=== PATIENT | male | born 1955 | race American Indian/Alaskan Native ===

== ENCOUNTER 2016-11-01 15:30 | Inpatient (IN) | payer MEDICARE ==
[2016-11-01] MEDS ORDERED: DULCOLAX PR PRN (16:41)
[2016-11-01] MEDS ORDERED: SENOKOT PO PRN (16:41)
--- NOTE | 2016-11-01 17:01 | History and Physical Report ---
History of Present Illness Date: 11/01/16 Referring Facility: [facility] Date of admission: 11/01/16 15:30 Chief Complaint: acute/subacute left ANGELA CVA History of present illness: POST ADMISSION PHYSICIAN EVALUATION ONSET DATE: 10/29/2016 IMPAIRMENT GROUP CODE: 01.2 ETIOLOGIC DIAGNOSIS: acute/subacute left ANGELA CVA STATUS CHANGES SINCE PREADMISSION SCREENING: PAS has been reviewed. In comparison, pt with increased drainage at right ear with associated complaints of dizziness. Also with increased weakness at right extremities representing evolution of CVA vs decreased effort. Pt continues with ongoing functional deficits secondary to acute CVA. Pt remains an appropriate candidate for IRU admission. PREVIOUS FUNCTIONAL STATUS: Independent with ADLs, gait, transfers CURRENT FUNCTIONAL STATUS: S/U to modA for ADLs; Lance/CGA for gait HPI 61 y.o. right handed male who reports acute onset of right LE weakness and subsequent fall at home; BP 191/88 on admission. Pt found to have an acute/ subacute left ANGELA CVA. Acute care course notable for intermittent headache and dizziness; right ear drainage; acute renal failure; SBP ranging from 162-200/80- 106. Pt continued with right sided weakness with functional deficits and is now admitted to IRU for aggressive therapies and ongoing medical management. Past History Past Medical History: arthritis, COPD, GERD, hypertension, other (chronic back pain) Past Surgical History: Other (shoulder surgery; neck surgery) Social history: single, lives with family (brother), smoking. denies: alcohol abuse Family history: diabetes, hypertension, stroke Medications and Allergies Allergies Allergy/AdvReac Type Severity Reaction Status Date / Time No Known Allergies Allergy Verified 03/25/15 12:10 Home Medications Medication Instructions Recorded Confirmed Last Taken Type Pantoprazole [Protonix TAB] 40 mg PO QDAY #60 tablet 09/29/14 11/01/16 Unknown Rx Aspirin EC [Aspirin Enteric Coated 81 mg PO QDAY #30 tablet. 11/01/16 Unknown Rx TAB] Hydrochlorothiazide [HCTZ] 25 mg PO QDAY #30 tablet 11/01/16 11/01/16 Unknown Rx Lisinopril [Zestril TAB] 40 mg PO QDAY #30 tablet 11/01/16 11/01/16 Unknown Rx NIFEdipine XL [Procardia Xl] 60 mg PO QDAY tablet 11/01/16 11/01/16 Unknown Rx Nicotine [Habitrol] 14 mg TD QDAY patch 11/01/16 11/01/16 Unknown Rx Simvastatin [Zocor TAB] 10 mg PO QHS tablet 11/01/16 11/01/16 Unknown Rx Active Meds: Active Medications Acetaminophen (Tylenol) 650 mg PO Q4H PRN PRN Reason: Pain MILD(1-3)/Fever >100.5/CLEARY Aspirin (Aspirin) 325 mg PO QDAY MAIK Bisacodyl (Dulcolax) 10 mg AK QDAY PRN PRN Reason: Constipation unrelieved by MOM Heparin Sodium (Porcine) (Heparin) 5,000 unit SUB-Q Q12HR MAIK Hydrochlorothiazide (Hctz) 25 mg PO QDAY MAIK Lisinopril (Zestril) 40 mg PO QDAY MAIK Nicotine (Habitrol) 14 mg TD QDAY MAIK Nifedipine (Procardia Xl) 60 mg PO QDAY MAIK Pantoprazole Sodium (Protonix) 40 mg PO QDAY MAIK Senna (Senokot) 8.6 mg PO Q12H PRN PRN Reason: Laxative Effect Simvastatin (Zocor) 10 mg PO QHS MAIK Review of Systems All systems: negative Ears, nose, mouth and throat: ear pain, ear discharge, decreased hearing, headache Cardiovascular: lightheadedness Gastrointestinal: constipation, no nausea, no vomiting Neurological: weakness (right extremities) Exam - Constitutional General appearance: no acute distress - EENT Eyes: EOM intact ENT: hearing decreased (+discharge from right ear) - Neck Neck: supple - Respiratory Respiratory effort: normal Respiratory: bilateral: CTA - Cardiovascular Rhythm: regular Heart Sounds: Present: S1 & S2 - Extremities Extremities: No edema - Gastrointestinal General gastrointestinal: Present: soft, non-tender, non-distended, normal bowel sounds - Integumentary Integumentary: Present: clear - Musculoskeletal Musculoskeletal: right sided weakness (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 right handed male with acute/subacute left ANGELA CVA, right hemiparesis, gait dysfunction; acute renal failure; right otitis media. The patient is medically stable, however, requires ongoing medical management. Pt is appropriate for inpatient rehabilitation admission and is thought to be able to tolerate at least 3 hours of therapy a day, 5 days a week including 1 hour of physical therapy, 1 hour of occupational therapy, and 1 hour of speech therapy. Patient is able to understand and follow basic directions and has attainable rehab goals. Potential barriers/complications include extension/recurrent CVA, falls, syncope, depression, DVT, PE, parasthesias, spasticity, worsening renal failure, sepsis, hypotension. Plan 1. Rehabilitation- Pt will undergo multidisciplinary/integrative rehab PT/OT/ TRIMMING CUTTER, Nursing. Areas to be addressed include, but are not limited to PT for mobility, strengthening, transfer training, ROM, endurance, stairs, balance; OT for ADLs, household tasks, adaptive equipment; TRIMMING CUTTER for cognitive evaluation; Nursing for carryover of therapies, pain control, education, skin integrity, medication management, bowel/bladder management; Nutrition as needed; ambulatory services representative for discharge planning and equipment needs. Potential interventions include appropriate assistive device or adaptive equipment; may require right AFO for foot drop. Expected overall level of functional improvement by discharge is Marc to supervision for ADLs, supervision for transfers and gait. Pt will tentatively be discharged home with outpatient PT/OT. Estimated length of stay is 1-2 weeks. 2. s/p CVA- ASA, statin 3. HTN- continue current regimen; follow to avoid hypotension 4. right otitis media- start augmentin x 7days 5. GERD- continue protonix 6. tobacco abuse- nicotine patch 7. Chronic pain syndrome- history of chronic back pain, prn percocet 8. DVT px- heparin - Patient Problems (1) Acute left ANGELA ischemic stroke Current Visit: Yes Status: Acute (2) Abnormality of gait following cerebrovascular accident (CVA) Current Visit: No Status: Acute (3) Hemiparesis affecting right side as late effect of cerebrovascular accident Current Visit: No Status: Acute (4) Acute renal failure Current Visit: Yes Status: Acute Qualifiers: Acute renal failure type: with acute tubular necrosis Qualified Code(s): N17.0 - Acute kidney failure with tubular necrosis (5) HTN (hypertension) Current Visit: Yes Status: Chronic Qualifiers: Hypertension type: essential hypertension Qualified Code(s): I10 - Essential (primary) hypertension (6) GERD (gastroesophageal reflux disease) Current Visit: Yes Status: Chronic Qualifiers: Esophagitis presence: without esophagitis Qualified Code(s): K21.9 - Gastro -esophageal reflux disease without esophagitis (7) Tobacco abuse Current Visit: Yes Status: Chronic (8) Chronic pain syndrome Current Visit: Yes Status: Chronic
[2016-11-01] MEDS: PERCOCET 5/325 PO PRN (19:57)
[2016-11-01] MEDS: ZOCOR PO SCH (21:00)
[2016-11-01] MEDS: AUGMENTIN 875 MG PO SCH (22:38)
[2016-11-01] MEDS: HEPARIN SUB-Q SCH (22:39)
[2016-11-02 05:23] LABS: Basophils % (Auto) 0.6 % (0.0-1.8); Eosinophils % (Auto) 0.2 % (0.0-4.3); Hematocrit 29.9 % (35.5-45.6); Hemoglobin 9.7 gm/dl (11.8-15.2); Mean Corpuscular HGB Conc 33 % (32-34); Mean Corpuscular Hemoglobin 30 pg (28-32); Mean Corpuscular Volume 94 fl (84-94); Platelet Count 285 K/mm3 (140-440); Red Cell Distribution Width 13.1 % (13.2-15.2); White Blood Count 12.5 K/mm3 (4.5-11.0)
[2016-11-02 05:47] LABS: Albumin/Globulin Ratio 0.8 %; BUN/Creatinine Ratio 11.36; Bilirubin,Total 0.4 mg/dL (0.1-1.2); Calcium 8.6 mg/dL (8.4-10.2); Chloride 101.6 mmol/L (98-107); Potassium 4.5 mmol/L (3.6-5.0); Total Protein 6.7 g/dL (6.3-8.2)
[2016-11-02] MEDS ORDERED: ZESTRIL PO SCH (08:00)
[2016-11-02] MEDS ORDERED: HCTZ PO SCH (08:00)
[2016-11-02] MEDS: PERCOCET 5/325 PO PRN ×3 (10:10→23:15)
[2016-11-02] MEDS: PROCARDIA XL PO SCH (10:11)
[2016-11-02] MEDS: AUGMENTIN 875 MG PO SCH (10:11)
[2016-11-02] MEDS: ASPIRIN PO SCH (10:11)
[2016-11-02] MEDS: HABITROL TD SCH (10:11)
[2016-11-02] MEDS: PROTONIX PO SCH (10:11)
[2016-11-02] MEDS: HEPARIN SUB-Q SCH ×2 (10:12→21:11)
--- NOTE | 2016-11-02 14:48 | Progress Note ---
Assessment and Plan 61 y.o. right handed male with acute/subacute left ANGELA CVA, right hemiparesis, gait dysfunction; acute renal failure; right otitis media - s/p CVA- ASA, statin - HTN- continue procardia - right otitis media- augmentin through 11/08; noted leukocytosis and fever overnight - acute renal failure- hold lisinopril and HCTZ; follow - anemia- follow - DVT px- heparin - recheck labs, 11/04 - Patient Problems (1) Acute left ANGELA ischemic stroke Current Visit: Yes Status: Acute (2) Abnormality of gait following cerebrovascular accident (CVA) Current Visit: No Status: Acute (3) Hemiparesis affecting right side as late effect of cerebrovascular accident Current Visit: No Status: Acute (4) Acute renal failure Current Visit: Yes Status: Acute Qualifiers: Acute renal failure type: with acute tubular necrosis Qualified Code(s): N17.0 - Acute kidney failure with tubular necrosis (5) HTN (hypertension) Current Visit: Yes Status: Chronic Qualifiers: Hypertension type: essential hypertension Qualified Code(s): I10 - Essential (primary) hypertension Subjective Date of service: 11/02/16 Principal diagnosis: acute/subacute left ANGELA CVA Interval history: Pt seen in room this AM, F/U IPR course, acute/subacute left ANGELA CVA. Pt continues with right ear pain; low grade temp overnight Objective - Constitutional Vitals: Vital Signs - 12hr 11/02/16 07:30 Temperature 97.8 F Pulse Rate [ 104 H Left Brachial] Respiratory 20 Rate Blood Pressure 139/73 [Left Arm] O2 Sat by Pulse 100 Oximetry General appearance: Present: mild distress (ear pain) - EENT Eyes: EOM intact ENT: hearing decreased, poor dentition - Neck Neck: supple, normal ROM - Respiratory Respiratory effort: normal Respiratory: bilateral: CTA - Cardiovascular Rhythm: regular Heart Sounds: Present: S1 & S2 Extremities: No edema - Gastrointestinal General gastrointestinal: Present: soft, non-tender, non-distended, normal bowel sounds - Integumentary Integumentary: dry - Musculoskeletal Musculoskeletal: right sided weakness (3/5 RUE; no active movement at RLE) - Neurologic Neurologic: CNII-XII intact - Psychiatric Psychiatric: cooperative (flat affect) - Allied health notes Allied health notes reviewed: PT (modA for bed mobility) - Labs CBC & Chem 7: 11/02/16 04:09 11/02/16 04:09 Labs: Abnormal lab results 11/02/16 11/02/16 Range/Units 04:09 04:09 WBC 12.5 H (4.5-11.0) K/mm3 RBC 3.20 L (3.65-5.03) M/mm3 Hgb 9.7 L (11.8-15.2) gm/dl Hct 29.9 L (35.5-45.6) % RDW 13.1 L (13.2-15.2) % Clinch # 0.9 H (0.0-0.8) K/mm3 Seg Neutrophils % 77.2 H (40.0-70.0) % Seg Neutrophils # 9.7 H (1.8-7.7) K/mm3 Sodium 136 L (137-145) mmol/L Carbon Dioxide 19 L (22-30) mmol/L BUN 25 H (9-20) mg/dL Creatinine 2.2 H (0.8-1.5) mg/dL Glucose 107 H (75-100) mg/dL Albumin 3.0 L (3.9-5) g/dL
[2016-11-02] MEDS: ZOCOR PO SCH (21:10)
[2016-11-02] MEDS: AUGMENTIN 500 MG PO SCH (21:11)
[2016-11-03] MEDS: ASPIRIN PO SCH (09:08)
[2016-11-03] MEDS: PROTONIX PO SCH (09:09)
[2016-11-03] MEDS: AUGMENTIN 500 MG PO SCH ×2 (09:09→21:24)
[2016-11-03] MEDS: HABITROL TD SCH (09:09)
[2016-11-03] MEDS: PROCARDIA XL PO SCH (09:10)
[2016-11-03] MEDS: HEPARIN SUB-Q SCH ×2 (09:11→21:25)
--- NOTE | 2016-11-03 16:24 | Progress Note ---
Assessment and Plan 61 y.o. right handed male with acute/subacute left ANGELA CVA, right hemiparesis, gait dysfunction; acute renal failure; right otitis media - s/p CVA- ASA, statin - HTN- stable on procardia - right otitis media- augmentin through 11/08; repeat labs in AM, no further fever - acute renal failure- recheck labs in AM - anemia- labs in AM - DVT px- heparin - team conference held this AM- pt is continent of B/B; last BM on Monday; improving ear pain, ongoing weakness and functional deficits; modA for bed mobility and transfers, maxA 50 feet for gait, maxA for stairs; max for memory and problem solving. - Patient Problems (1) Acute left ANGELA ischemic stroke Current Visit: Yes Status: Acute (2) Abnormality of gait following cerebrovascular accident (CVA) Current Visit: No Status: Acute (3) Hemiparesis affecting right side as late effect of cerebrovascular accident Current Visit: No Status: Acute (4) Acute renal failure Current Visit: Yes Status: Acute Qualifiers: Acute renal failure type: with acute tubular necrosis Qualified Code(s): N17.0 - Acute kidney failure with tubular necrosis (5) HTN (hypertension) Current Visit: Yes Status: Chronic Qualifiers: Hypertension type: essential hypertension Qualified Code(s): I10 - Essential (primary) hypertension (6) Right acute otitis media Current Visit: Yes Status: Acute Subjective Date of service: 11/03/16 Principal diagnosis: acute/subacute left ANGELA CVA Interval history: Pt seen in room this afternoon, F/U IPR course, acute/subacute left ANGELA CVA. Right ear pain reported to be improving, less drainage Objective - Constitutional Vitals: Vital Signs - 12hr 11/03/16 11/03/16 08:00 16:00 Temperature 97.7 F 97.7 F Pulse Rate [ 83 91 H Left Brachial] Respiratory 20 20 Rate Blood Pressure 137/77 124/69 [Left Arm] O2 Sat by Pulse 99 98 Oximetry General appearance: Present: no acute distress - EENT Eyes: EOM intact ENT: hearing intact, other (no drainage appreciated in right ear during exam) - Neck Neck: supple, normal ROM - Respiratory Respiratory effort: normal Extremities: No edema - Musculoskeletal Musculoskeletal: right sided weakness - Neurologic Neurologic: CNII-XII intact - Psychiatric Psychiatric: cooperative (flat affect) - Labs CBC & Chem 7: 11/02/16 04:09 11/02/16 04:09
[2016-11-03] MEDS: TYLENOL PO PRN (19:48)
[2016-11-03] MEDS: ZOCOR PO SCH (21:24)
[2016-11-04 05:19] LABS: Hematocrit 29.8 % (35.5-45.6); Hemoglobin 9.8 gm/dl (11.8-15.2); Mean Corpuscular HGB Conc 33 % (32-34); Mean Corpuscular Hemoglobin 30 pg (28-32); Mean Corpuscular Volume 93 fl (84-94); Platelet Count 354 K/mm3 (140-440); Red Blood Count 3.22 M/mm3 (3.65-5.03); Red Cell Distribution Width 13.1 % (13.2-15.2)
[2016-11-04 05:31] LABS: BUN/Creatinine Ratio 14.23; Calcium 8.6 mg/dL (8.4-10.2); Chloride 98.3 mmol/L (98-107); Potassium 4.3 mmol/L (3.6-5.0)
[2016-11-04] MEDS: AUGMENTIN 500 MG PO SCH ×2 (09:56→22:45)
[2016-11-04] MEDS: HABITROL TD SCH (09:57)
[2016-11-04] MEDS: ASPIRIN PO SCH (09:58)
[2016-11-04] MEDS: PROCARDIA XL PO SCH (09:58)
[2016-11-04] MEDS: PROTONIX PO SCH (09:58)
[2016-11-04] MEDS: HEPARIN SUB-Q SCH ×2 (09:59→22:45)
--- NOTE | 2016-11-04 12:12 | Progress Note ---
Assessment and Plan 61 y.o. right handed male with acute/subacute left ANGELA CVA, right hemiparesis, gait dysfunction; acute renal failure; right otitis media - s/p CVA- ASA, statin - HTN- stable on procardia - right otitis media- augmentin through 11/08; leukocytosis has resolved - acute renal failure- worsening; initiated on IVF; recheck in AM - anemia- stable - hyponatremia- follow - DVT px- heparin - Patient Problems (1) Acute left ANGELA ischemic stroke Current Visit: Yes Status: Acute (2) Abnormality of gait following cerebrovascular accident (CVA) Current Visit: No Status: Acute (3) Hemiparesis affecting right side as late effect of cerebrovascular accident Current Visit: No Status: Acute (4) Acute renal failure Current Visit: Yes Status: Acute Qualifiers: Acute renal failure type: with acute tubular necrosis Qualified Code(s): N17.0 - Acute kidney failure with tubular necrosis (5) HTN (hypertension) Current Visit: Yes Status: Chronic Qualifiers: Hypertension type: essential hypertension Qualified Code(s): I10 - Essential (primary) hypertension (6) Right acute otitis media Current Visit: Yes Status: Acute (7) Hyponatremia Current Visit: Yes Status: Acute Subjective Date of service: 11/04/16 Principal diagnosis: acute/subacute left ANGELA CVA Interval history: Pt seen in PT gym and in room on today, F/U IPR course, acute/subacute left ANGELA CVA. Right ear pain continues to improve; no drainage on today. Educated on need for IVF Objective - Constitutional Vitals: Vital Signs - 12hr 11/04/16 11/04/16 07:30 08:00 Temperature 98.7 F 97.6 F Pulse Rate [ 91 H 95 H Left Brachial] Respiratory 18 20 Rate Blood Pressure 147/75 151/80 [Left Arm] O2 Sat by Pulse 99 100 Oximetry General appearance: Present: no acute distress - EENT Eyes: EOM intact ENT: hearing intact - Neck Neck: supple, normal ROM - Respiratory Respiratory effort: normal Extremities: No edema - Musculoskeletal Musculoskeletal: right sided weakness - Neurologic Neurologic: CNII-XII intact - Psychiatric Psychiatric: cooperative (flat affect) - Allied health notes Allied health notes reviewed: PT (modA for transfers and gait; ambulated up to 60 feet with HW), OT (supervision to [place] for ADLs) - Labs CBC & Chem 7: 11/04/16 04:07 11/04/16 04:07 Labs: Abnormal lab results 11/04/16 11/04/16 Range/Units 04:07 04:07 RBC 3.22 L (3.65-5.03) M/mm3 Hgb 9.8 L (11.8-15.2) gm/dl Hct 29.8 L (35.5-45.6) % RDW 13.1 L (13.2-15.2) % Sodium 133 L (137-145) mmol/L Carbon Dioxide 21 L (22-30) mmol/L BUN 37 H (9-20) mg/dL Creatinine 2.6 H (0.8-1.5) mg/dL
--- NOTE | 2016-11-04 12:58 | IRU Plan of Care ---
Interdisciplinary Plan of Care - IP IRU INTERDISCIPLINARY PLAN: [facility] Inpatient Rehab Unit Plan of Care IRU Interdisciplinary Care Plan Start: 11/01/16 16: 30 Freq: Admission then PRN Status: Active Document 11/04/16 10:06 DB (Rec: 11/04/16 10:14 DB [id number]) Interdisciplinary Problem List Interdisciplinary Problem List Interdisciplinary Problem List Impaired Bathing/Grooming Query Text:Answers will Trigger Problems Impaired Dressing and Outcomes on Worklist. Impaired Mobility Impaired Transfers Impaired Toileting Impaired Comprehension Impaired Problem Solving Impaired Memory Pain Management Knowledge Deficits Impaired Safety Medications Education IRU Interdisciplinary Care Plan Therapy Services Therapy Services Will Include: Physical Therapy Query Text:Patient will be seen for a Occupational Therapy minimum of 3 hours of daily therapy 5 Speech Therapy out of 7 days a week. Therapy intensity may be adjusted within a 7 consecutive day period to effectively serve the individual needs of the patient. Treatment Frequency/Intensity/Duration Treatment Frequency 5 days per week Treatment Intensity 1 hour per discipline (PT/OT/ CORRECTIONAL THERAPY DIRECTOR) daily Treatment Duration 10-14 days Problem Area: Eating/Swallowing Eating/Swallowing Outcomes Eating/Swallowing Interventions Problem Area: Bathing/Grooming Bathing/Grooming Outcomes Improve Sikes w/ Grooming Improve Sikes w/ Bathing Bathing/Grooming Interventions ADL Training Therapeutic Exercise Therapeutic Activity Neuromuscular Re-Education Balance Work Activity Tolerance Work Patient/Caregiver Education Problem Area: Dressing Dressing Outcomes Improve Sikes w/ UB Dressing Improve Sikes w/ LB Dressing Dressing Interventions ADL Training Use of Assistive Devices Neuromuscular Re-Education Therapeutic Exercise Balance Work Patient/Caregiver Education Problem Area: Mobility Mobility Outcomes Improve Sikes w/ Bed Mobility Improve Sikes w/ Ambulation Improve Sikes w/ Stairs /Curb Improve Sikes w/ Wheelchair Mobility Interventions Therapeutic Exercise Neuromuscular Re-Ed. Modalities Use of Assistive Devices Patient/Caregiver Education Bed Mobility Work Gait Training W/C Mobility Work Problem Area: Transfers Transfers Outcomes Improve Sikes w/ Bed Transfers Improve Sikes w/ Toilet Transfers Improve Sikes w/ Tub/ Shower Transfers Improve Sikes w/ Car Transfers Transfers Interventions Transfer Training Therapeutic Exercise Neuromuscular Re-Education Visual/Perceptual Training Activity Tolerance Work Use of Assistive Devices Patient/Caregiver Education Problem Area: Bowel/Bladder Managment Bowel/Bladder Outcomes Remain free of UTI Bowel/Bladder Interventions Patient/Caregiver Education Problem Area: Toileting Toileting Outcomes Improve Sikes w/ Toileting Toileting Interventions ADL Training Balance Work Use of Assistive Devices Patient/Caregiver Education Problem Area: Nutrition Nutrition Outcomes Understand and Comply w/ Diet Improve/Maintain Oral Intake Nutrition Interventions Nutritional Counseling Monitor Nutrient Intake Patient/Caregiver Education Problem Area: Comprehension Comprehension Outcomes Improve Comprehension Follow Commands Improve Communication Comprehension Interventions Receptive Language Tasks Patient/Caregiver Education Problem Area: Expression Expression Outcomes Improve Verbalization Expression Interventions Expressive Language Writing Tasks Patient/Caregiver Education Problem Area: Problem Solving Problem Solving Outcomes Improve Problem Solving Problem Solving Interventions Cognitive Training Visual/Perceptual Training Safety Education Patient/Caregiver Education Problem Area: Memory Memory Outcomes Use Memory Aids Memory Interventions Cognitive Training Use of Assistive Devices ( Memory Book, etc,) Review of Precautions Patient/Caregiver Education Problem Area: Pain Management Pain Management Outcomes Demonstrate/Verbalize Pain Strategies Pain Management Interventions Medication Management Positioning/Turning Patient/Caregiver Education Problem Area: Knowledge Deficits Knowledge Deficits Outcomes Verbalize Precautions Verbalize Understanding of S/S of Stroke Knowledge Deficits Interventions Disease/Injury/Sx. Intervention Education Medication Use Education Disease Management Education Health Maintainence Education Safety Education Energy Conservation Education Problem Area: Skin/Tissue Integrity Skin/Tissue Integrity Outcomes Demonstrate Understanding of Pressure Relief Skin/Tissue Integrity Interventions Pressure Relief Instruction Positioning/Turning Problem Area: Social Interaction Social Interaction Outcomes Social Interaction Interventions Problem Area: Adjustment to Disability Adjustment to Disability Outcomes Adjustment to Disability Interventions Problem Area: Discharge Concerns Discharge Concerns Outcomes Discharge Home w/ Necessary Equipment Have Home Health/Outpatient Services Discharge Concerns Interventions Discharge Planning Family/Caregiver Conference Family/Caregiver Training Problem Area: Community Reintegration Community Reintegration Outcomes Demonstrate Understanding of Community Resources Community Reintegration Interventions Provide Community Resources Problem Area: Home Management Home Management Outcomes Improve Sikes w/ Home Management Home Management Interventions Money Management Tasks Meal Preparation Clothing Care Activity Tolerance Work Leisure Skills Development House Cleaning Shopping Telephone Use Patient/Caregiver Education Problem Area: Safety Safety Outcomes Provide Safe Environment Perform Selfcare Safely Safety Interventions Identify Fall Risk Gay Pt. to Environment Reduce Environmental Hazards Problem Area: Medication Education Medication Education Outcomes Patient/Caregiver will Verbalize Understanding of Medications Medication Education Interventions Explain Administration/Side Effects/Interactions Problem Area: Diabetes Education Diabetes Education Outcomes Diabetes Education Interventions Problem Area: Oxygenation Oxygenation Outcomes Oxygenation Interventions Problem Area: Cardiovascular Cardiovascular Outcomes Cardiovascular Interventions Physician Only Medical Prognosis and Rehabilitation Patient demonstrates good Potential (Completed by Physician) rehab potential. Medical Prognosis: Good This plan of care has been developed based on the findings from the pre- admission assessment, post admission physician evaluation, information gathered from the assessments from all therapy disciplines and other pertinent clinicians. The plan of care has been reviewed and discussed in collaboration with the interdisciplinary team. The plan of care will be reviewed and updated at least weekly. 61 y.o. right handed male with acute/subacute left ANGELA CVA, right hemiparesis, gait dysfunction; acute renal failure; right otitis media. The patient remains at risk for extension/recurrent CVA, falls, syncope, depression, DVT, PE, parasthesias, spasticity, worsening renal failure, sepsis, hypotension. Right ear drainage and pain have improved with antibiotics; renal function, however, has worsening, IVF ordered. BP is currently stable. Pt continues with right sided weakness and functional deficits. Pt remains an appropriate candidate for IRU admission.
[2016-11-04] MEDS: COLACE PO SCH ×2 (14:31→22:45)
[2016-11-04] MEDS: NACL 0.9% 1000 ML 1,000 ML IV SCH (16:50)
[2016-11-04] MEDS: TYLENOL PO PRN (20:00)
[2016-11-04] MEDS: ZOCOR PO SCH (22:25)
[2016-11-05 05:29] LABS: BUN/Creatinine Ratio 16.52; Calcium 8.8 mg/dL (8.4-10.2); Chloride 101.6 mmol/L (98-107); Potassium 4.3 mmol/L (3.6-5.0)
[2016-11-05] MEDS: NACL 0.9% 1000 ML 1,000 ML IV SCH ×2 (06:30→21:45)
[2016-11-05] MEDS ORDERED: PROCARDIA XL PO SCH (09:00)
[2016-11-05] MEDS: HABITROL TD SCH (09:43)
[2016-11-05] MEDS: COLACE PO SCH ×2 (09:44→21:10)
[2016-11-05] MEDS: AUGMENTIN 500 MG PO SCH ×2 (09:44→21:09)
[2016-11-05] MEDS: ASPIRIN PO SCH (09:44)
[2016-11-05] MEDS: PROTONIX PO SCH (09:45)
[2016-11-05] MEDS: HEPARIN SUB-Q SCH ×2 (09:45→22:00)
[2016-11-05] MEDS: PROCARDIA XL PO SCH ×2 (09:46→14:02)
--- NOTE | 2016-11-05 11:37 | Progress Note ---
Assessment and Plan 61 y.o. right handed male with acute/subacute left ANGELA CVA, right hemiparesis, gait dysfunction; acute renal failure; right otitis media - s/p CVA- ASA, statin - HTN- procardia increased on today; follow - right otitis media- augmentin through 11/08; drainage has resolved - acute renal failure- creatinine slightly improved; IVF - hyponatremia- resolved - DVT px- heparin - Patient Problems (1) Acute left ANGELA ischemic stroke Current Visit: Yes Status: Acute (2) Abnormality of gait following cerebrovascular accident (CVA) Current Visit: No Status: Acute (3) Hemiparesis affecting right side as late effect of cerebrovascular accident Current Visit: No Status: Acute (4) Acute renal failure Current Visit: Yes Status: Acute Qualifiers: Acute renal failure type: with acute tubular necrosis Qualified Code(s): N17.0 - Acute kidney failure with tubular necrosis (5) HTN (hypertension) Current Visit: Yes Status: Chronic Qualifiers: Hypertension type: essential hypertension Qualified Code(s): I10 - Essential (primary) hypertension (6) Right acute otitis media Current Visit: Yes Status: Acute Subjective Date of service: 11/05/16 Principal diagnosis: acute/subacute left ANGELA CVA Interval history: Pt seen in room on today, F/U IPR course, acute/subacute left ANGELA CVA. Pt denies any pain on today; educated regarding ongoing hydration Objective - Constitutional Vitals: Vital Signs - 12hr 11/05/16 08:31 Pulse Rate [ 95 H Left Brachial] Respiratory 18 Rate Blood Pressure 170/81 [Left Arm] General appearance: Present: no acute distress - EENT Eyes: EOM intact ENT: hearing intact, other (no drainage at right ear) - Neck Neck: supple, normal ROM - Respiratory Respiratory effort: normal Extremities: No edema - Integumentary Integumentary: clear - Neurologic Neurologic: CNII-XII intact - Psychiatric Psychiatric: appropriate mood/affect, cooperative - Allied health notes Allied health notes reviewed: PT (CGA transfers) - Labs CBC & Chem 7: 11/04/16 04:07 11/05/16 04:08 Labs: Abnormal lab results 11/05/16 Range/Units 04:08 Carbon Dioxide 20 L (22-30) mmol/L BUN 38 H (9-20) mg/dL Creatinine 2.3 H (0.8-1.5) mg/dL
[2016-11-05] MEDS: TYLENOL PO PRN (20:50)
[2016-11-05] MEDS: ZOCOR PO SCH (21:10)
[2016-11-06] MEDS: PERCOCET 5/325 PO PRN (01:20)
[2016-11-06 05:41] LABS: BUN/Creatinine Ratio 17.5; Calcium 8.6 mg/dL (8.4-10.2); Chloride 103.6 mmol/L (98-107); Potassium 4.4 mmol/L (3.6-5.0)
[2016-11-06] MEDS: TYLENOL PO PRN ×2 (06:54→18:27)
[2016-11-06 08:57] LABS: Basophils % (Auto) 0.9 % (0.0-1.8); Eosinophils % (Auto) 0.4 % (0.0-4.3); Hematocrit 27.2 % (35.5-45.6); Hemoglobin 8.9 gm/dl (11.8-15.2); Mean Corpuscular HGB Conc 33 % (32-34); Mean Corpuscular Hemoglobin 30 pg (28-32); Mean Corpuscular Volume 92 fl (84-94); Platelet Count 377 K/mm3 (140-440); Red Blood Count 2.96 M/mm3 (3.65-5.03); Red Cell Distribution Width 13.1 % (13.2-15.2); White Blood Count 15.5 K/mm3 (4.5-11.0)
--- NOTE | 2016-11-06 09:35 | Consultation ---
History of Present Illness - Reason for Consult Consult date: 11/06/16 AMS, aphasic Requesting physician: MEGHNA CEDEÑO - History of Present Illness 61 y.o. right handed male who experienced acute onset of right LE weakness and subsequent fall at home. Patient's BP 191/88 on admission. He was found to have an acute/subacute left ANGELA CVA. Acute care course notable for intermittent headache and dizziness; right ear drainage; acute renal failure; SBP ranging from 162-200/80-106. Pt continued with right sided weakness with functional deficits and was admitted to IRU for aggressive therapies and ongoing medical management. This morning, on 11/06/16, nursing reports patient with some difficulty speaking. Nursing described an expressive aphasia worsening right lower extremity weakness. Nurse reports the patient had difficulty formulating his words and repetition/name calling. Upon my evaluation and interview, the aphasic symptoms have resolved. However, right lower extremity weakness remains. Nursing reports that it is more pronounced than previous. Patient responds to questions appropriately without difficulty. Past History Past Medical History: arthritis, COPD, GERD, hypertension, other (chronic back pain) Past Surgical History: Other (shoulder surgery; neck surgery) Social history: single, lives with family (brother), smoking. denies: alcohol abuse Family history: diabetes, hypertension, stroke Medications and Allergies Allergies Allergy/AdvReac Type Severity Reaction Status Date / Time No Known Allergies Allergy Verified 03/25/15 12:10 Home Medications Medication Instructions Recorded Confirmed Last Taken Type Pantoprazole [Protonix TAB] 40 mg PO QDAY #60 tablet 09/29/14 11/01/16 Unknown Rx Aspirin EC [Aspirin Enteric Coated 81 mg PO QDAY #30 tablet. 11/01/16 Unknown Rx TAB] Hydrochlorothiazide [HCTZ] 25 mg PO QDAY #30 tablet 11/01/16 11/01/16 Unknown Rx Lisinopril [Zestril TAB] 40 mg PO QDAY #30 tablet 11/01/16 11/01/16 Unknown Rx NIFEdipine XL [Procardia Xl] 60 mg PO QDAY tablet 11/01/16 11/01/16 Unknown Rx Nicotine [Habitrol] 14 mg TD QDAY patch 11/01/16 11/01/16 Unknown Rx Simvastatin [Zocor TAB] 10 mg PO QHS tablet 11/01/16 11/01/16 Unknown Rx Active Meds: Active Medications Acetaminophen (Tylenol) 650 mg PO Q4H PRN PRN Reason: Pain MILD(1-3)/Fever >100.5/CLEARY Last Admin: 11/06/16 06:54 Dose: 650 mg Amoxicillin/Clavulanate Potassium (Augmentin 500 Mg) 1 each PO Q12HR [facility] Stop: 11/08/16 10:59 Last Admin: 11/05/16 21:09 Dose: 1 each Aspirin (Aspirin) 325 mg PO QDAY [facility] Last Admin: 11/05/16 09:44 Dose: 325 mg Bisacodyl (Dulcolax) 10 mg VA QDAY PRN PRN Reason: Constipation unrelieved by MOM Docusate Sodium (Colace) 100 mg PO BID [facility] Last Admin: 11/05/16 21:10 Dose: 100 mg Heparin Sodium (Porcine) (Heparin) 5,000 unit SUB-Q Q12HR [facility] Last Admin: 11/05/16 22:00 Dose: 5,000 unit Sodium Chloride (Nacl 0.9% 1000 Ml) 1,000 mls @ 75 mls/hr IV DIRECT [facility] Last Admin: 11/05/16 21:45 Dose: 75 mls/hr Nicotine (Habitrol) 14 mg TD QDAY [facility] Last Admin: 11/05/16 09:43 Dose: 14 mg Nifedipine (Procardia Xl) 90 mg PO QDAY [facility] Last Admin: 11/05/16 14:02 Dose: 90 mg Oxycodone/Acetaminophen (Percocet 5/325) 1 tab PO Q6H PRN PRN Reason: Pain, Moderate (4-6) Last Admin: 11/06/16 01:20 Dose: 1 tab Pantoprazole Sodium (Protonix) 40 mg PO QDAY [facility] Last Admin: 11/05/16 09:45 Dose: 40 mg Senna (Senokot) 8.6 mg PO Q12H PRN PRN Reason: Laxative Effect Last Admin: 11/04/16 10:05 Dose: 8.6 mg Simvastatin (Zocor) 10 mg PO QHS [facility] Last Admin: 11/05/16 21:10 Dose: 10 mg Review of Systems All systems: negative Exam - Constitutional Vitals: Temp Pulse Resp BP Pulse Ox 101.3 F H 92 H 20 160/80 100 11/06/16 07:13 11/06/16 07:13 11/06/16 07:13 11/06/16 07:13 11/06/16 07:13 General appearance: Present: no acute distress, well-nourished - EENT Eyes: Present: PERRL ENT: hearing intact, clear oral mucosa - Neck Neck: Present: supple, normal ROM - Respiratory Respiratory effort: normal Respiratory: bilateral: CTA - Cardiovascular Heart Sounds: Present: S1 & S2. Absent: rub, click - Extremities Extremities: pulses symmetrical, No edema Peripheral Pulses: within normal limits - Abdominal General gastrointestinal: Present: soft, non-tender, non-distended, normal bowel sounds Male genitourinary: Present: normal - Integumentary Integumentary: Present: clear, warm, dry - Musculoskeletal Musculoskeletal: other (no active movement of right lower extremity) - Psychiatric Psychiatric: appropriate mood/affect, intact judgment & insight - Neurologic Neurologic: CNII-XII intact, moves all extremities Results - Labs CBC & Chem 7: 11/06/16 08:44 11/06/16 04:43 Labs: Abnormal lab results 11/06/16 11/06/16 Range/Units 04:43 08:44 WBC 15.5 H (4.5-11.0) K/mm3 RBC 2.96 L (3.65-5.03) M/mm3 Hgb 8.9 L (11.8-15.2) gm/dl Hct 27.2 L (35.5-45.6) % RDW 13.1 L (13.2-15.2) % Lymph % (Auto) 9.4 L (13.4-35.0) % [place] % (Auto) 8.8 H (0.0-7.3) % [place] # 1.4 H (0.0-0.8) K/mm3 Seg Neutrophils % 80.5 H (40.0-70.0) % Seg Neutrophils # 12.4 H (1.8-7.7) K/mm3 Carbon Dioxide 19 L (22-30) mmol/L BUN 35 H (9-20) mg/dL Creatinine 2.0 H (0.8-1.5) mg/dL Assessment and Plan 1. Acute encephalopathy. Resolved. Etiology may be secondary to acute/ subacute/chronic CVA/late effects. We will obtain stat CT scan of the head for further evaluation. Patient has Percocet ordered but apparently did not receive it per nursing. Other possible etiologies may be related to sepsis given leukocytosis and fever. 2. Acute left ANGELA ischemic CVA. As above. Continue current management. 3. Hypertension. Continue antihypertensive medications. 4. Sepsis. Patient meets criteria given the otitis media, fever and leukocytosis. Start Sepsis pathway. Check blood cultures and trend lactic acid levels. Change antibiotics IV. 5. Acute on chronic kidney disease. Patient with a baseline creatinine of 1.5 in February 2015. IV fluid hydration and follow-up BMP in the morning. Consider renal ultrasound. 6. Right acute otitis media. Continue antibiotics.
[2016-11-06] MEDS: COLACE PO SCH ×2 (09:39→23:08)
[2016-11-06] MEDS: PROTONIX PO SCH (09:39)
[2016-11-06] MEDS: AUGMENTIN 500 MG PO SCH (09:40)
[2016-11-06] MEDS: HEPARIN SUB-Q SCH ×2 (09:40→23:07)
[2016-11-06] MEDS: PROCARDIA XL PO SCH (09:40)
[2016-11-06] MEDS: ASPIRIN PO SCH (09:40)
[2016-11-06] MEDS: HABITROL TD SCH (09:55)
[2016-11-06] MEDS ORDERED: NACL 0.9% 1000 ML 1,000 ML IV SCH (10:00)
[2016-11-06] MEDS: ZOSYN/NS 4.5GM/100ML 4.5 GM/100 ML VIAL IV SCH ×2 (14:30→19:16)
[2016-11-06] MEDS: ZOCOR PO SCH (23:08)
[2016-11-07] MEDS: ZOSYN/NS 4.5GM/100ML 4.5 GM/100 ML VIAL IV SCH ×2 (05:43)
[2016-11-07 06:37] LABS: BUN/Creatinine Ratio 13.04; Chloride 102.9 mmol/L (98-107); Potassium 4.4 mmol/L (3.6-5.0)
[2016-11-07] MEDS: ASPIRIN PO SCH (10:18)
[2016-11-07] MEDS: PROTONIX PO SCH (10:18)
[2016-11-07] MEDS: PROCARDIA XL PO SCH (10:18)
[2016-11-07] MEDS: COLACE PO SCH ×2 (10:18→23:32)
[2016-11-07] MEDS: HABITROL TD SCH (10:19)
[2016-11-07] MEDS: HEPARIN SUB-Q SCH ×2 (10:19→23:25)
[2016-11-07] MEDS: ZOSYN/NS 2.25 GM/50ML 2.25 GM/50 ML BAG IV SCH ×3 (12:06→23:30)
--- NOTE | 2016-11-07 14:13 | Progress Note ---
Assessment and Plan Assessment and plan: 1. Acute encephalopathy. Resolved. 2. Acute left ANGELA ischemic CVA. As above. Continue current management. 3. Hypertension. Continue antihypertensive medications. 4. Sepsis. Patient meets criteria given the otitis media, fever and leukocytosis. Cont. Sepsis pathway. F/U blood cultures and trend lactic acid levels. Change antibiotics IV. 5. Acute on chronic kidney disease. Patient with a baseline creatinine of 1.5 in February 2015. IV fluid hydration and follow-up BMP in the morning. Consider renal ultrasound. 6. Right acute otitis media. Continue antibiotics. History Interval history: No new issues overnight. Hospitalist Physical - Constitutional Vitals: Temp Pulse Resp BP Pulse Ox 99.6 F 98 H 16 143/77 100 11/07/16 09:24 11/07/16 10:00 11/07/16 08:00 11/07/16 08:00 11/07/16 10:00 General appearance: Present: no acute distress, well-nourished - EENT Eyes: Present: PERRL, EOM intact ENT: hearing intact, clear oral mucosa, dentition normal - Neck Neck: Present: supple, normal ROM - Respiratory Respiratory effort: normal Respiratory: bilateral: CTA - Cardiovascular Rhythm: regular Heart Sounds: Present: S1 & S2. Absent: gallop, rub - Extremities Extremities: no ischemia, No edema, Full ROM - Abdominal General gastrointestinal: soft, non-tender, non-distended, normal bowel sounds - Integumentary Integumentary: Present: clear, warm, dry - Neurologic Neurologic: CNII-XII intact, moves all extremities Results - Labs CBC & Chem 7: 11/06/16 08:44 11/07/16 05:44 Labs: Laboratory Last Values WBC 15.5 K/mm3 (4.5-11.0) H 11/06/16 08:44 RBC 2.96 M/mm3 (3.65-5.03) L 11/06/16 08:44 Hgb 8.9 gm/dl (11.8-15.2) L 11/06/16 08:44 Hct 27.2 % (35.5-45.6) L 11/06/16 08:44 MCV 92 fl (84-94) 11/06/16 08:44 MCH 30 pg (28-32) 11/06/16 08:44 MCHC 33 % (32-34) 11/06/16 08:44 RDW 13.1 % (13.2-15.2) L 11/06/16 08:44 Plt Count 377 K/mm3 (140-440) 11/06/16 08:44 Lymph % (Auto) 9.4 % (13.4-35.0) L 11/06/16 08:44 [place] % (Auto) 8.8 % (0.0-7.3) H 11/06/16 08:44 Eos % (Auto) 0.4 % (0.0-4.3) 11/06/16 08:44 Baso % (Auto) 0.9 % (0.0-1.8) 11/06/16 08:44 Lymph # 1.5 K/mm3 (1.2-5.4) 11/06/16 08:44 [place] # 1.4 K/mm3 (0.0-0.8) H 11/06/16 08:44 Eos # 0.1 K/mm3 (0.0-0.4) 11/06/16 08:44 Baso # 0.1 K/mm3 (0.0-0.1) 11/06/16 08:44 Seg Neutrophils % 80.5 % (40.0-70.0) H 11/06/16 08:44 Seg Neutrophils # 12.4 K/mm3 (1.8-7.7) H 11/06/16 08:44 Sodium 138 mmol/L (137-145) 11/07/16 05:44 Potassium 4.4 mmol/L (3.6-5.0) 11/07/16 05:44 Chloride 102.9 mmol/L (98-107) 11/07/16 05:44 Carbon Dioxide 20 mmol/L (22-30) L 11/07/16 05:44 Anion Gap 20 mmol/L 11/07/16 05:44 BUN 30 mg/dL (9-20) H 11/07/16 05:44 Creatinine 2.3 mg/dL (0.8-1.5) H 11/07/16 05:44 Estimated GFR 35 ml/min 11/07/16 05:44 BUN/Creatinine Ratio 13.04 % 11/07/16 05:44 Glucose 124 mg/dL (75-100) H 11/07/16 05:44 Lactic Acid 1.3 mmol/L (0.7-2.0) 11/06/16 13:16 Calcium 9.0 mg/dL (8.4-10.2) 11/07/16 05:44 Total Bilirubin 0.4 mg/dL (0.1-1.2) 11/02/16 04:09 AST 18 units/L (5-40) 11/02/16 04:09 ALT 10 units/L (7-56) 11/02/16 04:09 Alkaline Phosphatase 52 units/L (35-129) 11/02/16 04:09 Total Protein 6.7 g/dL (6.3-8.2) 11/02/16 04:09 Albumin 3.0 g/dL (3.9-5) L 11/02/16 04:09 Albumin/Globulin Ratio 0.8 % 11/02/16 04:09
--- NOTE | 2016-11-07 14:49 | Progress Note ---
Assessment and Plan 61 y.o. right handed male with acute/subacute left ANGELA CVA, right hemiparesis - s/p CVA- ASA, statin - gait dysfunction- ongoing gait, balance, and transfer training with PT - HTN- stable - right otitis media- febrile over weekend; hospitalist consulted, ABX changed from oral to IV; blood cultures negative to date - acute renal failure- slowly improving - DVT px- heparin - Patient Problems (1) Acute left ANGELA ischemic stroke Current Visit: Yes Status: Acute (2) Abnormality of gait following cerebrovascular accident (CVA) Current Visit: No Status: Acute (3) Hemiparesis affecting right side as late effect of cerebrovascular accident Current Visit: No Status: Acute (4) Acute renal failure Current Visit: Yes Status: Acute Qualifiers: Acute renal failure type: with acute tubular necrosis Qualified Code(s): N17.0 - Acute kidney failure with tubular necrosis (5) HTN (hypertension) Current Visit: Yes Status: Chronic Qualifiers: Hypertension type: essential hypertension Qualified Code(s): I10 - Essential (primary) hypertension (6) Right acute otitis media Current Visit: Yes Status: Acute Subjective Date of service: 11/07/16 Principal diagnosis: acute/subacute left ANGELA CVA Interval history: Pt seen in room this AM, F/U IPR course, acute/subacute left ANGELA CVA. Pt reports some abdominal pain on today, ?heparin injection site; fever over weekend Objective - Constitutional Vitals: Vital Signs - 12hr 11/07/16 11/07/16 11/07/16 08:00 09:24 10:00 Temperature 100.6 F H 99.6 F Pulse Rate [ 98 H From Monitor] Pulse Rate [ 98 H Right Brachial] Respiratory 16 Rate Blood Pressure 143/77 [Right Arm] O2 Sat by Pulse 100 100 Oximetry General appearance: Present: no acute distress, other (sitting up in bed) - EENT Eyes: EOM intact ENT: hearing intact - Neck Neck: supple, normal ROM - Respiratory Respiratory effort: normal Respiratory: bilateral: CTA - Cardiovascular Rhythm: regular Heart Sounds: Present: S1 & S2 Extremities: No edema - Gastrointestinal General gastrointestinal: Present: soft, tender (RLQ; mild bruising noted at area of tenderness), non-distended, normal bowel sounds - Integumentary Integumentary: clear - Musculoskeletal Musculoskeletal: right sided weakness (2/5 RUE; trace hp flexion on RLE) - Neurologic Neurologic: CNII-XII intact - Psychiatric Psychiatric: cooperative (flat affect) - Allied health notes Allied health notes reviewed: nursing (supervision to ambrosioA for ADLs), PT (CGA for transfers; ambulating 80 feet with HW) - Labs CBC & Chem 7: 11/06/16 08:44 11/07/16 05:44 Labs: Abnormal lab results 11/07/16 Range/Units 05:44 Carbon Dioxide 20 L (22-30) mmol/L BUN 30 H (9-20) mg/dL Creatinine 2.3 H (0.8-1.5) mg/dL Glucose 124 H (75-100) mg/dL
[2016-11-07] MEDS: ZOCOR PO SCH (23:33)
[2016-11-08] MEDS: ZOSYN/NS 2.25 GM/50ML 2.25 GM/50 ML BAG IV SCH (05:50)
[2016-11-08] MEDS: PROTONIX PO SCH (09:56)
[2016-11-08] MEDS: HABITROL TD SCH (09:56)
[2016-11-08] MEDS: PROCARDIA XL PO SCH (09:56)
[2016-11-08] MEDS: ASPIRIN PO SCH (09:56)
[2016-11-08] MEDS: COLACE PO SCH ×2 (10:00→22:13)
[2016-11-08] MEDS: HEPARIN SUB-Q SCH ×2 (12:56→22:14)
--- NOTE | 2016-11-08 16:09 | Progress Note ---
Assessment and Plan 61 y.o. right handed male with acute/subacute left ANGELA CVA, right hemiparesis - s/p CVA- ASA, statin - gait dysfunction- Lance for gait and transfers; 50 feet maxA on evaluation, now ambulating up to 130 feet with Lance - HTN- elevated overnight; follow off IVF; adjust meds as needed - right otitis media- blood cultures negative; afebrile >24 hours; IV Zosyn discontinued and Augmentin resumed on today - acute renal failure- slowly improving - DVT px- heparin - Patient Problems (1) Acute left ANGELA ischemic stroke Current Visit: Yes Status: Acute (2) Abnormality of gait following cerebrovascular accident (CVA) Current Visit: No Status: Acute (3) Hemiparesis affecting right side as late effect of cerebrovascular accident Current Visit: No Status: Acute (4) Acute renal failure Current Visit: Yes Status: Acute Qualifiers: Acute renal failure type: with acute tubular necrosis Qualified Code(s): N17.0 - Acute kidney failure with tubular necrosis (5) HTN (hypertension) Current Visit: Yes Status: Chronic Qualifiers: Hypertension type: essential hypertension Qualified Code(s): I10 - Essential (primary) hypertension (6) Right acute otitis media Current Visit: Yes Status: Acute Subjective Date of service: 11/08/16 Principal diagnosis: acute/subacute left ANGELA CVA Interval history: Pt seen in room this AM, F/U IPR course, acute/subacute left ANGELA CVA. no further abdominal pain reported Objective - Constitutional Vitals: Vital Signs - 12hr 11/08/16 08:00 Temperature 97.6 F Pulse Rate [ 86 Right Brachial] Respiratory 18 Rate Blood Pressure 152/83 [Right Arm] O2 Sat by Pulse 100 Oximetry General appearance: Present: no acute distress, other (sitting up in WC) - EENT Eyes: EOM intact ENT: hearing intact - Neck Neck: supple, normal ROM - Respiratory Respiratory effort: normal Extremities: No edema - Integumentary Integumentary: clear - Musculoskeletal Musculoskeletal: right sided weakness - Neurologic Neurologic: CNII-XII intact - Psychiatric Psychiatric: appropriate mood/affect, cooperative - Allied health notes Allied health notes reviewed: PT (Lance for transfers and gait; supervision for wheelchair mobility) - Labs CBC & Chem 7: 11/06/16 08:44 11/07/16 05:44
--- NOTE | 2016-11-08 16:41 | Progress Note ---
Assessment and Plan Assessment and plan: 1. HTN, uncontrolled add LEE I 2. CKD creatinine is stable, continue to monitor 3. Right acute otitis media dc zosyn and place on augmentin x 7days History Interval history: He feels well and has no complaints Hospitalist Physical - Physical exam Narrative exam: General: Patient appears well in no distress HEENT: MMM, EOMI cardiac: S1-S2 heard lungs: clear to auscultation, abdomen: soft, nontender, nondistended bowel sounds positive extremities: no edema clubbing or cyanosis Skin: no rash or lesion Neuro: Right lower extremity weakness Psych: appropriate behavior and mood, cognition intact - Constitutional Vitals: Temp Pulse Resp BP Pulse Ox 97.6 F 86 18 152/83 100 11/08/16 08:00 11/08/16 08:00 11/08/16 08:00 11/08/16 08:00 11/08/16 08:00 General appearance: Present: no acute distress, other (sitting up in WC) Results - Labs CBC & Chem 7: 11/09/16 04:51 11/09/16 04:51 Labs: Laboratory Last Values WBC 15.5 K/mm3 (4.5-11.0) H 11/06/16 08:44 RBC 2.96 M/mm3 (3.65-5.03) L 11/06/16 08:44 Hgb 8.9 gm/dl (11.8-15.2) L 11/06/16 08:44 Hct 27.2 % (35.5-45.6) L 11/06/16 08:44 MCV 92 fl (84-94) 11/06/16 08:44 MCH 30 pg (28-32) 11/06/16 08:44 MCHC 33 % (32-34) 11/06/16 08:44 RDW 13.1 % (13.2-15.2) L 11/06/16 08:44 Plt Count 377 K/mm3 (140-440) 11/06/16 08:44 Lymph % (Auto) 9.4 % (13.4-35.0) L 11/06/16 08:44 [place] % (Auto) 8.8 % (0.0-7.3) H 11/06/16 08:44 Eos % (Auto) 0.4 % (0.0-4.3) 11/06/16 08:44 Baso % (Auto) 0.9 % (0.0-1.8) 11/06/16 08:44 Lymph # 1.5 K/mm3 (1.2-5.4) 11/06/16 08:44 [place] # 1.4 K/mm3 (0.0-0.8) H 11/06/16 08:44 Eos # 0.1 K/mm3 (0.0-0.4) 11/06/16 08:44 Baso # 0.1 K/mm3 (0.0-0.1) 11/06/16 08:44 Seg Neutrophils % 80.5 % (40.0-70.0) H 11/06/16 08:44 Seg Neutrophils # 12.4 K/mm3 (1.8-7.7) H 11/06/16 08:44 Sodium 138 mmol/L (137-145) 11/07/16 05:44 Potassium 4.4 mmol/L (3.6-5.0) 11/07/16 05:44 Chloride 102.9 mmol/L (98-107) 11/07/16 05:44 Carbon Dioxide 20 mmol/L (22-30) L 11/07/16 05:44 Anion Gap 20 mmol/L 11/07/16 05:44 BUN 30 mg/dL (9-20) H 11/07/16 05:44 Creatinine 2.3 mg/dL (0.8-1.5) H 11/07/16 05:44 Estimated GFR 35 ml/min 11/07/16 05:44 BUN/Creatinine Ratio 13.04 % 11/07/16 05:44 Glucose 124 mg/dL (75-100) H 11/07/16 05:44 Lactic Acid 1.3 mmol/L (0.7-2.0) 11/06/16 13:16 Calcium 9.0 mg/dL (8.4-10.2) 11/07/16 05:44 Total Bilirubin 0.4 mg/dL (0.1-1.2) 11/02/16 04:09 AST 18 units/L (5-40) 11/02/16 04:09 ALT 10 units/L (7-56) 11/02/16 04:09 Alkaline Phosphatase 52 units/L (35-129) 11/02/16 04:09 Total Protein 6.7 g/dL (6.3-8.2) 11/02/16 04:09 Albumin 3.0 g/dL (3.9-5) L 11/02/16 04:09 Albumin/Globulin Ratio 0.8 % 11/02/16 04:09
[2016-11-08] MEDS: ZOCOR PO SCH (20:40)
[2016-11-08] MEDS: AUGMENTIN 875 MG PO SCH (22:13)
[2016-11-09 05:12] LABS: Hematocrit 25.7 % (35.5-45.6); Hemoglobin 8.3 gm/dl (11.8-15.2); Mean Corpuscular HGB Conc 32 % (32-34); Mean Corpuscular Hemoglobin 30 pg (28-32); Mean Corpuscular Volume 91 fl (84-94); Platelet Count 485 K/mm3 (140-440); Red Blood Count 2.82 M/mm3 (3.65-5.03); Red Cell Distribution Width 13.4 % (13.2-15.2); White Blood Count 9.2 K/mm3 (4.5-11.0)
[2016-11-09 05:30] LABS: BUN/Creatinine Ratio 11.73; Calcium 9.3 mg/dL (8.4-10.2); Chloride 102.5 mmol/L (98-107)
[2016-11-09] MEDS ORDERED: ZESTRIL PO SCH (08:00)
[2016-11-09] MEDS: PROCARDIA XL PO SCH (08:09)
[2016-11-09] MEDS: COLACE PO SCH ×2 (08:10→22:24)
[2016-11-09] MEDS: ASPIRIN PO SCH (08:10)
[2016-11-09] MEDS: HEPARIN SUB-Q SCH ×2 (10:00→22:27)
[2016-11-09] MEDS: HABITROL TD SCH (10:00)
[2016-11-09] MEDS: PROTONIX PO SCH (10:00)
[2016-11-09] MEDS: AUGMENTIN 875 MG PO SCH (12:30)
--- NOTE | 2016-11-09 15:14 | Progress Note ---
Assessment and Plan Assessment and plan: 1. HTN, uncontrolled Optimize medications 2. CKD creatinine is stable, continue to monitor 3. Right acute otitis media dc zosyn and place on augmentin x 7days 4. Normocytic anemia Obtain iron studies, check folate, B12 and ferritin levels If hemoglobin drops below 8 we'll need blood transfusion and GI consultation History Interval history: He feels well and has no complaints Hospitalist Physical - Physical exam Narrative exam: General: Patient appears well in no distress HEENT: MMM, EOMI cardiac: S1-S2 heard lungs: clear to auscultation, abdomen: soft, nontender, nondistended bowel sounds positive extremities: no edema clubbing or cyanosis Skin: no rash or lesion Neuro: Right lower extremity weakness Psych: appropriate behavior and mood, cognition intact - Constitutional Vitals: Temp Pulse Resp BP Pulse Ox 99.6 F 84 18 144/69 100 11/09/16 07:00 11/09/16 08:10 11/09/16 07:00 11/09/16 11:11 11/08/16 22:00 General appearance: Present: no acute distress, other (sitting up in WC) Results - Labs CBC & Chem 7: 11/09/16 04:51 11/09/16 04:51 Labs: Laboratory Last Values WBC 9.2 K/mm3 (4.5-11.0) 11/09/16 04:51 RBC 2.82 M/mm3 (3.65-5.03) L 11/09/16 04:51 Hgb 8.3 gm/dl (11.8-15.2) L 11/09/16 04:51 Hct 25.7 % (35.5-45.6) L 11/09/16 04:51 MCV 91 fl (84-94) 11/09/16 04:51 MCH 30 pg (28-32) 11/09/16 04:51 MCHC 32 % (32-34) 11/09/16 04:51 RDW 13.4 % (13.2-15.2) 11/09/16 04:51 Plt Count 485 K/mm3 (140-440) H 11/09/16 04:51 Lymph % (Auto) 9.4 % (13.4-35.0) L 11/06/16 08:44 [place] % (Auto) 8.8 % (0.0-7.3) H 11/06/16 08:44 Eos % (Auto) 0.4 % (0.0-4.3) 11/06/16 08:44 Baso % (Auto) 0.9 % (0.0-1.8) 11/06/16 08:44 Lymph # 1.5 K/mm3 (1.2-5.4) 11/06/16 08:44 [place] # 1.4 K/mm3 (0.0-0.8) H 11/06/16 08:44 Eos # 0.1 K/mm3 (0.0-0.4) 11/06/16 08:44 Baso # 0.1 K/mm3 (0.0-0.1) 11/06/16 08:44 Seg Neutrophils % 80.5 % (40.0-70.0) H 11/06/16 08:44 Seg Neutrophils # 12.4 K/mm3 (1.8-7.7) H 11/06/16 08:44 Sodium 139 mmol/L (137-145) 11/09/16 04:51 Potassium 4.0 mmol/L (3.6-5.0) 11/09/16 04:51 Chloride 102.5 mmol/L (98-107) 11/09/16 04:51 Carbon Dioxide 22 mmol/L (22-30) 11/09/16 04:51 Anion Gap 19 mmol/L 11/09/16 04:51 BUN 27 mg/dL (9-20) H 11/09/16 04:51 Creatinine 2.3 mg/dL (0.8-1.5) H 11/09/16 04:51 Estimated GFR 35 ml/min 11/09/16 04:51 BUN/Creatinine Ratio 11.73 % 11/09/16 04:51 Glucose 97 mg/dL (75-100) 11/09/16 04:51 Lactic Acid 1.3 mmol/L (0.7-2.0) 11/06/16 13:16 Calcium 9.3 mg/dL (8.4-10.2) 11/09/16 04:51 Total Bilirubin 0.4 mg/dL (0.1-1.2) 11/02/16 04:09 AST 18 units/L (5-40) 11/02/16 04:09 ALT 10 units/L (7-56) 11/02/16 04:09 Alkaline Phosphatase 52 units/L (35-129) 11/02/16 04:09 Total Protein 6.7 g/dL (6.3-8.2) 11/02/16 04:09 Albumin 3.0 g/dL (3.9-5) L 11/02/16 04:09 Albumin/Globulin Ratio 0.8 % 11/02/16 04:09
--- NOTE | 2016-11-09 16:37 | Progress Note ---
Assessment and Plan 61 y.o. right handed male with acute/subacute left ANGELA CVA, right hemiparesis - s/p CVA- ASA, statin - gait dysfunction- tolerating gait training with PT; will require right posterior AFO due to foot drop - HTN- stable - right otitis media- remains afebrile; continue Augmentin until 11/15 - acute renal failure- continues to improve - DVT px- heparin - Patient Problems (1) Acute left ANGELA ischemic stroke Current Visit: Yes Status: Acute (2) Abnormality of gait following cerebrovascular accident (CVA) Current Visit: No Status: Acute (3) Hemiparesis affecting right side as late effect of cerebrovascular accident Current Visit: No Status: Acute (4) Acute renal failure Current Visit: Yes Status: Acute Qualifiers: Acute renal failure type: with acute tubular necrosis Qualified Code(s): N17.0 - Acute kidney failure with tubular necrosis (5) HTN (hypertension) Current Visit: Yes Status: Chronic Qualifiers: Hypertension type: essential hypertension Qualified Code(s): I10 - Essential (primary) hypertension (6) Right acute otitis media Current Visit: Yes Status: Acute (7) Right foot drop Current Visit: Yes Status: Acute Subjective Date of service: 11/09/16 Principal diagnosis: acute/subacute left ANGELA CVA Interval history: Pt seen in therapy this AM, F/U IPR course, acute/subacute left ANGELA CVA. No acute events overnight; denies any pain or headache; continues to tolerate therapies Objective - Constitutional Vitals: Vital Signs - 12hr 11/09/16 11/09/16 11/09/16 07:00 08:10 11:11 Temperature 99.6 F Pulse Rate 84 Pulse Rate [ 84 Left Brachial] Respiratory 18 Rate Blood Pressure 152/96 Blood Pressure 152/96 144/69 [Right Arm] General appearance: Present: no acute distress, other (sitting up in WC) - EENT Eyes: EOM intact ENT: hearing intact, other (no drainage noted at right ear) - Neck Neck: supple, normal ROM - Respiratory Respiratory effort: normal Respiratory: bilateral: CTA - Cardiovascular Rhythm: regular Heart Sounds: Present: S1 & S2 Extremities: No edema - Gastrointestinal General gastrointestinal: Present: soft, non-tender, non-distended, normal bowel sounds - Integumentary Integumentary: clear - Musculoskeletal Musculoskeletal: right sided weakness - Neurologic Neurologic: CNII-XII intact - Psychiatric Psychiatric: cooperative (flat ) - Allied health notes Allied health notes reviewed: PT (Lance for transfers and gait), OT (s/u to modA for ADLs; min-modA for transfers) - Labs CBC & Chem 7: 11/09/16 04:51 11/09/16 04:51 Labs: Abnormal lab results 11/09/16 11/09/16 Range/Units 04:51 04:51 RBC 2.82 L (3.65-5.03) M/mm3 Hgb 8.3 L (11.8-15.2) gm/dl Hct 25.7 L (35.5-45.6) % Plt Count 485 H (140-440) K/mm3 BUN 27 H (9-20) mg/dL Creatinine 2.3 H (0.8-1.5) mg/dL
[2016-11-09] MEDS: TYLENOL PO PRN (19:39)
[2016-11-09] MEDS: ZOCOR PO SCH (20:16)
[2016-11-09] MEDS: AUGMENTIN 500 MG PO SCH (22:24)
[2016-11-09] MEDS: ZESTRIL PO SCH (22:25)
[2016-11-10 06:41] LABS: Hematocrit 24.4 % (35.5-45.6); Mean Corpuscular HGB Conc 33 % (32-34); Mean Corpuscular Hemoglobin 30 pg (28-32); Mean Corpuscular Volume 92 fl (84-94); Platelet Count 457 K/mm3 (140-440); Red Blood Count 2.66 M/mm3 (3.65-5.03); Red Cell Distribution Width 13.5 % (13.2-15.2); White Blood Count 6.6 K/mm3 (4.5-11.0)
[2016-11-10 06:42] LABS: BUN/Creatinine Ratio 14.34; Calcium 8.9 mg/dL (8.4-10.2); Chloride 105.3 mmol/L (98-107); Potassium 4.1 mmol/L (3.6-5.0)
[2016-11-10 07:50] LABS: Anisocytosis 2+; Blastocytes % (Manual) 0 %; Hypochromasia 2+; Schistocytes Rare
[2016-11-10 07:51] LABS: Diff Status Complete
[2016-11-10] MEDS: ASPIRIN PO SCH (09:23)
[2016-11-10] MEDS: ZESTRIL PO SCH ×2 (09:24→21:25)
[2016-11-10] MEDS: COLACE PO SCH ×2 (09:24→21:25)
[2016-11-10] MEDS: PROTONIX PO SCH (09:25)
[2016-11-10] MEDS: AUGMENTIN 500 MG PO SCH ×2 (09:26→21:25)
[2016-11-10] MEDS: PROCARDIA XL PO SCH (09:26)
[2016-11-10] MEDS: HABITROL TD SCH (09:27)
[2016-11-10] MEDS: HEPARIN SUB-Q SCH (09:30)
--- NOTE | 2016-11-10 13:20 | Progress Note ---
Assessment and Plan 61 y.o. right handed male with acute/subacute left ANGELA CVA, right hemiparesis - s/p CVA- ASA, statin - gait dysfunction- chioma for gait; CGA-[place] for transfers; AFO ordered - HTN- follow on current regimen; may need to adjust regimen if renal function worsens - right otitis media- remains afebrile; continue Augmentin until 11/15 - acute renal failure- renal ultrasound obtained; continue to follow labs; pt denies any prior history of renal failure; consult Nephrology if worsens or with abnormal ultrasound - DVT px- heparin - team conference held on today, supervision for eating, grooming, UB dressing; [place] for remaining ADLs and transfers; ambulating 150 feet Chioma with RW and AFO ; SBA for bed mobility; supervision for wheelchair mobility; maxA for problem solving and memory. Barriers- right sided weakness, acute renal failure. Anticipated d/c 11/18 - Patient Problems (1) Acute left ANGELA ischemic stroke Current Visit: Yes Status: Acute (2) Abnormality of gait following cerebrovascular accident (CVA) Current Visit: No Status: Acute (3) Hemiparesis affecting right side as late effect of cerebrovascular accident Current Visit: No Status: Acute (4) Acute renal failure Current Visit: Yes Status: Acute Qualifiers: Acute renal failure type: with acute tubular necrosis Qualified Code(s): N17.0 - Acute kidney failure with tubular necrosis (5) HTN (hypertension) Current Visit: Yes Status: Chronic Qualifiers: Hypertension type: essential hypertension Qualified Code(s): I10 - Essential (primary) hypertension (6) Right acute otitis media Current Visit: Yes Status: Acute (7) Right foot drop Current Visit: Yes Status: Acute Subjective Date of service: 11/10/16 Principal diagnosis: acute/subacute left ANGELA CVA Interval history: Pt seen in room this AM, F/U IPR course, acute/subacute left ANGELA CVA. Labs reviewed; remains with impaired renal function; renal ultrasound obtained Objective - Constitutional Vitals: Vital Signs - 12hr 11/10/16 11/10/16 08:00 09:24 Temperature 98.4 F Pulse Rate 99 H Pulse Rate [ 99 H Apical] Respiratory 18 Rate Blood Pressure 139/71 Blood Pressure 139/71 [Left Arm] O2 Sat by Pulse 100 Oximetry General appearance: Present: no acute distress - EENT Eyes: EOM intact ENT: hearing intact - Neck Neck: supple, normal ROM - Respiratory Respiratory effort: normal Extremities: No edema - Integumentary Integumentary: clear - Musculoskeletal Musculoskeletal: right sided weakness - Neurologic Neurologic: CNII-XII intact - Psychiatric Psychiatric: appropriate mood/affect, cooperative - Labs CBC & Chem 7: 11/10/16 04:00 11/10/16 04:00 Labs: Abnormal lab results 11/10/16 11/10/16 Range/Units 04:00 04:00 RBC 2.66 L (3.65-5.03) M/mm3 Hgb 8.0 L (11.8-15.2) gm/dl Hct 24.4 L (35.5-45.6) % Plt Count 457 H (140-440) K/mm3 Seg Neuts % (Manual) 76.0 H (40.0-70.0) % Carbon Dioxide 20 L (22-30) mmol/L BUN 33 H (9-20) mg/dL Creatinine 2.3 H (0.8-1.5) mg/dL
--- NOTE | 2016-11-10 13:32 | Ultrasound Report ---
Renal sonogram: History: Acute kidney failure. Findings: Right kidney 8.2 x 4 x 4.6 cm. Cortical thickness 1 cm. Left kidney 8.9 x 5 x 5.2 cm. Cyst in the hilum of the kidney measures 1.7 x 1.4 x 1.5 cm. No evidence of hydronephrosis. Impression: Cyst left kidney.
--- NOTE | 2016-11-10 18:31 | Progress Note ---
Assessment and Plan Assessment and plan: 1. HTN, uncontrolled Optimize medications 2. CKD creatinine is stable, continue to monitor 3. Right acute otitis media dc zosyn and place on augmentin x 7days 4. Normocytic anemia Obtain iron studies, check folate, B12 and ferritin levels If hemoglobin drops below 8 we'll need blood transfusion and GI consultation History Interval history: denies blood in his stool Hospitalist Physical - Physical exam Narrative exam: General: Patient appears well in no distress HEENT: MMM, EOMI cardiac: S1-S2 heard lungs: clear to auscultation, abdomen: soft, nontender, nondistended bowel sounds positive extremities: no edema clubbing or cyanosis Skin: no rash or lesion Neuro: Right lower extremity weakness Psych: appropriate behavior and mood, cognition intact - Constitutional Vitals: Temp Pulse Resp BP Pulse Ox 98.4 F 99 H 18 139/71 100 11/10/16 08:00 11/10/16 10:00 11/10/16 08:00 11/10/16 09:24 11/10/16 08:00 General appearance: Present: no acute distress, other (sitting up in WC) Results - Labs CBC & Chem 7: 11/10/16 04:00 11/10/16 04:00 Labs: Laboratory Last Values WBC 6.6 K/mm3 (4.5-11.0) 11/10/16 04:00 RBC 2.66 M/mm3 (3.65-5.03) L 11/10/16 04:00 Hgb 8.0 gm/dl (11.8-15.2) L 11/10/16 04:00 Hct 24.4 % (35.5-45.6) L 11/10/16 04:00 MCV 92 fl (84-94) 11/10/16 04:00 MCH 30 pg (28-32) 11/10/16 04:00 MCHC 33 % (32-34) 11/10/16 04:00 RDW 13.5 % (13.2-15.2) 11/10/16 04:00 Plt Count 457 K/mm3 (140-440) H 11/10/16 04:00 Lymph % (Auto) 9.4 % (13.4-35.0) L 11/06/16 08:44 [place] % (Auto) 8.8 % (0.0-7.3) H 11/06/16 08:44 Eos % (Auto) 0.4 % (0.0-4.3) 11/06/16 08:44 Baso % (Auto) 0.9 % (0.0-1.8) 11/06/16 08:44 Lymph # 1.5 K/mm3 (1.2-5.4) 11/06/16 08:44 [place] # 1.4 K/mm3 (0.0-0.8) H 11/06/16 08:44 Eos # 0.1 K/mm3 (0.0-0.4) 11/06/16 08:44 Baso # 0.1 K/mm3 (0.0-0.1) 11/06/16 08:44 Add Manual Diff Complete 11/10/16 04:00 Total Counted 100 11/10/16 04:00 Seg Neutrophils % 80.5 % (40.0-70.0) H 11/06/16 08:44 Seg Neuts % (Manual) 76.0 % (40.0-70.0) H 11/10/16 04:00 Band Neutrophils % 0 % 11/10/16 04:00 Lymphocytes % (Manual) 18.0 % (13.4-35.0) 11/10/16 04:00 Reactive Lymphs % (Man) 0 % 11/10/16 04:00 Monocytes % (Manual) 4.0 % (0.0-7.3) 11/10/16 04:00 Eosinophils % (Manual) 1.0 % (0.0-4.3) 11/10/16 04:00 Basophils % (Manual) 1.0 % (0.0-1.8) 11/10/16 04:00 Metamyelocytes % 0 % 11/10/16 04:00 Myelocytes % 0 % 11/10/16 04:00 Promyelocytes % 0 % 11/10/16 04:00 Blast Cells % 0 % 11/10/16 04:00 Nucleated RBC % Not Reportable 11/10/16 04:00 Seg Neutrophils # 12.4 K/mm3 (1.8-7.7) H 11/06/16 08:44 Seg Neutrophils # Man 5.0 K/mm3 (1.8-7.7) 11/10/16 04:00 Band Neutrophils # 0.0 K/mm3 11/10/16 04:00 Lymphocytes # (Manual) 1.2 K/mm3 (1.2-5.4) 11/10/16 04:00 Abs React Lymphs (Man) 0.0 K/mm3 11/10/16 04:00 Monocytes # (Manual) 0.3 K/mm3 (0.0-0.8) 11/10/16 04:00 Eosinophils # (Manual) 0.1 K/mm3 (0.0-0.4) 11/10/16 04:00 Basophils # (Manual) 0.1 K/mm3 (0.0-0.1) 11/10/16 04:00 Metamyelocytes # 0.0 K/mm3 11/10/16 04:00 Myelocytes # 0.0 K/mm3 11/10/16 04:00 Promyelocytes # 0.0 K/mm3 11/10/16 04:00 Blast Cells # 0.0 K/mm3 11/10/16 04:00 WBC Morphology Not Reportable 11/10/16 04:00 Hypersegmented Neuts Not Reportable 11/10/16 04:00 Hyposegmented Neuts Not Reportable 11/10/16 04:00 Hypogranular Neuts Not Reportable 11/10/16 04:00 Smudge Cells Not Reportable 11/10/16 04:00 Toxic Granulation Not Reportable 11/10/16 04:00 Toxic Vacuolation Not Reportable 11/10/16 04:00 Dohle Bodies Not Reportable 11/10/16 04:00 Pelger-Huet Anomaly Not Reportable 11/10/16 04:00 Yoseph Rods Not Reportable 11/10/16 04:00 Platelet Estimate Appears normal 11/10/16 04:00 Clumped Platelets Not Reportable 11/10/16 04:00 Plt Clumps, EDTA Not Reportable 11/10/16 04:00 Large Platelets Not Reportable 11/10/16 04:00 Giant Platelets Not Reportable 11/10/16 04:00 Platelet Satelliting Not Reportable 11/10/16 04:00 Plt Morphology Comment Not Reportable 11/10/16 04:00 RBC Morphology Not Reportable 11/10/16 04:00 Dimorphic RBCs Not Reportable 11/10/16 04:00 Polychromasia Not Reportable 11/10/16 04:00 Hypochromasia 2+ 11/10/16 04:00 Poikilocytosis Not Reportable 11/10/16 04:00 Anisocytosis 2+ 11/10/16 04:00 Microcytosis Not Reportable 11/10/16 04:00 Macrocytosis Not Reportable 11/10/16 04:00 Spherocytes Not Reportable 11/10/16 04:00 Pappenheimer Bodies Not Reportable 11/10/16 04:00 Sickle Cells Not Reportable 11/10/16 04:00 Target Cells Not Reportable 11/10/16 04:00 Tear Drop Cells Not Reportable 11/10/16 04:00 Ovalocytes Not Reportable 11/10/16 04:00 Helmet Cells Not Reportable 11/10/16 04:00 [place] Bodies Not Reportable 11/10/16 04:00 [place] Rings Not Reportable 11/10/16 04:00 Ivis Cells Not Reportable 11/10/16 04:00 Bite Cells Not Reportable 11/10/16 04:00 Crenated Cell Not Reportable 11/10/16 04:00 Elliptocytes Not Reportable 11/10/16 04:00 Acanthocytes (Spur) Not Reportable 11/10/16 04:00 Rouleaux Not Reportable 11/10/16 04:00 Hemoglobin C Crystals Not Reportable 11/10/16 04:00 Schistocytes Rare 11/10/16 04:00 Malaria parasites Not Reportable 11/10/16 04:00 Jt Bodies Not Reportable 11/10/16 04:00 Hem Pathologist Commnt No 11/10/16 04:00 Sodium 142 mmol/L (137-145) 11/10/16 04:00 Potassium 4.1 mmol/L (3.6-5.0) 11/10/16 04:00 Chloride 105.3 mmol/L (98-107) 11/10/16 04:00 Carbon Dioxide 20 mmol/L (22-30) L 11/10/16 04:00 Anion Gap 21 mmol/L 11/10/16 04:00 BUN 33 mg/dL (9-20) H 11/10/16 04:00 Creatinine 2.3 mg/dL (0.8-1.5) H 11/10/16 04:00 Estimated GFR 35 ml/min 11/10/16 04:00 BUN/Creatinine Ratio 14.34 % 11/10/16 04:00 Glucose 84 mg/dL (75-100) 11/10/16 04:00 Lactic Acid 1.3 mmol/L (0.7-2.0) 11/06/16 13:16 Calcium 8.9 mg/dL (8.4-10.2) 11/10/16 04:00 Ferritin 72.3 ng/mL (13.0-400.0) 11/10/16 04:00 Total Bilirubin 0.4 mg/dL (0.1-1.2) 11/02/16 04:09 AST 18 units/L (5-40) 11/02/16 04:09 ALT 10 units/L (7-56) 11/02/16 04:09 Alkaline Phosphatase 52 units/L (35-129) 11/02/16 04:09 Total Protein 6.7 g/dL (6.3-8.2) 11/02/16 04:09 Albumin 3.0 g/dL (3.9-5) L 11/02/16 04:09 Albumin/Globulin Ratio 0.8 % 11/02/16 04:09 Vitamin B12 461.6 pg/mL (211-911) 11/10/16 04:00
[2016-11-10] MEDS: PERCOCET 5/325 PO PRN (21:26)
[2016-11-10] MEDS: ZOCOR PO SCH (21:26)
[2016-11-11] MEDS: HEPARIN SUB-Q SCH ×2 (00:03→09:05)
[2016-11-11 06:17] LABS: Hematocrit 23.1 % (35.5-45.6); Hemoglobin 7.5 gm/dl (11.8-15.2); Mean Corpuscular HGB Conc 33 % (32-34); Mean Corpuscular Hemoglobin 29 pg (28-32); Mean Corpuscular Volume 91 fl (84-94); Platelet Count 448 K/mm3 (140-440); Red Blood Count 2.55 M/mm3 (3.65-5.03); Red Cell Distribution Width 13.5 % (13.2-15.2); White Blood Count 14.2 K/mm3 (4.5-11.0)
[2016-11-11 08:55] LABS: Chloride 102.1 mmol/L (98-107); Potassium 4.2 mmol/L (3.6-5.0)
[2016-11-11] MEDS: HABITROL TD SCH (09:02)
[2016-11-11] MEDS: PROCARDIA XL PO SCH (09:03)
[2016-11-11] MEDS: COLACE PO SCH ×2 (09:03→23:31)
[2016-11-11] MEDS: AUGMENTIN 500 MG PO SCH ×2 (09:03→23:29)
[2016-11-11] MEDS: ASPIRIN PO SCH (09:03)
[2016-11-11] MEDS: PROTONIX PO SCH (09:04)
[2016-11-11] MEDS: ZESTRIL PO SCH ×2 (09:04→23:31)
[2016-11-11 12:21] LABS: Bilirubin,Urine NEG (Negative); Blood,Urine SM (Negative); Ketones,Urine NEG (Negative); Leukocyte Esterase,Urine NEG (Negative); Nitrite,Urine NEG (Negative); Urobilinogen,Urine < 2.0 mg/dL (<2.0); WBC,Urine < 1.0 /HPF (0.0-6.0)
--- NOTE | 2016-11-11 12:33 | Progress Note ---
Assessment and Plan Assessment and plan: 1. HTN, uncontrolled Optimize medications 2. CKD creatinine is stable, continue to monitor 3. Right acute otitis media dc zosyn and place on augmentin x 7days 4. Normocytic anemia , check folate, B12 and ferritin levels are wnl hemoglobin continues to drop, transfuse to keep hg above 7 GI consult for possible Endoscopy History Interval history: denies blood in his stool Hospitalist Physical - Physical exam Narrative exam: General: Patient appears well in no distress HEENT: MMM, EOMI cardiac: S1-S2 heard lungs: clear to auscultation, abdomen: soft, nontender, nondistended bowel sounds positive extremities: no edema clubbing or cyanosis Skin: no rash or lesion Neuro: Right lower extremity weakness Psych: appropriate behavior and mood, cognition intact - Constitutional Vitals: Temp Pulse Resp BP Pulse Ox 99.5 F 96 H 18 145/78 98 11/11/16 07:13 11/11/16 09:04 11/11/16 07:13 11/11/16 09:04 11/11/16 07:13 General appearance: Present: no acute distress, other (sitting up in WC) Results - Labs CBC & Chem 7: 11/12/16 04:22 11/12/16 04:22 Labs: Laboratory Last Values WBC 14.2 K/mm3 (4.5-11.0) H 11/11/16 05:26 RBC 2.55 M/mm3 (3.65-5.03) L 11/11/16 05:26 Hgb 7.5 gm/dl (11.8-15.2) L 11/11/16 05:26 Hct 23.1 % (35.5-45.6) L 11/11/16 05:26 MCV 91 fl (84-94) 11/11/16 05:26 MCH 29 pg (28-32) 11/11/16 05:26 MCHC 33 % (32-34) 11/11/16 05:26 RDW 13.5 % (13.2-15.2) 11/11/16 05:26 Plt Count 448 K/mm3 (140-440) H 11/11/16 05:26 Lymph % (Auto) 9.4 % (13.4-35.0) L 11/06/16 08:44 [place] % (Auto) 8.8 % (0.0-7.3) H 11/06/16 08:44 Eos % (Auto) 0.4 % (0.0-4.3) 11/06/16 08:44 Baso % (Auto) 0.9 % (0.0-1.8) 11/06/16 08:44 Lymph # 1.5 K/mm3 (1.2-5.4) 11/06/16 08:44 [place] # 1.4 K/mm3 (0.0-0.8) H 11/06/16 08:44 Eos # 0.1 K/mm3 (0.0-0.4) 11/06/16 08:44 Baso # 0.1 K/mm3 (0.0-0.1) 11/06/16 08:44 Add Manual Diff Complete 11/10/16 04:00 Total Counted 100 11/10/16 04:00 Seg Neutrophils % 80.5 % (40.0-70.0) H 11/06/16 08:44 Seg Neuts % (Manual) 76.0 % (40.0-70.0) H 11/10/16 04:00 Band Neutrophils % 0 % 11/10/16 04:00 Lymphocytes % (Manual) 18.0 % (13.4-35.0) 11/10/16 04:00 Reactive Lymphs % (Man) 0 % 11/10/16 04:00 Monocytes % (Manual) 4.0 % (0.0-7.3) 11/10/16 04:00 Eosinophils % (Manual) 1.0 % (0.0-4.3) 11/10/16 04:00 Basophils % (Manual) 1.0 % (0.0-1.8) 11/10/16 04:00 Metamyelocytes % 0 % 11/10/16 04:00 Myelocytes % 0 % 11/10/16 04:00 Promyelocytes % 0 % 11/10/16 04:00 Blast Cells % 0 % 11/10/16 04:00 Nucleated RBC % Not Reportable 11/10/16 04:00 Seg Neutrophils # 12.4 K/mm3 (1.8-7.7) H 11/06/16 08:44 Seg Neutrophils # Man 5.0 K/mm3 (1.8-7.7) 11/10/16 04:00 Band Neutrophils # 0.0 K/mm3 11/10/16 04:00 Lymphocytes # (Manual) 1.2 K/mm3 (1.2-5.4) 11/10/16 04:00 Abs React Lymphs (Man) 0.0 K/mm3 11/10/16 04:00 Monocytes # (Manual) 0.3 K/mm3 (0.0-0.8) 11/10/16 04:00 Eosinophils # (Manual) 0.1 K/mm3 (0.0-0.4) 11/10/16 04:00 Basophils # (Manual) 0.1 K/mm3 (0.0-0.1) 11/10/16 04:00 Metamyelocytes # 0.0 K/mm3 11/10/16 04:00 Myelocytes # 0.0 K/mm3 11/10/16 04:00 Promyelocytes # 0.0 K/mm3 11/10/16 04:00 Blast Cells # 0.0 K/mm3 11/10/16 04:00 WBC Morphology Not Reportable 11/10/16 04:00 Hypersegmented Neuts Not Reportable 11/10/16 04:00 Hyposegmented Neuts Not Reportable 11/10/16 04:00 Hypogranular Neuts Not Reportable 11/10/16 04:00 Smudge Cells Not Reportable 11/10/16 04:00 Toxic Granulation Not Reportable 11/10/16 04:00 Toxic Vacuolation Not Reportable 11/10/16 04:00 Dohle Bodies Not Reportable 11/10/16 04:00 Pelger-Huet Anomaly Not Reportable 11/10/16 04:00 Yoseph Rods Not Reportable 11/10/16 04:00 Platelet Estimate Appears normal 11/10/16 04:00 Clumped Platelets Not Reportable 11/10/16 04:00 Plt Clumps, EDTA Not Reportable 11/10/16 04:00 Large Platelets Not Reportable 11/10/16 04:00 Giant Platelets Not Reportable 11/10/16 04:00 Platelet Satelliting Not Reportable 11/10/16 04:00 Plt Morphology Comment Not Reportable 11/10/16 04:00 RBC Morphology Not Reportable 11/10/16 04:00 Dimorphic RBCs Not Reportable 11/10/16 04:00 Polychromasia Not Reportable 11/10/16 04:00 Hypochromasia 2+ 11/10/16 04:00 Poikilocytosis Not Reportable 11/10/16 04:00 Anisocytosis 2+ 11/10/16 04:00 Microcytosis Not Reportable 11/10/16 04:00 Macrocytosis Not Reportable 11/10/16 04:00 Spherocytes Not Reportable 11/10/16 04:00 Pappenheimer Bodies Not Reportable 11/10/16 04:00 Sickle Cells Not Reportable 11/10/16 04:00 Target Cells Not Reportable 11/10/16 04:00 Tear Drop Cells Not Reportable 11/10/16 04:00 Ovalocytes Not Reportable 11/10/16 04:00 Helmet Cells Not Reportable 11/10/16 04:00 [place] Bodies Not Reportable 11/10/16 04:00 [place] Rings Not Reportable 11/10/16 04:00 Ivis Cells Not Reportable 11/10/16 04:00 Bite Cells Not Reportable 11/10/16 04:00 Crenated Cell Not Reportable 11/10/16 04:00 Elliptocytes Not Reportable 11/10/16 04:00 Acanthocytes (Spur) Not Reportable 11/10/16 04:00 Rouleaux Not Reportable 11/10/16 04:00 Hemoglobin C Crystals Not Reportable 11/10/16 04:00 Schistocytes Rare 11/10/16 04:00 Malaria parasites Not Reportable 11/10/16 04:00 Tj Bodies Not Reportable 11/10/16 04:00 Hem Pathologist Commnt No 11/10/16 04:00 Sodium 137 mmol/L (137-145) 11/11/16 05:26 Potassium 4.2 mmol/L (3.6-5.0) 11/11/16 05:26 Chloride 102.1 mmol/L (98-107) 11/11/16 05:26 Carbon Dioxide 20 mmol/L (22-30) L 11/11/16 05:26 Anion Gap 19 mmol/L 11/11/16 05:26 BUN 36 mg/dL (9-20) H 11/11/16 05:26 Creatinine 2.4 mg/dL (0.8-1.5) H 11/11/16 05:26 Estimated GFR 33 ml/min 11/11/16 05:26 BUN/Creatinine Ratio 15.00 % 11/11/16 05:26 Glucose 111 mg/dL (75-100) H 11/11/16 05:26 Lactic Acid 1.3 mmol/L (0.7-2.0) 11/06/16 13:16 Calcium 9.0 mg/dL (8.4-10.2) 11/11/16 05:26 Ferritin 72.3 ng/mL (13.0-400.0) 11/10/16 04:00 Total Bilirubin 0.4 mg/dL (0.1-1.2) 11/02/16 04:09 AST 18 units/L (5-40) 11/02/16 04:09 ALT 10 units/L (7-56) 11/02/16 04:09 Alkaline Phosphatase 52 units/L (35-129) 11/02/16 04:09 Total Protein 6.7 g/dL (6.3-8.2) 11/02/16 04:09 Albumin 3.0 g/dL (3.9-5) L 11/02/16 04:09 Albumin/Globulin Ratio 0.8 % 11/02/16 04:09 Vitamin B12 461.6 pg/mL (211-911) 11/10/16 04:00 Urine Color Yellow (Yellow) 11/11/16 Unknown Urine Turbidity Clear (Clear) 11/11/16 Unknown Urine pH 5.0 (5.0-7.0) 11/11/16 Unknown Ur Specific [place] 1.015 (1.003-1.030) 11/11/16 Unknown Urine Protein 100 mg/dl mg/dL (Negative) 11/11/16 Unknown Urine Glucose (UA) Neg mg/dL (Negative) 11/11/16 Unknown Urine Ketones Neg mg/dL (Negative) 11/11/16 Unknown Urine Blood Sm (Negative) 11/11/16 Unknown Urine Nitrite Neg (Negative) 11/11/16 Unknown Urine Bilirubin Neg (Negative) 11/11/16 Unknown Urine Urobilinogen < 2.0 mg/dL (<2.0) 11/11/16 Unknown Ur Leukocyte Esterase Neg (Negative) 11/11/16 Unknown Urine WBC (Auto) < 1.0 /HPF (0.0-6.0) 11/11/16 Unknown Urine RBC (Auto) 3.0 /HPF (0.0-6.0) 11/11/16 Unknown U Epithel Cells (Auto) < 1.0 /HPF (0-13.0) 11/11/16 Unknown Hyaline Casts 1 /LPF 11/11/16 Unknown
--- NOTE | 2016-11-11 14:23 | Progress Note ---
Assessment and Plan 61 y.o. right handed male with acute/subacute left ANGELA CVA, right hemiparesis - s/p CVA- hold ASA due to possible GI bleed, statin - gait dysfunction- maxA for gait on admission; now progressed to Lance - HTN- controlled - right otitis media- remains afebrile; continue Augmentin until 11/15 - acute renal failure- renal ultrasound showed left renal cyst, otherwise negative; labs slightly worse on today, will consult Nephrology - anemia- H/H progressively dropping; +stool for occult blood; GI consulted - DVT px- heparin discontinued due to ?GI bleed - Patient Problems (1) Acute left ANGELA ischemic stroke Current Visit: Yes Status: Acute (2) Abnormality of gait following cerebrovascular accident (CVA) Current Visit: No Status: Acute (3) Hemiparesis affecting right side as late effect of cerebrovascular accident Current Visit: No Status: Acute (4) Acute renal failure Current Visit: Yes Status: Acute Qualifiers: Acute renal failure type: with acute tubular necrosis Qualified Code(s): N17.0 - Acute kidney failure with tubular necrosis (5) HTN (hypertension) Current Visit: Yes Status: Chronic Qualifiers: Hypertension type: essential hypertension Qualified Code(s): I10 - Essential (primary) hypertension (6) Right acute otitis media Current Visit: Yes Status: Acute (7) Right foot drop Current Visit: Yes Status: Acute Subjective Date of service: 11/11/16 Principal diagnosis: acute/subacute left ANGELA CVA Interval history: Pt seen in room this afternoon, F/U IPR course, acute/subacute left ANGELA CVA. Pt denies any pain, headache; noted to have ongoing slow drop in H/H Objective - Constitutional Vitals: Vital Signs - 12hr 11/11/16 11/11/16 07:13 09:04 Temperature 99.5 F Pulse Rate 96 H Pulse Rate [ 96 H Right Brachial] Respiratory 18 Rate Blood Pressure 145/78 Blood Pressure 145/78 [Right Arm] O2 Sat by Pulse 98 Oximetry General appearance: Present: no acute distress, other (in WC) - EENT Eyes: EOM intact ENT: hearing intact - Neck Neck: supple, normal ROM - Respiratory Respiratory effort: normal Respiratory: bilateral: CTA - Cardiovascular Rhythm: regular Heart Sounds: Present: S1 & S2 Extremities: No edema - Gastrointestinal General gastrointestinal: Present: soft, non-tender, non-distended, normal bowel sounds - Integumentary Integumentary: clear - Musculoskeletal Musculoskeletal: right sided weakness - Neurologic Neurologic: CNII-XII intact - Psychiatric Psychiatric: appropriate mood/affect, cooperative - Allied health notes Allied health notes reviewed: PT (CGA-Lance for transfers and bed mobility; ambulating 60 feet x2) - Labs CBC & Chem 7: 11/11/16 05:26 11/11/16 05:26 Labs: Abnormal lab results 11/11/16 11/11/16 Range/Units 05:26 05:26 WBC 14.2 H (4.5-11.0) K/mm3 RBC 2.55 L (3.65-5.03) M/mm3 Hgb 7.5 L (11.8-15.2) gm/dl Hct 23.1 L (35.5-45.6) % Plt Count 448 H (140-440) K/mm3 Carbon Dioxide 20 L (22-30) mmol/L BUN 36 H (9-20) mg/dL Creatinine 2.4 H (0.8-1.5) mg/dL Glucose 111 H (75-100) mg/dL
[2016-11-11] MEDS: ZOCOR PO SCH (23:29)
[2016-11-11] MEDS: PERCOCET 5/325 PO PRN (23:29)
[2016-11-12 05:19] LABS: Hematocrit 22.3 % (35.5-45.6); Hemoglobin 7.3 gm/dl (11.8-15.2); Mean Corpuscular HGB Conc 33 % (32-34); Mean Corpuscular Hemoglobin 30 pg (28-32); Mean Corpuscular Volume 90 fl (84-94); Platelet Count 422 K/mm3 (140-440); Red Blood Count 2.46 M/mm3 (3.65-5.03); White Blood Count 13.3 K/mm3 (4.5-11.0)
[2016-11-12 05:40] LABS: Calcium 8.8 mg/dL (8.4-10.2); Chloride 105.4 mmol/L (98-107); Potassium 4.4 mmol/L (3.6-5.0)
[2016-11-12] MEDS: ZESTRIL PO SCH ×2 (09:44→21:59)
[2016-11-12] MEDS: PROTONIX PO SCH (09:44)
[2016-11-12] MEDS: PROCARDIA XL PO SCH (09:44)
[2016-11-12] MEDS: COLACE PO SCH ×2 (09:45→21:58)
[2016-11-12] MEDS: AUGMENTIN 500 MG PO SCH ×2 (09:45→21:58)
[2016-11-12] MEDS: HABITROL TD SCH (09:46)
--- NOTE | 2016-11-12 10:40 | Consultation ---
History of Present Illness - Reason for Consult Consult date: 11/12/16 acute renal failure, chronic renal failure - History of Present Illness Patient is a 61 yo AAM with history significant for Hypertension, HL and GERD who experienced acute onset of right LE weakness and subsequent fall at home. Patient was found to have initial BP of 191/88 and an acute/subacute infarct of left ANGELA CVA territory. Patient was treated for CVA in the medical floor and susequently transferred to Acute Rehab. Patient is a poor historian. He was found to have creatinine of 2.4. His creatinine was between 1.5 and 2 about 2 yrs ago. Patient denies any h/o kidney stone. He continue to smoke about 3/4 pack of cigarettes a day. Currently he denies any N, V, D, fever, rash, abd pain, dizziness, cp, sob or syncope. Past History Past Medical History: arthritis, COPD, GERD, hypertension, other (chronic back pain) Past Surgical History: Other (shoulder surgery; neck surgery) Social history: single, lives with family (brother), smoking. denies: alcohol abuse Family history: diabetes, hypertension, stroke Medications and Allergies Allergies Allergy/AdvReac Type Severity Reaction Status Date / Time No Known Allergies Allergy Verified 03/25/15 12:10 Home Medications Medication Instructions Recorded Confirmed Last Taken Type Pantoprazole [Protonix TAB] 40 mg PO QDAY #60 tablet 09/29/14 11/01/16 Unknown Rx Aspirin EC [Aspirin Enteric Coated 81 mg PO QDAY #30 tablet. 11/01/16 Unknown Rx TAB] Hydrochlorothiazide [HCTZ] 25 mg PO QDAY #30 tablet 11/01/16 11/01/16 Unknown Rx Lisinopril [Zestril TAB] 40 mg PO QDAY #30 tablet 11/01/16 11/01/16 Unknown Rx NIFEdipine XL [Procardia Xl] 60 mg PO QDAY tablet 11/01/16 11/01/16 Unknown Rx Nicotine [Habitrol] 14 mg TD QDAY patch 11/01/16 11/01/16 Unknown Rx Simvastatin [Zocor TAB] 10 mg PO QHS tablet 11/01/16 11/01/16 Unknown Rx Active Meds: Active Medications Acetaminophen (Tylenol) 650 mg PO Q4H PRN PRN Reason: Pain MILD(1-3)/Fever >100.5/CLAERY Last Admin: 11/09/16 19:39 Dose: 650 mg Amoxicillin/Clavulanate Potassium (Augmentin 500 Mg) 1 each PO Q12HR [facility] Stop: 11/15/16 23:59 Last Admin: 11/12/16 09:45 Dose: 1 each Bisacodyl (Dulcolax) 10 mg ND QDAY PRN PRN Reason: Constipation unrelieved by MOM Docusate Sodium (Colace) 100 mg PO BID [facility] Last Admin: 11/12/16 09:45 Dose: 100 mg Lisinopril (Zestril) 20 mg PO BID [facility] Last Admin: 11/12/16 09:44 Dose: 20 mg Nicotine (Habitrol) 14 mg TD QDAY [facility] Last Admin: 11/12/16 09:46 Dose: 14 mg Nifedipine (Procardia Xl) 90 mg PO QDAY [facility] Last Admin: 11/12/16 09:44 Dose: 90 mg Oxycodone/Acetaminophen (Percocet 5/325) 1 tab PO Q6H PRN PRN Reason: Pain, Moderate (4-6) Last Admin: 11/11/16 23:29 Dose: 1 tab Pantoprazole Sodium (Protonix) 40 mg PO QDAY [facility] Last Admin: 11/12/16 09:44 Dose: 40 mg Senna (Senokot) 8.6 mg PO Q12H PRN PRN Reason: Laxative Effect Last Admin: 11/04/16 10:05 Dose: 8.6 mg Simvastatin (Zocor) 10 mg PO QHS [facility] Last Admin: 11/11/16 23:29 Dose: 10 mg Review of Systems Constitutional: weakness, no weight loss, no weight gain, no fever, no chills Ears, nose, mouth and throat: no sinus pressure, no sinus pain, no epistaxis Cardiovascular: no chest pain, no syncope, no lightheadedness, no shortness of breath Respiratory: no shortness of breath Gastrointestinal: no abdominal pain, no nausea, no vomiting, no melena Genitourinary Male: no dysuria, no hematuria Rectal: no bleeding Musculoskeletal: no redness of joints Integumentary: no rash Neurological: paralysis, weakness Hematologic/Lymphatic: no easy bleeding Allergic/Immunologic: no persistent infections Exam - Vital Signs Vital signs: Vital Signs Temp Pulse Resp BP 99.4 F 94 H 20 136/73 11/01/16 16:30 11/01/16 16:30 11/01/16 16:30 11/01/16 16:30 - General Appearance General appearance: well-developed, well-nourished, appears stated age, other ( no distress) EENT: PERRL, mucous membranes moist, hearing intact, vision intact Neck: Present: neck supple Respiratory: Clear to Ascultation Heart: regular, S1S2, no murmurs Gastrointestinal: Present: normoactive bowel sounds. Absent: tenderness, distended Integumentary: no rash, warm and dry Neurologic: CN 3-12 intact, other (slight weakness of right side of the body) Musculoskeletal: Present: other (no edema) Psychiatric: cooperative Results - Lab Results 11/12/16 04:22 11/12/16 04:22 Most recent lab results Calcium 8.8 mg/dL (8.4-10.2) 11/12/16 04:22 - Image Kidney/bladder ultrasound: report reviewed Assessment and Plan - Patient Problems (1) Chronic kidney disease, stage 3 (moderate) Current Visit: Yes Status: Acute Plan to address problem: Patient with CKD stage 3 likely secondary to Ischemic Nephropathy. Renal function appears to be stable. Monitor renal function. Avoid NSAIDs. Discussed to quit smoking. (2) HTN (hypertension) Current Visit: Yes Status: Chronic Qualifiers: Hypertension type: essential hypertension Qualified Code(s): I10 - Essential (primary) hypertension Plan to address problem: BP well controlled. (3) Acute left ANGELA ischemic stroke Current Visit: Yes Status: Acute (4) Anemia Current Visit: Yes Status: Acute Qualifiers: Anemia type: A Iron deficiency anemia type: I Vitamin B12 deficiency anemia type: V Folate deficiency anemia type: F Bone marrow failure anemia type: B Hemolytic anemia type: H Other causes of anemia: O Plan to address problem: GI consulted for suspected GI bleed.
--- NOTE | 2016-11-12 14:21 | Progress Note ---
Assessment and Plan Assessment and plan: 1. HTN, uncontrolled Optimize medications 2. CKD creatinine is stable, continue to monitor 3. Right acute otitis media dc zosyn and place on augmentin x 7days 4. Normocytic anemia , check folate, B12 and ferritin levels are wnl hemoglobin continues to drop, transfuse to keep hg above 7 GI consult for possible Endoscopy History Interval history: denies blood in his stool, denies melena Hospitalist Physical - Physical exam Narrative exam: General: Patient appears well in no distress HEENT: MMM, EOMI cardiac: S1-S2 heard lungs: clear to auscultation, abdomen: soft, nontender, nondistended bowel sounds positive extremities: no edema clubbing or cyanosis Skin: no rash or lesion Neuro: Right lower extremity weakness Psych: appropriate behavior and mood, cognition intact - Constitutional Vitals: Temp Pulse Resp BP Pulse Ox 97.8 F 86 18 135/74 100 11/12/16 08:00 11/12/16 09:44 11/12/16 08:00 11/12/16 09:44 11/12/16 08:00 General appearance: Present: no acute distress, other (sitting up in WC) Results - Labs CBC & Chem 7: 11/12/16 04:22 11/12/16 04:22 Labs: Laboratory Last Values WBC 13.3 K/mm3 (4.5-11.0) H 11/12/16 04:22 RBC 2.46 M/mm3 (3.65-5.03) L 11/12/16 04:22 Hgb 7.3 gm/dl (11.8-15.2) L 11/12/16 04:22 Hct 22.3 % (35.5-45.6) L 11/12/16 04:22 MCV 90 fl (84-94) 11/12/16 04:22 MCH 30 pg (28-32) 11/12/16 04:22 MCHC 33 % (32-34) 11/12/16 04:22 RDW 14.0 % (13.2-15.2) 11/12/16 04:22 Plt Count 422 K/mm3 (140-440) 11/12/16 04:22 Lymph % (Auto) 9.4 % (13.4-35.0) L 11/06/16 08:44 Charles % (Auto) 8.8 % (0.0-7.3) H 11/06/16 08:44 Eos % (Auto) 0.4 % (0.0-4.3) 11/06/16 08:44 Baso % (Auto) 0.9 % (0.0-1.8) 11/06/16 08:44 Lymph # 1.5 K/mm3 (1.2-5.4) 11/06/16 08:44 Charles # 1.4 K/mm3 (0.0-0.8) H 11/06/16 08:44 Eos # 0.1 K/mm3 (0.0-0.4) 11/06/16 08:44 Baso # 0.1 K/mm3 (0.0-0.1) 11/06/16 08:44 Add Manual Diff Complete 11/10/16 04:00 Total Counted 100 11/10/16 04:00 Seg Neutrophils % 80.5 % (40.0-70.0) H 11/06/16 08:44 Seg Neuts % (Manual) 76.0 % (40.0-70.0) H 11/10/16 04:00 Band Neutrophils % 0 % 11/10/16 04:00 Lymphocytes % (Manual) 18.0 % (13.4-35.0) 11/10/16 04:00 Reactive Lymphs % (Man) 0 % 11/10/16 04:00 Monocytes % (Manual) 4.0 % (0.0-7.3) 11/10/16 04:00 Eosinophils % (Manual) 1.0 % (0.0-4.3) 11/10/16 04:00 Basophils % (Manual) 1.0 % (0.0-1.8) 11/10/16 04:00 Metamyelocytes % 0 % 11/10/16 04:00 Myelocytes % 0 % 11/10/16 04:00 Promyelocytes % 0 % 11/10/16 04:00 Blast Cells % 0 % 11/10/16 04:00 Nucleated RBC % Not Reportable 11/10/16 04:00 Seg Neutrophils # 12.4 K/mm3 (1.8-7.7) H 11/06/16 08:44 Seg Neutrophils # Man 5.0 K/mm3 (1.8-7.7) 11/10/16 04:00 Band Neutrophils # 0.0 K/mm3 11/10/16 04:00 Lymphocytes # (Manual) 1.2 K/mm3 (1.2-5.4) 11/10/16 04:00 Abs React Lymphs (Man) 0.0 K/mm3 11/10/16 04:00 Monocytes # (Manual) 0.3 K/mm3 (0.0-0.8) 11/10/16 04:00 Eosinophils # (Manual) 0.1 K/mm3 (0.0-0.4) 11/10/16 04:00 Basophils # (Manual) 0.1 K/mm3 (0.0-0.1) 11/10/16 04:00 Metamyelocytes # 0.0 K/mm3 11/10/16 04:00 Myelocytes # 0.0 K/mm3 11/10/16 04:00 Promyelocytes # 0.0 K/mm3 11/10/16 04:00 Blast Cells # 0.0 K/mm3 11/10/16 04:00 WBC Morphology Not Reportable 11/10/16 04:00 Hypersegmented Neuts Not Reportable 11/10/16 04:00 Hyposegmented Neuts Not Reportable 11/10/16 04:00 Hypogranular Neuts Not Reportable 11/10/16 04:00 Smudge Cells Not Reportable 11/10/16 04:00 Toxic Granulation Not Reportable 11/10/16 04:00 Toxic Vacuolation Not Reportable 11/10/16 04:00 Dohle Bodies Not Reportable 11/10/16 04:00 Pelger-Huet Anomaly Not Reportable 11/10/16 04:00 Yoseph Rods Not Reportable 11/10/16 04:00 Platelet Estimate Appears normal 11/10/16 04:00 Clumped Platelets Not Reportable 11/10/16 04:00 Plt Clumps, EDTA Not Reportable 11/10/16 04:00 Large Platelets Not Reportable 11/10/16 04:00 Giant Platelets Not Reportable 11/10/16 04:00 Platelet Satelliting Not Reportable 11/10/16 04:00 Plt Morphology Comment Not Reportable 11/10/16 04:00 RBC Morphology Not Reportable 11/10/16 04:00 Dimorphic RBCs Not Reportable 11/10/16 04:00 Polychromasia Not Reportable 11/10/16 04:00 Hypochromasia 2+ 11/10/16 04:00 Poikilocytosis Not Reportable 11/10/16 04:00 Anisocytosis 2+ 11/10/16 04:00 Microcytosis Not Reportable 11/10/16 04:00 Macrocytosis Not Reportable 11/10/16 04:00 Spherocytes Not Reportable 11/10/16 04:00 Pappenheimer Bodies Not Reportable 11/10/16 04:00 Sickle Cells Not Reportable 11/10/16 04:00 Target Cells Not Reportable 11/10/16 04:00 Tear Drop Cells Not Reportable 11/10/16 04:00 Ovalocytes Not Reportable 11/10/16 04:00 Helmet Cells Not Reportable 11/10/16 04:00 [place] Bodies Not Reportable 11/10/16 04:00 [place] Rings Not Reportable 11/10/16 04:00 [place] Cells Not Reportable 11/10/16 04:00 Bite Cells Not Reportable 11/10/16 04:00 Crenated Cell Not Reportable 11/10/16 04:00 Elliptocytes Not Reportable 11/10/16 04:00 Acanthocytes (Spur) Not Reportable 11/10/16 04:00 Rouleaux Not Reportable 11/10/16 04:00 Hemoglobin C Crystals Not Reportable 11/10/16 04:00 Schistocytes Rare 11/10/16 04:00 Malaria parasites Not Reportable 11/10/16 04:00 Tj Bodies Not Reportable 11/10/16 04:00 Hem Pathologist Commnt No 11/10/16 04:00 Sodium 139 mmol/L (137-145) 11/12/16 04:22 Potassium 4.4 mmol/L (3.6-5.0) 11/12/16 04:22 Chloride 105.4 mmol/L (98-107) 11/12/16 04:22 Carbon Dioxide 21 mmol/L (22-30) L 11/12/16 04:22 Anion Gap 17 mmol/L 11/12/16 04:22 BUN 36 mg/dL (9-20) H 11/12/16 04:22 Creatinine 2.4 mg/dL (0.8-1.5) H 11/12/16 04:22 Estimated GFR 33 ml/min 11/12/16 04:22 BUN/Creatinine Ratio 15.00 % 11/12/16 04:22 Glucose 96 mg/dL (75-100) 11/12/16 04:22 Lactic Acid 1.3 mmol/L (0.7-2.0) 11/06/16 13:16 Calcium 8.8 mg/dL (8.4-10.2) 11/12/16 04:22 Ferritin 72.3 ng/mL (13.0-400.0) 11/10/16 04:00 Total Bilirubin 0.4 mg/dL (0.1-1.2) 11/02/16 04:09 AST 18 units/L (5-40) 11/02/16 04:09 ALT 10 units/L (7-56) 11/02/16 04:09 Alkaline Phosphatase 52 units/L (35-129) 11/02/16 04:09 Total Protein 6.7 g/dL (6.3-8.2) 11/02/16 04:09 Albumin 3.0 g/dL (3.9-5) L 11/02/16 04:09 Albumin/Globulin Ratio 0.8 % 11/02/16 04:09 Vitamin B12 461.6 pg/mL (211-911) 11/10/16 04:00 RBC Folic Acid 501 ng/mL (>280) 11/10/16 04:00 Urine Color Yellow (Yellow) 11/11/16 Unknown Urine Turbidity Clear (Clear) 11/11/16 Unknown Urine pH 5.0 (5.0-7.0) 11/11/16 Unknown Ur Specific [place] 1.015 (1.003-1.030) 11/11/16 Unknown Urine Protein 100 mg/dl mg/dL (Negative) 11/11/16 Unknown Urine Glucose (UA) Neg mg/dL (Negative) 11/11/16 Unknown Urine Ketones Neg mg/dL (Negative) 11/11/16 Unknown Urine Blood Sm (Negative) 11/11/16 Unknown Urine Nitrite Neg (Negative) 11/11/16 Unknown Urine Bilirubin Neg (Negative) 11/11/16 Unknown Urine Urobilinogen < 2.0 mg/dL (<2.0) 11/11/16 Unknown Ur Leukocyte Esterase Neg (Negative) 11/11/16 Unknown Urine WBC (Auto) < 1.0 /HPF (0.0-6.0) 11/11/16 Unknown Urine RBC (Auto) 3.0 /HPF (0.0-6.0) 11/11/16 Unknown U Epithel Cells (Auto) < 1.0 /HPF (0-13.0) 11/11/16 Unknown Hyaline Casts 1 /LPF 11/11/16 Unknown
--- NOTE | 2016-11-12 16:05 | Consultation ---
History of Present Illness - Reason for Consult Consult date: 11/12/16 - History of Present Illness Pt with progressive anemia, Heme + stool, normal ferritin and B12, and no GI symptoms, in Rehab for subacute CVA. Pt has also been losing weight as outpatient. - needs EGD +/- colonoscopy to assess for bleeding source for anemia Past History Past Medical History: arthritis, COPD, GERD, hypertension, other (chronic back pain) Past Surgical History: Other (shoulder surgery; neck surgery) Social history: single, lives with family (brother), smoking. denies: alcohol abuse Family history: diabetes, hypertension, stroke Medications and Allergies Allergies Allergy/AdvReac Type Severity Reaction Status Date / Time No Known Allergies Allergy Verified 03/25/15 12:10 Home Medications Medication Instructions Recorded Confirmed Last Taken Type Pantoprazole [Protonix TAB] 40 mg PO QDAY #60 tablet 09/29/14 11/01/16 Unknown Rx Aspirin EC [Aspirin Enteric Coated 81 mg PO QDAY #30 tablet. 11/01/16 Unknown Rx TAB] Hydrochlorothiazide [HCTZ] 25 mg PO QDAY #30 tablet 11/01/16 11/01/16 Unknown Rx Lisinopril [Zestril TAB] 40 mg PO QDAY #30 tablet 11/01/16 11/01/16 Unknown Rx NIFEdipine XL [Procardia Xl] 60 mg PO QDAY tablet 11/01/16 11/01/16 Unknown Rx Nicotine [Habitrol] 14 mg TD QDAY patch 11/01/16 11/01/16 Unknown Rx Simvastatin [Zocor TAB] 10 mg PO QHS tablet 11/01/16 11/01/16 Unknown Rx Active Meds: Active Medications Acetaminophen (Tylenol) 650 mg PO Q4H PRN PRN Reason: Pain MILD(1-3)/Fever >100.5/CLEARY Last Admin: 11/09/16 19:39 Dose: 650 mg Amoxicillin/Clavulanate Potassium (Augmentin 500 Mg) 1 each PO Q12HR [facility] Stop: 11/15/16 23:59 Last Admin: 11/12/16 09:45 Dose: 1 each Bisacodyl (Dulcolax) 10 mg MT QDAY PRN PRN Reason: Constipation unrelieved by MOM Docusate Sodium (Colace) 100 mg PO BID [facility] Last Admin: 11/12/16 09:45 Dose: 100 mg Lisinopril (Zestril) 20 mg PO BID [facility] Last Admin: 11/12/16 09:44 Dose: 20 mg Nicotine (Habitrol) 14 mg TD QDAY [facility] Last Admin: 11/12/16 09:46 Dose: 14 mg Nifedipine (Procardia Xl) 90 mg PO QDAY [facility] Last Admin: 11/12/16 09:44 Dose: 90 mg Oxycodone/Acetaminophen (Percocet 5/325) 1 tab PO Q6H PRN PRN Reason: Pain, Moderate (4-6) Last Admin: 11/11/16 23:29 Dose: 1 tab Pantoprazole Sodium (Protonix) 40 mg PO QDAY [facility] Last Admin: 11/12/16 09:44 Dose: 40 mg Senna (Senokot) 8.6 mg PO Q12H PRN PRN Reason: Laxative Effect Last Admin: 11/04/16 10:05 Dose: 8.6 mg Simvastatin (Zocor) 10 mg PO QHS [facility] Last Admin: 11/11/16 23:29 Dose: 10 mg Exam - Constitutional Vitals: Temp Pulse Resp BP Pulse Ox 97.8 F 86 18 135/74 100 11/12/16 08:00 11/12/16 09:44 11/12/16 08:00 11/12/16 09:44 11/12/16 08:00 Results - Labs CBC & Chem 7: 11/12/16 04:22 11/12/16 04:22 Labs: Abnormal lab results 11/12/16 11/12/16 Range/Units 04:22 04:22 WBC 13.3 H (4.5-11.0) K/mm3 RBC 2.46 L (3.65-5.03) M/mm3 Hgb 7.3 L (11.8-15.2) gm/dl Hct 22.3 L (35.5-45.6) % Carbon Dioxide 21 L (22-30) mmol/L BUN 36 H (9-20) mg/dL Creatinine 2.4 H (0.8-1.5) mg/dL
[2016-11-12] MEDS: ZOCOR PO SCH (21:57)
--- NOTE | 2016-11-12 23:44 | Consultation ---
REASON FOR CONSULTATION: Anemia and Hemoccult positive stool. HISTORY OF PRESENT ILLNESS: The patient is a 61-year-old man who was initially admitted with a subacute left anterior carotid artery CVA. He was admitted to inpatient rehab for evaluation. He was found to be anemic with his hemoglobin initially starting at 11.2 on 10/29 and gradually dropping down to 7.3 by 11/12. Stool was positive for occult blood and therefore GI consultation is obtained. The patient denies any abdominal pain, nausea, vomiting. His bowel movements are regular on a twice a day basis without any change. He denies any prior known history of anemia, though he was found to be Hemoccult positive in 09/2014 according to the lab work. At that time, however, his hemoglobin was 16. He has no history of peptic ulcer disease and no family history of colon cancer. He has never had a colonoscopy. He does note that prior to the stroke, he had been losing weight, but cannot say why. ALLERGIES: No known drug allergies. MEDICATIONS: Currently, he is on Augmentin, Dulcolax, Zestril, nifedipine, Percocet, pantoprazole, Senokot and Zocor. He was on aspirin, but that was held recently because of this. PAST MEDICAL HISTORY: 1. Arthritis. 2. COPD. 3. GERD. 4. Hypertension. 5. Shoulder and neck surgery. 6. Chronic renal insufficiency. FAMILY HISTORY: Negative for malignancy. SOCIAL HISTORY: He does smoke and denies alcohol usage. REVIEW OF SYSTEMS: Notable for right-sided weakness, but he is otherwise well and negative for chest pain, shortness of breath, cough, hemoptysis, dysuria, hematuria. PHYSICAL EXAMINATION: GENERAL: This is a thin black male who appears older than stated age. VITAL SIGNS: Temperature 97.8, pulse 86, blood pressure 135/74. HEENT: He is anicteric. Pupils are round and reactive. Oropharynx is clear. LUNGS: Clear bilaterally to auscultation. CARDIOVASCULAR: Regular with no extra heart sounds. ABDOMEN: Soft with good bowel sounds. RECTAL: Deferred, but he is Hemoccult positive by labs. EXTREMITIES: No edema. NEUROLOGIC: He has hemiparesis on the right side and is on a wheelchair. LABORATORY DATA: White count 13.3, hemoglobin 7.3, hematocrit 22.3, MCV 90, platelet count 422,000. Sodium 139, potassium 4.4, chloride 105, bicarb 21, BUN 36, creatinine 2.4. Ferritin is normal at 72. B12 is normal at 461. Liver enzymes show AST 18, ALT 10, alk phos 52, total bilirubin 0.4, albumin 3.0. IMPRESSION: Anemia/hemoccult positive stool - etiology unclear. The patient has been having a gradually declining hemoglobin. He also has a history of weight loss prior to this stroke. Neoplastic process does need to be excluded. We will proceed with colonoscopy and possible upper endoscopy for further evaluation. In the meantime, monitor H and H and transfuse as needed. Agree with empiric proton pump inhibitors. JOB# [id number] HRC/NTS
[2016-11-13 05:09] LABS: Hematocrit 22.8 % (35.5-45.6); Hemoglobin 7.4 gm/dl (11.8-15.2); Mean Corpuscular HGB Conc 32 % (32-34); Mean Corpuscular Hemoglobin 29 pg (28-32); Mean Corpuscular Volume 90 fl (84-94); Platelet Count 450 K/mm3 (140-440); Red Blood Count 2.53 M/mm3 (3.65-5.03); Red Cell Distribution Width 13.8 % (13.2-15.2); White Blood Count 11.3 K/mm3 (4.5-11.0)
[2016-11-13 05:16] LABS: BUN/Creatinine Ratio 14.58; Calcium 9.1 mg/dL (8.4-10.2); Chloride 105.8 mmol/L (98-107); Potassium 4.5 mmol/L (3.6-5.0)
--- NOTE | 2016-11-13 08:14 | Progress Note ---
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 Renal function is stable. Monitor renal function. Avoid NSAIDs. (2) HTN (hypertension) Current Visit: Yes Status: Chronic Qualifiers: Hypertension type: essential hypertension Qualified Code(s): I10 - Essential (primary) hypertension Plan to address problem: BP well controlled. (3) Acute left NAGELA ischemic stroke Current Visit: Yes Status: Acute Plan to address problem: In Acute Rehab. (4) Anemia Current Visit: Yes Status: Acute Qualifiers: Anemia type: A Iron deficiency anemia type: I Vitamin B12 deficiency anemia type: V Folate deficiency anemia type: F Bone marrow failure anemia type: B Hemolytic anemia type: H Other causes of anemia: O Plan to address problem: GI consulted for suspected GI bleed. Subjective Date of service: 11/13/16 Principal diagnosis: acute/subacute left ANGELA CVA Interval history: Patient is doing ok. Objective - Vital Signs Vital signs: Vital Signs - 12hr 11/12/16 21:59 Pulse Rate 90 Blood Pressure 126/60 - General Appearance General appearance: well-developed, well-nourished, appears stated age, other ( no distress) EENT: PERRL, mucous membranes moist, hearing intact, vision intact Neck: supple Respiratory: Present: Clear to Ascultation Cardiology: regular, S1S2, no murmurs Gastrointestinal: normoactive bowel sounds, no tenderness, no distended Integumentary: no rash, warm and dry Neurologic: no asterixis, other (mild weakness on the right side of the body) Musculoskeletal: other (no edema) Psychiatric: cooperative - Lab 11/13/16 04:11 11/13/16 04:12 Most recent lab results Calcium 9.1 mg/dL (8.4-10.2) 11/13/16 04:12 Phosphorus 4.0 mg/dL (2.5-4.5) 11/13/16 04:12
[2016-11-13] MEDS: AUGMENTIN 500 MG PO SCH ×3 (08:33→23:36)
[2016-11-13] MEDS: ZESTRIL PO SCH ×2 (08:33→23:39)
[2016-11-13] MEDS: PROTONIX PO SCH (08:33)
[2016-11-13] MEDS: PROCARDIA XL PO SCH (08:34)
[2016-11-13] MEDS: HABITROL TD SCH (08:34)
[2016-11-13] MEDS: COLACE PO SCH ×2 (08:34→23:36)
--- NOTE | 2016-11-13 09:53 | Progress Note ---
Assessment and Plan Assessment and plan: 1. HTN, uncontrolled Optimize medications 2. CKD creatinine is stable, continue to monitor 3. Right acute otitis media dc zosyn and place on augmentin x 7days 4. Normocytic anemia , check folate, B12 and ferritin levels are wnl, heme positive stools hemoglobin continues to drop, transfuse to keep hg above 7 he has been losing weight as outpatient, GI input appreciated, planned for EGD and Cscope History Interval history: denies blood in his stool, denies melena Hospitalist Physical - Physical exam Narrative exam: General: Patient appears well in no distress HEENT: MMM, EOMI cardiac: S1-S2 heard lungs: clear to auscultation, abdomen: soft, nontender, nondistended bowel sounds positive extremities: no edema clubbing or cyanosis Skin: no rash or lesion Neuro: Right lower extremity weakness Psych: appropriate behavior and mood, cognition intact - Constitutional Vitals: Temp Pulse Resp BP Pulse Ox 97.6 F 93 H 18 142/69 100 11/13/16 08:00 11/13/16 08:33 11/13/16 08:00 11/13/16 08:33 11/13/16 08:00 General appearance: Present: no acute distress, other (sitting up in WC) Results - Labs CBC & Chem 7: 11/13/16 04:11 11/15/16 04:34 Labs: Laboratory Last Values WBC 11.3 K/mm3 (4.5-11.0) H 11/13/16 04:11 RBC 2.53 M/mm3 (3.65-5.03) L 11/13/16 04:11 Hgb 7.4 gm/dl (11.8-15.2) L 11/13/16 04:11 Hct 22.8 % (35.5-45.6) L 11/13/16 04:11 MCV 90 fl (84-94) 11/13/16 04:11 MCH 29 pg (28-32) 11/13/16 04:11 MCHC 32 % (32-34) 11/13/16 04:11 RDW 13.8 % (13.2-15.2) 11/13/16 04:11 Plt Count 450 K/mm3 (140-440) H 11/13/16 04:11 Lymph % (Auto) 9.4 % (13.4-35.0) L 11/06/16 08:44 [place] % (Auto) 8.8 % (0.0-7.3) H 11/06/16 08:44 Eos % (Auto) 0.4 % (0.0-4.3) 11/06/16 08:44 Baso % (Auto) 0.9 % (0.0-1.8) 11/06/16 08:44 Lymph # 1.5 K/mm3 (1.2-5.4) 11/06/16 08:44 [place] # 1.4 K/mm3 (0.0-0.8) H 11/06/16 08:44 Eos # 0.1 K/mm3 (0.0-0.4) 11/06/16 08:44 Baso # 0.1 K/mm3 (0.0-0.1) 11/06/16 08:44 Add Manual Diff Complete 11/10/16 04:00 Total Counted 100 11/10/16 04:00 Seg Neutrophils % 80.5 % (40.0-70.0) H 11/06/16 08:44 Seg Neuts % (Manual) 76.0 % (40.0-70.0) H 11/10/16 04:00 Band Neutrophils % 0 % 11/10/16 04:00 Lymphocytes % (Manual) 18.0 % (13.4-35.0) 11/10/16 04:00 Reactive Lymphs % (Man) 0 % 11/10/16 04:00 Monocytes % (Manual) 4.0 % (0.0-7.3) 11/10/16 04:00 Eosinophils % (Manual) 1.0 % (0.0-4.3) 11/10/16 04:00 Basophils % (Manual) 1.0 % (0.0-1.8) 11/10/16 04:00 Metamyelocytes % 0 % 11/10/16 04:00 Myelocytes % 0 % 11/10/16 04:00 Promyelocytes % 0 % 11/10/16 04:00 Blast Cells % 0 % 11/10/16 04:00 Nucleated RBC % Not Reportable 11/10/16 04:00 Seg Neutrophils # 12.4 K/mm3 (1.8-7.7) H 11/06/16 08:44 Seg Neutrophils # Man 5.0 K/mm3 (1.8-7.7) 11/10/16 04:00 Band Neutrophils # 0.0 K/mm3 11/10/16 04:00 Lymphocytes # (Manual) 1.2 K/mm3 (1.2-5.4) 11/10/16 04:00 Abs React Lymphs (Man) 0.0 K/mm3 11/10/16 04:00 Monocytes # (Manual) 0.3 K/mm3 (0.0-0.8) 11/10/16 04:00 Eosinophils # (Manual) 0.1 K/mm3 (0.0-0.4) 11/10/16 04:00 Basophils # (Manual) 0.1 K/mm3 (0.0-0.1) 11/10/16 04:00 Metamyelocytes # 0.0 K/mm3 11/10/16 04:00 Myelocytes # 0.0 K/mm3 11/10/16 04:00 Promyelocytes # 0.0 K/mm3 11/10/16 04:00 Blast Cells # 0.0 K/mm3 11/10/16 04:00 WBC Morphology Not Reportable 11/10/16 04:00 Hypersegmented Neuts Not Reportable 11/10/16 04:00 Hyposegmented Neuts Not Reportable 11/10/16 04:00 Hypogranular Neuts Not Reportable 11/10/16 04:00 Smudge Cells Not Reportable 11/10/16 04:00 Toxic Granulation Not Reportable 11/10/16 04:00 Toxic Vacuolation Not Reportable 11/10/16 04:00 Dohle Bodies Not Reportable 11/10/16 04:00 Pelger-Huet Anomaly Not Reportable 11/10/16 04:00 Yoseph Rods Not Reportable 11/10/16 04:00 Platelet Estimate Appears normal 11/10/16 04:00 Clumped Platelets Not Reportable 11/10/16 04:00 Plt Clumps, EDTA Not Reportable 11/10/16 04:00 Large Platelets Not Reportable 11/10/16 04:00 Giant Platelets Not Reportable 11/10/16 04:00 Platelet Satelliting Not Reportable 11/10/16 04:00 Plt Morphology Comment Not Reportable 11/10/16 04:00 RBC Morphology Not Reportable 11/10/16 04:00 Dimorphic RBCs Not Reportable 11/10/16 04:00 Polychromasia Not Reportable 11/10/16 04:00 Hypochromasia 2+ 11/10/16 04:00 Poikilocytosis Not Reportable 11/10/16 04:00 Anisocytosis 2+ 11/10/16 04:00 Microcytosis Not Reportable 11/10/16 04:00 Macrocytosis Not Reportable 11/10/16 04:00 Spherocytes Not Reportable 11/10/16 04:00 Pappenheimer Bodies Not Reportable 11/10/16 04:00 Sickle Cells Not Reportable 11/10/16 04:00 Target Cells Not Reportable 11/10/16 04:00 Tear Drop Cells Not Reportable 11/10/16 04:00 Ovalocytes Not Reportable 11/10/16 04:00 Helmet Cells Not Reportable 11/10/16 04:00 [place] Bodies Not Reportable 11/10/16 04:00 [place] Rings Not Reportable 11/10/16 04:00 Ivis Cells Not Reportable 11/10/16 04:00 Bite Cells Not Reportable 11/10/16 04:00 Crenated Cell Not Reportable 11/10/16 04:00 Elliptocytes Not Reportable 11/10/16 04:00 Acanthocytes (Spur) Not Reportable 11/10/16 04:00 Rouleaux Not Reportable 11/10/16 04:00 Hemoglobin C Crystals Not Reportable 11/10/16 04:00 Schistocytes Rare 11/10/16 04:00 Malaria parasites Not Reportable 11/10/16 04:00 Tj Bodies Not Reportable 11/10/16 04:00 Hem Pathologist Commnt No 11/10/16 04:00 Sodium 141 mmol/L (137-145) 11/13/16 04:12 Potassium 4.5 mmol/L (3.6-5.0) 11/13/16 04:12 Chloride 105.8 mmol/L (98-107) 11/13/16 04:12 Carbon Dioxide 21 mmol/L (22-30) L 11/13/16 04:12 Anion Gap 19 mmol/L 11/13/16 04:12 BUN 35 mg/dL (9-20) H 11/13/16 04:12 Creatinine 2.4 mg/dL (0.8-1.5) H 11/13/16 04:12 Estimated GFR 33 ml/min 11/13/16 04:12 BUN/Creatinine Ratio 14.58 % 11/13/16 04:12 Glucose 94 mg/dL (75-100) 11/13/16 04:12 Lactic Acid 1.3 mmol/L (0.7-2.0) 11/06/16 13:16 Calcium 9.1 mg/dL (8.4-10.2) 11/13/16 04:12 Phosphorus 4.0 mg/dL (2.5-4.5) 11/13/16 04:12 Ferritin 72.3 ng/mL (13.0-400.0) 11/10/16 04:00 Total Bilirubin 0.4 mg/dL (0.1-1.2) 11/02/16 04:09 AST 18 units/L (5-40) 11/02/16 04:09 ALT 10 units/L (7-56) 11/02/16 04:09 Alkaline Phosphatase 52 units/L (35-129) 11/02/16 04:09 Total Protein 6.7 g/dL (6.3-8.2) 11/02/16 04:09 Albumin 3.0 g/dL (3.9-5) L 11/02/16 04:09 Albumin/Globulin Ratio 0.8 % 11/02/16 04:09 Vitamin B12 461.6 pg/mL (211-911) 11/10/16 04:00 RBC Folic Acid 501 ng/mL (>280) 11/10/16 04:00 PTH Intact 26.46 pg/mL (15-65) 11/13/16 04:12 Urine Color Yellow (Yellow) 11/11/16 Unknown Urine Turbidity Clear (Clear) 11/11/16 Unknown Urine pH 5.0 (5.0-7.0) 11/11/16 Unknown Ur Specific [place] 1.015 (1.003-1.030) 11/11/16 Unknown Urine Protein 100 mg/dl mg/dL (Negative) 11/11/16 Unknown Urine Glucose (UA) Neg mg/dL (Negative) 11/11/16 Unknown Urine Ketones Neg mg/dL (Negative) 11/11/16 Unknown Urine Blood Sm (Negative) 11/11/16 Unknown Urine Nitrite Neg (Negative) 11/11/16 Unknown Urine Bilirubin Neg (Negative) 11/11/16 Unknown Urine Urobilinogen < 2.0 mg/dL (<2.0) 11/11/16 Unknown Ur Leukocyte Esterase Neg (Negative) 11/11/16 Unknown Urine WBC (Auto) < 1.0 /HPF (0.0-6.0) 11/11/16 Unknown Urine RBC (Auto) 3.0 /HPF (0.0-6.0) 11/11/16 Unknown U Epithel Cells (Auto) < 1.0 /HPF (0-13.0) 11/11/16 Unknown Hyaline Casts 1 /LPF 11/11/16 Unknown
--- NOTE | 2016-11-13 20:25 | Progress Note ---
Assessment and Plan 1. Anemia/Heme + stool - H/H stable. Pt on daily ASA. Discussed proceeding with EGD/Colon, but pt is refusing. Asked if would prep gently tomorrow for colon, he was noncommital and said "Whatever." - pt warrants EGD/Colon, and will do so if he agrees. Subjective Date of service: 11/13/16 Principal diagnosis: acute/subacute left ANGELA CVA Interval history: Pt denies complaints. No abd pain, GI bleed. Objective - Constitutional Vitals: Vital Signs - 12hr 11/13/16 11/13/16 08:33 16:00 Temperature 97.6 F Pulse Rate 93 H Pulse Rate [ 80 Right Brachial] Respiratory 18 Rate Blood Pressure 142/69 Blood Pressure 136/72 [Right Arm] O2 Sat by Pulse 100 Oximetry General appearance: Present: no acute distress - EENT Eyes: PERRL, EOM intact ENT: hearing intact - Respiratory Respiratory effort: normal - Gastrointestinal General gastrointestinal: Present: soft, non-tender - Labs CBC & Chem 7: 11/13/16 04:11 11/13/16 04:12 Labs: Abnormal lab results 11/13/16 11/13/16 Range/Units 04:11 04:12 WBC 11.3 H (4.5-11.0) K/mm3 RBC 2.53 L (3.65-5.03) M/mm3 Hgb 7.4 L (11.8-15.2) gm/dl Hct 22.8 L (35.5-45.6) % Plt Count 450 H (140-440) K/mm3 Carbon Dioxide 21 L (22-30) mmol/L BUN 35 H (9-20) mg/dL Creatinine 2.4 H (0.8-1.5) mg/dL
[2016-11-13] MEDS: ZOCOR PO SCH (23:39)
--- NOTE | 2016-11-14 06:33 | Progress Note ---
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 Renal function is stable. Monitor renal function. (2) HTN (hypertension) Current Visit: Yes Status: Chronic Qualifiers: Hypertension type: essential hypertension Qualified Code(s): I10 - Essential (primary) hypertension Plan to address problem: BP well controlled. (3) Acute left ANGELA ischemic stroke Current Visit: Yes Status: Acute Plan to address problem: In Acute Rehab. (4) Anemia Current Visit: Yes Status: Acute Qualifiers: Anemia type: A Iron deficiency anemia type: I Vitamin B12 deficiency anemia type: V Folate deficiency anemia type: F Bone marrow failure anemia type: B Hemolytic anemia type: H Other causes of anemia: O Plan to address problem: GI consulted for suspected GI bleed. Subjective Date of service: 11/14/16 Principal diagnosis: acute/subacute left ANGELA CVA Interval history: No new complaint. Objective - Vital Signs Vital signs: Vital Signs - 12hr 11/13/16 20:00 Temperature 97.5 F L Pulse Rate [ 98 H Right Brachial] Respiratory 18 Rate Blood Pressure 122/69 [Right Arm] O2 Sat by Pulse 100 Oximetry - General Appearance General appearance: well-developed, well-nourished, appears stated age, other ( no distress) EENT: PERRL, mucous membranes moist, hearing intact, vision intact Neck: supple Respiratory: Present: Clear to Ascultation Cardiology: regular, S1S2, no murmurs Gastrointestinal: normoactive bowel sounds, no tenderness, no distended Integumentary: no rash Neurologic: no asterixis, CN 3-12 intact, other (able to move all 4 extremities) Musculoskeletal: other (no edema) Psychiatric: cooperative - Lab 11/13/16 04:11 11/13/16 04:12 Most recent lab results Calcium 9.1 mg/dL (8.4-10.2) 11/13/16 04:12 Phosphorus 4.0 mg/dL (2.5-4.5) 11/13/16 04:12
[2016-11-14] MEDS: AUGMENTIN 500 MG PO SCH ×3 (08:27→21:10)
[2016-11-14] MEDS: HABITROL TD SCH (08:28)
[2016-11-14] MEDS: PROCARDIA XL PO SCH (08:28)
[2016-11-14] MEDS: ZESTRIL PO SCH ×2 (08:28→21:10)
[2016-11-14] MEDS: COLACE PO SCH ×2 (08:29→21:11)
[2016-11-14] MEDS: PROTONIX PO SCH (08:29)
--- NOTE | 2016-11-14 14:35 | Progress Note ---
Assessment and Plan 61 y.o. right handed male with acute/subacute left ANGELA CVA, right hemiparesis - s/p CVA- continue to hold ASA due to possible GI bleed, statin; slowly improving strength at right extremities - gait dysfunction- progressing well with gait training, now CGA for transfers and gait - HTN- remains controlled - right otitis media- Augmentin until 11/15 - acute renal failure- appreciate Nephrology consult; likely with CKD stage 3; labs stable - anemia- H/H stable; appreciate GI consult; pt refusing EGD/colonoscopy; continue Protonix, follow up with GI as outpt for work-up; follow H/H - DVT px- heparin discontinued due to ?GI bleed - Patient Problems (1) Acute left ANGELA ischemic stroke Current Visit: Yes Status: Acute (2) Abnormality of gait following cerebrovascular accident (CVA) Current Visit: No Status: Acute (3) Hemiparesis affecting right side as late effect of cerebrovascular accident Current Visit: No Status: Acute (4) Acute renal failure Current Visit: Yes Status: Acute Qualifiers: Acute renal failure type: with acute tubular necrosis Qualified Code(s): N17.0 - Acute kidney failure with tubular necrosis (5) HTN (hypertension) Current Visit: Yes Status: Chronic Qualifiers: Hypertension type: essential hypertension Qualified Code(s): I10 - Essential (primary) hypertension (6) Right acute otitis media Current Visit: Yes Status: Acute (7) Right foot drop Current Visit: Yes Status: Acute Subjective Date of service: 11/14/16 Principal diagnosis: acute/subacute left ANGELA CVA Interval history: Pt seen in room this AM, F/U IPR course, acute/subacute left ANGELA CVA. appreciate Renal and GI consults; pt consulted on having EGD/Colonoscopy performed; does not want to take prep for study, therefore, refusing test because he is concerned about having multiple bowel movements and accidents. Pt does agree to have study performed as outpt; educated that if H/H drops it will need to be performed while in hospital Objective - Constitutional Vitals: Vital Signs - 12hr 11/14/16 11/14/16 07:00 08:28 Temperature 97.6 F Pulse Rate 68 Pulse Rate [ 68 Right Brachial] Respiratory 18 Rate Blood Pressure 133/64 Blood Pressure 133/64 [Right Arm] O2 Sat by Pulse 98 Oximetry General appearance: Present: no acute distress - EENT Eyes: EOM intact ENT: hearing intact - Neck Neck: supple, normal ROM - Respiratory Respiratory effort: normal Respiratory: bilateral: CTA - Cardiovascular Rhythm: regular Heart Sounds: Present: S1 & S2 Extremities: No edema - Gastrointestinal General gastrointestinal: Present: soft, non-tender, non-distended, normal bowel sounds - Integumentary Integumentary: clear - Musculoskeletal Musculoskeletal: right sided weakness (3/5 RUE, 1/5 right hip flexion, ongoing right foot drop, no active movement at knee) - Neurologic Neurologic: CNII-XII intact - Psychiatric Psychiatric: appropriate mood/affect, cooperative - Allied health notes Allied health notes reviewed: PT (CGA for transfers and gait, up to 200 feet), OT (Marc to Lance for ADLs) - Labs CBC & Chem 7: 11/13/16 04:11 11/13/16 04:12
--- NOTE | 2016-11-14 18:28 | Progress Note ---
Assessment and Plan Assessment and plan: 1. HTN, uncontrolled Optimize medications 2. CKD creatinine is stable, continue to monitor 3. Right acute otitis media dc zosyn and place on augmentin x 7days 4. Normocytic anemia , check folate, B12 and ferritin levels are wnl, heme positive stools hemoglobin continues to drop, transfuse to keep hg above 7 he has been losing weight as outpatient, GI input appreciated, was planned for EGD and Cscope, but patient continues to refuse the procedure History Interval history: denies blood in his stool, denies melena Hospitalist Physical - Physical exam Narrative exam: General: Patient appears well in no distress HEENT: MMM, EOMI cardiac: S1-S2 heard lungs: clear to auscultation, abdomen: soft, nontender, nondistended bowel sounds positive extremities: no edema clubbing or cyanosis Skin: no rash or lesion Neuro: Right lower extremity weakness Psych: appropriate behavior and mood, cognition intact - Constitutional Vitals: Temp Pulse Resp BP Pulse Ox 97.6 F 68 18 133/64 98 11/14/16 07:00 11/14/16 08:28 11/14/16 07:00 11/14/16 08:28 11/14/16 07:00 General appearance: Present: no acute distress Results - Labs CBC & Chem 7: 11/13/16 04:11 11/15/16 04:34 Labs: Laboratory Last Values WBC 11.3 K/mm3 (4.5-11.0) H 11/13/16 04:11 RBC 2.53 M/mm3 (3.65-5.03) L 11/13/16 04:11 Hgb 7.4 gm/dl (11.8-15.2) L 11/13/16 04:11 Hct 22.8 % (35.5-45.6) L 11/13/16 04:11 MCV 90 fl (84-94) 11/13/16 04:11 MCH 29 pg (28-32) 11/13/16 04:11 MCHC 32 % (32-34) 11/13/16 04:11 RDW 13.8 % (13.2-15.2) 11/13/16 04:11 Plt Count 450 K/mm3 (140-440) H 11/13/16 04:11 Lymph % (Auto) 9.4 % (13.4-35.0) L 11/06/16 08:44 [place] % (Auto) 8.8 % (0.0-7.3) H 11/06/16 08:44 Eos % (Auto) 0.4 % (0.0-4.3) 11/06/16 08:44 Baso % (Auto) 0.9 % (0.0-1.8) 11/06/16 08:44 Lymph # 1.5 K/mm3 (1.2-5.4) 11/06/16 08:44 [place] # 1.4 K/mm3 (0.0-0.8) H 11/06/16 08:44 Eos # 0.1 K/mm3 (0.0-0.4) 11/06/16 08:44 Baso # 0.1 K/mm3 (0.0-0.1) 11/06/16 08:44 Add Manual Diff Complete 11/10/16 04:00 Total Counted 100 11/10/16 04:00 Seg Neutrophils % 80.5 % (40.0-70.0) H 11/06/16 08:44 Seg Neuts % (Manual) 76.0 % (40.0-70.0) H 11/10/16 04:00 Band Neutrophils % 0 % 11/10/16 04:00 Lymphocytes % (Manual) 18.0 % (13.4-35.0) 11/10/16 04:00 Reactive Lymphs % (Man) 0 % 11/10/16 04:00 Monocytes % (Manual) 4.0 % (0.0-7.3) 11/10/16 04:00 Eosinophils % (Manual) 1.0 % (0.0-4.3) 11/10/16 04:00 Basophils % (Manual) 1.0 % (0.0-1.8) 11/10/16 04:00 Metamyelocytes % 0 % 11/10/16 04:00 Myelocytes % 0 % 11/10/16 04:00 Promyelocytes % 0 % 11/10/16 04:00 Blast Cells % 0 % 11/10/16 04:00 Nucleated RBC % Not Reportable 11/10/16 04:00 Seg Neutrophils # 12.4 K/mm3 (1.8-7.7) H 11/06/16 08:44 Seg Neutrophils # Man 5.0 K/mm3 (1.8-7.7) 11/10/16 04:00 Band Neutrophils # 0.0 K/mm3 11/10/16 04:00 Lymphocytes # (Manual) 1.2 K/mm3 (1.2-5.4) 11/10/16 04:00 Abs React Lymphs (Man) 0.0 K/mm3 11/10/16 04:00 Monocytes # (Manual) 0.3 K/mm3 (0.0-0.8) 11/10/16 04:00 Eosinophils # (Manual) 0.1 K/mm3 (0.0-0.4) 11/10/16 04:00 Basophils # (Manual) 0.1 K/mm3 (0.0-0.1) 11/10/16 04:00 Metamyelocytes # 0.0 K/mm3 11/10/16 04:00 Myelocytes # 0.0 K/mm3 11/10/16 04:00 Promyelocytes # 0.0 K/mm3 11/10/16 04:00 Blast Cells # 0.0 K/mm3 11/10/16 04:00 WBC Morphology Not Reportable 11/10/16 04:00 Hypersegmented Neuts Not Reportable 11/10/16 04:00 Hyposegmented Neuts Not Reportable 11/10/16 04:00 Hypogranular Neuts Not Reportable 11/10/16 04:00 Smudge Cells Not Reportable 11/10/16 04:00 Toxic Granulation Not Reportable 11/10/16 04:00 Toxic Vacuolation Not Reportable 11/10/16 04:00 Dohle Bodies Not Reportable 11/10/16 04:00 Pelger-Huet Anomaly Not Reportable 11/10/16 04:00 Yoseph Rods Not Reportable 11/10/16 04:00 Platelet Estimate Appears normal 11/10/16 04:00 Clumped Platelets Not Reportable 11/10/16 04:00 Plt Clumps, EDTA Not Reportable 11/10/16 04:00 Large Platelets Not Reportable 11/10/16 04:00 Giant Platelets Not Reportable 11/10/16 04:00 Platelet Satelliting Not Reportable 11/10/16 04:00 Plt Morphology Comment Not Reportable 11/10/16 04:00 RBC Morphology Not Reportable 11/10/16 04:00 Dimorphic RBCs Not Reportable 11/10/16 04:00 Polychromasia Not Reportable 11/10/16 04:00 Hypochromasia 2+ 11/10/16 04:00 Poikilocytosis Not Reportable 11/10/16 04:00 Anisocytosis 2+ 11/10/16 04:00 Microcytosis Not Reportable 11/10/16 04:00 Macrocytosis Not Reportable 11/10/16 04:00 Spherocytes Not Reportable 11/10/16 04:00 Pappenheimer Bodies Not Reportable 11/10/16 04:00 Sickle Cells Not Reportable 11/10/16 04:00 Target Cells Not Reportable 11/10/16 04:00 Tear Drop Cells Not Reportable 11/10/16 04:00 Ovalocytes Not Reportable 11/10/16 04:00 Helmet Cells Not Reportable 11/10/16 04:00 [place] Bodies Not Reportable 11/10/16 04:00 [place] Rings Not Reportable 11/10/16 04:00 Ivis Cells Not Reportable 11/10/16 04:00 Bite Cells Not Reportable 11/10/16 04:00 Crenated Cell Not Reportable 11/10/16 04:00 Elliptocytes Not Reportable 11/10/16 04:00 Acanthocytes (Spur) Not Reportable 11/10/16 04:00 Rouleaux Not Reportable 11/10/16 04:00 Hemoglobin C Crystals Not Reportable 11/10/16 04:00 Schistocytes Rare 11/10/16 04:00 Malaria parasites Not Reportable 11/10/16 04:00 Tj Bodies Not Reportable 11/10/16 04:00 Hem Pathologist Commnt No 11/10/16 04:00 Sodium 141 mmol/L (137-145) 11/13/16 04:12 Potassium 4.5 mmol/L (3.6-5.0) 11/13/16 04:12 Chloride 105.8 mmol/L (98-107) 11/13/16 04:12 Carbon Dioxide 21 mmol/L (22-30) L 11/13/16 04:12 Anion Gap 19 mmol/L 11/13/16 04:12 BUN 35 mg/dL (9-20) H 11/13/16 04:12 Creatinine 2.4 mg/dL (0.8-1.5) H 11/13/16 04:12 Estimated GFR 33 ml/min 11/13/16 04:12 BUN/Creatinine Ratio 14.58 % 11/13/16 04:12 Glucose 94 mg/dL (75-100) 11/13/16 04:12 Lactic Acid 1.3 mmol/L (0.7-2.0) 11/06/16 13:16 Calcium 9.1 mg/dL (8.4-10.2) 11/13/16 04:12 Phosphorus 4.0 mg/dL (2.5-4.5) 11/13/16 04:12 Ferritin 72.3 ng/mL (13.0-400.0) 11/10/16 04:00 Total Bilirubin 0.4 mg/dL (0.1-1.2) 11/02/16 04:09 AST 18 units/L (5-40) 11/02/16 04:09 ALT 10 units/L (7-56) 11/02/16 04:09 Alkaline Phosphatase 52 units/L (35-129) 11/02/16 04:09 Total Protein 6.7 g/dL (6.3-8.2) 11/02/16 04:09 Albumin 3.0 g/dL (3.9-5) L 11/02/16 04:09 Albumin/Globulin Ratio 0.8 % 11/02/16 04:09 Vitamin B12 461.6 pg/mL (211-911) 11/10/16 04:00 RBC Folic Acid 501 ng/mL (>280) 11/10/16 04:00 PTH Intact 26.46 pg/mL (15-65) 11/13/16 04:12 Urine Color Yellow (Yellow) 11/11/16 Unknown Urine Turbidity Clear (Clear) 11/11/16 Unknown Urine pH 5.0 (5.0-7.0) 11/11/16 Unknown Ur Specific [place] 1.015 (1.003-1.030) 11/11/16 Unknown Urine Protein 100 mg/dl mg/dL (Negative) 11/11/16 Unknown Urine Glucose (UA) Neg mg/dL (Negative) 11/11/16 Unknown Urine Ketones Neg mg/dL (Negative) 11/11/16 Unknown Urine Blood Sm (Negative) 11/11/16 Unknown Urine Nitrite Neg (Negative) 11/11/16 Unknown Urine Bilirubin Neg (Negative) 11/11/16 Unknown Urine Urobilinogen < 2.0 mg/dL (<2.0) 11/11/16 Unknown Ur Leukocyte Esterase Neg (Negative) 11/11/16 Unknown Urine WBC (Auto) < 1.0 /HPF (0.0-6.0) 11/11/16 Unknown Urine RBC (Auto) 3.0 /HPF (0.0-6.0) 11/11/16 Unknown U Epithel Cells (Auto) < 1.0 /HPF (0-13.0) 11/11/16 Unknown Hyaline Casts 1 /LPF 11/11/16 Unknown
--- NOTE | 2016-11-14 18:52 | Progress Note ---
Assessment and Plan 1. Anemia/Heme + stool - H/H stable. Pt off daily ASA. Discussed proceeding with EGD/Colon, and pt now agrees - EGD/Colon Subjective Date of service: 11/14/16 Principal diagnosis: acute/subacute left ANGELA CVA Interval history: Pt denies complaints. No abd pain, GI bleed. Objective - Constitutional Vitals: Vital Signs - 12hr 11/14/16 11/14/16 07:00 08:28 Temperature 97.6 F Pulse Rate 68 Pulse Rate [ 68 Right Brachial] Respiratory 18 Rate Blood Pressure 133/64 Blood Pressure 133/64 [Right Arm] O2 Sat by Pulse 98 Oximetry General appearance: Present: no acute distress - EENT Eyes: PERRL, EOM intact ENT: hearing intact - Respiratory Respiratory effort: normal - Gastrointestinal General gastrointestinal: Present: soft, non-tender - Labs CBC & Chem 7: 11/13/16 04:11 11/13/16 04:12
[2016-11-14] MEDS: ZOCOR PO SCH (20:39)
[2016-11-14] MEDS ORDERED: GOLYTELY PO ONE (20:53)
[2016-11-15 05:49] LABS: BUN/Creatinine Ratio 15.83; Calcium 8.9 mg/dL (8.4-10.2); Chloride 105.1 mmol/L (98-107); Potassium 4.3 mmol/L (3.6-5.0)
--- NOTE | 2016-11-15 07:00 | Progress Note ---
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 Renal function is stable. Monitor renal function. (2) HTN (hypertension) Current Visit: Yes Status: Chronic Qualifiers: Hypertension type: essential hypertension Qualified Code(s): I10 - Essential (primary) hypertension Plan to address problem: BP well controlled. (3) Acute left ANGELA ischemic stroke Current Visit: Yes Status: Acute Plan to address problem: In Acute Rehab. (4) Anemia Current Visit: Yes Status: Acute Qualifiers: Anemia type: A Iron deficiency anemia type: I Vitamin B12 deficiency anemia type: V Folate deficiency anemia type: F Bone marrow failure anemia type: B Hemolytic anemia type: H Other causes of anemia: O Plan to address problem: Suspected GI bleed. Followed by GI. Subjective Date of service: 11/15/16 Principal diagnosis: acute/subacute left ANGELA CVA Interval history: No new complaint. Objective - Vital Signs Vital signs: Vital Signs - 12hr 11/14/16 11/14/16 20:55 21:10 Temperature 98.5 F Pulse Rate [ 97 H Apical] Respiratory 20 Rate Blood Pressure 130/70 Blood Pressure 134/71 [Right Arm] O2 Sat by Pulse 100 Oximetry - General Appearance General appearance: well-developed, well-nourished, appears stated age, other ( no distress) EENT: PERRL, mucous membranes moist, hearing intact, vision intact Neck: no JVD, supple Respiratory: Present: Clear to Ascultation Cardiology: regular, S1S2 Gastrointestinal: normoactive bowel sounds, no tenderness, no distended Integumentary: no rash, warm and dry Neurologic: CN 3-12 intact, other (slight weakness of right LE) Musculoskeletal: other (no edema) Psychiatric: cooperative - Lab 11/16/16 04:09 11/15/16 04:34 Most recent lab results Calcium 8.9 mg/dL (8.4-10.2) 11/15/16 04:34 Phosphorus 4.0 mg/dL (2.5-4.5) 11/13/16 04:12
[2016-11-15] MEDS: COLACE PO SCH ×3 (09:52→21:54)
[2016-11-15] MEDS: ZESTRIL PO SCH ×3 (09:53→21:54)
[2016-11-15] MEDS: PROTONIX PO SCH ×2 (09:53→12:52)
[2016-11-15] MEDS: PROCARDIA XL PO SCH ×2 (09:53→12:52)
[2016-11-15] MEDS: AUGMENTIN 500 MG PO SCH ×2 (12:42→21:51)
[2016-11-15] MEDS: HABITROL TD SCH (12:44)
[2016-11-15] MEDS: PERCOCET 5/325 PO PRN (12:46)
--- NOTE | 2016-11-15 15:31 | Progress Note ---
Assessment and Plan 1. Anemia/Heme + stool - H/H stable. Pt off daily ASA. Discussed proceeding with EGD/Colon, and pt now refuses. - Will sign off. Thanks. Subjective Date of service: 11/15/16 Principal diagnosis: acute/subacute left ANGELA CVA Interval history: Pt denies complaints. No abd pain, GI bleed. Refused to drink prep last night after several glasses. Objective - Constitutional Vitals: Vital Signs - 12hr 11/15/16 11/15/16 11/15/16 07:21 07:43 10:00 Temperature 98.2 F 97.4 F L Pulse Rate Pulse Rate [ 96 H From Monitor] Pulse Rate [ 92 H 96 H Left Brachial] Respiratory 22 18 Rate Blood Pressure Blood Pressure 125/76 154/69 [Left Arm] O2 Sat by Pulse 100 100 Oximetry 11/15/16 12:42 Temperature Pulse Rate 96 H Pulse Rate [ From Monitor] Pulse Rate [ Left Brachial] Respiratory Rate Blood Pressure 154/69 Blood Pressure [Left Arm] O2 Sat by Pulse Oximetry General appearance: Present: no acute distress - EENT Eyes: PERRL, EOM intact ENT: hearing intact - Respiratory Respiratory effort: normal - Gastrointestinal General gastrointestinal: Present: soft, non-tender - Labs CBC & Chem 7: 11/13/16 04:11 11/15/16 04:34 Labs: Abnormal lab results 11/15/16 Range/Units 04:34 BUN 38 H (9-20) mg/dL Creatinine 2.4 H (0.8-1.5) mg/dL
--- NOTE | 2016-11-15 15:56 | Progress Note ---
Assessment and Plan 61 y.o. right handed male with acute/subacute left ANGELA CVA, right hemiparesis - s/p CVA- continue to hold ASA due to possible GI bleed, continue statin - gait dysfunction- remains CGA for transfers and gait - HTN- stable - right otitis media- Augmentin to be completed on today - acute n chronic renal failure- labs stable - anemia- refused EGD/colonoscopy; continue Protonix, follow up with GI as outpt for work-up; recheck H/H in AM - DVT px- heparin discontinued due to ?GI bleed - Patient Problems (1) Acute left ANGELA ischemic stroke Current Visit: Yes Status: Acute (2) Abnormality of gait following cerebrovascular accident (CVA) Current Visit: No Status: Acute (3) Hemiparesis affecting right side as late effect of cerebrovascular accident Current Visit: No Status: Acute (4) Acute renal failure Current Visit: Yes Status: Acute Qualifiers: Acute renal failure type: with acute tubular necrosis Qualified Code(s): N17.0 - Acute kidney failure with tubular necrosis (5) HTN (hypertension) Current Visit: Yes Status: Chronic Qualifiers: Hypertension type: essential hypertension Qualified Code(s): I10 - Essential (primary) hypertension (6) Right acute otitis media Current Visit: Yes Status: Acute (7) Right foot drop Current Visit: Yes Status: Acute Subjective Date of service: 11/15/16 Principal diagnosis: acute/subacute left ANGELA CVA Interval history: Pt seen in room this AM, F/U IPR course, acute/subacute left ANGELA CVA. Pt attempted to start prep for EGD/colonoscopy overnight, however, did not consume very much; asking for food this AM and again refused to have procedure done; states he will complete as outpt Objective - Constitutional Vitals: Vital Signs - 12hr 11/15/16 11/15/16 11/15/16 07:21 07:43 10:00 Temperature 98.2 F 97.4 F L Pulse Rate Pulse Rate [ 96 H From Monitor] Pulse Rate [ 92 H 96 H Left Brachial] Respiratory 22 18 Rate Blood Pressure Blood Pressure 125/76 154/69 [Left Arm] O2 Sat by Pulse 100 100 Oximetry 11/15/16 11/15/16 12:42 15:32 Temperature 98.4 F Pulse Rate 96 H Pulse Rate [ From Monitor] Pulse Rate [ 92 H Left Brachial] Respiratory 20 Rate Blood Pressure 154/69 Blood Pressure 127/64 [Left Arm] O2 Sat by Pulse 98 Oximetry General appearance: Present: no acute distress - EENT Eyes: EOM intact ENT: hearing intact - Neck Neck: supple, normal ROM - Respiratory Respiratory effort: normal Extremities: No edema - Integumentary Integumentary: clear - Musculoskeletal Musculoskeletal: right sided weakness - Neurologic Neurologic: CNII-XII intact - Psychiatric Psychiatric: appropriate mood/affect, cooperative - Allied health notes Allied health notes reviewed: PT (CGA for transfers and gait), OT - Labs CBC & Chem 7: 11/13/16 04:11 11/15/16 04:34 Labs: Abnormal lab results 11/15/16 Range/Units 04:34 BUN 38 H (9-20) mg/dL Creatinine 2.4 H (0.8-1.5) mg/dL
--- NOTE | 2016-11-15 17:08 | Progress Note ---
Assessment and Plan Assessment and plan: 1. HTN, uncontrolled Optimize medications 2. CKD creatinine is stable, continue to monitor 3. Right acute otitis media dc zosyn and place on augmentin x 7days 4. Normocytic anemia , check folate, B12 and ferritin levels are wnl, heme positive stools hemoglobin continues to drop, transfuse to keep hg above 7 he has been losing weight as outpatient, GI input appreciated, was planned for EGD and Cscope, but patient continues to refuse the procedure; the risks and benefit were explained to him, janine the risk of not screening for GI malignancy, or active source of bleeding, he verbalized understanding and he continues to refuse the procedure. His BP is normalized, CKD is stable-renal function is stable, today is last day of abx for otitis media -Medically stable, Hospitalist service will sign off, please reconsult as needed History Interval history: denies blood in his stool, denies melena Hospitalist Physical - Physical exam Narrative exam: General: Patient appears well in no distress HEENT: MMM, EOMI cardiac: S1-S2 heard lungs: clear to auscultation, abdomen: soft, nontender, nondistended bowel sounds positive extremities: no edema clubbing or cyanosis Skin: no rash or lesion Neuro: Right lower extremity weakness Psych: appropriate behavior and mood, cognition intact - Constitutional Vitals: Temp Pulse Resp BP Pulse Ox 98.4 F 92 H 20 127/64 98 11/15/16 15:32 11/15/16 15:32 11/15/16 15:32 11/15/16 15:32 11/15/16 15:32 General appearance: Present: no acute distress Results - Labs CBC & Chem 7: 11/13/16 04:11 11/15/16 04:34 Labs: Laboratory Last Values WBC 11.3 K/mm3 (4.5-11.0) H 11/13/16 04:11 RBC 2.53 M/mm3 (3.65-5.03) L 11/13/16 04:11 Hgb 7.4 gm/dl (11.8-15.2) L 11/13/16 04:11 Hct 22.8 % (35.5-45.6) L 11/13/16 04:11 MCV 90 fl (84-94) 11/13/16 04:11 MCH 29 pg (28-32) 11/13/16 04:11 MCHC 32 % (32-34) 11/13/16 04:11 RDW 13.8 % (13.2-15.2) 11/13/16 04:11 Plt Count 450 K/mm3 (140-440) H 11/13/16 04:11 Lymph % (Auto) 9.4 % (13.4-35.0) L 11/06/16 08:44 [place] % (Auto) 8.8 % (0.0-7.3) H 11/06/16 08:44 Eos % (Auto) 0.4 % (0.0-4.3) 11/06/16 08:44 Baso % (Auto) 0.9 % (0.0-1.8) 11/06/16 08:44 Lymph # 1.5 K/mm3 (1.2-5.4) 11/06/16 08:44 [place]clean # 1.4 K/mm3 (0.0-0.8) H 11/06/16 08:44 Eos # 0.1 K/mm3 (0.0-0.4) 11/06/16 08:44 Baso # 0.1 K/mm3 (0.0-0.1) 11/06/16 08:44 Add Manual Diff Complete 11/10/16 04:00 Total Counted 100 11/10/16 04:00 Seg Neutrophils % 80.5 % (40.0-70.0) H 11/06/16 08:44 Seg Neuts % (Manual) 76.0 % (40.0-70.0) H 11/10/16 04:00 Band Neutrophils % 0 % 11/10/16 04:00 Lymphocytes % (Manual) 18.0 % (13.4-35.0) 11/10/16 04:00 Reactive Lymphs % (Man) 0 % 11/10/16 04:00 Monocytes % (Manual) 4.0 % (0.0-7.3) 11/10/16 04:00 Eosinophils % (Manual) 1.0 % (0.0-4.3) 11/10/16 04:00 Basophils % (Manual) 1.0 % (0.0-1.8) 11/10/16 04:00 Metamyelocytes % 0 % 11/10/16 04:00 Myelocytes % 0 % 11/10/16 04:00 Promyelocytes % 0 % 11/10/16 04:00 Blast Cells % 0 % 11/10/16 04:00 Nucleated RBC % Not Reportable 11/10/16 04:00 Seg Neutrophils # 12.4 K/mm3 (1.8-7.7) H 11/06/16 08:44 Seg Neutrophils # Man 5.0 K/mm3 (1.8-7.7) 11/10/16 04:00 Band Neutrophils # 0.0 K/mm3 11/10/16 04:00 Lymphocytes # (Manual) 1.2 K/mm3 (1.2-5.4) 11/10/16 04:00 Abs React Lymphs (Man) 0.0 K/mm3 11/10/16 04:00 Monocytes # (Manual) 0.3 K/mm3 (0.0-0.8) 11/10/16 04:00 Eosinophils # (Manual) 0.1 K/mm3 (0.0-0.4) 11/10/16 04:00 Basophils # (Manual) 0.1 K/mm3 (0.0-0.1) 11/10/16 04:00 Metamyelocytes # 0.0 K/mm3 11/10/16 04:00 Myelocytes # 0.0 K/mm3 11/10/16 04:00 Promyelocytes # 0.0 K/mm3 11/10/16 04:00 Blast Cells # 0.0 K/mm3 11/10/16 04:00 WBC Morphology Not Reportable 11/10/16 04:00 Hypersegmented Neuts Not Reportable 11/10/16 04:00 Hyposegmented Neuts Not Reportable 11/10/16 04:00 Hypogranular Neuts Not Reportable 11/10/16 04:00 Smudge Cells Not Reportable 11/10/16 04:00 Toxic Granulation Not Reportable 11/10/16 04:00 Toxic Vacuolation Not Reportable 11/10/16 04:00 Dohle Bodies Not Reportable 11/10/16 04:00 Pelger-Huet Anomaly Not Reportable 11/10/16 04:00 Yoseph Rods Not Reportable 11/10/16 04:00 Platelet Estimate Appears normal 11/10/16 04:00 Clumped Platelets Not Reportable 11/10/16 04:00 Plt Clumps, EDTA Not Reportable 11/10/16 04:00 Large Platelets Not Reportable 11/10/16 04:00 Giant Platelets Not Reportable 11/10/16 04:00 Platelet Satelliting Not Reportable 11/10/16 04:00 Plt Morphology Comment Not Reportable 11/10/16 04:00 RBC Morphology Not Reportable 11/10/16 04:00 Dimorphic RBCs Not Reportable 11/10/16 04:00 Polychromasia Not Reportable 11/10/16 04:00 Hypochromasia 2+ 11/10/16 04:00 Poikilocytosis Not Reportable 11/10/16 04:00 Anisocytosis 2+ 11/10/16 04:00 Microcytosis Not Reportable 11/10/16 04:00 Macrocytosis Not Reportable 11/10/16 04:00 Spherocytes Not Reportable 11/10/16 04:00 Pappenheimer Bodies Not Reportable 11/10/16 04:00 Sickle Cells Not Reportable 11/10/16 04:00 Target Cells Not Reportable 11/10/16 04:00 Tear Drop Cells Not Reportable 11/10/16 04:00 Ovalocytes Not Reportable 11/10/16 04:00 Helmet Cells Not Reportable 11/10/16 04:00 [place] Bodies Not Reportable 11/10/16 04:00 [place] Rings Not Reportable 11/10/16 04:00 [place] Cells Not Reportable 11/10/16 04:00 Bite Cells Not Reportable 11/10/16 04:00 Crenated Cell Not Reportable 11/10/16 04:00 Elliptocytes Not Reportable 11/10/16 04:00 Acanthocytes (Spur) Not Reportable 11/10/16 04:00 Rouleaux Not Reportable 11/10/16 04:00 Hemoglobin C Crystals Not Reportable 11/10/16 04:00 Schistocytes Rare 11/10/16 04:00 Malaria parasites Not Reportable 11/10/16 04:00 Tj Bodies Not Reportable 11/10/16 04:00 Hem Pathologist Commnt No 11/10/16 04:00 Sodium 141 mmol/L (137-145) 11/15/16 04:34 Potassium 4.3 mmol/L (3.6-5.0) 11/15/16 04:34 Chloride 105.1 mmol/L (98-107) 11/15/16 04:34 Carbon Dioxide 22 mmol/L (22-30) 11/15/16 04:34 Anion Gap 18 mmol/L 11/15/16 04:34 BUN 38 mg/dL (9-20) H 11/15/16 04:34 Creatinine 2.4 mg/dL (0.8-1.5) H 11/15/16 04:34 Estimated GFR 33 ml/min 11/15/16 04:34 BUN/Creatinine Ratio 15.83 % 11/15/16 04:34 Glucose 96 mg/dL (75-100) 11/15/16 04:34 Lactic Acid 1.3 mmol/L (0.7-2.0) 11/06/16 13:16 Calcium 8.9 mg/dL (8.4-10.2) 11/15/16 04:34 Phosphorus 4.0 mg/dL (2.5-4.5) 11/13/16 04:12 Ferritin 72.3 ng/mL (13.0-400.0) 11/10/16 04:00 Total Bilirubin 0.4 mg/dL (0.1-1.2) 11/02/16 04:09 AST 18 units/L (5-40) 11/02/16 04:09 ALT 10 units/L (7-56) 11/02/16 04:09 Alkaline Phosphatase 52 units/L (35-129) 11/02/16 04:09 Total Protein 6.7 g/dL (6.3-8.2) 11/02/16 04:09 Albumin 3.0 g/dL (3.9-5) L 11/02/16 04:09 Albumin/Globulin Ratio 0.8 % 11/02/16 04:09 Vitamin B12 461.6 pg/mL (211-911) 11/10/16 04:00 RBC Folic Acid 501 ng/mL (>280) 11/10/16 04:00 PTH Intact 26.46 pg/mL (15-65) 11/13/16 04:12 Urine Color Yellow (Yellow) 11/11/16 Unknown Urine Turbidity Clear (Clear) 11/11/16 Unknown Urine pH 5.0 (5.0-7.0) 11/11/16 Unknown Ur Specific [place] 1.015 (1.003-1.030) 11/11/16 Unknown Urine Protein 100 mg/dl mg/dL (Negative) 11/11/16 Unknown Urine Glucose (UA) Neg mg/dL (Negative) 11/11/16 Unknown Urine Ketones Neg mg/dL (Negative) 11/11/16 Unknown Urine Blood Sm (Negative) 11/11/16 Unknown Urine Nitrite Neg (Negative) 11/11/16 Unknown Urine Bilirubin Neg (Negative) 11/11/16 Unknown Urine Urobilinogen < 2.0 mg/dL (<2.0) 11/11/16 Unknown Ur Leukocyte Esterase Neg (Negative) 11/11/16 Unknown Urine WBC (Auto) < 1.0 /HPF (0.0-6.0) 11/11/16 Unknown Urine RBC (Auto) 3.0 /HPF (0.0-6.0) 11/11/16 Unknown U Epithel Cells (Auto) < 1.0 /HPF (0-13.0) 11/11/16 Unknown Hyaline Casts 1 /LPF 11/11/16 Unknown
[2016-11-15] MEDS: ZOCOR PO SCH (21:51)
[2016-11-16 04:50] LABS: Hematocrit 23.1 % (35.5-45.6); Hemoglobin 7.7 gm/dl (11.8-15.2)
[2016-11-16] MEDS: PROTONIX PO SCH (09:57)
[2016-11-16] MEDS: COLACE PO SCH ×2 (09:57→21:18)
[2016-11-16] MEDS: ZESTRIL PO SCH ×2 (09:58→21:18)
[2016-11-16] MEDS: HABITROL TD SCH (09:58)
[2016-11-16] MEDS: PROCARDIA XL PO SCH (09:58)
--- NOTE | 2016-11-16 11:44 | Progress Note ---
Assessment and Plan 61 y.o. right handed male with acute/subacute left ANGELA CVA, right hemiparesis - s/p CVA- statin only; ASA discontinued until H/H improves and/or completed EGD /colonoscopy as outpt - gait dysfunction- pt has shown very good progress with gait; ambulated maxA 50 feet with HW on initial evaluation; now ambulating up to 115 feet CGA with RW ; pending Right AFO for foot drop - HTN- stable - right otitis media- completed treatment with Augmentin on yesterday - acute on chronic renal failure- labs stable; F/U with Nephrology as outpt - anemia- refused EGD/colonoscopy; continue Protonix, follow up with GI as outpt for work-up; H/H stable - DVT px- heparin discontinued due to ?GI bleed - Patient Problems (1) Acute left ANGELA ischemic stroke Current Visit: Yes Status: Acute (2) Abnormality of gait following cerebrovascular accident (CVA) Current Visit: No Status: Acute (3) Hemiparesis affecting right side as late effect of cerebrovascular accident Current Visit: No Status: Acute (4) Acute renal failure Current Visit: Yes Status: Acute Qualifiers: Acute renal failure type: with acute tubular necrosis Qualified Code(s): N17.0 - Acute kidney failure with tubular necrosis (5) HTN (hypertension) Current Visit: Yes Status: Chronic Qualifiers: Hypertension type: essential hypertension Qualified Code(s): I10 - Essential (primary) hypertension (6) Right acute otitis media Current Visit: Yes Status: Acute (7) Right foot drop Current Visit: Yes Status: Acute Subjective Date of service: 11/16/16 Principal diagnosis: acute/subacute left ANGELA CVA Interval history: Pt seen in room this AM, F/U IPR course, acute/subacute left ANGELA CVA. No acute issues overnight; anticipating d/c home at end of the week Objective - Constitutional Vitals: Vital Signs - 12hr 11/16/16 11/16/16 08:00 09:58 Temperature 97.7 F Pulse Rate 94 H Pulse Rate [ 94 H Apical] Respiratory 18 Rate Blood Pressure 141/73 Blood Pressure 141/73 [Right Arm] General appearance: Present: no acute distress, other (in WC) - EENT Eyes: EOM intact ENT: hearing intact - Neck Neck: supple, normal ROM - Respiratory Respiratory effort: normal - Cardiovascular Rhythm: regular Heart Sounds: Present: S1 & S2 Extremities: No edema - Gastrointestinal General gastrointestinal: Present: soft, non-tender, non-distended, normal bowel sounds - Integumentary Integumentary: clear - Musculoskeletal Musculoskeletal: right sided weakness (3/5 RUE, 2/5 RLE, except with foot drop) - Neurologic Neurologic: CNII-XII intact - Psychiatric Psychiatric: appropriate mood/affect, cooperative - Allied health notes Allied health notes reviewed: ST (ongoing problem solving deficits) - Labs CBC & Chem 7: 11/16/16 04:09 11/15/16 04:34 Labs: Abnormal lab results 11/16/16 Range/Units 04:09 Hgb 7.7 L (11.8-15.2) gm/dl Hct 23.1 L (35.5-45.6) %
[2016-11-16] MEDS: PERCOCET 5/325 PO PRN ×2 (12:15→21:16)
--- NOTE | 2016-11-16 16:14 | Progress Note ---
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 Renal function is stable. Monitor renal function. (2) HTN (hypertension) Current Visit: Yes Status: Chronic Qualifiers: Hypertension type: essential hypertension Qualified Code(s): I10 - Essential (primary) hypertension Plan to address problem: BP well controlled. (3) Acute left ANGELA ischemic stroke Current Visit: Yes Status: Acute Plan to address problem: In Acute Rehab. (4) Anemia Current Visit: Yes Status: Acute Qualifiers: Anemia type: A Iron deficiency anemia type: I Vitamin B12 deficiency anemia type: V Folate deficiency anemia type: F Bone marrow failure anemia type: B Hemolytic anemia type: H Other causes of anemia: O Plan to address problem: Suspected GI bleed. Refused Colonoscopy. Subjective Date of service: 11/16/16 Principal diagnosis: acute/subacute left ANGELA CVA Interval history: No new complaint. Patient is doing ok. Objective - Vital Signs Vital signs: Vital Signs - 12hr 11/16/16 11/16/16 11/16/16 08:00 09:58 10:00 Temperature 97.7 F Pulse Rate 94 H Pulse Rate [ 94 H Apical] Pulse Rate [ 94 H Right Brachial] Respiratory 18 Rate Blood Pressure 141/73 Blood Pressure 141/73 [Right Arm] - General Appearance General appearance: well-developed, well-nourished, appears stated age, other ( no distress) EENT: PERRL, mucous membranes moist, hearing intact, vision intact Neck: no JVD, supple Respiratory: Present: Clear to Ascultation Cardiology: regular, S1S2, no murmurs Gastrointestinal: normoactive bowel sounds, no tenderness, no distended Integumentary: no rash, warm and dry Neurologic: no asterixis, alert and oriented x3 (slight weakness of right LE), CN 3-12 intact Musculoskeletal: other (no edema) Psychiatric: cooperative - Lab 11/16/16 04:09 11/15/16 04:34 Most recent lab results Calcium 8.9 mg/dL (8.4-10.2) 11/15/16 04:34 Phosphorus 4.0 mg/dL (2.5-4.5) 11/13/16 04:12
[2016-11-16] MEDS: ZOCOR PO SCH (21:18)
[2016-11-17] MEDS: COLACE PO SCH ×2 (10:15→22:30)
[2016-11-17] MEDS: PROTONIX PO SCH (10:16)
[2016-11-17] MEDS: ZESTRIL PO SCH ×2 (10:16→22:27)
[2016-11-17] MEDS: PERCOCET 5/325 PO PRN ×2 (10:16→22:26)
[2016-11-17] MEDS: PROCARDIA XL PO SCH (10:17)
[2016-11-17] MEDS: HABITROL TD SCH (10:17)
--- NOTE | 2016-11-17 14:27 | Progress Note ---
Assessment and Plan 61 y.o. right handed male with acute/subacute left ANGELA CVA, right hemiparesis - s/p CVA- statin only; ASA discontinued secondary to possible GI bleed - gait dysfunction- Lance for gait with RW and AFO; pending delivery of AFO - HTN- remains well controlled - DVT px- heparin discontinued due to ?GI bleed - team conference held on today- Last team conference was held on 11/10 where pt was found to be supervision for eating, grooming, UB dressing; Lance for remaining ADLs and transfers; ambulating 150 feet Lance with RW and AFO; SBA for bed mobility; supervision for wheelchair mobility; maxA for problem solving and memory. Pt has shown progress since that time. Pt is S/U for eating and grooming; SBA for bathing, LB dressing, toileting, toilet and shower transfers; Melodie for UB dressing; SBA to CGA for sit-stand transfers; supervision for wheelchair mobility; Lance 150 feet using RW and AFO; Lance for stairs. MaxA for problem solving, modA for memory. Family training was completed on today. Tentative d/c home on tomorrow. - Patient Problems (1) Acute left ANGELA ischemic stroke Current Visit: Yes Status: Acute (2) Abnormality of gait following cerebrovascular accident (CVA) Current Visit: No Status: Acute (3) Hemiparesis affecting right side as late effect of cerebrovascular accident Current Visit: No Status: Acute (4) HTN (hypertension) Current Visit: Yes Status: Chronic Qualifiers: Hypertension type: essential hypertension Qualified Code(s): I10 - Essential (primary) hypertension (5) Right foot drop Current Visit: Yes Status: Acute Subjective Date of service: 11/17/16 Principal diagnosis: acute/subacute left ANGELA CVA Interval history: Pt seen in room this AM, F/U IPR course, acute/subacute left ANGELA CVA. Family present for family training and educated on need to have outpt EGD/colonoscopy completed (niece and nephew). Pt denies any events overnight. Ready to go home on tomorrow Objective - Constitutional Vitals: Vital Signs - 12hr 11/17/16 11/17/16 11/17/16 08:00 10:00 10:16 Temperature 98.3 F Pulse Rate 90 Pulse Rate [ 90 Left Brachial] Pulse Rate [ 90 Right Brachial] Respiratory 18 18 Rate Blood Pressure 134/64 Blood Pressure 134/64 [Right Arm] O2 Sat by Pulse 100 100 Oximetry General appearance: Present: no acute distress - EENT Eyes: EOM intact ENT: hearing intact - Neck Neck: supple, normal ROM - Respiratory Respiratory effort: normal - Cardiovascular Rhythm: regular Heart Sounds: Present: S1 & S2 Extremities: No edema - Integumentary Integumentary: clear - Musculoskeletal Musculoskeletal: right sided weakness - Neurologic Neurologic: CNII-XII intact - Psychiatric Psychiatric: appropriate mood/affect, cooperative - Labs CBC & Chem 7: 11/16/16 04:09 11/15/16 04:34
[2016-11-17] MEDS: ZOCOR PO SCH (22:29)
[2016-11-18] MEDS: COLACE PO SCH (08:00)
--- NOTE | 2016-11-18 08:19 | Progress Note ---
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 Renal function is stable. F/u with me in 1-2 weeks. (2) HTN (hypertension) Current Visit: Yes Status: Chronic Qualifiers: Hypertension type: essential hypertension Qualified Code(s): I10 - Essential (primary) hypertension Plan to address problem: BP well controlled. (3) Acute left ANGELA ischemic stroke Current Visit: Yes Status: Acute Plan to address problem: In Acute Rehab. (4) Anemia Current Visit: Yes Status: Acute Qualifiers: Anemia type: A Iron deficiency anemia type: I Vitamin B12 deficiency anemia type: V Folate deficiency anemia type: F Bone marrow failure anemia type: B Hemolytic anemia type: H Other causes of anemia: O Plan to address problem: Suspected GI bleed. Refused Colonoscopy. Subjective Date of service: 11/18/16 Principal diagnosis: acute/subacute left ANGELA CVA Interval history: No new complaint. Patient is doing ok. Objective - Vital Signs Vital signs: Vital Signs - 12hr 11/17/16 11/17/16 11/17/16 22:00 22:26 22:27 Pulse Rate 96 H Respiratory 18 Rate Respiratory 20 Rate [Right Upper Arm] Blood Pressure 136/69 O2 Sat by Pulse 100 Oximetry 11/17/16 23:26 Pulse Rate Respiratory 20 Rate Respiratory Rate [Right Upper Arm] Blood Pressure O2 Sat by Pulse Oximetry - General Appearance General appearance: well-developed, well-nourished, appears stated age, other ( no edema) EENT: PERRL, mucous membranes moist, hearing intact, vision intact Neck: supple Respiratory: Present: Clear to Ascultation Cardiology: regular, S1S2, no murmurs Gastrointestinal: normoactive bowel sounds, no tenderness, no distended, no guarding Integumentary: no rash, warm and dry Neurologic: no asterixis, CN 3-12 intact, other (slight weakness of right LE) Musculoskeletal: other (no edema) Psychiatric: cooperative - Lab 11/16/16 04:09 11/15/16 04:34 Most recent lab results Calcium 8.9 mg/dL (8.4-10.2) 11/15/16 04:34 Phosphorus 4.0 mg/dL (2.5-4.5) 11/13/16 04:12
[2016-11-18] MEDS: PROCARDIA XL PO SCH (08:43)
[2016-11-18] MEDS: ZESTRIL PO SCH (08:44)
[2016-11-18] MEDS: PROTONIX PO SCH (08:45)
[2016-11-18] MEDS: HABITROL TD SCH (08:46)
--- NOTE | 2016-11-18 09:11 | Discharge Summary ---
Providers - Providers Date of Admission: 11/01/16 15:30 Date of discharge: 11/18/16 Attending physician: MEGHNA CEDEÑO 11/01/16 16:41 Occupational Therapy Evaluate and Treat [CONS] Routine Comment: Reason For Exam: s/p CVA Physical Therapy Evaluation and Treat [CONS] Routine Comment: Reason For Exam: s/p CVA Speech Therapy Evaluation and Treat [CONS] Routine Reason For Exam: s/p CVA 11/06/16 08:03 Consult to Physician [CONS] Stat Consulting Provider: CHINTAN HOBBS Reason For Exam: Change in Mental Status Place consult to:: Dr Hobbs Notified:: Dr Hobbs Phone number called:: [phone] Was contact made?: Yes If yes, spoke with:: Dr Hobbs Time called:: 08:00 11/11/16 12:32 Consult to Physician [CONS] Routine Consulting Provider: MAREK THOMPSON Reason For Exam: anemia Place consult to:: Answering service Notified:: Svetlana Phone number called:: [phone] Was contact made?: Yes If yes, spoke with:: Svetlana Time called:: 19:15 Comment:: Dr Sol stout 11/11/16 14:38 Consult to Physician [CONS] Routine Consulting Provider: AHSAN OREILLY Reason For Exam: acute renal failure Place consult to:: AHSAN ESWELL Notified:: LUIS ARMANDO [ANSWERING SERVICE] Phone number called:: [phone] Was contact made?: Yes Time called:: 07:50 Primary care physician: PCP Hospitalization Reason for admission: left ANGELA CVA Condition: Stable Hospital course: 61 y.o. right handed male admitted to [facility] secondary to acute onset of right LE weakness and subsequent fall at home; BP 191/88 on admission. Pt was found to have an acute/subacute left ANGELA CVA. Acute care course notable for intermittent headache and dizziness; right ear drainage; acute renal failure; SBP ranging from 162-200/80-106. Pt continued with right sided weakness with functional deficits and was admitted to IRU for aggressive therapies and ongoing medical management. Pt continued with right ear drainage; treated with oral and IV ABX for right otitis media. Pt was seen in consultation by Nephrology for acute on chronic renal failure, s/p IVF; GI for anemia, however, refused inpatient EGD/colonoscopy but agrees to have completed outpatient. Pt blood pressure has stabilized; no further ear drainage; renal function is stable , however, will need ongoing outpt follow-up. Functionally, pt has shown good progress since admission. On initial evaluation, pt required mod-maxA for bed mobility, modA for transfers, ambulated 50 feet with HW and AFO; supervision for eating, otherwise min-maxA for ADLs. At the time of discharge, pt has progressed to Lance to supervision for transfers; Marc for wheelchair mobility; ambulating 120 feet Lance/CGA with HW/AFO; min-modA for stairs; Marc for UB dressing and bathing; supervision for LB dressing; maxA for problem solving, modA for memory. Pt completed family training prior to discharge; family and patient educated on need for ongoing follow-up. Pt is stable for discharge home. Disposition: DISCHARGED TO HOME OR SELFCARE - Discharge Diagnoses (1) Acute left ANGELA ischemic stroke Status: Acute (2) Abnormality of gait following cerebrovascular accident (CVA) Status: Acute (3) Hemiparesis affecting right side as late effect of cerebrovascular accident Status: Acute (4) HTN (hypertension) Status: Chronic Qualifiers: Hypertension type: essential hypertension Qualified Code(s): I10 - Essential (primary) hypertension (5) Right foot drop Status: Acute Core Measure Documentation - Palliative Care Palliative Care/ Comfort Measures: Not Applicable - Core Measures Any of the following diagnoses?: stroke - Stroke Discharge Requirements Statin for LDL = or >70 mg/dl on DC: Yes Anticoag for atrial fib/atrial flutter: Not Applicable Antithrombotic for ischemic stroke: No Reason for no antithrombotic on DC: Medical Contraindication (possible GI bleed ; refused EGD/Colonoscopy, will have as outpt; anemia) Exam - Constitutional Vitals: Temp Pulse Resp BP Pulse Ox 97.6 F 77 20 140/72 100 11/17/16 20:00 11/18/16 08:44 11/17/16 23:26 11/18/16 08:44 11/17/16 22:00 General appearance: Present: no acute distress - EENT Eyes: Present: EOM intact ENT: hearing intact - Neck Neck: Present: supple, normal ROM - Respiratory Respiratory effort: normal - Extremities Extremities: No edema - Abdominal General gastrointestinal: Present: soft, non-tender, non-distended - Integumentary Integumentary: Present: clear - Musculoskeletal Musculoskeletal: right sided weakness - Psychiatric Psychiatric: appropriate mood/affect, intact judgment & insight, memory intact, cooperative - Neurologic Neurologic: CNII-XII intact Plan Activity: no driving until cleared by PCP, fall precautions Weight Bearing Status: Full Weight Bearing Diet: low cholesterol, low salt Special Instructions: physical therapy, occupational therapy, other ([employer]) Durable Medical Equipment Needed Upon Discharge: Wheelchair, Bedside Commode, [facility]; [facility]) Prescriptions: Simvastatin [Zocor TAB] 10 mg PO QHS #30 tablet Lisinopril [Zestril TAB] 20 mg PO BID #60 tablet Nicotine [Habitrol] 14 mg TD QDAY #30 patch NIFEdipine XL [Procardia Xl] 90 mg PO QDAY #30 tablet oxyCODONE /ACETAMINOPHEN [Percocet 5/325 mg] 1 tab PO Q6H PRN #30 tablet PRN Reason: Pain, Moderate (4-6) Pantoprazole [Protonix TAB] 40 mg PO QDAY #30 tablet
[2016-11-18 16:05] VITALS: BP 148/67
== END 2016-11-18 16:35 | disposition home or self-care (01) | DRG 64 ==
LOC: 3B 15:30
PROVIDERS: ADMIT Family Medicine; ATTEND Family Medicine
DX: I63.9 Cerebral infarction, unspecified (principal); N17.0 Acute kidney failure with tubular necrosis; G93.40 Encephalopathy, unspecified; A41.9 Sepsis, unspecified organism; E87.1 Hypo-osmolality and hyponatremia; I69.351 Hemiplegia and hemiparesis following cerebral infarction affecting right dominant side; W19.XXXA Unspecified fall, initial encounter; M19.90 Unspecified osteoarthritis, unspecified site; J44.9 Chronic obstructive pulmonary disease, unspecified; K21.9 Gastro-esophageal reflux disease without esophagitis; F17.200 Nicotine dependence, unspecified, uncomplicated; M54.9 Dorsalgia, unspecified; I12.9 Hypertensive chronic kidney disease with stage 1 through stage 4 chronic kidney disease, or unspecified chronic kidney disease; M21.371 Foot drop, right foot; D64.9 Anemia, unspecified; N18.3 Chronic kidney disease, stage 3 (moderate); G89.4 Chronic pain syndrome; H66.91 Otitis media, unspecified, right ear; R26.9 Unspecified abnormalities of gait and mobility; Z83.3 Family history of diabetes mellitus; Z82.49 Family history of ischemic heart disease and other diseases of the circulatory system; Z82.3 Family history of stroke; Z79.82 Long term (current) use of aspirin; Y93.89 Activity, other specified; Y92.098 Other place in other non-institutional residence as the place of occurrence of the external cause; Y99.8 Other external cause status
CPT/HCPCS: 36415; 76770; 80048; 80053; 81001; 82140; 82270; 82607; 82728; 82747; 83970; 84100; 85007; 85014; 85018; 85025; 85027; 87040; 87086; G8987-GO; G8988-GO; J1644; J2543; J7030

== ENCOUNTER 2016-11-20 17:35 | Inpatient (IN) | payer MEDICARE ==
--- NOTE | 2016-11-20 17:46 | Emergency Department Report ---
HPI - General Time Seen by Provider: 11/20/16 17:43 - HPI HPI: This is a 61-year-old -[place] male who presents to the emergency department by EMS from home with complaint of altered mental status and possible stroke. The patient allegedly had a stroke about one week ago that left him with worsening right-sided deficits. The story is that the patient's nephew found him unresponsive, but then the patient became more alert and began talking to him, but then once again had another unresponsive episode. Patient is now awake and will answer some questions but either is withholding or has some aphasia. The patient has visible right upper extremity weakness. He has weakness to the lower extremities as well but worse on the right side. When the patient was asked if this is from today or even his last stroke, the patient says no and says that it occurred before. Patient has a past medical history of diabetes and hypertension. Patient is a poor historian secondary to his current medical condition. Unknown if the patient has a primary care doctor. ED Past Medical Hx - Past Medical History Hx Hypertension: Yes Hx Congestive Heart Failure: No Hx Diabetes: No Hx GERD: Yes Hx Arthritis: Yes (right hip) Hx Asthma: No Hx COPD: Yes Additional medical history: chronic back pain - Surgical History Hx Pacemaker: No Additional Surgical History: "shoulder surgery" - Social History Smoking Status: Smoker, Current Status Unknown - Medications Home Medications: Home Medications Medication Instructions Recorded Confirmed Last Taken Type Acetaminophen [Acetaminophen TAB] 650 mg PO Q4H PRN #1 tablet 11/18/16 Unknown Rx Docusate Sodium [Colace CAP] 100 mg PO BID capsule 11/18/16 Unknown Rx Lisinopril [Zestril TAB] 20 mg PO BID #60 tablet 11/18/16 Unknown Rx NIFEdipine XL [Procardia Xl] 90 mg PO QDAY #30 tablet 11/18/16 Unknown Rx Nicotine [Habitrol] 14 mg TD QDAY #30 patch 11/18/16 Unknown Rx Pantoprazole [Protonix TAB] 40 mg PO QDAY #30 tablet 11/18/16 Unknown Rx Simvastatin [Zocor TAB] 10 mg PO QHS #30 tablet 11/18/16 Unknown Rx oxyCODONE /ACETAMINOPHEN [Percocet 1 tab PO Q6H PRN #30 tablet 11/18/16 Unknown Rx 5/325 mg] ED Review of Systems ROS: Stated complaint: ALTERED LOC Other details as noted in HPI Comment: Unobtainable due to pts medical conditions Physical Exam - Physical Exam Physical Exam: GENERAL: Patient is ill-appearing. HEENT: Normocephalic. Atraumatic. Extraocular motions are intact. Patient has moist mucous membranes. Pupils equal reactive to light bilaterally. NECK: Supple. Trachea is midline. CHEST/LUNGS: Clear to auscultation. There is no respiratory distress noted. HEART/CARDIOVASCULAR: Regular. There is no tachycardia. There is no gallop rub or murmur. ABDOMEN: Abdomen is soft, nontender. Patient has normal bowel sounds. There is no abdominal distention. SKIN: Skin is warm and dry. NEURO: Patient is awake. Able to give his name. Patient answers some questions but not others and it is unknown if it is due to aphasia versus effort. There is right upper extremity weakness at 0 out of 5. There is bilateral lower extremity weakness with right greater than left. No left upper extremity weakness or drift. Patient says that he has subjective decreased sensation to the right lower extremity but it is equal to the bilateral upper extremities and face. There is some right-sided nasolabial fold paresis. MUSCULOSKELETAL: There is no tenderness or deformity. There is no limitation range of motion. There is no evidence of acute injury. Radial pulses +2 over 4 bilaterally. Cap refill less than 2 seconds. ED Course - Consultations Consultation #1: I spoke with the telemedicine neurologist, Dr. Niño, who based on the case presentation so far does not feel that the patient will be a TPA candidate but was going to do a telemedicine evaluation and call back with his recommendations. 11/20/16 18:10 Consultation #2: The patient was seen by the telemedicine neurologist who did a consult and saw the patient in the room. He does not feel that the patient is a TPA candidate as the patient most likely has continued right-sided hemiplegia and some symptoms from his previous stroke. The patient's main problem was 1-2 syncopal episodes. He does recommend admitting the patient for further evaluation as the patient is not on any medications like aspirin or Plavix or at least does not know his medications and should receive further evaluation. 11/20/16 18:45 ED Medical Decision Making - Lab Data Result diagrams: 11/20/16 17:45 11/20/16 17:45 - EKG Data -: EKG Interpreted by Me EKG shows normal: sinus rhythm, axis, intervals, QRS complexes, ST-T waves (T- wave inversions and mild ST depressions to the lateral leads and V5 and V6) Rate: normal - EKG Data When compared to previous EKG there are: no significant change Interpretation: unchanged when compared t (10/29/16) - Radiology Data Radiology results: report reviewed, image reviewed interpreted by me: Chest x-ray did not show any acute process. Heart is normal shape and size. No effusions. No pneumothorax. No signs of pneumonia seen. CT of the head without contrast shows no abnormal mass or acute intracranial hemorrhage. There are areas of relative hypodensity in the white matter of the cerebral hemispheres. Nonspecific finding. It may be related to chronic ischemic change from small vessel disease. There is an area in the subcortical white matter of the anterior left frontal lobe which appears more discrete which could indicate Los associated with prior infarct. This appears similar to prior study. - Medical Decision Making This is a 61-year-old male presents to the emergency department after 2 syncopal episodes versus episodes of unresponsiveness versus seizure versus CVA. Patient is awake when he is in the emergency department but does show some deficits with right-sided hemiplegia, some slow responses that could be aphasia versus effort level. There is also some right-sided nasolabial fold paralysis/paresis the patient does have a history of previous stroke from 3 weeks ago. Patient had a stat CT scan of the head that did not show any change in his imaging and does not show any acute intracranial process. Patient's labs show a leukocytosis, anemia and some renal insufficiency but once again it is not significant change from previous CT imaging. The EKG is not morphologically consistent with a ST elevation [place] but there is some abnormalities with T-wave inversions and slight ST depressions in the lateral leads V5 and V6. However it is consistent with the previous EKG from 3 weeks ago. Patient had a neuro logical evaluation from telemedicine neurology. They did not feel that it was a acute stroke but even if it was he is not a TPA candidate. They suggest admission for further evaluation. Patient's vital signs are stable throughout his ED course. The patient is been accepted for admission by the hospitalist, Dr. Deluna. - Differential Diagnosis seizure, syncope, CVA, TIA, brain bleed Critical Care Time: No Critical care attestation.: If time is entered above; I have spent that time in minutes in the direct care of this critically ill patient, excluding procedure time. ED Disposition Clinical Impression: Chronic kidney disease, stage 3 (moderate), Renal insufficiency Altered mental status Qualifiers: Altered mental status type: transient alteration of awareness Qualified Code(s) : R40.4 - Transient alteration of awareness Anemia Qualifiers: Anemia type: unspecified type Qualified Code(s): D64.9 - Anemia, unspecified Disposition: OP ADMITTED IP TO THIS HOSP Is pt being admited?: Yes Does the pt Need Aspirin: Yes Condition: Stable Time of Disposition: 19:54
[2016-11-20 17:58] LABS: Basophils % (Auto) 0.7 % (0.0-1.8); Hematocrit 22.7 % (35.5-45.6); Hemoglobin 7.5 gm/dl (11.8-15.2); Mean Corpuscular HGB Conc 33 % (32-34); Mean Corpuscular Hemoglobin 29 pg (28-32); Mean Corpuscular Volume 89 fl (84-94); Platelet Count 461 K/mm3 (140-440); Red Blood Count 2.55 M/mm3 (3.65-5.03); Red Cell Distribution Width 14.7 % (13.2-15.2); White Blood Count 14.7 K/mm3 (4.5-11.0)
--- NOTE | 2016-11-20 18:06 | Cat Scan Report ---
FINAL REPORT EXAM: CT HEAD/BRAIN WO CON HISTORY: suspected stroke TECHNIQUE: Noncontrast serial axial images from skull base to vertex PRIORS: CT scan of the head from 10/28/2016 FINDINGS: There is moderate atrophy. There is no mass effect or midline shift. There are no abnormal intra or extra-axial fluid collections. Lateral ventricles are within normal limits for size and configuration. Basilar cisterns are patent. No acute intracranial hemorrhage is identified. Areas of relative hypodensity are seen in the white matter of the cerebral hemispheres. Atherosclerotic changes are noted. There is mild mucosal thickening in the maxillary sinuses. Mastoid air cells on the right side are opacified. This has increased slightly since the prior study. No definite osseous erosion is seen at this time. No acute osseous abnormality is identified. IMPRESSION: 1. No abnormal mass or acute intracranial hemorrhage is identified. 2. Areas of relative hypodensity are seen in the white matter of the cerebral hemispheres. This is a nonspecific finding. It may be related to chronic ischemic change from small vessel disease. There is an area in the subcortical white matter of the anterior left frontal lobe which appears more discrete, which could indicate malacia associated with prior infarct. This appears similar to the prior study. 3. If there is concern for acute or subacute infarct, consider MRI with diffusion-weighted imaging for further evaluation. 4. Mastoid air cells on the right side are opacified. This may represent fluid or inflammatory debris. No definite osseous erosion is seen.
[2016-11-20 18:09] LABS: Partial Thromboplastin Time 31.3 Sec. (24.2-36.6)
[2016-11-20 19:32] LABS: Creatine Kinase MB 1.7 ng/mL (0.0-4.0)
[2016-11-20 19:34] LABS: Alanine Aminotransferase 15 units/L (7-56); Albumin 3.5 g/dL (3.9-5); Albumin/Globulin Ratio 0.9 %; Alkaline Phosphatase 60 units/L (35-129); Anion Gap 18 mmol/L; BUN/Creatinine Ratio 16.36; Bilirubin,Total 0.2 mg/dL (0.1-1.2); Blood Urea Nitrogen 36 mg/dL (9-20); Calcium 8.9 mg/dL (8.4-10.2); Carbon Dioxide 22 mmol/L (22-30); Creatine Kinase 119 units/L (55-170); Glucose 122 mg/dL (75-100); Potassium 4.3 mmol/L (3.6-5.0); Sodium 141 mmol/L (137-145); Total Protein 7.4 g/dL (6.3-8.2)
[2016-11-20] MEDS ORDERED: BABY ASPIRIN PO ONE (19:54)
[2016-11-20 20:04] LABS: Urine Drugs of Abuse Note Disclamer
[2016-11-20 20:11] LABS: Bilirubin,Urine NEG (Negative); Blood,Urine NEG (Negative); Ketones,Urine NEG (Negative); Leukocyte Esterase,Urine NEG (Negative); Mucus,Urine FEW /HPF; Nitrite,Urine NEG (Negative); Urobilinogen,Urine < 2.0 mg/dL (<2.0)
[2016-11-20 20:19] LABS: Creatine Kinase MB 1.6 ng/mL (0.0-4.0)
[2016-11-20 20:48] LABS: Creatine Kinase 116 units/L (55-170)
[2016-11-20] MEDS ORDERED: TYLENOL PO PRN (22:09)
[2016-11-20] MEDS ORDERED: ZOFRAN IV PRN (22:09)
[2016-11-20] MEDS ORDERED: PERCOCET 5/325 PO PRN (22:09)
[2016-11-20] MEDS ORDERED: DULCOLAX PR PRN (22:09)
[2016-11-20] MEDS ORDERED: MILK OF MAGNESIA PO PRN (22:09)
[2016-11-20] MEDS: HEPARIN SUB-Q SCH (22:55)
[2016-11-20] MEDS ORDERED: D5/0.45NS 1,000 ML IV SCH (23:00)
[2016-11-21] MEDS ORDERED: HEPARIN ONE (00:17)
[2016-11-21] MEDS ORDERED: ASPIRIN ONE (00:17)
[2016-11-21 05:59] LABS: Alanine Aminotransferase 13 units/L (7-56); Albumin 2.9 g/dL (3.9-5); Albumin/Globulin Ratio 0.7 %; Alkaline Phosphatase 55 units/L (35-129); Anion Gap 18 mmol/L; BUN/Creatinine Ratio 16.66; Bilirubin,Total < 0.2 mg/dL (0.1-1.2); Blood Urea Nitrogen 35 mg/dL (9-20); Calcium 8.8 mg/dL (8.4-10.2); Carbon Dioxide 22 mmol/L (22-30); Chloride 108.1 mmol/L (98-107); Glucose 91 mg/dL (75-100); Potassium 4.2 mmol/L (3.6-5.0); Sodium 144 mmol/L (137-145)
[2016-11-21] MEDS: HEPARIN SUB-Q SCH ×3 (06:00→22:22)
[2016-11-21 06:09] LABS: Hematocrit TNR % (35.5-45.6); Hemoglobin TNR gm/dl (11.8-15.2); Mean Corpuscular HGB Conc TNR % (32-34); Mean Corpuscular Hemoglobin TNR pg (28-32); Mean Corpuscular Volume TNR fl (84-94); Red Blood Count TNR M/mm3 (3.65-5.03); White Blood Count TNR K/mm3 (4.5-11.0)
[2016-11-21 06:10] LABS: Basophils % (Auto) TNR % (0.0-1.8); Diff Status TNR; Eosinophils % (Auto) TNR % (0.0-4.3); Mean Platelet Volume TNR fl (6-12); Platelet Count TNR K/mm3 (140-440); Red Cell Distribution Width TNR % (13.2-15.2)
[2016-11-21 07:22] LABS: Basophils % (Auto) 0.4 % (0.0-1.8); Eosinophils % (Auto) 1.3 % (0.0-4.3); Hematocrit 24.4 % (35.5-45.6); Hemoglobin 7.9 gm/dl (11.8-15.2); Mean Corpuscular HGB Conc 33 % (32-34); Mean Corpuscular Hemoglobin 29 pg (28-32); Mean Corpuscular Volume 88 fl (84-94); Platelet Count 467 K/mm3 (140-440); Red Blood Count 2.78 M/mm3 (3.65-5.03); Red Cell Distribution Width 14.8 % (13.2-15.2); White Blood Count 11.5 K/mm3 (4.5-11.0)
--- NOTE | 2016-11-21 07:49 | History and Physical Report ---
History of Present Illness Date of examination: 11/20/16 Date of admission: 11/20/16 19:54 Chief complaint: Passed out this afternoon. History of present illness: Patient recently discharged after stroke w/u apparently passed out.No new deficits Past History Past Medical History: hypertension, stroke Medications and Allergies Allergies Allergy/AdvReac Type Severity Reaction Status Date / Time No Known Allergies Allergy Verified 03/25/15 12:10 Home Medications Medication Instructions Recorded Confirmed Last Taken Type Acetaminophen [Acetaminophen TAB] 650 mg PO Q4H PRN #1 tablet 11/18/16 Unknown Rx Docusate Sodium [Colace CAP] 100 mg PO BID capsule 11/18/16 Unknown Rx Lisinopril [Zestril TAB] 20 mg PO BID #60 tablet 11/18/16 Unknown Rx NIFEdipine XL [Procardia Xl] 90 mg PO QDAY #30 tablet 11/18/16 Unknown Rx Nicotine [Habitrol] 14 mg TD QDAY #30 patch 11/18/16 Unknown Rx Pantoprazole [Protonix TAB] 40 mg PO QDAY #30 tablet 11/18/16 Unknown Rx Simvastatin [Zocor TAB] 10 mg PO QHS #30 tablet 11/18/16 Unknown Rx oxyCODONE /ACETAMINOPHEN [Percocet 1 tab PO Q6H PRN #30 tablet 11/18/16 Unknown Rx 5/325 mg] Active Meds: Active Medications Heparin Sodium (Porcine) (Heparin) 5,000 unit SUB-Q Q8HR MAIK Review of Systems All systems: negative Exam - Constitutional Vitals: Temp Pulse Resp BP Pulse Ox 98.0 F 102 H 14 126/65 98 11/20/16 17:50 11/20/16 19:31 11/20/16 19:31 11/20/16 19:31 11/20/16 17:50 General appearance: Present: no acute distress, well-nourished - EENT Eyes: Present: PERRL ENT: hearing intact, clear oral mucosa - Neck Neck: Present: supple, normal ROM - Respiratory Respiratory effort: normal Respiratory: bilateral: CTA - Cardiovascular Heart Sounds: Present: S1 & S2. Absent: rub, click - Extremities Extremities: pulses symmetrical, No edema Peripheral Pulses: within normal limits - Abdominal General gastrointestinal: Present: soft, non-tender, non-distended, normal bowel sounds Male genitourinary: Present: normal - Integumentary Integumentary: Present: clear, warm, dry - Musculoskeletal Musculoskeletal: gait normal, strength equal bilaterally - Psychiatric Psychiatric: appropriate mood/affect, intact judgment & insight - Neurologic Neurologic: CNII-XII intact, moves all extremities Results - Labs CBC & Chem 7: 11/21/16 06:46 11/21/16 05:10 Labs: Laboratory Last Values WBC 14.7 K/mm3 (4.5-11.0) H 11/20/16 17:45 RBC 2.55 M/mm3 (3.65-5.03) L 11/20/16 17:45 Hgb 7.5 gm/dl (11.8-15.2) L 11/20/16 17:45 Hct 22.7 % (35.5-45.6) L 11/20/16 17:45 MCV 89 fl (84-94) 11/20/16 17:45 MCH 29 pg (28-32) 11/20/16 17:45 MCHC 33 % (32-34) 11/20/16 17:45 RDW 14.7 % (13.2-15.2) 11/20/16 17:45 Plt Count 461 K/mm3 (140-440) H 11/20/16 17:45 Lymph % (Auto) 26.0 % (13.4-35.0) 11/20/16 17:45 Zapata % (Auto) 5.2 % (0.0-7.3) 11/20/16 17:45 Eos % (Auto) 1.0 % (0.0-4.3) 11/20/16 17:45 Baso % (Auto) 0.7 % (0.0-1.8) 11/20/16 17:45 Lymph # 3.8 K/mm3 (1.2-5.4) 11/20/16 17:45 Zapata # 0.8 K/mm3 (0.0-0.8) 11/20/16 17:45 Eos # 0.1 K/mm3 (0.0-0.4) 11/20/16 17:45 Baso # 0.1 K/mm3 (0.0-0.1) 11/20/16 17:45 Seg Neutrophils % 67.1 % (40.0-70.0) 11/20/16 17:45 Seg Neutrophils # 9.9 K/mm3 (1.8-7.7) H 11/20/16 17:45 PT 13.1 Sec. (12.2-14.9) 11/20/16 17:45 INR 1.00 (0.87-1.13) 11/20/16 17:45 APTT 31.3 Sec. (24.2-36.6) 11/20/16 17:45 Thrombin Time 19.9 Sec. (15.1-19.6) H 11/20/16 17:45 Sodium 141 mmol/L (137-145) 11/20/16 17:45 Potassium 4.3 mmol/L (3.6-5.0) 11/20/16 17:45 Chloride 105.0 mmol/L (98-107) 11/20/16 17:45 Carbon Dioxide 22 mmol/L (22-30) 11/20/16 17:45 Anion Gap 18 mmol/L 11/20/16 17:45 BUN 36 mg/dL (9-20) H 11/20/16 17:45 Creatinine 2.2 mg/dL (0.8-1.5) H 11/20/16 17:45 Estimated GFR 37 ml/min 11/20/16 17:45 BUN/Creatinine Ratio 16.36 % 11/20/16 17:45 Glucose 122 mg/dL (75-100) H 11/20/16 17:45 Calcium 8.9 mg/dL (8.4-10.2) 11/20/16 17:45 Total Bilirubin 0.2 mg/dL (0.1-1.2) 11/20/16 17:45 AST 21 units/L (5-40) 11/20/16 17:45 ALT 15 units/L (7-56) 11/20/16 17:45 Alkaline Phosphatase 60 units/L (35-129) 11/20/16 17:45 Total Creatine Kinase 116 units/L (55-170) 11/20/16 19:43 CK-MB (CK-2) 1.6 ng/mL (0.0-4.0) 11/20/16 19:43 CK-MB (CK-2) Rel Index 1.3 (0-4) 11/20/16 19:43 Troponin T < 0.010 ng/mL (0.00-0.029) 11/20/16 19:43 Total Protein 7.4 g/dL (6.3-8.2) 11/20/16 17:45 Albumin 3.5 g/dL (3.9-5) L 11/20/16 17:45 Albumin/Globulin Ratio 0.9 % 11/20/16 17:45 TSH 4.850 mlU/mL (0.270-4.200) H 11/20/16 17:45 Urine Color Yellow (Yellow) 11/20/16 19:50 Urine Turbidity Clear (Clear) 11/20/16 19:50 Urine pH 5.0 (5.0-7.0) 11/20/16 19:50 Ur Specific Waldo 1.014 (1.003-1.030) 11/20/16 19:50 Urine Protein 100 mg/dl mg/dL (Negative) 11/20/16 19:50 Urine Glucose (UA) Neg mg/dL (Negative) 11/20/16 19:50 Urine Ketones Neg mg/dL (Negative) 11/20/16 19:50 Urine Blood Neg (Negative) 11/20/16 19:50 Urine Nitrite Neg (Negative) 11/20/16 19:50 Urine Bilirubin Neg (Negative) 11/20/16 19:50 Urine Urobilinogen < 2.0 mg/dL (<2.0) 11/20/16 19:50 Ur Leukocyte Esterase Neg (Negative) 11/20/16 19:50 Urine WBC (Auto) 1.0 /HPF (0.0-6.0) 11/20/16 19:50 Urine RBC (Auto) 3.0 /HPF (0.0-6.0) 11/20/16 19:50 Urine Mucus Few /HPF 11/20/16 19:50 Urine Opiates Screen Presumptive negative 11/20/16 19:50 Urine Methadone Screen Presumptive negative 11/20/16 19:50 Ur Barbiturates Screen Presumptive negative 11/20/16 19:50 Ur Phencyclidine Scrn Presumptive negative 11/20/16 19:50 Ur Amphetamines Screen Presumptive negative 11/20/16 19:50 U Benzodiazepines Scrn Presumptive negative 11/20/16 19:50 Urine Cocaine Screen Presumptive negative 11/20/16 19:50 U Marijuana (THC) Screen Presumptive positive 11/20/16 19:50 Drugs of Abuse Note Disclamer 11/20/16 19:50 Plasma/Serum Alcohol < 0.01 gm% (0-0.07) 11/20/16 17:45 Blood Type O POSITIVE 11/20/16 17:45 Antibody Screen Negative 11/20/16 17:45 Short CBC 11/20/16 11/21/16 11/21/16 Range/Units 17:45 05:10 06:46 WBC 14.7 H TNR 11.5 H (4.5-11.0) K/mm3 Hgb 7.5 L TNR 7.9 L (11.8-15.2) gm/dl Hct 22.7 L TNR 24.4 L (35.5-45.6) % Plt Count 461 H TNR 467 H (140-440) K/mm3 BMP 11/20/16 11/21/16 17:45 05:10 Sodium 141 144 Potassium 4.3 4.2 Chloride 105.0 108.1 H Carbon Dioxide 22 22 BUN 36 H 35 H Creatinine 2.2 H 2.1 H Glucose 122 H 91 Calcium 8.9 8.8 Cardiac Enzymes 11/20/16 11/20/16 11/20/16 Range/Units 17:45 19:43 23:26 Total Creatine Kinase 119 116 (55-170) units/L CK-MB (CK-2) 1.7 1.6 (0.0-4.0) ng/mL Troponin T < 0.010 < 0.010 < 0.010 (0.00-0.029) ng/mL Liver Function 11/20/16 11/21/16 Range/Units 17:45 05:10 Total Bilirubin 0.2 < 0.2 (0.1-1.2) mg/dL AST 21 19 (5-40) units/L ALT 15 13 (7-56) units/L Alkaline Phosphatase 60 55 (35-129) units/L Albumin 3.5 L 2.9 L (3.9-5) g/dL Urine 11/20/16 Range/Units 19:50 Urine Color Yellow (Yellow) Urine pH 5.0 (5.0-7.0) Ur Specific Waldo 1.014 (1.003-1.030) Urine Protein 100 mg/dl (Negative) mg/dL Urine Glucose (UA) Neg (Negative) mg/dL Assessment and Plan Advance Directives: Yes Plan of care discussed with patient/family: Yes - Patient Problems (1) Syncope and collapse Current Visit: Yes Status: Acute Plan to address problem: No new stroke.Had extensive w/u 3 weeks ago including MRI MRA Carotid duplex scan and ECHO.Possibly vasovagal.Will observe for one day and discharge (2) Marijuana use Current Visit: Yes Status: Chronic Plan to address problem: Marijuana positive on UDS Counselled (3) Nicotine dependence Current Visit: Yes Status: Chronic Qualifiers: Nicotine product type: cigarettes Substance use status: S Plan to address problem: On Nicotine patch (4) HTN (hypertension) Current Visit: Yes Status: Acute Qualifiers: Hypertension type: H Plan to address problem: Cont Nifedipine and other antihypertensives (5) Chronic kidney disease, stage 3 (moderate) Current Visit: Yes Status: Chronic (6) CVA (cerebrovascular accident) Current Visit: Yes Status: Chronic Qualifiers: CVA mechanism: thrombosis Precerebral and cerebral artery: middle cerebral artery Laterality of affected vessel: L Plan to address problem: No new CVA
[2016-11-21] MEDS ORDERED: PERCOCET 5/325 PO PRN (09:01)
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
--- NOTE | 2016-11-21 10:03 | Consultation ---
History of Present Illness Consult date: 11/21/16 Requesting physician: PEG CARVALHO Reason for Consult: syncope Chief complaint: not sure-feels he is @ his baseline. reported passing out History of present illness: 61-year-old -[place] male Hx stroke in early 2016 w/ residual R Hemiparesis and dysarthria, DM2, and HTN who presents to the emergency department by EMS from home with reported AMS. The story is apparently that the patient's nephew found him unresponsive, but then the patient became more alert and began talking to him, but then once again had another unresponsive episode. in ED, Patient was awake and fully responsive. Patient had a stat CT scan of the head that did not show any change in his imaging and does not show any acute intracranial process. Patient's labs show a leukocytosis, anemia and some renal insufficiency. Patient had a neuro logical evaluation from telemedicine neurology who recommended against tPA. he expressed no complaints to me btu he does not recall the full details of his presentation as he cannot recall the hours prior to admission. There was no motor convulsive activity, injury including tongue bite or incontinence. he is back to post stroke baseline. Past History Past Medical History: diabetes, hypertension, stroke Past Surgical History: No surgical history Social history: single, smoking. denies: alcohol abuse, prescription drug abuse , IV drug use Family history: diabetes, hypertension Medications and Allergies Allergies Allergy/AdvReac Type Severity Reaction Status Date / Time No Known Allergies Allergy Verified 03/25/15 12:10 Home Medications Medication Instructions Recorded Confirmed Last Taken Type Acetaminophen [Acetaminophen TAB] 650 mg PO Q4H PRN #1 tablet 11/18/16 Unknown Rx Docusate Sodium [Colace CAP] 100 mg PO BID capsule 11/18/16 Unknown Rx Lisinopril [Zestril TAB] 20 mg PO BID #60 tablet 11/18/16 Unknown Rx NIFEdipine XL [Procardia Xl] 90 mg PO QDAY #30 tablet 11/18/16 Unknown Rx Nicotine [Habitrol] 14 mg TD QDAY #30 patch 11/18/16 Unknown Rx Pantoprazole [Protonix TAB] 40 mg PO QDAY #30 tablet 11/18/16 Unknown Rx Simvastatin [Zocor TAB] 10 mg PO QHS #30 tablet 11/18/16 Unknown Rx oxyCODONE /ACETAMINOPHEN [Percocet 1 tab PO Q6H PRN #30 tablet 11/18/16 Unknown Rx 5/325 mg] Active Meds: Active Medications Acetaminophen (Tylenol) 650 mg PO Q4H PRN PRN Reason: Pain MILD(1-3)/Fever >100.5/CLEARY Bisacodyl (Dulcolax) 10 mg MI QDAY PRN PRN Reason: Constipation unrelieved by [facility] Docusate Sodium (Colace) 100 mg PO BID [facility] Heparin Sodium (Porcine) (Heparin) 5,000 unit SUB-Q Q8HR [facility] Last Admin: 11/20/16 22:55 Dose: 5,000 unit Dextrose/Sodium Chloride (D5/0.45ns) 1,000 mls @ 100 mls/hr IV DIRECT MAIK Lisinopril (Zestril) 20 mg PO BID [facility] Magnesium Hydroxide (Milk Of Magnesia) 30 ml PO Q4H PRN PRN Reason: Constipation Nicotine (Habitrol) 14 mg TD QDAY [facility] Nifedipine (Procardia Xl) 90 mg PO QDAY [facility] Ondansetron HCl (Zofran) 4 mg IV Q8H PRN PRN Reason: N/V unrelieved by Reglan Oxycodone/Acetaminophen (Percocet 5/325) 1 tab PO Q6H PRN PRN Reason: Pain, Moderate (4-6) Pantoprazole Sodium (Protonix) 40 mg PO QDAY MAIK Simvastatin (Zocor) 10 mg PO QHS [facility] Review of Systems Constitutional: weight loss, fatigue, weakness Neurological: weakness, change in speech, gait dysfunction, motor disturbance Physical Examination - Vital Signs Vital Signs: Vital Signs Temp Pulse Resp BP Pulse Ox 98.0 F 99 H 18 132/70 98 11/20/16 17:50 11/20/16 17:50 11/20/16 17:50 11/20/16 17:50 11/20/16 17:50 - Constitutional General appearance: comfortable, older than stated age - EENT EENT: Present: ATNC, PERRL, mucous membranes moist, hearing intact, vision intact - Respiratory Respiratory: Present: chest non-tender, normal breath sounds, no respiratory distress - Cardiovascular Cardiovascular: Present: regular rate Extremities: Present: no peripheral edema bilatateraly, no clubbing, cyanosis, no inflammation, no ischemia or petechiae - Gastrointestinal Gastrointestinal: Present: normoactive bowel sounds, soft, non-distended - Integumentary Integumentary: Present: normal - Neurologic Cranial nerve examination: PERRL, EOMI, VFF, V1/V2/V3 grossly intact, tongue midline, intact, intact shoulder shrug, intact cough reflex, Intact Vestibulo- ocular r, intact corneal reflex, facial droop (on R), normal palatal elevation Speech examination: other (dysarthria) Sensorimotor examination: pronator drift (on R), hemiparesis (on R) Motor examination - right side: 4/5: biceps, triceps, wrist flexion, wrist extension, setup operator, hip flexors, knee extensors, dorsiflexion, toe extension (EHL) , plantarflexion Motor examination - left side: 5/5: biceps, triceps, wrist flexion, wrist extension, setup operator, hip flexors, knee extensors, dorsiflexion, toe extension (EHL) , plantarflexion Detailed sensory examination: intact, light touch, temperature Reflex and gait examination: Babinski's sign (on R) Reflexes: 3+: ankle (on R), bicep, knee, tricep - Musculoskeletal Musculoskeletal: Present: no fluid collection, no pain, normal range of motion - Psychiatric Psychiatric: Present: mood/affect appropriate, cooperative Results - Laboratory Findings CBC and BMP: 11/21/16 06:46 11/21/16 05:10 Abnormal Lab Findings: Abnormal Labs 11/21/16 11/21/16 05:10 06:46 WBC 11.5 H RBC 2.78 L Hgb 7.9 L Hct 24.4 L Plt Count 467 H Seg Neutrophils # 7.9 H Chloride 108.1 H BUN 35 H Creatinine 2.1 H Albumin 2.9 L Assessment and Plan 61 YO M Hx stroke in early October 2016 Tx @ [facility] w/ residual R Hemiparesis and dysarthria, DM2, and HTN who presents to the emergency department by EMS from home with reported AMS/poor responsiveness not witnessed on arrival to ED but reported episodes of syncope w/o motor convulsive activity , tongue bite. He has anemia of Hct 24.4 and BP was borderline hypotensive on admission. Pt is a poor historian but does affirm some classic presyncopal syndrome when pt changes position and w/o premonitory epileptiform activity e.g aura/automatism, motor convulsive activity or clear post episode residual deficit e.g. post ictal state to suggest seizure. Current neuro exam is w/o deficits/focality beyond stable R hemiparesis. CTH nonacute. I suspect orthostatic syncope. Plan and Recommendation: 1. Telemetry bed w/ Q4 hour neuro checks 2. Labs: Serum/Urine Tox, UA/UCx, Electrolytes especially Na, Ca, Mg, and Glucose, TSH, 3. AED therapy: No clear indication for AED therapy 4. Orthostatic vital signs 5. Conservative management e.g. tapering of BP meds, Mike Hose, encourage PO intake, etc 6. We can revisit as needed. 7. f/u outpt neurologist to discuss further stroke surveillance. I will defer AP agent @ this time in setting of marked anemia.
[2016-11-21] MEDS: ZESTRIL PO SCH ×2 (10:45→22:23)
[2016-11-21] MEDS: PROTONIX PO SCH (10:45)
[2016-11-21] MEDS: COLACE PO SCH ×2 (10:45→22:23)
[2016-11-21] MEDS: HABITROL TD SCH (10:45)
[2016-11-21] MEDS: PROCARDIA XL PO SCH (10:45)
--- NOTE | 2016-11-21 11:42 | Progress Note ---
Assessment and Plan Assessment and plan: 1. Syncope. Patient had recent echocardiogram and carotid ultrasound which were both found to be within normal limits earlier this month. Etiology is likely secondary to orthostasis. We will continue to monitor blood pressure and consider adjusting her blood pressure medications. 2. Hypertension. Continue current medications for now and monitor blood pressure. 3. Chronic kidney disease stage III. Patient appears at baseline. 4. Recent CVA. No new or acute findings. Continue supportive care, PT/OT. 5. Marijuana and nicotine use. Patient has been counseled. History Interval history: 1 YO M Hx stroke in early October 2016 Tx @ [facility] w/ residual R Hemiparesis and dysarthria, DM2, and HTN who presents to the emergency department by EMS from home with reported AMS/poor responsiveness not witnessed on arrival to ED but reported episodes of syncope w/o motor convulsive activity , tongue bite. Hospitalist Physical - Constitutional Vitals: Temp Pulse Resp BP Pulse Ox 98.9 F 102 H 17 142/76 99 11/21/16 08:00 11/21/16 10:45 11/21/16 08:00 11/21/16 10:45 11/21/16 09:26 General appearance: Present: no acute distress, well-nourished - EENT Eyes: Present: PERRL, EOM intact ENT: hearing intact, clear oral mucosa, dentition normal - Neck Neck: Present: supple, normal ROM - Respiratory Respiratory effort: normal Respiratory: bilateral: CTA - Cardiovascular Rhythm: regular Heart Sounds: Present: S1 & S2. Absent: gallop, rub - Extremities Extremities: no ischemia, No edema, Full ROM - Abdominal General gastrointestinal: soft, non-tender, non-distended, normal bowel sounds - Integumentary Integumentary: Present: clear, warm, dry - Neurologic Neurologic: CNII-XII intact, moves all extremities Results - Labs CBC & Chem 7: 11/21/16 06:46 11/21/16 05:10 Labs: Laboratory Last Values WBC 11.5 K/mm3 (4.5-11.0) H 11/21/16 06:46 RBC 2.78 M/mm3 (3.65-5.03) L 11/21/16 06:46 Hgb 7.9 gm/dl (11.8-15.2) L 11/21/16 06:46 Hct 24.4 % (35.5-45.6) L 11/21/16 06:46 MCV 88 fl (84-94) 11/21/16 06:46 MCH 29 pg (28-32) 11/21/16 06:46 MCHC 33 % (32-34) 11/21/16 06:46 RDW 14.8 % (13.2-15.2) 11/21/16 06:46 Plt Count 467 K/mm3 (140-440) H 11/21/16 06:46 Lymph % (Auto) 24.6 % (13.4-35.0) 11/21/16 06:46 [place] % (Auto) 5.3 % (0.0-7.3) 11/21/16 06:46 Eos % (Auto) 1.3 % (0.0-4.3) 11/21/16 06:46 Baso % (Auto) 0.4 % (0.0-1.8) 11/21/16 06:46 Lymph # 2.8 K/mm3 (1.2-5.4) 11/21/16 06:46 [place] # 0.6 K/mm3 (0.0-0.8) 11/21/16 06:46 Eos # 0.1 K/mm3 (0.0-0.4) 11/21/16 06:46 Baso # 0.0 K/mm3 (0.0-0.1) 11/21/16 06:46 Add Manual Diff TNR 11/21/16 05:10 Seg Neutrophils % 68.4 % (40.0-70.0) 11/21/16 06:46 Seg Neutrophils # 7.9 K/mm3 (1.8-7.7) H 11/21/16 06:46 PT 13.1 Sec. (12.2-14.9) 11/20/16 17:45 INR 1.00 (0.87-1.13) 11/20/16 17:45 APTT 31.3 Sec. (24.2-36.6) 11/20/16 17:45 Thrombin Time 19.9 Sec. (15.1-19.6) H 11/20/16 17:45 Sodium 144 mmol/L (137-145) 11/21/16 05:10 Potassium 4.2 mmol/L (3.6-5.0) 11/21/16 05:10 Chloride 108.1 mmol/L (98-107) H 11/21/16 05:10 Carbon Dioxide 22 mmol/L (22-30) 11/21/16 05:10 Anion Gap 18 mmol/L 11/21/16 05:10 BUN 35 mg/dL (9-20) H 11/21/16 05:10 Creatinine 2.1 mg/dL (0.8-1.5) H 11/21/16 05:10 Estimated GFR 39 ml/min 11/21/16 05:10 BUN/Creatinine Ratio 16.66 % 11/21/16 05:10 Glucose 91 mg/dL (75-100) 11/21/16 05:10 Calcium 8.8 mg/dL (8.4-10.2) 11/21/16 05:10 Total Bilirubin < 0.2 mg/dL (0.1-1.2) 11/21/16 05:10 AST 19 units/L (5-40) 11/21/16 05:10 ALT 13 units/L (7-56) 11/21/16 05:10 Alkaline Phosphatase 55 units/L (35-129) 11/21/16 05:10 Total Creatine Kinase 116 units/L (55-170) 11/20/16 19:43 CK-MB (CK-2) 1.6 ng/mL (0.0-4.0) 11/20/16 19:43 CK-MB (CK-2) Rel Index 1.3 (0-4) 11/20/16 19:43 Troponin T < 0.010 ng/mL (0.00-0.029) 11/20/16 23:26 Total Protein 7.0 g/dL (6.3-8.2) 11/21/16 05:10 Albumin 2.9 g/dL (3.9-5) L 11/21/16 05:10 Albumin/Globulin Ratio 0.7 % 11/21/16 05:10 TSH 4.850 mlU/mL (0.270-4.200) H 11/20/16 17:45 Urine Color Yellow (Yellow) 11/20/16 19:50 Urine Turbidity Clear (Clear) 11/20/16 19:50 Urine pH 5.0 (5.0-7.0) 11/20/16 19:50 Ur Specific [place] 1.014 (1.003-1.030) 11/20/16 19:50 Urine Protein 100 mg/dl mg/dL (Negative) 11/20/16 19:50 Urine Glucose (UA) Neg mg/dL (Negative) 11/20/16 19:50 Urine Ketones Neg mg/dL (Negative) 11/20/16 19:50 Urine Blood Neg (Negative) 11/20/16 19:50 Urine Nitrite Neg (Negative) 11/20/16 19:50 Urine Bilirubin Neg (Negative) 11/20/16 19:50 Urine Urobilinogen < 2.0 mg/dL (<2.0) 11/20/16 19:50 Ur Leukocyte Esterase Neg (Negative) 11/20/16 19:50 Urine WBC (Auto) 1.0 /HPF (0.0-6.0) 11/20/16 19:50 Urine RBC (Auto) 3.0 /HPF (0.0-6.0) 11/20/16 19:50 Urine Mucus Few /HPF 11/20/16 19:50 Urine Opiates Screen Presumptive negative 11/20/16 19:50 Urine Methadone Screen Presumptive negative 11/20/16 19:50 Ur Barbiturates Screen Presumptive negative 11/20/16 19:50 Ur Phencyclidine Scrn Presumptive negative 11/20/16 19:50 Ur Amphetamines Screen Presumptive negative 11/20/16 19:50 U Benzodiazepines Scrn Presumptive negative 11/20/16 19:50 Urine Cocaine Screen Presumptive negative 11/20/16 19:50 U Marijuana (THC) Screen Presumptive positive 11/20/16 19:50 Drugs of Abuse Note Disclamer 11/20/16 19:50 Plasma/Serum Alcohol < 0.01 gm% (0-0.07) 11/20/16 17:45 Blood Type O POSITIVE 11/20/16 17:45 Antibody Screen Negative 11/20/16 17:45
--- NOTE | 2016-11-21 16:15 | Admit Criteria Form ---
Admission Criteria Documentation: MENTAL STATUS CHANGE Clinical Indications for Inpatient Care (Place 'X' for any and all applicable criteria): Ongoing inpatient care may be needed for ANY ONE of the following(1)(2)(3)(5)(6) : [ X]I. Suspected serious etiology (eg, medical disorder, PHOTOLITHOGRAPHIC STRIPPER event) of mental status change [ ]II. Danger to self or others not manageable at lower level of care [ ]III. Grave disability (eg, inability to perform self care necessary at lower level of care) [ ]IV. Agitation or inappropriate behavior interfering with care for primary condition (eg, attempting to discontinue lines or drains prematurely, unable to cooperate with respiratory care) [ ]V. Delirium [A] [D][E] as described by ANY ONE of the following(26): [ ]a) Delirium due to alcohol or sedative [F] withdrawal [ ]b) Delirium of uncertain etiology that has not responded to appropriate empiric treatment [ ]c) Delirium that prevents performance of a life-sustaining function (eg, feeding or hydrating oneself) [X ]. General contraindications and/or Inappropriate clinical situations for Observational Care in patients with Mental Status Change, when ANY ONE of the following is required: [X ]a) Prediction of prolongation of LOS based on ANY ONE of the following may be considered as a contraindication for observational care 2, 3, 4, 5, 6, 7, 8, 9, 10, 11 [ ]i) Age > 65 yrs. [X ]ii) Patient arriving by ambulance [ ]iii) Patient with high acuity [ ]iv) Patient requiring vital sign monitoring [ ]v) Patient on IV medication [ ]b) Systolic blood pressures 180mmHg 3,12 [ ]c) Patient with altered mental status including delirium and other alteration of consciousness, (3) [ ]d) Patient whose discharge disposition will be to a usp home or rehabilitation home should not be managed in Emergency Department Observation Unit. CMS rule requires 3 days hospital stay before such placement.3,13 [ ]e) Patient with failure to thrive due to broad array of etiologies 3,16,17 [ ]f) Inability to ambulate 3,14 Extended stay beyond goal length of stay for the primary condition may be needed until ALL of the following are present(3)(5): [ ]a) Underlying medical etiology of mental status change is absent, or has been established and adequately treated [ ]b) Danger to self or others is absent or manageable at lower level of care. [ ]c) Behavior crisis management, including physical or chemical restraints, is not required or available at lower level of car [ ]d) Substance or alcohol withdrawal is absent or manageable at lower level of care. [ ]e) Behavioral symptoms (eg, agitation, somnolence, inappropriate behavior) are absent, or are manageable at lower level of care. The original [facility] content created by [facility] has been revised. The portions of the content which have been revised are identified through the use of italic text or in bold, and [facility] has neither reviewed nor approved the modified material. All other unmodified content is copyright [facility]. Please see references footnoted in the original [facility] edition 2016 Admission Criteria Met: Yes
[2016-11-21] MEDS ORDERED: ZOCOR PO SCH (22:00)
[2016-11-22] MEDS: HEPARIN SUB-Q SCH (06:23)
--- NOTE | 2016-11-22 08:19 | Discharge Summary ---
Providers - Providers Date of Admission: 11/20/16 19:54 Date of discharge: 11/22/16 Attending physician: CHINTAN VILLARREAL 11/20/16 22:09 Consult to Physician [CONS] Routine Consulting Provider: FRACISCO LEVIN Reason For Exam: Syncope Place consult to:: chu Notified:: chu Was contact made?: Yes Time called:: 09:55 Primary care physician: JESSENIA LEWIS Hospitalization Reason for admission: ? syncope Condition: Stable Hospital course: 61 YO M Hx stroke in early October 2016 Tx @ [facility] w/ residual R Hemiparesis and dysarthria, DM2, and HTN who presents to the emergency department by EMS from home with reported AMS/poor responsiveness not witnessed on arrival to ED but reported episodes of syncope w/o motor convulsive activity , tongue bite. Etiology was thought to be secondary to orthostasis. Patient received IV fluid hydration. Patient had recent echocardiogram and carotid ultrasound which were both found to be within normal limits earlier this month. Patient had a similar episode and acute inpatient rehabilitation. Therefore, an EEG was completed prior to discharge to rule out seizures for completeness sake. Patient is felt to have received maximal hospital benefit. Dedicated discharged time 31 minutes. Disposition: DISCHARGED TO HOME OR SELFCARE - Discharge Diagnoses (1) Orthostatic syncope Status: Acute (2) Altered mental status Status: Acute Qualifiers: Altered mental status type: transient alteration of awareness Coma depth: C Coma timing: C Qualified Code(s): R40.4 - Transient alteration of awareness (3) HTN (hypertension) Status: Acute Qualifiers: Hypertension type: H (4) Syncope and collapse Status: Acute (5) CVA (cerebrovascular accident) Status: Chronic Qualifiers: CVA mechanism: thrombosis Precerebral and cerebral artery: middle cerebral artery Laterality of affected vessel: L (6) Chronic kidney disease, stage 3 (moderate) Status: Chronic Core Measure Documentation - Palliative Care Palliative Care/ Comfort Measures: Not Applicable - Core Measures Any of the following diagnoses?: none Exam - Constitutional Vitals: Temp Pulse Resp BP Pulse Ox 97.6 F 104 H 18 130/62 99 11/21/16 21:44 11/21/16 22:23 11/21/16 21:44 11/21/16 22:23 11/21/16 10:00 General appearance: Present: no acute distress, well-nourished - EENT Eyes: Present: PERRL ENT: hearing intact, clear oral mucosa - Neck Neck: Present: supple, normal ROM - Respiratory Respiratory effort: normal Respiratory: bilateral: CTA - Cardiovascular Heart Sounds: Present: S1 & S2. Absent: rub, click - Extremities Extremities: pulses symmetrical, No edema Peripheral Pulses: within normal limits - Abdominal General gastrointestinal: Present: soft, non-tender, non-distended, normal bowel sounds Male genitourinary: Present: normal - Integumentary Integumentary: Present: clear, warm, dry - Musculoskeletal Musculoskeletal: gait normal, strength equal bilaterally - Psychiatric Psychiatric: appropriate mood/affect, intact judgment & insight - Neurologic Neurologic: CNII-XII intact, moves all extremities Plan Activity: no restrictions Weight Bearing Status: Full Weight Bearing Diet: low fat, low cholesterol, low salt Follow up with: PRIMARY CARE, [Referring] - 3-5 Days
[2016-11-22] MEDS: PROCARDIA XL PO SCH (09:21)
[2016-11-22] MEDS: PROTONIX PO SCH (09:22)
[2016-11-22] MEDS: COLACE PO SCH (09:22)
[2016-11-22] MEDS: ZESTRIL PO SCH (09:22)
[2016-11-22] MEDS: HABITROL TD SCH (09:22)
[2016-11-22 09:23] VITALS: BP 146/83
--- NOTE | 2016-11-22 10:42 | Electroencephalogram Report ---
Electroencephalogram EEG Date of exam: 11/21/16 History: 61 YO M Hx stroke p/w syncope. Impression: Normal awake and drowsy 20 minute routine EEG. There are no findings to suggest cerebral dysfunction, cortical irritability, epileptiform discharges or electrographic seizures. Please note however that a normal EEG does not completely exclude a clinical diagnosis of epilepsy. Description: The waking background shows an appropriate organization with well-defined anterior posterior voltage and frequency gradients. Posteriorly, there is a well -developed alpha rhythm of 8-9 Hz which is symmetrical and bilaterally reactive. Anteriorly, there is a pattern of lower voltage and slightly irregular theta and beta range frequencies. During drowsiness, there is attenuation of the background rhythms. There is no sleep background. Throughout, the recording there are no epileptiform abnormalities, focal or lateralizing features, or significant interhemispheric findings. Interpretation: This is a digitally acquired 21-channel electroencephalogram. Both bipolar and referential montages were used in interpretation. Electrodes were placed in accordance with the International 10-20 system.
== END 2016-11-22 14:00 | disposition home or self-care (01) | DRG 312 ==
LOC: ED 17:35 → CC2 19:54
PROVIDERS: ADMIT Internal Medicine; ATTEND Hospitalist
DX: I95.1 Orthostatic hypotension (principal); I69.351 Hemiplegia and hemiparesis following cerebral infarction affecting right dominant side; D64.9 Anemia, unspecified; N18.3 Chronic kidney disease, stage 3 (moderate); F12.929 Cannabis use, unspecified with intoxication, unspecified; I12.9 Hypertensive chronic kidney disease with stage 1 through stage 4 chronic kidney disease, or unspecified chronic kidney disease; K21.9 Gastro-esophageal reflux disease without esophagitis; M16.11 Unilateral primary osteoarthritis, right hip; E11.22 Type 2 diabetes mellitus with diabetic chronic kidney disease; J44.9 Chronic obstructive pulmonary disease, unspecified; F17.210 Nicotine dependence, cigarettes, uncomplicated; G89.29 Other chronic pain; I69.322 Dysarthria following cerebral infarction; Z79.899 Other long term (current) drug therapy; Z82.49 Family history of ischemic heart disease and other diseases of the circulatory system; Z83.3 Family history of diabetes mellitus; Z71.51 Drug abuse counseling and surveillance of drug abuser; Z71.6 Tobacco abuse counseling
CPT/HCPCS: 36415; 70450; 71010; 80053; 80307; 80320; 81001; 82550; 82553; 84443; 84484; 85025; 85610; 85670; 85730; 86850; 86900; 86901; 93005; 93010; 95819; 96372; 99406; G0480; J1644

== ENCOUNTER 2017-03-25 12:36 | Emergency (ER) | payer MEDICARE ==
[2017-03-25 14:05] LABS: Basophils % (Auto) 0.2 % (0.0-1.8); Eosinophils % (Auto) 2.5 % (0.0-4.3); Hematocrit 39.1 % (35.5-45.6); Hemoglobin 12.7 gm/dl (11.8-15.2); Mean Corpuscular HGB Conc 32 % (32-34); Mean Corpuscular Volume 79 fl (84-94); Platelet Count 233 K/mm3 (140-440); Red Blood Count 4.93 M/mm3 (3.65-5.03); White Blood Count 6.8 K/mm3 (4.5-11.0)
[2017-03-25 14:10] LABS: Mean Corpuscular Hemoglobin 26 pg (28-32); Red Cell Distribution Width 23.6 % (13.2-15.2)
[2017-03-25 14:17] LABS: INR 0.94 (0.87-1.13)
[2017-03-25 14:18] LABS: Partial Thromboplastin Time 31.3 Sec. (24.2-36.6)
[2017-03-25 14:36] LABS: BUN/Creatinine Ratio 16.4; Calcium 9.2 mg/dL (8.4-10.2)
[2017-03-25] MEDS ORDERED: NEURONTIN PO ONE (16:39)
[2017-03-25] MEDS ORDERED: TYLENOL PO ONE (16:40)
--- NOTE | 2017-03-25 17:06 | XRay Report ---
FINAL REPORT EXAM: XR TIBIA FIBULA 2V RT HISTORY: leg pain TECHNIQUE: Right tibia fibula two views PRIORS: None. FINDINGS: No fracture is identified. There is medial tibiofemoral joint space narrowing no focal bony lesion identified. No radiopaque foreign body seen. IMPRESSION: Degenerative medial tibial femoral joint space narrowing.
[2017-03-25] MEDS ORDERED: NORCO 10/325 PO ONE (17:46)
--- NOTE | 2017-03-25 18:06 | Emergency Department Report ---
ED Lower Extremity HPI - General Chief Complaint: Extremity Problem,Nontraumatic Stated Complaint: RIGHT LEG PAIN Time Seen by Provider: 03/25/17 16:35 Source: patient Mode of arrival: Stretcher Limitations: Physical Limitation - History of Present Illness Initial Comments: Patient is a 61-year-old male past medical history of chronic kidney disease and multiple strokes who presents with right lower extremity pain. Patient states that pain is a 7 out of 10 nothing makes it better or worse. He says that this is an exacerbation of his chronic leg pain. It is an achy type of pain it doesn't radiate. Patient has not tried any [id number] medications for his pain. He he has poor sensation in that leg. And he is not able to walk on the leg. Patient came in by EMS. - Related Data Previous Rx's Medication Instructions Recorded Last Taken Type Lisinopril [Zestril TAB] 20 mg PO BID #60 tablet 11/18/16 Unknown Rx NIFEdipine XL [Procardia Xl] 90 mg PO QDAY #30 tablet 11/18/16 Unknown Rx Pantoprazole [Protonix TAB] 40 mg PO QDAY #30 tablet 11/18/16 Unknown Rx Simvastatin [Zocor TAB] 10 mg PO QHS #30 tablet 11/18/16 Unknown Rx Gabapentin [Neurontin] 300 mg PO BID #30 cap 03/25/17 Unknown Rx Allergies Allergy/AdvReac Type Severity Reaction Status Date / Time No Known Allergies Allergy Verified 03/25/15 12:10 ED Review of Systems ROS: Stated complaint: RIGHT LEG PAIN Other details as noted in HPI Constitutional: no symptoms reported Eyes: denies: eye pain, eye discharge, vision change ENT: denies: ear pain, throat pain Respiratory: no symptoms reported Cardiovascular: denies: chest pain, palpitations Endocrine: no symptoms reported Gastrointestinal: denies: abdominal pain, nausea, diarrhea Genitourinary: denies: urgency, dysuria Musculoskeletal: myalgia, other (leg pain ) Skin: denies: rash, lesions Neurological: other (leg parathesia and weakness ) Psychiatric: denies: anxiety, depression Hematological/Lymphatic: denies: easy bleeding, easy bruising ED Past Medical Hx - Past Medical History Previous Medical History?: Yes Hx Hypertension: Yes Hx CVA: Yes (x 3) Hx Congestive Heart Failure: No Hx Diabetes: No Hx GERD: Yes Hx Arthritis: Yes (right hip) Hx Asthma: No Hx COPD: Yes Hx HIV: No Additional medical history: chronic back pain - Surgical History Past Surgical History?: Yes Hx Pacemaker: No Additional Surgical History: "shoulder surgery" - Social History Smoking Status: Current Every Day Smoker Substance Use Type: Alcohol - Medications Home Medications: Home Medications Medication Instructions Recorded Confirmed Last Taken Type Lisinopril [Zestril TAB] 20 mg PO BID #60 tablet 11/18/16 03/25/17 Unknown Rx NIFEdipine XL [Procardia Xl] 90 mg PO QDAY #30 tablet 11/18/16 03/25/17 Unknown Rx Pantoprazole [Protonix TAB] 40 mg PO QDAY #30 tablet 11/18/16 03/25/17 Unknown Rx Simvastatin [Zocor TAB] 10 mg PO QHS #30 tablet 11/18/16 03/25/17 Unknown Rx Gabapentin [Neurontin] 300 mg PO BID #30 cap 03/25/17 Unknown Rx ED Physical Exam - General Limitations: Physical Limitation General appearance: alert - Head Head exam: Present: atraumatic, normocephalic - Eye Eye exam: Present: normal appearance - ENT ENT exam: Present: normal exam - Neck Neck exam: Present: normal inspection - Respiratory Respiratory exam: Present: normal lung sounds bilaterally - Cardiovascular Cardiovascular Exam: Present: regular rate, normal rhythm - GI/Abdominal GI/Abdominal exam: Present: soft - Rectal Rectal exam: Present: deferred - Extremities Exam Extremities exam: Present: other (+2 pulses in right lower extremity patient and limited tactile sensation and is not able to move his right leg due to stroke this is chronic ) - Expanded Lower Extremity Exam Right Hip exam: Present: normal inspection Upper Leg exam: Present: normal inspection Knee exam: Absent: swelling, abrasion, laceration, deformity Lower Leg exam: Absent: swelling, deformity Ankle exam: Absent: swelling, deformity Neuro vascular tendon exam: Present: no vascular compromise, motor deficit, sensory deficit. Absent: extremity cold to touch - Back Exam Back exam: Present: normal inspection - Neurological Exam Neurological exam: Present: alert, oriented X3 - Psychiatric Psychiatric exam: Present: normal affect, normal mood - Skin Skin exam: Present: warm, dry ED Course Vital Signs 03/25/17 03/25/17 12:59 15:58 Temperature 97.7 F Pulse Rate 80 80 Respiratory 16 18 Rate Blood Pressure 146/93 Blood Pressure 170/90 [Left] O2 Sat by Pulse 100 100 Oximetry - Reevaluation(s) Reevaluation #1: 03/25/17:17 patient states that his leg pain feels slightly better after oral medication but it still hurts and is now 6 out of 10 we'll give patient 1 tab of [place]. Reevaluation #2: 03/25/17 18:09 Patient states the pain is now 3 out of 10 is eating and able tolerate by mouth discussed with patient diagnostic findings of chronic kidney injury old records reviewed this is chronic. Discussed with patient the need to follow up with his primary care provider about his chronic kidney disease. Patient agrees plan discharge and has no further questions at the time of discharge. Vital signs are within the normal limit. ED Lower Extremity MDM - Lab Data Result diagrams: 03/25/17 13:30 03/25/17 13:30 Laboratory Results - last 24 hr 03/25/17 03/25/17 03/25/17 13:30 13:30 13:30 WBC 6.8 RBC 4.93 Hgb 12.7 Hct 39.1 MCV 79 L MCH 26 L MCHC 32 RDW 23.6 H Plt Count 233 Lymph % (Auto) 38.0 H [place] % (Auto) 5.5 Eos % (Auto) 2.5 Baso % (Auto) 0.2 Lymph # 2.6 [place] # 0.4 Eos # 0.2 Baso # 0.0 Seg Neutrophils % 53.8 Seg Neutrophils # 3.6 PT 12.5 INR 0.94 APTT 31.3 Sodium 140 Potassium 4.0 Chloride 105.0 Carbon Dioxide 17 L Anion Gap 22 BUN 41 H Creatinine 2.5 H Estimated GFR 32 BUN/Creatinine Ratio 16.40 Glucose 88 Calcium 9.2 Critical care attestation.: If time is entered above; I have spent that time in minutes in the direct care of this critically ill patient, excluding procedure time. ED Disposition Clinical Impression: Chronic pain syndrome, Chronic kidney disease, stage 3 (moderate) Disposition: DC-01 TO HOME OR SELFCARE Is pt being admited?: No Does the pt Need Aspirin: No Condition: Good Instructions: Peripheral Neuropathy (ED), Chronic Kidney Disease (ED) Prescriptions: Gabapentin [Neurontin] 300 mg PO BID #30 cap Referrals: [facility] [Provider Group] - 3-5 Days PRIMARY CARE, [Primary Care Provider] - as needed Time of Disposition: 18:12
[2017-03-25 18:38] VITALS: BP 164/70
== END 2017-03-25 20:51 | disposition home or self-care (01) ==
LOC: ED 12:36
DX: G89.4 Chronic pain syndrome (principal); I12.9 Hypertensive chronic kidney disease with stage 1 through stage 4 chronic kidney disease, or unspecified chronic kidney disease; N18.3 Chronic kidney disease, stage 3 (moderate); I10 Essential (primary) hypertension; Z86.73 Personal history of transient ischemic attack (TIA), and cerebral infarction without residual deficits; K21.9 Gastro-esophageal reflux disease without esophagitis; M13.851 Other specified arthritis, right hip; J44.9 Chronic obstructive pulmonary disease, unspecified; F17.200 Nicotine dependence, unspecified, uncomplicated
CPT/HCPCS: 36415; 80048; 85025; 85610; 85730; 99284

== ENCOUNTER 2018-02-26 10:30 | Inpatient (IN) | payer MEDICARE ==
--- NOTE | 2018-02-26 10:33 | Emergency Department Report ---
ED Neuro Deficit HPI - General Stated Complaint: STROKE Time Seen by Provider: 02/26/18 10:32 Source: patient, EMS, old records reviewed (MRI 10/29/16 left ANGELA stroke) Mode of arrival: Stretcher Limitations: Physical Limitation - History of Present Illness Initial Comments: 61 YO M Hx L ANGELA stroke in early October 2016 w/ residual R Hemiparesis and dysarthria, DM2, CRI, and HTN presents to the hospital with left facial droop and left-sided weakness. Patient woke up with these symptoms about 6 am. Patient complains of moderate left arm pain that is worse with movement.. No fall or injury reported. Neg EEG October 2016. Pt is illiterate - Related Data Home Medications: Previous Rx's Medication Instructions Recorded Last Taken Type Lisinopril [Zestril TAB] 20 mg PO BID #60 tablet 11/18/16 Unknown Rx NIFEdipine XL [Procardia Xl] 90 mg PO QDAY #30 tablet 11/18/16 Unknown Rx Pantoprazole [Protonix TAB] 40 mg PO QDAY #30 tablet 11/18/16 Unknown Rx Simvastatin [Zocor TAB] 10 mg PO QHS #30 tablet 11/18/16 Unknown Rx Gabapentin [Neurontin] 300 mg PO BID #30 cap 03/25/17 Unknown Rx Allergies/Adverse Reactions: Allergies Allergy/AdvReac Type Severity Reaction Status Date / Time No Known Allergies Allergy Verified 02/26/18 10:31 ED Review of Systems ROS: Stated complaint: STROKE Other details as noted in HPI Comment: All other systems reviewed and negative ED Past Medical Hx - Past Medical History Hx Hypertension: Yes Hx CVA: Yes (x 3. L ANGELA cva 10/2016 R sided weakness) Hx Congestive Heart Failure: No Hx Diabetes: No Hx GERD: Yes Hx Renal Disease: Yes (renal insuf) Hx Arthritis: Yes (right hip) Hx Asthma: No Hx COPD: Yes Hx HIV: No Additional medical history: chronic back pain - Surgical History Hx Pacemaker: No Additional Surgical History: "shoulder surgery" - Social History Smoking Status: Current Every Day Smoker Substance Use Type: Alcohol - Medications Home Medications: Home Medications Medication Instructions Recorded Confirmed Last Taken Type Lisinopril [Zestril TAB] 20 mg PO BID #60 tablet 11/18/16 03/25/17 Unknown Rx NIFEdipine XL [Procardia Xl] 90 mg PO QDAY #30 tablet 11/18/16 03/25/17 Unknown Rx Pantoprazole [Protonix TAB] 40 mg PO QDAY #30 tablet 11/18/16 03/25/17 Unknown Rx Simvastatin [Zocor TAB] 10 mg PO QHS #30 tablet 11/18/16 03/25/17 Unknown Rx Gabapentin [Neurontin] 300 mg PO BID #30 cap 03/25/17 Unknown Rx ED Neuro Physical Exam - General Suspected Stroke: Yes - Neurological Exam Neurological exam: Present: alert - NIHSS Assessment Interval: Baseline 1a. Level of Consciousness: alert 1b. LOC Questions: answers 1 question correctly 1c. LOC Commands: performs tasks correctly 2. Best Gaze: normal 3. Visual: no visual loss 4. Facial Palsy: partial paralysis 5b. Motor Arm Right: drift 5a. Motor Arm Left: drift 6a. Motor Leg Left: drift 6b. Motor Leg Right: some gravity effort 7. Limb Ataxia: absent 8. Sensory: mild/moderate sensory loss (left) 9. Best Language: no aphasia 10. Dysarthria: mild/moderate dysarthria 11. Extinction/Inattention: no abnormality Total Score: 10 Stroke Severity: Moderate Stroke - Other Other exam information: General: No limitations, patient is alert in no acute distress Head exam: Atraumatic, normocephalic Eyes exam: Normal appearance, pupils equal reactive to light, extraocular movements intact ENT: Moist mucous membrane, normal oropharynx Neck exam: Normal inspection, full range of motion, no meningismus nontender Respiratory exam: Clear to auscultation bilateral, no wheezes, rales, crackles Cardiovascular: Normal rate and rhythm, normal heart sounds Abdomen: Soft, nondistended, and nontender, with normal bowel sounds, no rebound, or guarding Extremity: Full range of motion normal inspection no deformity Back: Normal Inspection, full range of motion, no tenderness Neurologic: Alert, see NIHSS Psychiatric: normal affect, normal mood Skin: Warm, dry, intact ED Course Vital Signs 02/26/18 02/26/18 02/26/18 10:44 10:45 10:48 Temperature 98.4 F Pulse Rate 94 H 96 H 98 H Respiratory 18 19 24 Rate Blood Pressure 183/91 183/91 O2 Sat by Pulse 99 99 Oximetry 02/26/18 02/26/18 02/26/18 11:00 11:16 11:40 Temperature Pulse Rate 96 H 101 H 100 H Respiratory 30 H 25 H Rate Blood Pressure 183/91 201/93 O2 Sat by Pulse 100 100 Oximetry 02/26/18 11:45 Temperature Pulse Rate 99 H Respiratory 17 Rate Blood Pressure 171/80 O2 Sat by Pulse 97 Oximetry - Consultations Consultation #1: 02/26/18 11:05 Case d/w Dr Baeza, Rec CTA (despite renal insufficency). Risk of worsening renal function understood but Brain/neuro function is more important at this time as per Neurologist. Therefore CTA ordered. I explained risk of worsening renal function and he provided consent stating "do whatever it takes" 02/26/18 12:[address] Baeza regarding cta. Pt does not qualify for transfer and acute intubation and therefore should be admitted here for stroke workup. - Lab Data Result diagrams: 02/26/18 10:43 02/26/18 10:49 Lab Results 02/26/18 02/26/18 02/26/18 Range/Units 10:43 10:49 10:49 WBC 10.5 (4.5-11.0) K/mm3 RBC 3.70 (3.65-5.03) M/mm3 Hgb 11.8 (11.8-15.2) gm/dl Hct 35.3 L (35.5-45.6) % MCV 95 H (84-94) fl MCH 32 (28-32) pg MCHC 33 (32-34) % RDW 13.0 L (13.2-15.2) % Plt Count 195 (140-440) K/mm3 Lymph % (Auto) 14.5 (13.4-35.0) % [place] % (Auto) 6.3 (0.0-7.3) % Eos % (Auto) 0.7 (0.0-4.3) % Baso % (Auto) 1.4 (0.0-1.8) % Lymph # 1.5 (1.2-5.4) K/mm3 [place] # 0.7 (0.0-0.8) K/mm3 Eos # 0.1 (0.0-0.4) K/mm3 Baso # 0.1 (0.0-0.1) K/mm3 Seg Neutrophils % 77.1 H (40.0-70.0) % Seg Neutrophils # 8.1 H (1.8-7.7) K/mm3 PT 12.8 (12.2-14.9) Sec. INR 0.92 (0.87-1.13) APTT 32.3 (24.2-36.6) Sec. Thrombin Time (15.1-19.6) Sec. Sodium 145 (137-145) mmol/L Potassium 4.3 (3.6-5.0) mmol/L Chloride 107.1 H (98-107) mmol/L Carbon Dioxide 22 (22-30) mmol/L Anion Gap 20 mmol/L BUN 38 H (9-20) mg/dL Creatinine 2.1 H (0.8-1.5) mg/dL Estimated GFR 39 ml/min BUN/Creatinine Ratio 18 % Glucose 137 H (75-100) mg/dL Calcium 9.8 (8.4-10.2) mg/dL Troponin T < 0.010 (0.00-0.029) ng/mL 02/26/18 Range/Units 10:49 WBC (4.5-11.0) K/mm3 RBC (3.65-5.03) M/mm3 Hgb (11.8-15.2) gm/dl Hct (35.5-45.6) % MCV (84-94) fl MCH (28-32) pg MCHC (32-34) % RDW (13.2-15.2) % Plt Count (140-440) K/mm3 Lymph % (Auto) (13.4-35.0) % [place] % (Auto) (0.0-7.3) % Eos % (Auto) (0.0-4.3) % Baso % (Auto) (0.0-1.8) % Lymph # (1.2-5.4) K/mm3 [place] # (0.0-0.8) K/mm3 Eos # (0.0-0.4) K/mm3 Baso # (0.0-0.1) K/mm3 Seg Neutrophils % (40.0-70.0) % Seg Neutrophils # (1.8-7.7) K/mm3 PT (12.2-14.9) Sec. INR (0.87-1.13) APTT (24.2-36.6) Sec. Thrombin Time 18.0 (15.1-19.6) Sec. Sodium (137-145) mmol/L Potassium (3.6-5.0) mmol/L Chloride (98-107) mmol/L Carbon Dioxide (22-30) mmol/L Anion Gap mmol/L BUN (9-20) mg/dL Creatinine (0.8-1.5) mg/dL Estimated GFR ml/min BUN/Creatinine Ratio % Glucose (75-100) mg/dL Calcium (8.4-10.2) mg/dL Troponin T (0.00-0.029) ng/mL - EKG Data -: EKG Interpreted by Ne EKG shows normal: sinus rhythm, axis (qrs axis 78), QRS complexes (qrsd 105), ST -T waves (no stemi) Rate: normal (95) When compared to previous EKG there are: no significant change - Radiology Data Radiology results: report reviewed CT HEAD WITHOUT CONTRAST: HISTORY: Neurological deficit, stroke. TECHNIQUE: Sequential 2.5mm CT images. COMPARISON: MR brain dated 10/29/16. A CT head dated 11/20/16. FINDINGS: Cerebral Parenchyma: Mild volume loss and moderate nonspecific chronic white matter changes are stable. The previously described left ANGELA infarct described on the MRI dated 10/29/16 has evolved and now has a chronic appearance. No new area of diminished attenuation consistent with acute ischemia is identified on noncontrast CT. Cerebellum: Within normal limits. Brainstem: Within normal limits. Ventricles: Normal. Sella: Normal. Extra-axial spaces: Normal. Basal Cisterns: Normal. Intracranial Hemorrhage: None. Midline Shift: None. Calvarium: Normal. Sinuses: Mild mucosal thickening is noted in the superior maxillary sinuses. The remaining visualized paranasal sinuses are adequately aerated. Mastoid Air Cells: Normal. Visualized Orbits: Normal. IMPRESSION: No acute intracranial process is identified on noncontrast CT. Chronic left ANGELA infarct. Volume loss. Chronic white matter changes. These findings were discussed with Dr. Niño in the emergency department at 1048 hrs. CTA NECK: HISTORY: Acute left-sided weakness, stroke. TECHNIQUE: Helical CT following IV contrast. Sagittal and coronal reformatted images. 3D volume rendering technique. Stenosis was calculated using NASCET criteria. FINDINGS: The visualized aortic arch, innominate artery and proximal bilateral subclavian arteries are widely patent with less than 20% stenosis. Within the right carotid system: There are moderate irregular calcified plaques at the origin of the ECA. There is less than 20% stenosis throughout the CCA and ICA. Within the left carotid system: There are moderate partially calcified plaques in the carotid bulb and origin of the left ECA. There is less than 20% stenosis in the left CCA and ICA. There are moderate calcific plaques at the origins of the bilateral vertebral arteries with stenosis measuring 50-60% bilaterally. The remainder of the vertebral arteries are widely patent with less than 20% stenosis. IMPRESSION: No hemodynamically significant stenosis in the bilateral carotid systems. 50-60% stenosis at the origins of the bilateral vertebral arteries. CTA HEAD: HISTORY: Acute left-sided weakness. TECHNIQUE: Helical CT images after IV contrast with 0.625mm reformations. Sagittal and coronal reformats. Rotational MIP images. FINDINGS: There are moderate diffuse calcifications throughout the distal internal carotid arteries bilaterally with stenosis measuring up to 50% bilaterally. The right anterior cerebral artery, right middle cerebral artery and left middle cerebral artery are patent with no hemodynamically significant stenosis. There is a focal area of diminished enhancement within the left A2 segment which is best demonstrated on series 3, image 495 of the CTA neck exam. This appears to represent focal stenosis or partial thrombosis estimated at 50-60%. It is unclear if this is an acute abnormality or related to the chronic left NAGELA infarct. The distal vertebral arteries, basilar artery and posterior cerebral arteries are patent with no hemodynamically significant stenosis. IMPRESSION: Focal area of narrowing or partial thrombosis in the left A2 segment as outlined above. It is unclear if this is an acute finding or related to the chronic left ANGELA infarct. No abnormality is identified in the right ANGELA or MCA to account for acute left-sided weakness. Moderate atherosclerotic disease in the distal ICAs bilaterally. These findings were discussed with Dr. Niño in the emergency department at 1220 hrs. - Medical Decision Making Acute neurologic deficit with wake-up symptoms. Not a candidate for TPA since onset unknown and patient medicated for transfer for acute neurologic intervention therefore will be admitted here. Pt presents with HTN but BP less than 220/120 therefore no meds given for further bp reduction. - Differential Diagnosis cva, ich, encephalopathy - Thrombolytic Inclusion/Exclusion Thrombolytic Exclusion Criteria: Onset of Symptoms Unknown Critical Care Time: No Critical care attestation.: If time is entered above; I have spent that time in minutes in the direct care of this critically ill patient, excluding procedure time. ED Disposition Clinical Impression: Acute left-sided weakness, CRI (chronic renal insufficiency), HTN (hypertension ), Hemiparesis affecting right side as late effect of cerebrovascular accident Disposition: OP ADMIT IP TO THIS HOSP Is pt being admited?: Yes Condition: Stable Time of Disposition: 12:37 (Dr sotelo/hosp)
--- NOTE | 2018-02-26 10:56 | Cat Scan Report ---
CT HEAD WITHOUT CONTRAST: HISTORY: Neurological deficit, stroke. TECHNIQUE: Sequential 2.5mm CT images. COMPARISON: MR brain dated 10/29/16. A CT head dated 11/20/16. FINDINGS: Cerebral Parenchyma: Mild volume loss and moderate nonspecific chronic white matter changes are stable. The previously described left ANGELA infarct described on the MRI dated 10/29/16 has evolved and now has a chronic appearance. No new area of diminished attenuation consistent with acute ischemia is identified on noncontrast CT. Cerebellum: Within normal limits. Brainstem: Within normal limits. Ventricles: Normal. Sella: Normal. Extra-axial spaces: Normal. Basal Cisterns: Normal. Intracranial Hemorrhage: None. Midline Shift: None. Calvarium: Normal. Sinuses: Mild mucosal thickening is noted in the superior maxillary sinuses. The remaining visualized paranasal sinuses are adequately aerated. Mastoid Air Cells: Normal. Visualized Orbits: Normal. IMPRESSION: No acute intracranial process is identified on noncontrast CT. Chronic left ANGELA infarct. Volume loss. Chronic white matter changes. These findings were discussed with Dr. Niño in the emergency department at 1048 hrs.
[2018-02-26 11:03] LABS: Basophils # (Auto) 0.1 K/mm3 (0.0-0.1); Basophils % (Auto) 1.4 % (0.0-1.8); Eosinophils # (Auto) 0.1 K/mm3 (0.0-0.4); Eosinophils % (Auto) 0.7 % (0.0-4.3); Hematocrit 35.3 % (35.5-45.6); Hemoglobin 11.8 gm/dl (11.8-15.2); Lymphocytes # (Auto) 1.5 K/mm3 (1.2-5.4); Lymphocytes % (Auto) 14.5 % (13.4-35.0); Mean Corpuscular HGB Conc 33 % (32-34); Mean Corpuscular Hemoglobin 32 pg (28-32); Mean Corpuscular Volume 95 fl (84-94); Monocytes # (Auto) 0.7 K/mm3 (0.0-0.8); Monocytes % (Auto) 6.3 % (0.0-7.3); Platelet Count 195 K/mm3 (140-440)
[2018-02-26 11:08] LABS: INR 0.92 (0.87-1.13)
[2018-02-26 11:09] LABS: Partial Thromboplastin Time 32.3 Sec. (24.2-36.6)
[2018-02-26 11:11] LABS: BUN/Creatinine Ratio 18; Blood Urea Nitrogen 38 mg/dL (9-20); Calcium 9.8 mg/dL (8.4-10.2); Hemolysis Index 27
--- NOTE | 2018-02-26 12:19 | Cat Scan Report ---
CTA NECK: HISTORY: Acute left-sided weakness, stroke. TECHNIQUE: Helical CT following IV contrast. Sagittal and coronal reformatted images. 3D volume rendering technique. Stenosis was calculated using NASCET criteria. FINDINGS: The visualized aortic arch, innominate artery and proximal bilateral subclavian arteries are widely patent with less than 20% stenosis. Within the right carotid system: There are moderate irregular calcified plaques at the origin of the ECA. There is less than 20% stenosis throughout the CCA and ICA. Within the left carotid system: There are moderate partially calcified plaques in the carotid bulb and origin of the left ECA. There is less than 20% stenosis in the left CCA and ICA. There are moderate calcific plaques at the origins of the bilateral vertebral arteries with stenosis measuring 50-60% bilaterally. The remainder of the vertebral arteries are widely patent with less than 20% stenosis. IMPRESSION: No hemodynamically significant stenosis in the bilateral carotid systems. 50-60% stenosis at the origins of the bilateral vertebral arteries.
--- NOTE | 2018-02-26 12:32 | Cat Scan Report ---
CTA HEAD: HISTORY: Acute left-sided weakness. TECHNIQUE: Helical CT images after IV contrast with 0.625mm reformations. Sagittal and coronal reformats. Rotational MIP images. FINDINGS: There are moderate diffuse calcifications throughout the distal internal carotid arteries bilaterally with stenosis measuring up to 50% bilaterally. The right anterior cerebral artery, right middle cerebral artery and left middle cerebral artery are patent with no hemodynamically significant stenosis. There is a focal area of diminished enhancement within the left A2 segment which is best demonstrated on series 3, image 495 of the CTA neck exam. This appears to represent focal stenosis or partial thrombosis estimated at 50-60%. It is unclear if this is an acute abnormality or related to the chronic left AGNELA infarct. The distal vertebral arteries, basilar artery and posterior cerebral arteries are patent with no hemodynamically significant stenosis. IMPRESSION: Focal area of narrowing or partial thrombosis in the left A2 segment as outlined above. It is unclear if this is an acute finding or related to the chronic left ANGELA infarct. No abnormality is identified in the right ANGELA or MCA to account for acute left-sided weakness. Moderate atherosclerotic disease in the distal ICAs bilaterally. These findings were discussed with Dr. Niño in the emergency department at 1220 hrs.
--- NOTE | 2018-02-26 12:46 | History and Physical Report ---
History of Present Illness Chief complaint: I feel weak History of present illness: 62 YO Male with CVA, GERD,OA, COPD, Chronic Lumbar Pain, Nicotine Dependence presents to ED for evaluation. Pt states that he was in his usual state of health at bedtime around 2100 hrs. Pt awoke this morning around 0600 hrs with Left sided facial droop, and left arm and leg weakness. Pt also complains of Left arm pain. EMS notified, and upon arrival the patient was found to have symptoms consistent with acute CVA. Code stroke was called. Pt transported to [facility] for further care and evaluation. Pt seen and evaluated in ED and found to have symptoms consistent with CVA. Pt is outside therapeutic window for TPA. Pt also found to have Acute Renal Failure. Pt admitted to telemetry and initiated on stroke protocol. Past History Past Medical History: arthritis, COPD, GERD, stroke, other (Lumbar pain) Past Surgical History: Other (shoulder surgery) Social history: single, smoking Family history: hypertension Medications and Allergies Allergies Allergy/AdvReac Type Severity Reaction Status Date / Time No Known Allergies Allergy Verified 02/26/18 10:31 Home Medications Medication Instructions Recorded Confirmed Last Taken Type Lisinopril [Zestril TAB] 20 mg PO BID #60 tablet 11/18/16 02/26/18 Unknown Rx NIFEdipine XL [Procardia Xl] 90 mg PO QDAY #30 tablet 11/18/16 02/26/18 Unknown Rx Pantoprazole [Protonix TAB] 40 mg PO QDAY #30 tablet 11/18/16 02/26/18 Unknown Rx Simvastatin [Zocor TAB] 10 mg PO QHS #30 tablet 11/18/16 02/26/18 Unknown Rx Gabapentin [Neurontin] 300 mg PO BID #30 cap 03/25/17 02/26/18 Unknown Rx Review of Systems Constitutional: no weight loss, no chills Ears, nose, mouth and throat: no ear pain, no ear discharge, no tinnitis, no decreased hearing, no nose pain, no nasal congestion, no nasal discharge Cardiovascular: no chest pain, no orthopnea, no palpitations, no rapid/ irregular heart beat, no edema, no syncope Respiratory: no cough, no cough with sputum, no excessive sputum, no hemoptysis , no shortness of breath Gastrointestinal: no nausea, no vomiting, no diarrhea, no constipation, no change in bowel habits Genitourinary Male: no hematuria, no flank pain, no discharge, no urinary frequency, no urinary hesitancy, no nocturia, no incontinence Rectal: no pain, no incontinence, no bleeding Musculoskeletal: no neck pain, no shooting arm pain, no arm numbness/tingling, no low back pain, no shooting leg pain, no leg numbness/tingling, no redness of joints Integumentary: no rash, no pruritis, no redness, no sores, no wounds, no jaundice Neurological: paralysis, change in speech, gait dysfunction, motor disturbance, no tingling, no seizures, no syncope Psychiatric: no anxiety, no memory loss, no change in sleep habits, no sleep disturbances, no insomnia, no hypersomnia, no change in appetite, no change in libido Endocrine: no cold intolerance, no heat intolerance, no polyphagia, no polydipsia, no polyuria, no nocturia, no excessive sweating, no flushing, no weight change Hematologic/Lymphatic: no easy bruising, no easy bleeding, no lymphadenopathy Allergic/Immunologic: no urticaria, no allergic rhinitis, no wheezing, no anaphylaxis, no angioedema Exam - Constitutional Vitals: Temp Pulse Resp BP Pulse Ox 98.4 F 99 H 17 171/80 97 02/26/18 10:48 02/26/18 11:45 02/26/18 11:45 02/26/18 11:45 02/26/18 11:45 General appearance: Present: mild distress - EENT Eyes: Present: PERRL ENT: hearing intact, clear oral mucosa - Neck Neck: Present: supple, normal ROM - Respiratory Respiratory effort: normal Respiratory: bilateral: CTA - Cardiovascular Heart Sounds: Present: S1 & S2. Absent: rub, click - Extremities Extremities: pulses symmetrical, No edema Peripheral Pulses: within normal limits - Abdominal General gastrointestinal: Present: soft, non-tender, non-distended, normal bowel sounds Male genitourinary: Present: normal - Integumentary Integumentary: Present: clear, warm, dry - Musculoskeletal Musculoskeletal: left sided weakness - Psychiatric Psychiatric: appropriate mood/affect, intact judgment & insight - Neurologic Neurologic: CNII-XII intact, moves all extremities Results - Labs CBC & Chem 7: 02/26/18 10:43 02/26/18 10:49 Labs: Abnormal lab results 02/26/18 02/26/18 Range/Units 10:43 10:49 Hct 35.3 L (35.5-45.6) % MCV 95 H (84-94) fl RDW 13.0 L (13.2-15.2) % Seg Neutrophils % 77.1 H (40.0-70.0) % Seg Neutrophils # 8.1 H (1.8-7.7) K/mm3 Chloride 107.1 H (98-107) mmol/L BUN 38 H (9-20) mg/dL Creatinine 2.1 H (0.8-1.5) mg/dL Glucose 137 H (75-100) mg/dL Assessment and Plan - Patient Problems (1) CVA (cerebral vascular accident) Current Visit: Yes Status: Acute Qualifiers: Precerebral and cerebral artery: middle cerebral artery Laterality of affected vessel: right Plan to address problem: Stroke Protocol; CT head, MRI Brain, MRA brain, Echo, Carotid Doppler, EEG, Antiplatelet therapy, PT/OT/ Speech therapy, (2) ARF (acute renal failure) with tubular necrosis Current Visit: Yes Status: Acute Plan to address problem: IVF resuscitation therapy. monitor uop q shift, repeat bmp (3) Nicotine dependence unspecified, with withdrawal Current Visit: Yes Status: Acute Qualifiers: Nicotine product type: cigarettes Qualified Code(s): F17.213 - Nicotine dependence, cigarettes, with withdrawal Plan to address problem: Smoking cessation counseling. (4) Shoulder pain, left Current Visit: Yes Status: Acute Qualifiers: Chronicity: chronic Qualified Code(s): M25.512 - Pain in left shoulder; G89.29 - Other chronic pain Plan to address problem: X ray , left shoulder (5) DVT prophylaxis Current Visit: Yes Status: Acute Plan to address problem: scd to ble while in bed
[2018-02-26] MEDS ORDERED: SODIUM CHLORIDE FLUSH SYRINGE 10 ML IV PRN (12:49)
[2018-02-26] MEDS ORDERED: PHENERGAN PR PRN (12:49)
[2018-02-26] MEDS ORDERED: MILK OF MAGNESIA PO PRN (12:49)
[2018-02-26] MEDS ORDERED: REGLAN PO PRN (12:49)
[2018-02-26] MEDS ORDERED: ZOFRAN IV PRN (12:49)
[2018-02-26] MEDS ORDERED: DULCOLAX PR PRN (12:49)
[2018-02-26] MEDS: TYLENOL PO PRN ×2 (13:24→18:50)
--- NOTE | 2018-02-26 15:01 | Magnetic Resonance Report ---
MRI BRAIN WITHOUT CONTRAST: 02/26/18 12:49:00 CLINICAL: Stroke. COMPARISON: 10/29/16 TECHNIQUE: Axial diffusion, T1, T2, gradient echo T2*, coronal and axial FLAIR and sagittal T1 sequences on a 1.5 Renetta magnet. FINDINGS: No restricted diffusion. Left frontal lobe encephalomalacia at the site of the previously described infarct. Global cortical atrophy and extensive bilateral curvature to white matter hyperintensities on FLAIR and T2. Mild ex-vacuo dilatation of the left lateral ventricle. Bilateral frontal lobe focal hyperintensities on the gradient echo sequence are new compared to the previous exam. There is one on the right and one on the left at the margin of the chronic infarct. Focal hypodensities in the left thalamus on the gradient echo sequence are also new. No mass or mass effect. No acute or subacute hemorrhage, edema or extra-axial collection. Normal pituitary and optic chiasm. A small chronic left pontine lacunar infarct. Intact vascular flow voids. Bilateral maxillary sinus mucoperiosteal thickening. No air-fluid levels. The orbits, and soft tissues are normal. Normal calvarium and skull base. IMPRESSION: 1. No evidence of acute/subacute infarct or hemorrhage. 2. Chronic left frontal lobe infarct. 3. Chronic micro-bleeds involving bilateral frontal lobes and the left thalamus. 4. Extensive chronic white matter microangiopathy. 5. Chronic left pontine lacunar infarct. 6. Bilateral maxillary sinusitis.
--- NOTE | 2018-02-26 15:05 | Magnetic Resonance Report ---
MRA HEAD WITHOUT CONTRAST: 02/26/18 12:49:00 CLINICAL: Stroke. COMPARISON: 10/29/16 TECHNIQUE: Axial 3-D [id number] MR angiography of the [place] with review of axial source images. FINDINGS: Chronic occlusion of the distal left ANGELA. Otherwise intact [place] with no aneurysm, high-grade stenosis or occlusion. Symmetric blood flow in the middle and posterior cerebral arteries. Normal basilar and vertebral arteries. The left vertebral artery is dominant. IMPRESSION: Chronic left ICA occlusion and otherwise normal.
[2018-02-26] MEDS: NEURONTIN PO SCH (22:15)
[2018-02-26] MEDS: PRAVACHOL PO SCH (22:15)
[2018-02-27] MEDS ORDERED: APRESOLINE IV PRN (01:35)
[2018-02-27] MEDS: TYLENOL PO PRN ×2 (06:01→10:16)
[2018-02-27 07:47] LABS: Chol/HDL Ratio 2.56 %
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
[2018-02-27 10:03] LABS: Hematocrit 34.9 % (35.5-45.6); Hemoglobin 11.7 gm/dl (11.8-15.2); Mean Corpuscular HGB Conc 34 % (32-34); Mean Corpuscular Hemoglobin 32 pg (28-32); Mean Corpuscular Volume 94 fl (84-94); Platelet Count 197 K/mm3 (140-440); Red Blood Count 3.72 M/mm3 (3.65-5.03); Red Cell Distribution Width 13.5 % (13.2-15.2)
[2018-02-27] MEDS: PROCARDIA XL PO SCH (10:14)
[2018-02-27] MEDS: PROTONIX PO SCH (10:14)
[2018-02-27] MEDS: ZESTRIL PO SCH ×2 (10:16→21:58)
[2018-02-27] MEDS: NEURONTIN PO SCH ×2 (10:16→21:59)
[2018-02-27 10:17] LABS: Calcium 9.6 mg/dL (8.4-10.2)
--- NOTE | 2018-02-27 12:12 | Progress Note ---
Assessment and Plan Assessment and plan: TIA. patient initially thought to have acute stroke. MRI did not show acute stroke MRI shows chronic microbleed Hypertensive emergency. Patient on Lisinopril, Nifedipine. Monitor BP Chronic kidney disease. Review of records show Cr at baseline COPD. No acute exacerbation History of stroke DVT prophylaxis Full code status History Interval history: Patient presented with left sided weakness,facial weakness BP elevated Hospitalist Physical - Physical exam Narrative exam: Gen : Not in acute distress, HEENT:Normocephalic, atraumatic Neck: supple, No JVD Lungs: Clear to auscultation, bilaterally, no rhonchi Heart :S1 and S2 reg, no murmurs, rubs or gallop Abd:soft, non tender, non distended, normal bowel sounds Ext: No edema, no clubbing, no cyanosis, Neuro: Awake,alert,oriented x 3, Psych:normal mood - Constitutional Vitals: Temp Pulse Resp BP Pulse Ox 97.8 F 101 H 18 182/131 100 02/27/18 03:36 02/27/18 03:36 02/27/18 09:22 02/27/18 10:16 02/27/18 03:36 Results - Labs CBC & Chem 7: 02/27/18 09:46 02/27/18 09:46 Labs: Laboratory Last Values WBC 10.8 K/mm3 (4.5-11.0) 02/27/18 09:46 RBC 3.72 M/mm3 (3.65-5.03) 02/27/18 09:46 Hgb 11.7 gm/dl (11.8-15.2) L 02/27/18 09:46 Hct 34.9 % (35.5-45.6) L 02/27/18 09:46 MCV 94 fl (84-94) 02/27/18 09:46 MCH 32 pg (28-32) 02/27/18 09:46 MCHC 34 % (32-34) 02/27/18 09:46 RDW 13.5 % (13.2-15.2) 02/27/18 09:46 Plt Count 197 K/mm3 (140-440) 02/27/18 09:46 Lymph % (Auto) 14.5 % (13.4-35.0) 02/26/18 10:43 [place] % (Auto) 6.3 % (0.0-7.3) 02/26/18 10:43 Eos % (Auto) 0.7 % (0.0-4.3) 02/26/18 10:43 Baso % (Auto) 1.4 % (0.0-1.8) 02/26/18 10:43 Lymph # 1.5 K/mm3 (1.2-5.4) 02/26/18 10:43 [place] # 0.7 K/mm3 (0.0-0.8) 02/26/18 10:43 Eos # 0.1 K/mm3 (0.0-0.4) 02/26/18 10:43 Baso # 0.1 K/mm3 (0.0-0.1) 02/26/18 10:43 Seg Neutrophils % 77.1 % (40.0-70.0) H 02/26/18 10:43 Seg Neutrophils # 8.1 K/mm3 (1.8-7.7) H 02/26/18 10:43 PT 12.8 Sec. (12.2-14.9) 02/26/18 10:49 INR 0.92 (0.87-1.13) 02/26/18 10:49 APTT 32.3 Sec. (24.2-36.6) 02/26/18 10:49 Thrombin Time 18.0 Sec. (15.1-19.6) 02/26/18 10:49 Sodium 143 mmol/L (137-145) 02/27/18 09:46 Potassium 3.9 mmol/L (3.6-5.0) 02/27/18 09:46 Chloride 105.0 mmol/L (98-107) 02/27/18 09:46 Carbon Dioxide 23 mmol/L (22-30) 02/27/18 09:46 Anion Gap 19 mmol/L 02/27/18 09:46 BUN 28 mg/dL (9-20) H 02/27/18 09:46 Creatinine 1.9 mg/dL (0.8-1.5) H 02/27/18 09:46 Estimated GFR 44 ml/min 02/27/18 09:46 BUN/Creatinine Ratio 15 % 02/27/18 09:46 Glucose 118 mg/dL (75-100) H 02/27/18 09:46 POC Glucose 149 (70-105) H 02/26/18 10:32 Calcium 9.6 mg/dL (8.4-10.2) 02/27/18 09:46 Troponin T < 0.010 ng/mL (0.00-0.029) 02/26/18 10:49 Triglycerides 108 mg/dL (2-149) 02/27/18 07:01 Cholesterol 82 mg/dL (50-199) 02/27/18 07:01 LDL Cholesterol Direct 42 mg/dL (50-130) L 02/27/18 07:01 HDL Cholesterol 32 mg/dL (40-59) L 02/27/18 07:01 Cholesterol/HDL Ratio 2.56 % 02/27/18 07:01
--- NOTE | 2018-02-27 17:27 | Consultation ---
History of Present Illness Consult date: 02/27/18 History of present illness: patient seen and assessed he has stroke related to HTN there is no surgical lesion in the right carotid system therefore endovascular procedure not recommended advise BP control and analgesics foer headaches are OK'ed wonder about vasculitis ? Past History Past Medical History: arthritis, COPD, GERD, stroke, other (Lumbar pain) Past Surgical History: Other (shoulder surgery) Social history: single, smoking Family history: hypertension Medications and Allergies Allergies Allergy/AdvReac Type Severity Reaction Status Date / Time No Known Allergies Allergy Verified 02/26/18 10:31 Home Medications Medication Instructions Recorded Confirmed Last Taken Type Lisinopril [Zestril TAB] 20 mg PO BID #60 tablet 11/18/16 02/26/18 Unknown Rx NIFEdipine XL [Procardia Xl] 90 mg PO QDAY #30 tablet 11/18/16 02/26/18 Unknown Rx Pantoprazole [Protonix TAB] 40 mg PO QDAY #30 tablet 11/18/16 02/26/18 Unknown Rx Simvastatin [Zocor TAB] 10 mg PO QHS #30 tablet 11/18/16 02/26/18 Unknown Rx Gabapentin [Neurontin] 300 mg PO BID #30 cap 03/25/17 02/26/18 Unknown Rx Active Meds: Active Medications Acetaminophen (Tylenol) 650 mg PO Q4H PRN PRN Reason: Pain, Mild (1-3) Last Admin: 02/27/18 10:16 Dose: 650 mg Bisacodyl (Dulcolax) 10 mg ND QDAY PRN PRN Reason: Constipation Gabapentin (Neurontin) 300 mg PO BID [facility] Last Admin: 02/27/18 10:16 Dose: 300 mg Hydralazine HCl (Apresoline) 5 mg IV Q6H PRN PRN Reason: Hypertension Last Admin: 02/27/18 02:23 Dose: 5 mg Lisinopril (Zestril) 20 mg PO BID [facility] Last Admin: 02/27/18 10:16 Dose: 20 mg Magnesium Hydroxide (Milk Of Magnesia) 30 ml PO Q4H PRN PRN Reason: Constipation Metoclopramide HCl (Reglan) 5 mg PO Q6H PRN PRN Reason: Nausea And Vomiting Nifedipine (Procardia Xl) 90 mg PO QDAY [facility] Last Admin: 02/27/18 10:14 Dose: 90 mg Ondansetron HCl (Zofran) 4 mg IV Q8H PRN PRN Reason: N/V unrelieved by Reglan Pantoprazole Sodium (Protonix) 40 mg PO QDAY [facility] Last Admin: 02/27/18 10:14 Dose: 40 mg Pravastatin Sodium (Pravachol) 20 mg PO QHS [facility] Last Admin: 02/26/18 22:15 Dose: 20 mg Promethazine HCl (Phenergan) 25 mg ND Q6H PRN PRN Reason: Nausea And Vomiting Sodium Chloride (Sodium Chloride Flush Syringe 10 Ml) 10 ml IV PRN PRN PRN Reason: LINE FLUSH Physical Examination - Vital Signs Vital Signs: Vital Signs Pulse Resp 94 H 18 02/26/18 10:44 02/26/18 10:44 - Assessment Assessment Interval: Baseline - Level of Consciousness 1a. Level of Consciousness: alert - LOC Questions 1b. LOC Questions: answers 1 question correctly - LOC Command 1c. LOC Commands: performs tasks correctly - Best Gaze 2. Best Gaze: normal - Visual 3. Visual: no visual loss - Facial Palsy 4. Facial Palsy: partial paralysis - Motor Arm 5b. Motor Arm Right: drift - Motor Leg 6a. Motor Leg Left: drift - Limb Ataxia 7. Limb Ataxia: absent - Sensory 8. Sensory: mild/moderate sensory loss (left) - Best Language 9. Best Language: no aphasia - Dysarthria 10. Dysarthria: mild/moderate dysarthria - Extinction and Inattention 11. Extinction/Inattention: no abnormality Results - Laboratory Findings CBC and BMP: 02/27/18 09:46 02/27/18 09:46 Abnormal Lab Findings: Abnormal Labs 02/26/18 02/26/18 02/26/18 10:32 10:43 10:49 Hgb Hct 35.3 L MCV 95 H RDW 13.0 L Seg Neutrophils % 77.1 H Seg Neutrophils # 8.1 H Chloride 107.1 H BUN 38 H Creatinine 2.1 H Glucose 137 H POC Glucose 149 H LDL Cholesterol Direct HDL Cholesterol 02/27/18 02/27/18 02/27/18 07:01 09:46 09:46 Hgb 11.7 L Hct 34.9 L MCV RDW Seg Neutrophils % Seg Neutrophils # Chloride BUN 28 H Creatinine 1.9 H Glucose 118 H POC Glucose LDL Cholesterol Direct 42 L HDL Cholesterol 32 L
[2018-02-27] MEDS: PERCOCET 5/325 PO PRN (18:32)
[2018-02-27] MEDS: PRAVACHOL PO SCH (21:59)
[2018-02-28] MEDS: PERCOCET 5/325 PO PRN ×3 (01:23→15:48)
--- NOTE | 2018-02-28 04:25 | Consultation ---
ROOM NUMBER: [id number] HISTORY OF PRESENT ILLNESS: This is a 62-year-old black male who presents to the Emergency Room of [facility] complaining of left-sided weakness. The patient has prior medical history of a stroke involving his right arm and right leg. This had been previously evaluated on 02/26/2018. Findings at this point are of subacute infarct in the left frontal lobe and microbleeds in the frontal lobes in the left thalamus, extensive chronic white matter changes, encephalopathy, chronic left pontine lacunar infarct, which was likely the cause of his right-sided weakness. The patient was readmitted at this time with onset of new stroke and now complains of headaches, which are severe, and examination shows the patient initially presented to the Emergency Room, was evaluated by Dr. Niño, and the patient had been noted to have left-sided weakness, headache. Previously, he had right hemiparesis and dysarthria. He is a diabetic type 2, had been taking lisinopril, nifedipine, gabapentin, and Zocor. On presentation to the Emergency Room, his blood pressure was initially elevated at 171/80. The patient was initially evaluated for possible TPA, and was not felt to require intubation and did not require TPA transport, and a CTA could not be done to further assess the patient. It was thought it is the worsening renal function. The patient was initially assessed and was thought to have findings compatible with acute stroke of the right cerebral hemisphere. On presentation, the head CTA on 02/26/2018 showed a partial thrombosis in the left A1 segment, which was felt to be chronic. No acute changes were noted in the right ANGELA or MCA to account for the left-sided weakness. Changes present in this MRI were felt to be hypertensive related. PHYSICAL EXAMINATION: GENERAL: Shows him to be alert. He has severe headache. VITAL SIGNS: His blood pressure presently is 160/80, pulse rate is 80, respirations 18. NEUROLOGIC: Cranial nerves 2-12 are intact. Speech is clear. He is complaining of a headache. He has a chronic right-sided weakness, but not aphasic. He swallows well, has full ocular movements. Pupils are reactive to light. Hearing is intact. Face is symmetrical. Left hemiparesis is mild to moderate, 4/5 arm and leg. IMPRESSION: Acute stroke, right cerebral hemisphere, hypertensive in etiology. ____ TPA was not recommended. CTA was negative for any thrombosis. He ____ endovascular revascularization of the right hemisphere. We would recommend management with pain medicines at this time, I will order medicines for this, and speak with Dr. Olmedo later. JOB# [id number] ADRIAN/FERNANDA
[2018-02-28] MEDS: ZESTRIL PO SCH (10:40)
[2018-02-28] MEDS: NEURONTIN PO SCH (10:40)
[2018-02-28] MEDS: PROCARDIA XL PO SCH (10:40)
[2018-02-28] MEDS: PROTONIX PO SCH (10:40)
--- NOTE | 2018-02-28 11:06 | Progress Note ---
Subjective Date of service: 02/28/18 Interval history: see my complete note on this patient headaches are better on meds ordered plan to have radiology go over all imaging studies on to develop plan of therapy- ? is the left ANGELA or Left ICA artery occluded? Thanks Objective - Vital Sign Vital Signs - 12hr 02/28/18 02/28/18 02/28/18 00:22 01:19 05:23 Temperature 97.6 F Pulse Rate 91 H 89 89 Respiratory 20 Rate Blood Pressure 151/77 159/89 Blood Pressure 151/77 [Right] O2 Sat by Pulse 99 98 96 Oximetry 02/28/18 02/28/18 02/28/18 05:57 07:47 08:28 Temperature 98.9 F 98.1 F Pulse Rate 89 92 H 86 Respiratory 18 22 Rate Blood Pressure 144/80 Blood Pressure 159/69 [Right] O2 Sat by Pulse 96 97 Oximetry 02/28/18 09:11 Temperature 98.1 F Pulse Rate 93 H Respiratory 22 Rate Blood Pressure Blood Pressure 144/80 [Right] O2 Sat by Pulse 96 Oximetry - Laboratory Findings CBC and BMP: 02/27/18 09:46 02/27/18 09:46 Abnormal Lab Findings: Abnormal Labs 02/26/18 02/26/18 02/26/18 10:32 10:43 10:49 Hgb Hct 35.3 L MCV 95 H RDW 13.0 L Seg Neutrophils % 77.1 H Seg Neutrophils # 8.1 H Chloride 107.1 H BUN 38 H Creatinine 2.1 H Glucose 137 H POC Glucose 149 H LDL Cholesterol Direct HDL Cholesterol 02/27/18 02/27/18 02/27/18 07:01 09:46 09:46 Hgb 11.7 L Hct 34.9 L MCV RDW Seg Neutrophils % Seg Neutrophils # Chloride BUN 28 H Creatinine 1.9 H Glucose 118 H POC Glucose LDL Cholesterol Direct 42 L HDL Cholesterol 32 L
--- NOTE | 2018-02-28 12:04 | Consultation ---
HISTORY OF PRESENT ILLNESS: This is a 62-year-old black male that is admitted to [facility] via the Emergency Room. The patient initially was seen by Dr. Niño. The patient presented with a prior history of a stroke in 10/2016, producing left facial weakness and new onset of symptoms would indicate the patient was having left arm pain and weakness. The patient, on admission, had been taking gabapentin 300 mg b.i.d. and Protonix, Zocor, lisinopril. Initial CT scan of the head showed no evidence of bleed. He also had a CTA which did not show an occlusion of the right middle or anterior cerebral artery. He was not therefore TPA candidate. When he was initially seen, he had some mild elevation in his creatinine of 2.1 and subsequently to getting the CTA contrast, his creatinine is 1.9, which is certainly not much worse. At this point, also his condition is that of having a left hemiparesis. Evidence on his CT and MRI is that of extensive white matter changes in the right hemisphere, but with very little to suggest any acute changes of bleed or infarct. He has multiple old ischemic changes in frontal lobe, left thalamus, and white matter changes of microangiopathy. IMPRESSION: New onset of stroke, probably microangiopathic. I do not see evidence of a large acute stroke or bleed. Interestingly, his MRI was very unremarkable indicating that as well as CTA, which did not show any occlusion of blood flow and he has a chronic left ICA occlusion with report indicating that is a chronic occlusion of the distal left ANGELA, but in the report, it states that the patient has a chronic occlusion of the left ICA. PLAN: Plan to review over this with the radiologist to see if I can understand the nature of this report without further comment at this point. JOB# [id number] ADRIAN/FERNANDA
--- NOTE | 2018-02-28 15:49 | Discharge Summary ---
Providers - Providers Date of Admission: 02/26/18 12:49 Date of discharge: 02/28/18 Attending physician: IRIS ORTIZ 02/26/18 12:50 Occupational Therapy Evaluate and Treat [CONS] Routine Comment: Reason For Exam: Neuro deficits Physical Therapy Evaluation and Treat [CONS] Routine Comment: Reason For Exam: Neuro deficits 02/26/18 12:52 Speech Therapy Evaluation and Treat [CONS] Routine Reason For Exam: swallow eval 02/27/18 10:44 Consult to Physician [CONS] Routine Comment: Consulting Provider: BRAULIO COHEN Physician Instructions: Reason For Exam: facial droop,bilat intracranial microbleed Primary care physician: SENIOR LEAD SOFTWARE ENGINEER Hospitalization Condition: Fair Disposition: DC-01 TO HOME OR SELFCARE - Discharge Diagnoses (1) Hypertensive emergency Status: Acute Core Measure Documentation - Palliative Care Palliative Care/ Comfort Measures: Not Applicable - Core Measures Any of the following diagnoses?: none Exam - Constitutional Vitals: Temp Pulse Resp BP Pulse Ox 98.1 F 89 20 153/82 98 02/28/18 11:32 02/28/18 11:32 02/28/18 11:32 02/28/18 11:32 02/28/18 11:32 Plan Activity: advance as tolerated Diet: low fat, low cholesterol, low salt, renal Additional Instructions: 1.Follow up with PCP or [facility] in 1 week. 2.Follow up with Dr. Cohen, Neuro in office in 1 week. 3.Follow up with Oil Change Technician in 1 week Follow up with: PRIMARY CARE, [Primary Care Provider] - 3-5 Days Prescriptions: traMADol [Ultram 50 MG tab] 50 mg PO Q6HR PRN #20 tablet PRN Reason: Pain
[2018-02-28] MEDS ORDERED: PLAVIX PO SCH (16:07)
[2018-02-28 16:25] VITALS: BP 137/70
--- NOTE | 2018-03-02 12:08 | Vascular Lab Report ---
LEFT UPPER EXTREMITY VENOUS DUPLEX: REASON FOR EXAM: Pain and swelling of the left upper extremity COMMENTS ON THE LEFT: All arm veins visualized are freely compressible without evidence of internal echogenicity. The subclavian and internal jugular veins are free of thrombus. Flow is spontaneous and phasic throughout. COMMENTS ON THE RIGHT: A limited study of the jugular and subclavian veins shows no evidence of thrombus. IMPRESSION: No evidence of acute or chronic deep venous thrombosis in the left upper extremity.
--- NOTE | 2018-03-02 12:16 | Vascular Lab Report ---
CAROTID DUPLEX STUDY: RIGHT PSVEDV CCA PROX:7715 CCA DIST:7216 ICA PROX:5713 ICA MID:6918 ICA DIST:7922 ECA: 219 VERT: 62 18 LEFT PSVEDV CCA PROX:8921 CCA DIST:9421 ICA PROX:9620 ICA MID:7620 ICA DIST:9524 ECA: 208 VERT: 53 16 REASON FOR EXAM: Stroke. COMMENTS ON THE RIGHT: Doppler frequency analysis is consistent with 16 to 49 percent diameter reduction of the internal carotid artery. A moderate amount of a regular surfaced and calcified plaque is seen. The common carotid artery is patent. The external carotid artery is patent. The vertebral artery has antegrade flow. COMMENTS ON THE LEFT: Doppler frequency analysis is consistent with 16 to 49 percent diameter reduction of the internal carotid artery. A regular surfaced calcified plaque seen. The common carotid artery is patent. The external carotid artery is patent. The vertebral artery has antegrade flow. IMPRESSION: Less than 50% diameter reduction in the internal carotid arteries bilaterally. Irregular surfaced and calcified plaque is seen bilaterally. Consider CT angiography.
== END 2018-02-28 20:40 | disposition home or self-care (01) | DRG 304 ==
LOC: ED 10:30 → 4A 12:49
PROVIDERS: ADMIT Internal Medicine; ATTEND Internal Medicine
DX: I16.1 Hypertensive emergency (principal); N17.0 Acute kidney failure with tubular necrosis; G45.9 Transient cerebral ischemic attack, unspecified; F17.213 Nicotine dependence, cigarettes, with withdrawal; I69.351 Hemiplegia and hemiparesis following cerebral infarction affecting right dominant side; K21.9 Gastro-esophageal reflux disease without esophagitis; M19.90 Unspecified osteoarthritis, unspecified site; R29.710 NIHSS score 10; J44.9 Chronic obstructive pulmonary disease, unspecified; I12.9 Hypertensive chronic kidney disease with stage 1 through stage 4 chronic kidney disease, or unspecified chronic kidney disease; N18.9 Chronic kidney disease, unspecified; M54.5 Low back pain; G89.29 Other chronic pain; Z82.49 Family history of ischemic heart disease and other diseases of the circulatory system; Z71.6 Tobacco abuse counseling
CPT/HCPCS: 36415; 70450; 70496; 70498; 70544; 70551; 80048; 80061; 82962; 84484; 85025; 85027; 85610; 85670; 85730; 93005; 93010; 93306; 93880; 95819; 99406; A9270-GY; G8978-GP; G8979-GP; G8987-GO; G8988-GO; G8999-GN; G9186-GN; J0360; Q9967

== ENCOUNTER 2020-01-15 09:23 | Inpatient (IN) | payer MEDICARE ==
--- NOTE | 2020-01-15 09:37 | Emergency Department Report ---
HPI - General PUI?: No Time Seen by Provider: 01/15/20 09:35 - HPI HPI: Room 18 The patient is a 64-year-old male present with a chief complaint of altered normal sinus. Patient last known well time was 21:00 last night. The patient awakened this morning and was reportedly not responding verbally. For me the patient has extreme dysarthria and is unable to pronounce his own name. Patient seems confused when he is asked questions he has unintelligible speech whenever he attempts. 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) Hx GERD: Yes Hx Renal Disease: Yes (renal insuf) Hx Arthritis: Yes (right hip) Hx COPD: Yes Additional medical history: chronic back pain - Surgical History Additional Surgical History: "shoulder surgery" - Family History Family history: no significant - Social History Smoking Status: Unknown if ever smoked Substance Use Type: None - Medications Home Medications: Home Medications Medication Instructions Recorded Confirmed Last Taken Type NIFEdipine XL [Procardia Xl] 90 mg PO QDAY #30 tablet 11/18/16 01/15/20 Unknown Rx Pantoprazole [Protonix TAB] 40 mg PO QDAY #30 tablet 11/18/16 01/15/20 Unknown Rx Simvastatin [Zocor TAB] 10 mg PO QHS #30 tablet 11/18/16 01/15/20 Unknown Rx lisinopriL [Zestril TAB] 20 mg PO BID #60 tablet 11/18/16 01/15/20 Unknown Rx Gabapentin 300 mg PO BID #30 cap 03/25/17 01/15/20 Unknown Rx traMADoL [Ultram 50 MG tab] 50 mg PO Q6HR PRN #20 tablet 02/28/18 01/15/20 Unknown Rx ED Review of Systems ROS: Stated complaint: POSS CVA Other details as noted in HPI Comment: Unobtainable due to pts medical conditions Physical Exam - Physical Exam Physical Exam: GENERAL: The patient is well-developed well-nourished male lying on stretcher appearing confused. [] HEENT: Normocephalic. Atraumatic. Extraocular motions are intact. Patient has moist mucous membranes. NECK: Supple. Trachea midline CHEST/LUNGS: Clear to auscultation. There is no respiratory distress noted. HEART/CARDIOVASCULAR: Regular. There is no tachycardia. There is no gallop rub or murmur. ABDOMEN: Abdomen is soft, nontender. Patient has normal bowel sounds. There is no abdominal distention. SKIN: There is no rash. There is no edema. There is no diaphoresis. NEURO: The patient is awake but seems confused with garbled speech. The patient is not cooperative with neurologic exam. Patient has unintelligible garbled speech MUSCULOSKELETAL: There is no evidence of acute injury. ED Course - Consultations Consultation #1: 01/15/20 09:37 Case discussed with [id number] TPA. Recommends CTA brain and neck Consultation #2: 01/15/20 10:06 CTA delayed secondary to CT being clean from previous COVID pt Consultation #3: 01/15/20 12:53 Case discussed with tele-neurologist- will attempt to arrange transfer to neuro interventionalist 01/15/20 14:35 Case discussed with telemetry neurologist- patient is not a candidate for neuro intervention ED Medical Decision Making - Lab Data Result diagrams: 01/15/20 10:32 01/15/20 10:32 Laboratory Tests 01/15/20 01/15/20 01/15/20 10:32 10:32 10:32 WBC 6.3 RBC 5.21 H Hgb 13.9 Hct 43.2 MCV 83 L MCH 27 L MCHC 32 RDW 16.5 H Plt Count 222 Lymph % (Auto) 20.5 [place] % (Auto) 4.5 Eos % (Auto) 0.8 Baso % (Auto) 1.0 Lymph # 1.3 [place] # 0.3 Eos # 0.1 Baso # 0.1 Seg Neutrophils % 73.2 H Seg Neutrophils # 4.6 PT 13.1 INR 0.98 APTT 29.3 Sodium 138 Potassium 5.2 H Chloride 104.1 Carbon Dioxide 22 Anion Gap 17 BUN 28 H Creatinine 2.9 H Estimated GFR 27 BUN/Creatinine Ratio 10 Glucose 120 H Calcium 9.4 Troponin T 0.013 - EKG Data -: EKG Interpreted by Ri EKG shows normal: sinus rhythm Rate: tachycardia (125 bpm) - EKG Data When compared to previous EKG there are: previous EKG unavailable Interpretation: nonspecific ST-T wave veronica (T wave inversions in leads V5, V6) - Radiology Data Radiology results: report reviewed (CT head), image reviewed (CT head) Findings [facility] [address] [place] [address] Cat Scan Report Signed Patient: YOJANA GUERRERO MR#: [id number] : 1955 Acct:[id number] Age/Sex: 64 / M ADM Date: 01/15/20 Loc: ED Attending Dr: Ordering Physician: ROBERTO RICO MD Date of Service: 01/15/20 Procedure(s): CT head/brain wo con Accession Number(s): [id number] cc: ROBERTO RICO MD CT HEAD WITHOUT CONTRAST INDICATION / CLINICAL INFORMATION: MAIN: neuro deficits <6hrs or sx present upon awakening STROKE PROTOCOL [phone]. TECHNIQUE: All CT scans at this location are performed using CT dose reduction for ALARA by means of automated exposure control. COMPARISON: 02/26/2018 FINDINGS: HEMORRHAGE: No evidence of intracranial hemorrhage or extra-axial fluid collection. EXTRA-AXIAL SPACES: Cortical sulci, sylvian fissures and basilar cisterns have an unremarkable appearance. VENTRICULAR SYSTEM: The ventricular system is of normal size and configuration. CEREBRAL PARENCHYMA: Subtle new hypodensity and mild mass effect in the left ANGELA distribution in the vicinity of a previous chronic left ANGELA infarct. No other suspicious hypodensity. Stable moderate bilateral periventricular white matter hypodensities. MIDLINE SHIFT OR HERNIATION: None. CEREBELLUM / BRAINSTEM: Brainstem and cerebellum have an un remarkable appearance. INTRACRANIAL VESSELS:No abnormalities are identified on this noncontrast head CT. ORBITS: visualized portions of the orbits have an unremarkable appearance. SOFT TISSUES of HEAD: No significant abnormality. CALVARIUM: Evaluation of bone windows reveals no abnormalities. PARANASAL SINUSES / MASTOID AIR CELLS: Paranasal sinuses are free from inflammatory mucosal disease. Mastoid air cells are normally pneumatized. ADDITIONAL FINDINGS: None. IMPRESSION: 1. An acute nonhemorrhagic left ANGELA infarct consistent with an extension of a previous chronic infarct. 2. No hemorrhage. 3. Moderate chronic white matter microangiopathy. Verbal report was given to Dr. Rico in the ED on 01/15/20 at 10:23 AM EST. Signer Name: Braulio Ontiveros MD Signed: 01/15/2020 10:26 AM Workstation Name: [id number] Transcribed By: REF Dictated By: BRAULIO ONTIVEROS MD Electronically Authenticated By: BRAULIO ONTIVEROS MD Signed Date/Time: 01/15/20 1026 DD/ 1013 TD/TT: - Differential Diagnosis CVA, ICH Critical care attestation.: If time is entered above; I have spent that time in minutes in the direct care of this critically ill patient, excluding procedure time. ED Disposition Clinical Impression: Ischemic stroke Disposition: DC-09 OP ADMIT IP TO THIS HOSP Is pt being admited?: Yes Does the pt Need Aspirin: Yes Condition: Serious Referrals: PRIMARY CARE, [Primary Care Provider] - 3-5 Days Time of Disposition: 14:51 (Hospitalist paged (Dr Deluna))
--- NOTE | 2020-01-15 10:30 | Cat Scan Report ---
CT HEAD WITHOUT CONTRAST INDICATION / CLINICAL INFORMATION: MAIN: neuro deficits <6hrs or sx present upon awakening STROKE PROTOCOL [phone]. TECHNIQUE: All CT scans at this location are performed using CT dose reduction for ALARA by means of automated e xposure control. COMPARISON: 02/26/2018 FINDINGS: HEMORRHAGE: No evidence of intracranial hemorrhage or extra-axial fluid collection. EXTRA-AXIAL SPACES: Cortical sulci, sylvian fissures and basilar cisterns have an unremarkable appear ance. VENTRICULAR SYSTEM: The ventricular system is of normal size and configuration. CEREBRAL PARENCHYMA: Subtle new hypodensity and mild mass effect in the left ANGELA distribution in the vicinity of a previous chronic left ANGELA infarct. No other suspicious hypodensity. Stable moderate bi lateral periventricular white matter hypodensities. MIDLINE SHIFT OR HERNIATION: None. CEREBELLUM / BRAINSTEM: Brainstem and cerebellum have an unremarkable appearance. INTRACRANIAL VESSELS:No abnormalities are identified on this noncontrast head CT. ORBITS: visualized portions of the orbits have an unremarkable appearance. SOFT TISSUES of HEAD: No significant abnormality. CALVARIUM: Evaluation of bone windows reveals no abnormalities. PARANASAL SINUSES / MASTOID AIR CELLS: Paranasal sinuses are free from inflammatory mucosal disease. Mastoid air cells are normally pneumatized. ADDITIONAL FINDINGS: None. IMPRESSION: 1. An acute nonhemorrhagic left ANGELA infarct consistent with an extension of a previous chronic infarc t. 2. No hemorrhage. 3. Moderate chronic white matter microangiopathy. Verbal report was given to Dr. Amos in the ED on 01/15/20 at 10:23 AM EST. Signer Name: Kei Calixto MD Signed: 01/15/2020 10:26 AM Workstation Name: [id number]
[2020-01-15 10:47] LABS: Basophils # (Auto) 0.1 K/mm3 (0.0-0.1); Eosinophils # (Auto) 0.1 K/mm3 (0.0-0.4); Eosinophils % (Auto) 0.8 % (0.0-4.3); Hematocrit 43.2 % (35.5-45.6); Hemoglobin 13.9 gm/dl (11.8-15.2); Lymphocytes # (Auto) 1.3 K/mm3 (1.2-5.4); Lymphocytes % (Auto) 20.5 % (13.4-35.0); Mean Corpuscular HGB Conc 32 % (32-34); Mean Corpuscular Volume 83 fl (84-94); Monocytes # (Auto) 0.3 K/mm3 (0.0-0.8); Monocytes % (Auto) 4.5 % (0.0-7.3); Platelet Count 222 K/mm3 (140-440); Red Blood Count 5.21 M/mm3 (3.65-5.03); Red Cell Distribution Width 16.5 % (13.2-15.2)
[2020-01-15 10:58] LABS: INR 0.98 (0.87-1.13)
[2020-01-15 10:59] LABS: Partial Thromboplastin Time 29.3 Sec. (24.2-36.6)
[2020-01-15 11:19] LABS: Calcium 9.4 mg/dL (8.4-10.2)
--- NOTE | 2020-01-15 11:22 | Emergency Department Report ---
ED Neuro Deficit HPI - General Chief Complaint: Neuro Symptoms/Deficit Stated Complaint: POSS CVA Time Seen by Provider: 01/15/20 09:35 Source: EMS Mode of arrival: Stretcher Limitations: Altered Mental Status - History of Present Illness Initial Comments: [facility] Date of Service: 01/15/2020 09:18:05 Impression: Rule Out Acute Ischemic Stroke Comments/Sign-Out: Pt with hypertension and left isidra stroke, with right sided weakness, and abulia and aphasia. There is defiite old, and probably new stroke in the same distribution which is indicative of recrudescence. Also there is left ISIDRA, occlusion and left mca near occlusion, spoke to [place] [facility] who declines case as he feels that imaging is too old to persue perfusion, as there is already completed infarct. There was a delay in CTA because of back up of machine for critical cases. Mechanism of Stroke: Possible Thromboembolic Metrics: Last Known Well: 01/14/2020 21:00:00 [facility] Notification Time: 01/15/2020 09:17:33 Arrival Time: 01/15/2020 09:26:43 Stamp Time: 01/15/2020 09:18:05 Time First Login Attempt: 01/15/2020 09:25:43 Video Start Time: 01/15/2020 09:25:43 Symptoms: non verbal NIHSS Start Assessment Time: 01/15/2020 09:27:32 Patient is not a candidate for tPA. Patient was not deemed candidate for tPA thrombolytics because of Last Well Known Above 4.5 Hours. Video End Time: 01/15/2020 09:31:16 CT head was reviewed and results were: left isidra stroke noted Clinical Presentation is Suggestive of Large Vessel Occlusive Disease, Recommendations are as Follows Advanced Imaging is Suggestive of Large Vessel Occlusion, Neurointerventional Specialist to be Consulted. Radiologist was called back for review of advanced imaging on 01/15/2020 13:11:44 Discussed with Neurointerventionalist on 01/15/2020 13:11:44 ED Physician notified of diagnostic impression and management plan on 01/15/2020 13:11:45 Our recommendations are outlined below. Recommendations: Activate Stroke Protocol Admission/Order Set Stroke/Telemetry Floor Neuro Checks Bedside Swallow Eval DVT Prophylaxis IV Fluids, Normal Saline Head of Bed 30 Degrees Euglycemia and Avoid Hyperthermia (PRN Acetaminophen) Hold Antithrombotics for Now Routine Consultation with Inhouse Neurology for Follow up Care Sign Out: Discussed with Emergency Department Provider History of Present Illness: Patient is a 64 year old Male. Patient was brought by EMS for symptoms of non verbal Pt with hx of three strokes, with ALL, with right sided weakness, has htn and not moving right or left side, and this is different, cannot get him to say any words. Normally he answers questions and did not say anything. Last seen normal was beyond 4.5 hours of presentation. There is no history of hemorrhagic complications or intracranial hemorrhage. There is no history of Recent Anticoagulants. There is no history of recent major surgery. There is no history of recent stroke. Examination: BP(183/111), 1A: Level of Consciousness - Alert; keenly responsive + 0 1B: Ask Month and Age - Both Questions Right + 0 1C: Blink Eyes & Squeeze Hands - Performs Both Tasks + 0 2: Test Horizontal Extraocular Movements - Normal + 0 3: Test Visual Rodriguez - No Visual Loss + 0 4: Test Facial Palsy (Use Grimace if Obtunded) - Normal symmetry + 0 5A: Test Left Arm Motor Drift - No Drift for 10 Seconds + 0 5B: Test Right Arm Motor Drift - No Movement + 4 6A: Test Left Leg Motor Drift - No Drift for 5 Seconds + 0 6B: Test Right Leg Motor Drift - No Movement + 4 7: Test Limb Ataxia (FNF/Heel-Gutierrez) - No Ataxia + 0 8: Test Sensation - No Response and Quadriplegic + 2 9: Test Language/Aphasia - Mute/Global Aphasia: No Usable Speech/Auditory Comprehension + 3 10: Test Dysarthria - Normal + 0 11: Test Extinction/Inattention - Profound shelbie-inattention (ex: does not recognize own hand) + 2 NIHSS Score: 15 Patient/Family was informed the Neurology Consult would happen via TeleHealth consult by way of interactive audio and video telecommunications and consented to receiving care in this manner. Due to the immediate potential for life-threatening deterioration due to underlying acute neurologic illness, I spent 35 minutes providing critical care. This time includes time for face to face visit via telemedicine, review of medical records, imaging studies and discussion of findings with providers, the patient and/or family. Dr Mason [facility] Case [id number] - Related Data Home Medications: Previous Rx's Medication Instructions Recorded Last Taken Type NIFEdipine XL [Procardia Xl] 90 mg PO QDAY #30 tablet 11/18/16 Unknown Rx Pantoprazole [Protonix TAB] 40 mg PO QDAY #30 tablet 11/18/16 Unknown Rx Gabapentin 300 mg PO BID #30 cap 03/25/17 Unknown Rx traMADoL [Ultram 50 MG tab] 50 mg PO Q6HR PRN #20 tablet 02/28/18 Unknown Rx Aspirin 81 mg PO QDAY tablet 01/23/20 Unknown Rx AtorvaSTATin [Lipitor] 40 mg PO QHS tablet 01/23/20 Unknown Rx Metoprolol [Lopressor TAB] 100 mg PO BID tablet 01/23/20 Unknown Rx Allergies/Adverse Reactions: Allergies Allergy/AdvReac Type Severity Reaction Status Date / Time No Known Allergies Allergy Verified 01/15/20 10:11 ED Review of Systems ROS: Stated complaint: POSS CVA Other details as noted in HPI ED Past Medical Hx - Past Medical History Previous Medical History?: Yes Hx Hypertension: Yes Hx CVA: Yes (x 3. L ISIDRA cva 10/2016 R sided weakness) Hx Congestive Heart Failure: No Hx Diabetes: No Hx GERD: Yes Hx Renal Disease: Yes (renal insuf) Hx Arthritis: Yes (right hip) Hx Asthma: No Hx COPD: Yes Hx HIV: No Additional medical history: chronic back pain - Surgical History Past Surgical History?: Yes Hx Pacemaker: No Additional Surgical History: "shoulder surgery" - Social History Smoking Status: Unknown if ever smoked Substance Use Type: None - Medications Home Medications: Home Medications Medication Instructions Recorded Confirmed Last Taken Type NIFEdipine XL [Procardia Xl] 90 mg PO QDAY #30 tablet 11/18/16 01/15/20 Unknown Rx Pantoprazole [Protonix TAB] 40 mg PO QDAY #30 tablet 11/18/16 01/15/20 Unknown Rx Gabapentin 300 mg PO BID #30 cap 03/25/17 01/15/20 Unknown Rx traMADoL [Ultram 50 MG tab] 50 mg PO Q6HR PRN #20 tablet 02/28/18 01/15/20 Unknown Rx Aspirin 81 mg PO QDAY tablet 01/23/20 Unknown Rx AtorvaSTATin [Lipitor] 40 mg PO QHS tablet 01/23/20 Unknown Rx Metoprolol [Lopressor TAB] 100 mg PO BID tablet 01/23/20 Unknown Rx ED Neuro Physical Exam - General Limitations: Altered Mental Status Suspected Stroke: No (see below) ED Course Vital Signs 01/15/20 01/15/20 01/15/20 09:23 09:54 10:00 Temperature 98.4 F Pulse Rate 110 H 103 H 106 H Respiratory 25 H 17 20 Rate Blood Pressure 180/123 Blood Pressure 173/121 [Right] O2 Sat by Pulse 97 97 Oximetry 01/15/20 01/15/20 01/15/20 10:10 10:15 10:30 Temperature Pulse Rate 104 H 103 H Respiratory 18 23 27 H Rate Blood Pressure 170/121 183/121 Blood Pressure [Right] O2 Sat by Pulse 97 98 99 Oximetry 01/15/20 01/15/20 01/15/20 10:45 11:15 11:30 Temperature Pulse Rate 105 H 108 H Respiratory 23 25 H Rate Blood Pressure 189/122 189/124 184/127 Blood Pressure [Right] O2 Sat by Pulse 94 Oximetry 01/15/20 01/15/20 01/15/20 12:00 13:01 14:00 Temperature Pulse Rate 113 H 100 H 129 H Respiratory 22 20 Rate Blood Pressure 193/130 185/102 154/85 Blood Pressure [Right] O2 Sat by Pulse Oximetry 01/15/20 01/15/20 01/15/20 15:00 16:00 17:00 Temperature Pulse Rate 130 H 136 H 135 H Respiratory 26 H 29 H 16 Rate Blood Pressure 195/118 209/105 212/85 Blood Pressure [Right] O2 Sat by Pulse Oximetry 01/15/20 01/15/20 01/15/20 18:00 18:15 18:30 Temperature Pulse Rate 141 H 134 H 136 H Respiratory 21 29 H 24 Rate Blood Pressure 207/77 181/125 161/77 Blood Pressure [Right] O2 Sat by Pulse Oximetry 01/15/20 01/15/20 01/15/20 18:50 19:00 19:10 Temperature Pulse Rate 137 H 142 H 139 H Respiratory 22 28 H 19 Rate Blood Pressure 184/69 146/86 146/86 Blood Pressure [Right] O2 Sat by Pulse Oximetry 01/15/20 01/15/20 19:20 19:30 Temperature Pulse Rate 141 H 133 H Respiratory 31 H 28 H Rate Blood Pressure 150/84 183/114 Blood Pressure [Right] O2 Sat by Pulse Oximetry - Lab Data Result diagrams: 01/17/20 04:08 01/23/20 05:53 Lab Results 01/15/20 01/15/20 01/15/20 Range/Units 09:37 10:32 10:32 WBC 6.3 (4.5-11.0) K/mm3 RBC 5.21 H (3.65-5.03) M/mm3 Hgb 13.9 (11.8-15.2) gm/dl Hct 43.2 (35.5-45.6) % MCV 83 L (84-94) fl MCH 27 L (28-32) pg MCHC 32 (32-34) % RDW 16.5 H (13.2-15.2) % Plt Count 222 (140-440) K/mm3 Lymph % (Auto) 20.5 (13.4-35.0) % [place] % (Auto) 4.5 (0.0-7.3) % Eos % (Auto) 0.8 (0.0-4.3) % Baso % (Auto) 1.0 (0.0-1.8) % Lymph # 1.3 (1.2-5.4) K/mm3 [place] # 0.3 (0.0-0.8) K/mm3 Eos # 0.1 (0.0-0.4) K/mm3 Baso # 0.1 (0.0-0.1) K/mm3 Seg Neutrophils % 73.2 H (40.0-70.0) % Seg Neutrophils # 4.6 (1.8-7.7) K/mm3 PT 13.1 (12.2-14.9) Sec. INR 0.98 (0.87-1.13) APTT 29.3 (24.2-36.6) Sec. Sodium (137-145) mmol/L Potassium (3.6-5.0) mmol/L Chloride (98-107) mmol/L Carbon Dioxide (22-30) mmol/L Anion Gap mmol/L BUN (9-20) mg/dL Creatinine (0.8-1.5) mg/dL Estimated GFR ml/min BUN/Creatinine Ratio % Glucose (75-100) mg/dL POC Glucose 119 H (70-105) Hemoglobin A1c (4-6) % Calcium (8.4-10.2) mg/dL Troponin T (0.00-0.029) ng/mL 01/15/20 01/15/20 Range/Units 10:32 10:32 WBC (4.5-11.0) K/mm3 RBC (3.65-5.03) M/mm3 Hgb (11.8-15.2) gm/dl Hct (35.5-45.6) % MCV (84-94) fl MCH (28-32) pg MCHC (32-34) % RDW (13.2-15.2) % Plt Count (140-440) K/mm3 Lymph % (Auto) (13.4-35.0) % [place] % (Auto) (0.0-7.3) % Eos % (Auto) (0.0-4.3) % Baso % (Auto) (0.0-1.8) % Lymph # (1.2-5.4) K/mm3 [place] # (0.0-0.8) K/mm3 Eos # (0.0-0.4) K/mm3 Baso # (0.0-0.1) K/mm3 Seg Neutrophils % (40.0-70.0) % Seg Neutrophils # (1.8-7.7) K/mm3 PT (12.2-14.9) Sec. INR (0.87-1.13) APTT (24.2-36.6) Sec. Sodium 138 (137-145) mmol/L Potassium 5.2 H (3.6-5.0) mmol/L Chloride 104.1 (98-107) mmol/L Carbon Dioxide 22 (22-30) mmol/L Anion Gap 17 mmol/L BUN 28 H (9-20) mg/dL Creatinine 2.9 H (0.8-1.5) mg/dL Estimated GFR 27 ml/min BUN/Creatinine Ratio 10 % Glucose 120 H (75-100) mg/dL POC Glucose (70-105) Hemoglobin A1c 5.5 (4-6) % Calcium 9.4 (8.4-10.2) mg/dL Troponin T 0.013 (0.00-0.029) ng/mL - EKG Data EKG shows normal: sinus rhythm Rate: normal Critical care attestation.: If time is entered above; I have spent that time in minutes in the direct care of this critically ill patient, excluding procedure time. ED Disposition Clinical Impression: Ischemic stroke Disposition: OP ADMIT IP TO THIS HOSP Is pt being admited?: No Does the pt Need Aspirin: No (see note) Condition: Serious Time of Disposition: 00:45
--- NOTE | 2020-01-15 12:12 | Cat Scan Report ---
CT angio head INDICATION / CLINICAL INFORMATION: 64 years Male; MAIN: aphasic 100ml Omni rt side weakness last normal, 9:00 pm 01/13/19. TECHNIQUE: Thin cut axial images obtained through the head during IV bolus contrast administration. S agittal, coronal, and 3 plane MIP reconstructions performed by the technologist. NASCET type criteria used evaluate stenoses. Automated exposure control utilized for radiation reduction purposes. COMPARISON: CTA head-02/26/2018; MRA brain-02/26/2018 FINDINGS: INTERNAL CAROTID ARTERIES: There may be hemodynamically significant narrowing in the posterior genu o f the cavernous portion of the right internal carotid artery. Significant atherosclerotic disease is seen in both internal carotid arteries. Findings may have progressed from prior exam. VERTEBROBASILAR SYSTEM: Focal area of significant narrowing is seen on the left vertebral artery and there is suggestion of reduced flow in this vessel, which is worse from prior exam. Basilar artery is widely patent. DISTAL BRANCHES: Left anterior cerebral artery occlusion is suggested, beginning in the proximal A2 r egion. The left A1 segment is patent. Less of the A2 segment is seen on the current study, when tianna red with prior. Posterior cerebral arteries are patent bilaterally. There is near complete occlusion of the left middle cerebral artery in the left MCA trifurcation dante on, which have certainly progressed from prior exam. Distal branches of the left MCA territory are mu ch less well visualized when compared with the right. ANEURYSM: None identified. ADDITIONAL FINDINGS: Remainder of the surrounding soft tissues are grossly normal. IMPRESSION: 1. Near complete occlusion of the distal left M1 segment in the MCA trifurcation region. 2. Left ANGELA occlusion-findings only slightly more progressed when compared with prior. 3. Other areas of narrowing as described above, including the right internal carotid and left vertebr al arteries. Signer Name: Allen Rey MD, III Signed: 01/15/2020 12:08 PM Workstation Name: [id number]
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
[2020-01-15] MEDS ORDERED: ASPIRIN 325 MG TAB PO ONE (14:35)
[2020-01-15] MEDS ORDERED: traMADol 50 MG TAB PO PRN (21:21)
--- NOTE | 2020-01-15 21:21 | Event Note ---
Date: 01/15/20 See H/p in reports Acute CVA Rt hemiplegia Dysarthria
[2020-01-15] MEDS ORDERED: ONDANSETRON 4 MG/2 ML INJ IV PRN (21:26)
[2020-01-15] MEDS ORDERED: ACETAMINOPHEN 325 MG TAB PO PRN (21:26)
[2020-01-15] MEDS ORDERED: MAGNESIUM HYDROXIDE (MOM) ORAL LIQD UDC PO PRN (21:27)
[2020-01-15] MEDS ORDERED: HYDROmorphone 1 MG/1 ML INJ IV PRN (21:27)
[2020-01-15] MEDS ORDERED: PROMETHAZINE 25 MG RECT SUPP PR PRN (21:27)
[2020-01-15] MEDS ORDERED: METOCLOPRAMIDE 10 MG/2 ML INJ IV PRN (21:27)
[2020-01-15] MEDS ORDERED: oxyCODONE /ACETAMINOPHEN 5-325MG TAB PO PRN (21:27)
[2020-01-15] MEDS ORDERED: ALUM-MAG HYDROXIDE-SIMETHICONE 200-200-20MG/5ML ORAL LIQD 30 ML PO PRN (21:27)
[2020-01-15] MEDS ORDERED: SODIUM CHLORIDE 0.9% 1000 ML 1,000 ML IV SCH (21:30)
[2020-01-15] MEDS ORDERED: LISINOPRIL 20 MG TAB PO SCH (22:00)
[2020-01-15] MEDS ORDERED: PANTOPRAZOLE 40 MG TAB PO SCH (22:00)
[2020-01-15] MEDS: ACETAMINOPHEN 325 MG TAB PO PRN (22:12)
[2020-01-15] MEDS: GABAPENTIN 300 MG CAP PO SCH (22:12)
[2020-01-15] MEDS: NIFEdipine XL 90 MG TAB PO SCH (22:14)
[2020-01-15] MEDS: FAMOTIDINE 20 MG TAB PO SCH (22:15)
[2020-01-15] MEDS: hydrALAZINE 20 MG/1 ML INJ IV PRN (23:59)
[2020-01-16 04:41] LABS: Basophils # (Auto) 0.1 K/mm3 (0.0-0.1); Basophils % (Auto) 1.1 % (0.0-1.8); Eosinophils % (Auto) 0.1 % (0.0-4.3); Hemoglobin 15.4 gm/dl (11.8-15.2); Lymphocytes # (Auto) 1.8 K/mm3 (1.2-5.4); Lymphocytes % (Auto) 21.6 % (13.4-35.0); Mean Corpuscular HGB Conc 33 % (32-34); Mean Corpuscular Volume 83 fl (84-94); Monocytes # (Auto) 0.7 K/mm3 (0.0-0.8); Monocytes % (Auto) 8.1 % (0.0-7.3); Platelet Count 154 K/mm3 (140-440); Red Blood Count 5.64 M/mm3 (3.65-5.03); Red Cell Distribution Width 17.1 % (13.2-15.2)
[2020-01-16 05:00] LABS: Albumin 3.5 g/dL (3.9-5); Calcium 9.3 mg/dL (8.4-10.2); Chol/HDL Ratio 4.83 %
[2020-01-16] MEDS ORDERED: CALCIUM GLUCONATE 2,000 MG in SODIUM CHLORIDE 0.9% 100 ML IV ONE (07:49)
--- NOTE | 2020-01-16 08:19 | History and Physical Report ---
CHIEF COMPLAINT: 1. Altered mental status. 2. Right-sided weakness since 9:00 p.m. last night. HISTORY OF PRESENT ILLNESS: A 64-year-old male -Spanish with history of CVA in 10/2016 and right-sided weakness, GERD, chronic kidney disease and COPD, comes in for extreme dysarthria since last night and more weakness on the right upper and right lower extremity. The patient with altered sensorium this morning. Unable to tell his name, very dysarthric and dysphagic. The patient also confused and unintelligible. The patient does not follow commands. His baseline is alert and oriented with slight weakness on the right upper and right lower extremity. There is no dysarthria. PAST MEDICAL HISTORY: Hypertension, cerebrovascular accident in the past with right-sided weakness, chronic kidney disease, arthritis, COPD, chronic back pain. PAST SURGICAL HISTORY: Shoulder surgery. FAMILY HISTORY: Hypertension. SOCIAL HISTORY: Does not smoke. No alcohol, no recreational drugs. CURRENT MEDICATIONS: On the chart, lisinopril 20 mg twice a day, simvastatin 10 mg daily, Protonix 40 mg daily, nifedipine XL 90 mg p.o. daily, gabapentin 300 mg twice a day. REVIEW OF SYSTEMS: Significant for altered sensorium and dysarthria and more right-sided weakness. No shortness of breath. Otherwise, review of systems negative. PHYSICAL EXAMINATION: GENERAL: Elderly male, cooperative to a large extent. VITAL SIGNS: Temperature is 98.4, pulse is 110, respirations are 25, sats are 97%, blood pressure 173/121. HEENT: Unremarkable. Pupils equal and reactive. NECK: Supple, no lymphadenopathy, no thyromegaly. LUNGS: Clear to auscultation and percussion. Good air entry. CARDIOVASCULAR: S1, S2 heard. No gallop, no murmur, no rub. Apical impulse in left fifth intercostal space and midclavicular line. ABDOMEN: Soft and benign. No hepatosplenomegaly. No guarding, no rigidity. Hernial orifices are normal. EXTREMITIES: Good pedal pulses. CENTRAL NERVOUS SYSTEM: The patient is dysarthric and dysphagic. Answers appropriately, but unable to communicate because of dysarthria. Right upper extremity weakness and right lower extremity weakness present. 0/5 power in both right upper and right lower extremity. Right facial paralysis present. Reflexes are brisk on the right side, normal on the left side. He is semi-alert. Lethargic. SKIN: Normal. LABORATORY DATA: Significant for white count of 6,300; H and H is 13.9 and 43.2; platelet count is 222,000. Potassium is 5.2, BUN and creatinine is 28 and 2.9. Cholesterol is 179 and LDL is 120, HDL is 37. Troponin is 0.013. DIAGNOSTIC DATA: CT of the head shows acute nonhemorrhagic left ANGELA infarct consistent with an extension of the previous chronic infarct. No hemorrhage. Moderate chronic white matter microangiopathy. CT angiogram of the neck shows suboptimal exam and MRA was suggested. Head CTA shows near complete occlusion of the distal left M1 segment in the MCA trifurcation. Left ANGELA occlusion findings only slightly most progress when compared with prior. Other areas of narrowing as described including the right internal carotid and left vertebral arteries. ASSESSMENT AND PLAN: 1. Acute cerebrovascular accident affecting left MCA territory. The patient could not be transferred because of the total occlusion and no further benefit could be given. CVA protocol. MRI/MRA, echocardiogram, and carotid duplex scan ordered. Neurology consult requested. 2. Hypertension. Continue antihypertensives. IV Hydralazine 5mg q3 p.r.n. 3. Hypokalemia, mild. Calcium gluconate given. 4. Chronic kidney disease. Nephrology consult requested. 5. Hyperlipidemia. Continue statins. 6. Gastroesophageal reflux disease. Continue Pepcid. 7. Deep venous thrombosis prophylaxis. The patient on heparin 5000 q.12. JOB# [id number] VSM/NTS KRISTIED
--- NOTE | 2020-01-16 09:08 | Consultation ---
History of Present Illness - Reason for Consult Consult date: 01/16/20 chronic renal failure - History of Present Illness This is a 64 year old male patient who at time of consultation is unable to verbally communicate to provide any history. HPI is derived from ED/provider notes. Patient has pmh significant for hypertension, CKD, CVA x 3 with right sided weakness, GERD, arthritis, chronic back pain, and COPD. He presented to the ED for dysarthria and altered mental status. TPA was deferred and pt ultimately not deemed candidate for LVO thrombectomy. MRI brain revealed large left MCA territory acute infarct. ECHO is pending. Patient does have known CKD and he appears to be nearing his baseline, has improved to 2.4 from 2.9 on admission. Labs on admission significant for potassium 5.2, BUN 28, creatinine 2.9. At time of consultation, labs significant for sodium 135, bicarb 16, BUN 28 , creatinine 2.4, albumin 3.5. Patient was seen and examined in the ultrasound suite. BP controlled at time of consultation, pt tachycardic. Nephrology was consulted for further evaluation and treatment. Past History Past Medical History: arthritis, COPD, GERD, hypertension, other (CKD, CVA x 3(right sided weakness), ) Past Surgical History: Other (shoulder surgery) Medications and Allergies Allergies Allergy/AdvReac Type Severity Reaction Status Date / Time No Known Allergies Allergy Verified 01/15/20 10:11 Home Medications Medication Instructions Recorded Confirmed Last Taken Type NIFEdipine XL [Procardia Xl] 90 mg PO QDAY #30 tablet 11/18/16 01/15/20 Unknown Rx Pantoprazole [Protonix TAB] 40 mg PO QDAY #30 tablet 11/18/16 01/15/20 Unknown Rx Simvastatin [Zocor TAB] 10 mg PO QHS #30 tablet 11/18/16 01/15/20 Unknown Rx lisinopriL [Zestril TAB] 20 mg PO BID #60 tablet 11/18/16 01/15/20 Unknown Rx Gabapentin 300 mg PO BID #30 cap 03/25/17 01/15/20 Unknown Rx traMADoL [Ultram 50 MG tab] 50 mg PO Q6HR PRN #20 tablet 02/28/18 01/15/20 Unknown Rx Active Meds: Active Medications Acetaminophen (Tylenol) 650 mg PO Q4H PRN PRN Reason: Pain, Mild (1-3) Last Admin: 01/15/20 22:12 Dose: 650 mg Documented by: Al Hydrox/Mg Hydrox/Simethicone (Alum-Mag Hydrox-Simeth 500-105-55wz/5ml) 30 ml PO Q4H PRN PRN Reason: Indigestion Aspirin (Aspirin) 325 mg PO QDAY [facility] Atorvastatin Calcium (Lipitor) 40 mg PO QHS [facility] Last Admin: 01/15/20 22:15 Dose: 40 mg Documented by: Bisacodyl (Dulcolax) 10 mg UT QDAY PRN PRN Reason: Constipation unrelieved by MOM Famotidine (Pepcid) 20 mg PO QAM [facility] Last Admin: 01/15/20 22:15 Dose: 20 mg Documented by: Gabapentin (Gabapentin) 300 mg PO BID [facility] Last Admin: 01/15/20 22:12 Dose: 300 mg Documented by: Heparin Sodium (Porcine) (Heparin) 5,000 unit SUB-Q Q12HR [facility] Hydralazine HCl (Apresoline) 5 mg IV Q6H PRN PRN Reason: Hypertension Last Admin: 01/15/20 23:59 Dose: 5 mg Documented by: Hydromorphone HCl (Dilaudid) 0.5 mg IV Q3H PRN PRN Reason: Pain , Severe (7-10) Calcium Gluconate 2,000 mg/ (Sodium Chloride) 120 mls @ 660 mls/hr IV ONCE ONE Stop: 01/16/20 07:59 Magnesium Hydroxide (Milk Of Magnesia) 30 ml PO Q4H PRN PRN Reason: Constipation Metoclopramide HCl (Reglan) 5 mg IV Q6H PRN PRN Reason: Nausea And Vomiting Nifedipine (Procardia Xl) 90 mg PO QDAY [facility] Last Admin: 01/15/20 22:14 Dose: 90 mg Documented by: Ondansetron HCl (Zofran) 4 mg IV Q8H PRN PRN Reason: Nausea And Vomiting Oxycodone/Acetaminophen (Percocet 5/325) 1 tab PO Q6H PRN PRN Reason: Pain, Moderate (4-6) Promethazine HCl (Phenergan) 25 mg UT Q6H PRN PRN Reason: N/V IF NPO AND NO IV ACCESS Sodium Chloride (Sodium Chloride Flush Syringe 10 Ml) 10 ml IV BID [facility] Last Admin: 01/16/20 01:21 Dose: 10 ml Documented by: Sodium Chloride (Sodium Chloride Flush Syringe 10 Ml) 10 ml IV PRN PRN PRN Reason: LINE FLUSH Tramadol HCl (Ultram) 50 mg PO Q6HR PRN PRN Reason: PAIN Review of Systems ROS unobtainable: due to mental status Exam - Vital Signs Vital signs: Vital Signs Temp Pulse Resp BP Pulse Ox 98.4 F 110 H 25 H 173/121 97 01/15/20 09:23 01/15/20 09:23 01/15/20 09:23 01/15/20 09:23 01/15/20 09:23 - General Appearance General appearance: well-developed, well-nourished, appears stated age, anxious EENT: ATNC, PERRL, mucous membranes moist Neck: Present: neck supple, trachea midline Respiratory: Clear to Ascultation Heart: regular, tachycardia, S1S2, no murmurs Gastrointestinal: Present: normal, normoactive bowel sounds. Absent: tenderness, distended, organomegaly Integumentary: no rash, warm and dry Neurologic: disoriented, aphasic, other (awake, alert) Musculoskeletal: Absent: deformities, joint swelling Psychiatric: cooperative Results - Lab Results 01/16/20 03:40 01/16/20 03:40 Most recent lab results Calcium 9.3 mg/dL (8.4-10.2) 01/16/20 03:40 Assessment and Plan 1. Chronic kidney disease: CKD stage 3 likely secondary to ischemic nephropathy. Creatinine has improved to 2.4 which is near his baseline. Urine studies and renal US ordered. Avoid nephrotoxic agents. Monitor renal function. Meds dosage based on GFR. 2. FEN: Metabolic acidosis, monitor. Hyperkalemia, improving, monitor. Monitor lytes and volume status. 3. Acute CVA: Not candidate for LVO thrombectomy 2/2 total occlusion. TPA deferred on admission. H/o CVA with right sided hemiplegia. Aphasic. Neuro following. 4. Hypertension: Controlled at time of exam. Monitor BP closely. 5. H/o CVA x 3: R sided hemiplegia. 6. H/o COPD: 7. GERD:
--- NOTE | 2020-01-16 10:16 | Progress Note ---
Assessment and Plan Assessment and plan: Acute ischemic stroke Admitted Continue Aspirin Neurology to see PT/OT/Speech therapy Neurocheck Hypertensive urgency Manage BP as per stroke protocol Hyperlipidemia Cont statin Acute on CKD Improving on iv fluid Hyperkalemia Resolved. History Interval history: Right sided weakness Difficulty speech Hospitalist Physical - Physical exam Narrative exam: GEN: Not in acute distress, lying in bed HEENT: Normocephalic, atraumatic, Neck: supple, No JVD Lungs: Clear to auscultation bilaterally, heart;S1 and S2 reg, no murmurs, rubs or gallop Abd:soft, non tender, non distended, normal bowel sounds, Ext: No edema, no clubbing, no cyanosis, Neuro: Awake,alert, aphasia, right sided weakness - Constitutional Vitals: Temp Pulse Resp BP Pulse Ox 98.2 F 111 H 18 130/81 99 01/16/20 08:32 01/16/20 08:32 01/16/20 08:32 01/16/20 08:32 01/16/20 08:32 HEART Score - HEART Score Troponin: Troponin T 0.013 ng/mL (0.00-0.029) 01/15/20 10:32 Results - Labs CBC & Chem 7: 01/16/20 03:40 01/16/20 03:40 Labs: Laboratory Last Values WBC 8.5 K/mm3 (4.5-11.0) 01/16/20 03:40 RBC 5.64 M/mm3 (3.65-5.03) H 01/16/20 03:40 Hgb 15.4 gm/dl (11.8-15.2) H 01/16/20 03:40 Hct 47.0 % (35.5-45.6) H 01/16/20 03:40 MCV 83 fl (84-94) L 01/16/20 03:40 MCH 27 pg (28-32) L 01/16/20 03:40 MCHC 33 % (32-34) 01/16/20 03:40 RDW 17.1 % (13.2-15.2) H 01/16/20 03:40 Plt Count 154 K/mm3 (140-440) 01/16/20 03:40 Lymph % (Auto) 21.6 % (13.4-35.0) 01/16/20 03:40 [place] % (Auto) 8.1 % (0.0-7.3) H 01/16/20 03:40 Eos % (Auto) 0.1 % (0.0-4.3) 01/16/20 03:40 Baso % (Auto) 1.1 % (0.0-1.8) 01/16/20 03:40 Lymph # 1.8 K/mm3 (1.2-5.4) 01/16/20 03:40 [place] # 0.7 K/mm3 (0.0-0.8) 01/16/20 03:40 Eos # 0.0 K/mm3 (0.0-0.4) 01/16/20 03:40 Baso # 0.1 K/mm3 (0.0-0.1) 01/16/20 03:40 Seg Neutrophils % 69.1 % (40.0-70.0) 01/16/20 03:40 Seg Neutrophils # 5.9 K/mm3 (1.8-7.7) 01/16/20 03:40 PT 13.1 Sec. (12.2-14.9) 01/15/20 10:32 INR 0.98 (0.87-1.13) 01/15/20 10:32 APTT 29.3 Sec. (24.2-36.6) 01/15/20 10:32 Sodium 135 mmol/L (137-145) L 01/16/20 03:40 Potassium 4.9 mmol/L (3.6-5.0) 01/16/20 03:40 Chloride 104.6 mmol/L (98-107) 01/16/20 03:40 Carbon Dioxide 16 mmol/L (22-30) L 01/16/20 03:40 Anion Gap 19 mmol/L 01/16/20 03:40 BUN 28 mg/dL (9-20) H 01/16/20 03:40 Creatinine 2.4 mg/dL (0.8-1.5) H 01/16/20 03:40 Estimated GFR 33 ml/min 01/16/20 03:40 BUN/Creatinine Ratio 12 % 01/16/20 03:40 Glucose 97 mg/dL (75-100) 01/16/20 03:40 Hemoglobin A1c 5.5 % (4-6) 01/15/20 10:32 Calcium 9.3 mg/dL (8.4-10.2) 01/16/20 03:40 Total Bilirubin 0.70 mg/dL (0.1-1.2) 01/16/20 03:40 AST 19 units/L (5-40) 01/16/20 03:40 ALT 6 units/L (7-56) L 01/16/20 03:40 Alkaline Phosphatase 84 units/L (35-129) 01/16/20 03:40 Troponin T 0.013 ng/mL (0.00-0.029) 01/15/20 10:32 Total Protein 7.1 g/dL (6.3-8.2) 01/16/20 03:40 Albumin 3.5 g/dL (3.9-5) L 01/16/20 03:40 Albumin/Globulin Ratio 1.0 % 01/16/20 03:40 Triglycerides 85 mg/dL (2-149) 01/16/20 03:40 Cholesterol 179 mg/dL (50-199) 01/16/20 03:40 LDL Cholesterol Direct 120 mg/dL (50-130) 01/16/20 03:40 HDL Cholesterol 37 mg/dL (40-59) L 01/16/20 03:40 Cholesterol/HDL Ratio 4.83 % 01/16/20 03:40 Fortune/IV: Voiding Method Condom Catheter IV Catheter Type [Left INT / Saline Lock Antecubital] IV Catheter Type [Left Hand] INT / Saline Lock Active Medications - Current Medications Current Medications: Generic Name Dose Route Start Last Admin Trade Name Freq PRN Reason Stop Dose Admin Acetaminophen 650 mg 01/15/20 21:20 01/15/20 22:12 Tylenol PO 650 mg Q4H PRN Administration Pain, Mild (1-3) Al Hydrox/Mg Hydrox/Simethicone 30 ml 01/15/20 21:27 Alum-Mag Hydrox-Simeth 204-537-59nx/5ml PO Q4H PRN Indigestion Aspirin 325 mg 01/16/20 10:00 Aspirin PO QDAY [facility] Atorvastatin Calcium 40 mg 01/15/20 22:00 01/15/20 22:15 Lipitor PO 40 mg QHS [facility] Administration Bisacodyl 10 mg 01/15/20 21:27 Dulcolax [place] QDAY PRN Constipation unrelieved by MOM Famotidine 20 mg 01/15/20 22:00 01/15/20 22:15 Pepcid PO 20 mg QAM [facility] Administration Gabapentin 300 mg 01/15/20 22:00 01/15/20 22:12 Gabapentin PO 300 mg BID [facility] Administration Heparin Sodium (Porcine) 5,000 unit 01/16/20 10:00 Heparin SUB-Q Q12HR [facility] Hydralazine HCl 5 mg 01/15/20 23:02 01/15/20 23:59 Apresoline IV 5 mg Q6H PRN Administration Hypertension Hydromorphone HCl 0.5 mg 01/15/20 21:27 Dilaudid IV Q3H PRN Pain , Severe (7-10) Magnesium Hydroxide 30 ml 01/15/20 21:27 Milk Of Magnesia PO Q4H PRN Constipation Metoclopramide HCl 5 mg 01/15/20 21:27 Reglan IV Q6H PRN Nausea And Vomiting Nifedipine 90 mg 01/15/20 22:00 01/15/20 22:14 Procardia Xl PO 90 mg QDAY [facility] Administration Ondansetron HCl 4 mg 01/15/20 21:26 Zofran IV Q8H PRN Nausea And Vomiting Oxycodone/Acetaminophen 1 tab 01/15/20 21:27 Percocet 5/325 PO Q6H PRN Pain, Moderate (4-6) Promethazine HCl 25 mg 01/15/20 21:27 Phenergan [place] Q6H PRN N/V IF NPO AND NO IV ACCESS Sodium Chloride 10 ml 01/15/20 22:00 01/16/20 01:21 Sodium Chloride Flush Syringe 10 Ml IV 10 ml BID [facility] Administration Sodium Chloride 10 ml 01/15/20 21:31 Sodium Chloride Flush Syringe 10 Ml IV PRN PRN LINE FLUSH Tramadol HCl 50 mg 01/15/20 21:21 Ultram PO Q6HR PRN PAIN
[2020-01-16] MEDS: NIFEdipine XL 90 MG TAB PO SCH (10:34)
[2020-01-16] MEDS: ASPIRIN 325 MG TAB PO SCH (11:21)
[2020-01-16] MEDS: GABAPENTIN 300 MG CAP PO SCH ×2 (11:21→22:04)
[2020-01-16] MEDS: HEPARIN 5,000 UNIT/1 ML VIAL SUB-Q SCH ×2 (11:21→22:04)
[2020-01-16] MEDS: FAMOTIDINE 20 MG TAB PO SCH (11:21)
--- NOTE | 2020-01-16 11:31 | Vascular Lab Report ---
"DUPLEX DOPPLER ULTRASOUND CAROTID, BILATERAL INDICATION: stroke. FINDINGS: RIGHT CAROTID: Mild atherosclerotic plaque Right CCA velocity: 57 cm/sec. Right ICA peak systolic velocity: 48 cm/sec. ICA/CCA PSV Ratio: 1.1. Right Vertebral Artery: Antegrade flow. LEFT CAROTID: Mild atherosclerotic plaque Left CCA velocity: 61 cm/sec. Left ICA peak systolic velocity: 42 cm/sec. ICA/CCA PSV Ratio: 1.1. Left Vertebral Artery: Antegrade flow. IMPRESSION: 1. Right Internal Carotid Artery: Less than 50% diameter stenosis. 2. Left Internal Carotid Artery: Less than 50% diameter stenosis. Velocity criteria are extrapolated from diameter data as defined by the Society of Radiologists in Ul trasound Consensus Conference, Radiology 2003; 229;340-346. Degree of Stenosis (%) || ICA PSV (cm/sec) || Plaque estimate (%) || ICA/CCA PSV Ratio Normal <125 None <2.0 <50 <125 <50 <2.0 50-69 125-230 50 2.0-4.0 70 but less than 100 >230 50 >4.0 Near occlusion High, low, or none visible variable Total occlusion None visible; no lumen N/A Signer Name: Rusty Hooper MD Signed: 01/16/2020 11:27 AM Workstation Name: [employer]"
--- NOTE | 2020-01-16 14:41 | Magnetic Resonance Report ---
MRI BRAIN WITHOUT CONTRAST INDICATION / CLINICAL INFORMATION: MAIN: stroke, RT SIDED WEAKNESS PATIENT UNCOOPERATIVE, PATIENT MOTION, BEST POSSIBLE EXAM. TECHNIQUE: Multisequence, multiplanar images were obtained. COMPARISON: CT head dated 01/15/2020. MR brain dated 02/26/18. FINDINGS: CEREBRAL and CEREBELLAR HEMISPHERES: A large area of diffusion restriction throughout the left MCA di stribution and most of the left ANGELA distribution is identified measuring up to 13.7 x 4.0 cm in axial plane. There is moderate edema and sulcal effacement in these areas but no evidence for significant mass effect or midline shift. There is also a subcentimeter focus of diffusion restriction in the le ft posterior temporal lobe on diffusion image 12 which demonstrates minimal hemorrhagic transformatio n on the T2 images and gradient images. Mild diffuse volume loss and mild nonspecific chronic white m atter changes are stable. VENTRICLES: Normal in size and configuration for age. VISUALIZED ORBITS: No significant abnormality. VISUALIZED PARANASAL SINUSES: Mild mucosal thickening is noted in the ethmoid and maxillary sinuses. ADDITIONAL FINDINGS: None. IMPRESSION: Large area of acute subacute ischemia throughout the left MCA and to a lesser extent the left ANGELA ter ritory. There is also a subcentimeter focus of acute ischemia in the left posterior temporal lobe which demon strates minimal hemorrhagic transformation. Signer Name: Donnie Tay Jr, MD Signed: 01/16/2020 2:37 PM Workstation Name: [id number]
[2020-01-16 14:45] LABS: Bacteria,Urine 1+ /HPF (Negative); Bilirubin,Urine NEG (Negative); Blood,Urine SM (Negative); Color,Urine Yellow (Yellow); Urobilinogen,Urine < 2.0 mg/dL (<2.0)
[2020-01-16 15:16] LABS: Creatinine,Urine 4.2 mg/dL (0.1-20.0)
--- NOTE | 2020-01-16 15:58 | Consultation ---
History of Present Illness Reason for Consult: altered mental status Chief complaint: altered mental status History of present illness: The patient was admitted last night with altered mental status and dyarthria. Tele neuro was consulted last night. Tpa was deferred. CTA showed left ANGELA block and left MCA partial block. The [facility] medical sales representative was consulted and the patient was not deemed fit for criteria for LVO thrombectomy. has h/o old CVA. Past Medical History Hx Hypertension: Yes Hx CVA: Yes (x 3. L ANGELA cva 10/2016 R sided weakness) Hx GERD: Yes Hx Renal Disease: Yes (renal insuf) Hx Arthritis: Yes (right hip) Hx COPD: Yes Additional medical history: chronic back pain - Surgical History Additional Surgical History: "shoulder surgery" - Family History Family history: no significant - Social History Smoking Status: Unknown if ever smoked Substance Use Type: None - Medications Home Medications: Home Medications Medication Instructions Recorded Confirmed Last Taken Type NIFEdipine XL [Procardia Xl] 90 mg PO QDAY #30 tablet 11/18/16 01/15/20 Unknown Rx Pantoprazole [Protonix TAB] 40 mg PO QDAY #30 tablet 11/18/16 01/15/20 Unknown Rx Simvastatin [Zocor TAB] 10 mg PO QHS #30 tablet 11/18/16 01/15/20 Unknown Rx lisinopriL [Zestril TAB] 20 mg PO BID #60 tablet 11/18/16 01/15/20 Unknown Rx Gabapentin 300 mg PO BID #30 cap 03/25/17 01/15/20 Unknown Rx traMADoL [Ultram 50 MG tab] 50 mg PO Q6HR PRN #20 tablet 02/28/18 01/15/20 Unknown Rx Medications and Allergies Allergies Allergy/AdvReac Type Severity Reaction Status Date / Time No Known Allergies Allergy Verified 01/15/20 10:11 Home Medications Medication Instructions Recorded Confirmed Last Taken Type RX: NIFEdipine XL [Procardia Xl] 90 mg PO QDAY #30 tablet 11/18/16 01/15/20 Unknown Rx RX: Pantoprazole [Protonix TAB] 40 mg PO QDAY #30 tablet 11/18/16 01/15/20 Unknown Rx RX: Simvastatin [Zocor TAB] 10 mg PO QHS #30 tablet 11/18/16 01/15/20 Unknown Rx RX: lisinopriL [Zestril TAB] 20 mg PO BID #60 tablet 11/18/16 01/15/20 Unknown Rx RX: Gabapentin 300 mg PO BID #30 cap 03/25/17 01/15/20 Unknown Rx RX: traMADoL [Ultram 50 MG tab] 50 mg PO Q6HR PRN #20 tablet 02/28/18 01/15/20 Unknown Rx Active Meds: Active Medications Acetaminophen (Tylenol) 650 mg PO Q4H PRN PRN Reason: Pain, Mild (1-3) Last Admin: 01/15/20 22:12 Dose: 650 mg Documented by: Al Hydrox/Mg Hydrox/Simethicone (Alum-Mag Hydrox-Simeth [phone]/5ml) 30 ml PO Q4H PRN PRN Reason: Indigestion Aspirin (Aspirin) 325 mg PO QDAY [facility] Last Admin: 01/16/20 11:21 Dose: 325 mg Documented by: Atorvastatin Calcium (Lipitor) 40 mg PO QHS [facility] Last Admin: 01/15/20 22:15 Dose: 40 mg Documented by: Bisacodyl (Dulcolax) 10 mg NM QDAY PRN PRN Reason: Constipation unrelieved by MOM Famotidine (Pepcid) 20 mg PO QAM [facility] Last Admin: 01/16/20 11:21 Dose: 20 mg Documented by: Gabapentin (Gabapentin) 300 mg PO BID [facility] Last Admin: 01/16/20 11:21 Dose: 300 mg Documented by: Heparin Sodium (Porcine) (Heparin) 5,000 unit SUB-Q Q12HR [facility] Last Admin: 01/16/20 11:21 Dose: 5,000 unit Documented by: Hydralazine HCl (Apresoline) 5 mg IV Q6H PRN PRN Reason: Hypertension Last Admin: 01/15/20 23:59 Dose: 5 mg Documented by: Hydromorphone HCl (Dilaudid) 0.5 mg IV Q3H PRN PRN Reason: Pain , Severe (7-10) Magnesium Hydroxide (Milk Of Magnesia) 30 ml PO Q4H PRN PRN Reason: Constipation Metoclopramide HCl (Reglan) 5 mg IV Q6H PRN PRN Reason: Nausea And Vomiting Nifedipine (Procardia Xl) 90 mg PO QDAY [facility] Last Admin: 01/16/20 10:34 Dose: Not Given Documented by: Ondansetron HCl (Zofran) 4 mg IV Q8H PRN PRN Reason: Nausea And Vomiting Last Admin: 01/16/20 11:20 Dose: 4 mg Documented by: Oxycodone/Acetaminophen (Percocet 5/325) 1 tab PO Q6H PRN PRN Reason: Pain, Moderate (4-6) Promethazine HCl (Phenergan) 25 mg NM Q6H PRN PRN Reason: N/V IF NPO AND NO IV ACCESS Sodium Chloride (Sodium Chloride Flush Syringe 10 Ml) 10 ml IV BID MAIK Last Admin: 01/16/20 11:21 Dose: 10 ml Documented by: Sodium Chloride (Sodium Chloride Flush Syringe 10 Ml) 10 ml IV PRN PRN PRN Reason: LINE FLUSH Tramadol HCl (Ultram) 50 mg PO Q6HR PRN PRN Reason: PAIN Review of Systems ROS unobtainable: due to mental status All systems: negative Physical Examination - Vital Signs Vital Signs: Vital Signs Temp Pulse Resp BP Pulse Ox 98.4 F 110 H 25 H 173/121 97 01/15/20 09:23 01/15/20 09:23 01/15/20 09:23 01/15/20 09:23 01/15/20 09:23 - Physical Exam Narrative exam: Neurology Examination : Awake Alert. aphasic. he follows one step command. cannot express. CN-EOMI- right central facial weakness.' M- right hemiplegia. moves ue and le well. Laboratory Results - last 72 hr 01/15/20 01/15/20 01/15/20 10:32 10:32 10:32 WBC 6.3 RBC 5.21 H Hgb 13.9 Hct 43.2 MCV 83 L MCH 27 L MCHC 32 RDW 16.5 H Plt Count 222 Lymph % (Auto) 20.5 [place] % (Auto) 4.5 Eos % (Auto) 0.8 Baso % (Auto) 1.0 Lymph # 1.3 [place] # 0.3 Eos # 0.1 Baso # 0.1 Seg Neutrophils % 73.2 H Seg Neutrophils # 4.6 PT 13.1 INR 0.98 APTT 29.3 Sodium 138 Potassium 5.2 H Chloride 104.1 Carbon Dioxide 22 Anion Gap 17 BUN 28 H Creatinine 2.9 H Estimated GFR 27 BUN/Creatinine Ratio 10 Glucose 120 H Hemoglobin A1c Calcium 9.4 Total Bilirubin AST ALT Alkaline Phosphatase Troponin T 0.013 Total Protein Albumin Albumin/Globulin Ratio Triglycerides Cholesterol LDL Cholesterol Direct HDL Cholesterol Cholesterol/HDL Ratio Urine Color Urine Turbidity Urine pH Ur Specific [place] Urine Protein Urine Glucose (UA) Urine Ketones Urine Blood Urine Nitrite Urine Bilirubin Urine Urobilinogen Ur Leukocyte Esterase Urine WBC (Auto) Urine RBC (Auto) U Epithel Cells (Auto) Urine Bacteria (Auto) Urine Creatinine Urine Sodium 01/15/20 01/16/20 01/16/20 10:32 03:40 03:40 WBC 8.5 RBC 5.64 H Hgb 15.4 H Hct 47.0 H MCV 83 L MCH 27 L MCHC 33 RDW 17.1 H Plt Count 154 Lymph % (Auto) 21.6 [place] % (Auto) 8.1 H Eos % (Auto) 0.1 Baso % (Auto) 1.1 Lymph # 1.8 [place] # 0.7 Eos # 0.0 Baso # 0.1 Seg Neutrophils % 69.1 Seg Neutrophils # 5.9 PT INR APTT Sodium 135 L Potassium 4.9 Chloride 104.6 Carbon Dioxide 16 L Anion Gap 19 BUN 28 H Creatinine 2.4 H Estimated GFR 33 BUN/Creatinine Ratio 12 Glucose 97 Hemoglobin A1c 5.5 Calcium 9.3 Total Bilirubin 0.70 AST 19 ALT 6 L Alkaline Phosphatase 84 Troponin T Total Protein 7.1 Albumin 3.5 L Albumin/Globulin Ratio 1.0 Triglycerides 85 Cholesterol 179 LDL Cholesterol Direct 120 HDL Cholesterol 37 L Cholesterol/HDL Ratio 4.83 Urine Color Urine Turbidity Urine pH Ur Specific [place] Urine Protein Urine Glucose (UA) Urine Ketones Urine Blood Urine Nitrite Urine Bilirubin Urine Urobilinogen Ur Leukocyte Esterase Urine WBC (Auto) Urine RBC (Auto) U Epithel Cells (Auto) Urine Bacteria (Auto) Urine Creatinine Urine Sodium 01/16/20 01/16/20 14:30 14:30 WBC RBC Hgb Hct MCV MCH MCHC RDW Plt Count Lymph % (Auto) [place] % (Auto) Eos % (Auto) Baso % (Auto) Lymph # [place] # Eos # Baso # Seg Neutrophils % Seg Neutrophils # PT INR APTT Sodium Potassium Chloride Carbon Dioxide Anion Gap BUN Creatinine Estimated GFR BUN/Creatinine Ratio Glucose Hemoglobin A1c Calcium Total Bilirubin AST ALT Alkaline Phosphatase Troponin T Total Protein Albumin Albumin/Globulin Ratio Triglycerides Cholesterol LDL Cholesterol Direct HDL Cholesterol Cholesterol/HDL Ratio Urine Color Yellow Urine Turbidity Slightly-cloudy Urine pH 6.0 Ur Specific [place] 1.026 Urine Protein 100 mg/dl Urine Glucose (UA) Neg Urine Ketones Neg Urine Blood Sm Urine Nitrite Neg Urine Bilirubin Neg Urine Urobilinogen < 2.0 Ur Leukocyte Esterase Mod Urine WBC (Auto) 80.0 H Urine RBC (Auto) 1.0 U Epithel Cells (Auto) < 1.0 Urine Bacteria (Auto) 1+ Urine Creatinine 4.2 Urine Sodium 10 Results - Laboratory Findings CBC and BMP: 01/16/20 03:40 01/16/20 03:40 Abnormal Lab Findings: Abnormal Labs 01/15/20 01/15/20 01/16/20 10:32 10:32 03:40 RBC 5.21 H 5.64 H Hgb 15.4 H Hct 47.0 H MCV 83 L 83 L MCH 27 L 27 L RDW 16.5 H 17.1 H [place] % (Auto) 8.1 H Seg Neutrophils % 73.2 H Sodium Potassium 5.2 H Carbon Dioxide BUN 28 H Creatinine 2.9 H Glucose 120 H ALT Albumin HDL Cholesterol Urine WBC (Auto) 01/16/20 01/16/20 03:40 14:30 RBC Hgb Hct MCV MCH RDW [place] % (Auto) Seg Neutrophils % Sodium 135 L Potassium Carbon Dioxide 16 L BUN 28 H Creatinine 2.4 H Glucose ALT 6 L Albumin 3.5 L HDL Cholesterol 37 L Urine WBC (Auto) 80.0 H Assessment and Plan Globally aphasic but expressive greater than receptive. The patient was admitted last night with altered mental status and dyarthria. Tele neuro was consulted last night. Tpa was deferred. CTA showed left ANGELA block and left MCA partial block. The [facility] medical sales representative was consulted and the patient was not deemed fit for criteria for LVO thrombectomy. Awake Alert. aphasic. he follows one step command. cannot express. CN-EOMI- right central facial weakness.' M- right hemiplegia. moves ue and le well. - MRI Brain- large left MCA territory acute infarct. - C. doppler- normal. Echo- pending. Plan- continue ASA 81 mg q day and Lipitor 40 mg q hs. Hypertensive BP range for next 24 hours. pt/ot/rehab. Echo pending. thanks
[2020-01-16] MEDS: ACETAMINOPHEN 325 MG TAB PO PRN (22:03)
[2020-01-16] MEDS: cefTRIAXone/NS 1 GM/50 ML 1 GM/50 ML BAG IV SCH (23:51)
[2020-01-17 04:59] LABS: Mean Corpuscular HGB Conc 33 % (32-34); Mean Corpuscular Volume 83 fl (84-94); Platelet Count 181 K/mm3 (140-440); Red Blood Count 4.81 M/mm3 (3.65-5.03); Red Cell Distribution Width 16.9 % (13.2-15.2)
[2020-01-17 05:14] LABS: Calcium 8.2 mg/dL (8.4-10.2)
--- NOTE | 2020-01-17 08:38 | Progress Note ---
Assessment and Plan 1. Chronic kidney disease: CKD stage 3 likely secondary to ischemic nephropathy. Creatinine has worsened to 3.4 from 2.4. Renal US shows simple cyst in L kidney, negative for hydro. Continue IV fluids. Avoid nephrotoxic agents. Monitor renal function. Meds dosage based on GFR. 2. FEN: Metabolic acidosis, monitor. Hyperkalemia, improving, monitor. Monitor lytes and volume status. 3. Acute CVA: Not candidate for LVO thrombectomy 2/2 total occlusion. TPA deferred on admission. H/o CVA with right sided hemiplegia. Aphasic. Pending d/c planning SNF. Neuro following. 4. Hypertension: Controlled at time of exam. Monitor BP closely. 5. H/o CVA x 3: R sided hemiplegia. 6. H/o COPD: 7. GERD: Subjective Date of service: 01/17/20 Interval history: Patient was seen and examined at the bedside. Discussed with primary RN. No acute events reported overnight. Objective - Exam Narrative Exam: General appearance: well-developed, well-nourished, appears stated age, anxious EENT: ATNC, PERRL, mucous membranes moist Neck: Present: neck supple, trachea midline Respiratory: Clear to Ascultation Heart: regular, tachycardia, S1S2, no murmurs Gastrointestinal: Present: normal, normoactive bowel sounds. Absent: tender ness, distended, organomegaly Integumentary: no rash, warm and dry Neurologic: disoriented, aphasic, other (awake, alert) Musculoskeletal: Absent: deformities, joint swelling Psychiatric: cooperative - Vital Signs Vital signs: Vital Signs - 12hr 01/17/20 01/17/20 01/17/20 00:00 00:15 03:00 Temperature 100.1 F H Pulse Rate 99 H 99 H Respiratory 20 20 Rate Blood Pressure 118/78 O2 Sat by Pulse 97 94 Oximetry 01/17/20 04:45 Temperature 99.2 F Pulse Rate 93 H Respiratory 20 Rate Blood Pressure 124/80 O2 Sat by Pulse 95 Oximetry - Lab 01/17/20 04:08 01/17/20 04:08 Most recent lab results Calcium 8.2 mg/dL (8.4-10.2) L 01/17/20 04:08 Urine Creatinine 4.2 mg/dL (0.1-20.0) 01/16/20 14:30 Urine Sodium 10 mmol/L 01/16/20 14:30 Medications & Allergies - Medications Allergies/Adverse Reactions: Allergies No Known Allergies Allergy (Verified 01/15/20 10:11) Home Medications: Home Medications Medication Instructions Recorded Confirmed Last Taken Type NIFEdipine XL [Procardia Xl] 90 mg PO QDAY #30 tablet 11/18/16 01/15/20 Unknown Rx Pantoprazole [Protonix TAB] 40 mg PO QDAY #30 tablet 11/18/16 01/15/20 Unknown Rx Simvastatin [Zocor TAB] 10 mg PO QHS #30 tablet 11/18/16 01/15/20 Unknown Rx lisinopriL [Zestril TAB] 20 mg PO BID #60 tablet 11/18/16 01/15/20 Unknown Rx Gabapentin 300 mg PO BID #30 cap 03/25/17 01/15/20 Unknown Rx traMADoL [Ultram 50 MG tab] 50 mg PO Q6HR PRN #20 tablet 02/28/18 01/15/20 Unknown Rx Active Medications: Generic Name Dose Route Start Last Admin Trade Name Freq PRN Reason Stop Dose Admin Acetaminophen 650 mg 01/15/20 21:20 01/16/20 22:03 Tylenol PO 650 mg Q4H PRN Administration Pain, Mild (1-3) Al Hydrox/Mg Hydrox/Simethicone 30 ml 01/15/20 21:27 Alum-Mag Hydrox-Simeth [phone]/5ml PO Q4H PRN Indigestion Aspirin 325 mg 01/16/20 10:00 01/16/20 11:21 Aspirin PO 325 mg QDAY MAIK Administration Atorvastatin Calcium 40 mg 01/15/20 22:00 01/16/20 22:04 Lipitor PO 40 mg QHS MAIK Administration Bisacodyl 10 mg 01/15/20 21:27 Dulcolax VA QDAY PRN Constipation unrelieved by MOM Famotidine 20 mg 01/15/20 22:00 01/16/20 11:21 Pepcid PO 20 mg QAM MAIK Administration Gabapentin 300 mg 01/15/20 22:00 01/16/20 22:04 Gabapentin PO 300 mg BID MAIK Administration Heparin Sodium (Porcine) 5,000 unit 01/16/20 10:00 01/16/20 22:04 Heparin SUB-Q 5,000 unit Q12HR MAIK Administration Hydralazine HCl 5 mg 01/15/20 23:02 01/15/20 23:59 Apresoline IV 5 mg Q6H PRN Administration Hypertension Hydromorphone HCl 0.5 mg 01/15/20 21:27 Dilaudid IV Q3H PRN Pain , Severe (7-10) Sodium Chloride 1,000 mls @ 75 mls/hr 01/16/20 22:15 Nacl 0.9% 1000 Ml IV DIRECT MAIK Ceftriaxone Sodium 1 gm in 50 mls @ 100 mls/hr 01/16/20 23:00 01/16/20 23:51 Rocephin/Ns 1 Gm/50 Ml IV 100 mls/hr Q24HR@2200 MAIK Administration Protocol Magnesium Hydroxide 30 ml 01/15/20 21:27 Milk Of Magnesia PO Q4H PRN Constipation Metoclopramide HCl 5 mg 01/15/20 21:27 Reglan IV Q6H PRN Nausea And Vomiting Nifedipine 90 mg 01/15/20 22:00 01/16/20 10:34 Procardia Xl PO Not Given QDAY [facility] Ondansetron HCl 4 mg 01/15/20 21:26 01/16/20 11:20 Zofran IV 4 mg Q8H PRN Administration Nausea And Vomiting Oxycodone/Acetaminophen 1 tab 01/15/20 21:27 Percocet 5/325 PO Q6H PRN Pain, Moderate (4-6) Promethazine HCl 25 mg 01/15/20 21:27 Phenergan VA Q6H PRN N/V IF NPO AND NO IV ACCESS Sodium Chloride 10 ml 01/15/20 22:00 01/16/20 22:05 Sodium Chloride Flush Syringe 10 Ml IV 10 ml BID MAIK Administration Sodium Chloride 10 ml 01/15/20 21:31 Sodium Chloride Flush Syringe 10 Ml IV PRN PRN LINE FLUSH Tramadol HCl 50 mg 01/15/20 21:21 Ultram PO Q6HR PRN PAIN
--- NOTE | 2020-01-17 09:35 | Progress Note ---
Assessment and Plan Assessment and plan: Acute ischemic stroke Admitted Continue Aspirin Neurology to see PT/OT/Speech therapy Neurocheck Hypertensive urgency Manage BP as per stroke protocol Hyperlipidemia Cont statin Acute on CKD due to vasonotor nephropathy Hyperkalemia Resolved. 01/17/20 Patient with acute ischemic stroke. he was seen by PT and home health recommended He has acute on CKD . Nephrology following. Cr 3.4 today, worse. History Interval history: Right sided weakness Difficulty speech Hospitalist Physical - Physical exam Narrative exam: GEN: Not in acute distress, lying in bed HEENT: Normocephalic, atraumatic, Neck: supple, No JVD Lungs: Clear to auscultation bilaterally, heart;S1 and S2 reg, no murmurs, rubs or gallop Abd:soft, non tender, non distended, normal bowel sounds, Ext: No edema, no clubbing, no cyanosis, Neuro: Awake,alert, aphasia, right sided weakness - Constitutional Vitals: Temp Pulse Resp BP Pulse Ox 99.2 F 93 H 20 124/80 98 01/17/20 04:45 01/17/20 04:45 01/17/20 04:45 01/17/20 04:45 01/17/20 08:59 HEART Score - HEART Score Troponin: Troponin T 0.013 ng/mL (0.00-0.029) 01/15/20 10:32 Results - Labs CBC & Chem 7: 01/17/20 04:08 01/17/20 04:08 Labs: Laboratory Last Values WBC 6.5 K/mm3 (4.5-11.0) 01/17/20 04:08 RBC 4.81 M/mm3 (3.65-5.03) 01/17/20 04:08 Hgb 13.0 gm/dl (11.8-15.2) 01/17/20 04:08 Hct 40.0 % (35.5-45.6) D 01/17/20 04:08 MCV 83 fl (84-94) L 01/17/20 04:08 MCH 27 pg (28-32) L 01/17/20 04:08 MCHC 33 % (32-34) 01/17/20 04:08 RDW 16.9 % (13.2-15.2) H 01/17/20 04:08 Plt Count 181 K/mm3 (140-440) 01/17/20 04:08 Lymph % (Auto) 21.6 % (13.4-35.0) 01/16/20 03:40 [place] % (Auto) 8.1 % (0.0-7.3) H 01/16/20 03:40 Eos % (Auto) 0.1 % (0.0-4.3) 01/16/20 03:40 Baso % (Auto) 1.1 % (0.0-1.8) 01/16/20 03:40 Lymph # 1.8 K/mm3 (1.2-5.4) 01/16/20 03:40 [place] # 0.7 K/mm3 (0.0-0.8) 01/16/20 03:40 Eos # 0.0 K/mm3 (0.0-0.4) 01/16/20 03:40 Baso # 0.1 K/mm3 (0.0-0.1) 01/16/20 03:40 Seg Neutrophils % 69.1 % (40.0-70.0) 01/16/20 03:40 Seg Neutrophils # 5.9 K/mm3 (1.8-7.7) 01/16/20 03:40 PT 13.1 Sec. (12.2-14.9) 01/15/20 10:32 INR 0.98 (0.87-1.13) 01/15/20 10:32 APTT 29.3 Sec. (24.2-36.6) 01/15/20 10:32 Sodium 136 mmol/L (137-145) L 01/17/20 04:08 Potassium 4.0 mmol/L (3.6-5.0) 01/17/20 04:08 Chloride 101.4 mmol/L (98-107) 01/17/20 04:08 Carbon Dioxide 18 mmol/L (22-30) L 01/17/20 04:08 Anion Gap 21 mmol/L 01/17/20 04:08 BUN 43 mg/dL (9-20) H 01/17/20 04:08 Creatinine 3.4 mg/dL (0.8-1.5) H 01/17/20 04:08 Estimated GFR 22 ml/min 01/17/20 04:08 BUN/Creatinine Ratio 13 % 01/17/20 04:08 Glucose 89 mg/dL (75-100) 01/17/20 04:08 Hemoglobin A1c 5.5 % (4-6) 01/15/20 10:32 Calcium 8.2 mg/dL (8.4-10.2) L 01/17/20 04:08 Total Bilirubin 0.70 mg/dL (0.1-1.2) 01/16/20 03:40 AST 19 units/L (5-40) 01/16/20 03:40 ALT 6 units/L (7-56) L 01/16/20 03:40 Alkaline Phosphatase 84 units/L (35-129) 01/16/20 03:40 Troponin T 0.013 ng/mL (0.00-0.029) 01/15/20 10:32 Total Protein 7.1 g/dL (6.3-8.2) 01/16/20 03:40 Albumin 3.5 g/dL (3.9-5) L 01/16/20 03:40 Albumin/Globulin Ratio 1.0 % 01/16/20 03:40 Triglycerides 85 mg/dL (2-149) 01/16/20 03:40 Cholesterol 179 mg/dL (50-199) 01/16/20 03:40 LDL Cholesterol Direct 120 mg/dL (50-130) 01/16/20 03:40 HDL Cholesterol 37 mg/dL (40-59) L 01/16/20 03:40 Cholesterol/HDL Ratio 4.83 % 01/16/20 03:40 Urine Color Yellow (Yellow) 01/16/20 14:30 Urine Turbidity Slightly-cloudy (Clear) 01/16/20 14:30 Urine pH 6.0 (5.0-7.0) 01/16/20 14:30 Ur Specific [place] 1.026 (1.003-1.030) 01/16/20 14:30 Urine Protein 100 mg/dl mg/dL (Negative) 01/16/20 14:30 Urine Glucose (UA) Neg mg/dL (Negative) 01/16/20 14:30 Urine Ketones Neg mg/dL (Negative) 01/16/20 14:30 Urine Blood Sm (Negative) 01/16/20 14:30 Urine Nitrite Neg (Negative) 01/16/20 14:30 Urine Bilirubin Neg (Negative) 01/16/20 14:30 Urine Urobilinogen < 2.0 mg/dL (<2.0) 01/16/20 14:30 Ur Leukocyte Esterase Mod (Negative) 01/16/20 14:30 Urine WBC (Auto) 80.0 /HPF (0.0-6.0) H 01/16/20 14:30 Urine RBC (Auto) 1.0 /HPF (0.0-6.0) 01/16/20 14:30 U Epithel Cells (Auto) < 1.0 /HPF (0-13.0) 01/16/20 14:30 Urine Bacteria (Auto) 1+ /HPF (Negative) 01/16/20 14:30 Urine Creatinine 4.2 mg/dL (0.1-20.0) 01/16/20 14:30 Urine Sodium 10 mmol/L 01/16/20 14:30 - Diagnostic Impressions Diagnostic Impressions: Echocardiogram 01/15/20 21:36 Transthoracic Echocardiogram Indication: STROKE BP: 145/96 HR: 100 Conclusions *4-chamber dilated cardiomyopathy. *Global left ventricular systolic function is severely decreased. *The estimated ejection fraction is 15-20%. *The left atrium is moderate to severely dilated. *There is mild mitral regurgitation. *There is mild tricuspid regurgitation. Findings Left Ventricle: The left ventricular size is moderate to severely dilated. Mild to moderate concentric left ventricular hypertrophy is observed. Global left ventricular systolic function is severely decreased. The estimated ejection fraction is 15-20%. Left Atrium: The left atrium is moderate to severely dilated. Right Ventricle: The right ventricle is mild to moderately dilated. The right ventricular global systolic function is moderately reduced. Right Atrium: The right atrium is mild to moderately dilated. No atrial septal defected is demonstrated by agitated saline contrast. Aortic Valve: The aortic valve leaflets are mildly thickened. There is no evidence of aortic regurgitation. There is no evidence of aortic stenosis. Mitral Valve: The mitral valve leaflets are mildly thickened. There is mild mitral regurgitation. There is no evidence of mitral stenosis. Tricuspid Valve: There is mild tricuspid regurgitation. No pulmonary hypertension is noted. Pulmonic Valve: There is mild pulmonic regurgitation. Pericardium: There is no pericardial effusion. Aorta: There is no dilatation of the ascending aorta. There is no dilatation of the aortic root. Venous: The venous system appears normal. Contrast: Intravenous agitated saline contrast was used to assess intracardiac shunting. Measurements Chambers 2D Name Value Normal Range IVSd (2D) 1 cm (0.6 - 1.1) LVPWd (2D) 1.07 cm (0.6 - 1.1) LVIDd (2D) 5.3 cm (3.7 - 5.6) LVIDs (2D) 4.63 cm (2 - 3.8) LV FS (2D) 12.59 % - EF Teichholz (2D) 26.88 % - Ao root diameter (2D) 2.99 cm (2 - 3.7) Volumes/Mass Name Value Normal Range LA ESV SP 4CH (A/L) 75.32 ml - LA ESV SP 2CH (A/L) 66.46 ml - LA ESV BP (A/L) 75.54 ml - LA ESV BP (A/L) index 42.68 ml/m2 - LA ESV SP 4CH (MOD) 68.59 ml - LA ESV SP 2CH (MOD) 64.31 ml - LA ESV BP (MOD) 70.74 ml - LA ESV BP (MOD) index 39.97 ml/m2 - LV EDV SP 4CH (MOD) 133.48 ml - LV ESV SP 4CH (MOD) 95.14 ml - EF SP 4CH (MOD) 28.72 % - LV EDV SP 2CH (MOD) 122.15 ml - LV ESV SP 2CH (MOD) 92.07 ml - EF SP 2CH (MOD) 24.62 % - LV EDV BP 132.95 ml - LV ESV BP 94.46 ml - BP EF (MOD) 28.95 % - Diastolic/Systolic Function Name Value Normal Range MV E-wave Vmax 1.14 m/sec - MV deceleration time 106.42 msec - MV A-wave Vmax 0.59 m/sec - MV E:A ratio 1.93 ratio - Aortic Valve Name Value Normal Range AV Vmax 0.81 m/sec - AV VTI 11.14 cm - AV peak gradient 2.63 mmHg - AV mean gradient 1.47 mmHg - LVOT diameter 2.06 cm - LVOT Vmax 0.8 m/sec - LVOT VTI 10.83 cm - LVOT peak gradient 2.55 mmHg - LVOT mean gradient 1.24 mmHg - SV LVOT 35.97 ml - AALIYAH (continuity Vmax) 3.27 cm2 - AALIYAH (continuity VTI) 3.23 cm2 - Ascending Ao 3.06 cm - Mitral Valve Name Value Normal Range MV Vmax 1.17 m/sec - MV VTI 14.78 cm - MV peak gradient 5.51 mmHg - MV mean gradient 2.35 mmHg - MV PHT 28.87 msec - MVA (PHT) 7.62 cm2 - MVA (continuity VTI) 2.43 cm2 - Pulmonic Valve/Qp:Qs Name Value Normal Range PV Vmax 0.53 m/sec - PV VTI 7.92 cm - PV peak gradient 1.12 mmHg - PV mean gradient 0.6 mmHg - IN end-diastolic Vmax 1.34 m/sec - RVOT Vmax 0.44 m/sec - RVOT VTI 6.56 cm - RVOT peak gradient 0.76 mmHg - [place]/IV: Voiding Method Condom Catheter IV Catheter Type [Left INT / Saline Lock Antecubital] IV Catheter Type [Left Hand] INT / Saline Lock Active Medications - Current Medications Current Medications: Generic Name Dose Route Start Last Admin Trade Name Freq PRN Reason Stop Dose Admin Acetaminophen 650 mg 01/15/20 21:20 01/16/20 22:03 Tylenol PO 650 mg Q4H PRN Administration Pain, Mild (1-3) Al Hydrox/Mg Hydrox/Simethicone 30 ml 01/15/20 21:27 Alum-Mag Hydrox-Simeth 828-500-71rm/5ml PO Q4H PRN Indigestion Aspirin 325 mg 01/16/20 10:00 01/16/20 11:21 Aspirin PO 325 mg QDAY MAIK Administration Atorvastatin Calcium 40 mg 01/15/20 22:00 01/16/20 22:04 Lipitor PO 40 mg QHS MAIK Administration Bisacodyl 10 mg 01/15/20 21:27 Dulcolax IN QDAY PRN Constipation unrelieved by MOM Famotidine 20 mg 01/15/20 22:00 01/16/20 11:21 Pepcid PO 20 mg QAM MAIK Administration Gabapentin 300 mg 01/15/20 22:00 01/16/20 22:04 Gabapentin PO 300 mg BID MAIK Administration Heparin Sodium (Porcine) 5,000 unit 01/16/20 10:00 01/16/20 22:04 Heparin SUB-Q 5,000 unit Q12HR MAIK Administration Hydralazine HCl 5 mg 01/15/20 23:02 01/15/20 23:59 Apresoline IV 5 mg Q6H PRN Administration Hypertension Hydromorphone HCl 0.5 mg 01/15/20 21:27 Dilaudid IV Q3H PRN Pain , Severe (7-10) Sodium Chloride 1,000 mls @ 75 mls/hr 01/16/20 22:15 Nacl 0.9% 1000 Ml IV DIRECT MAIK Ceftriaxone Sodium 1 gm in 50 mls @ 100 mls/hr 01/16/20 23:00 01/16/20 23:51 Rocephin/Ns 1 Gm/50 Ml IV 100 mls/hr Q24HR@2200 MAIK Administration Protocol Magnesium Hydroxide 30 ml 01/15/20 21:27 Milk Of Magnesia PO Q4H PRN Constipation Metoclopramide HCl 5 mg 01/15/20 21:27 Reglan IV Q6H PRN Nausea And Vomiting Nifedipine 90 mg 01/15/20 22:00 01/16/20 10:34 Procardia Xl PO Not Given QDAY MAIK Ondansetron HCl 4 mg 01/15/20 21:26 01/16/20 11:20 Zofran IV 4 mg Q8H PRN Administration Nausea And Vomiting Oxycodone/Acetaminophen 1 tab 01/15/20 21:27 Percocet 5/325 PO Q6H PRN Pain, Moderate (4-6) Promethazine HCl 25 mg 01/15/20 21:27 Phenergan IN Q6H PRN N/V IF NPO AND NO IV ACCESS Sodium Chloride 10 ml 01/15/20 22:00 01/16/20 22:05 Sodium Chloride Flush Syringe 10 Ml IV 10 ml BID MAIK Administration Sodium Chloride 10 ml 01/15/20 21:31 Sodium Chloride Flush Syringe 10 Ml IV PRN PRN LINE FLUSH Tramadol HCl 50 mg 01/15/20 21:21 Ultram PO Q6HR PRN PAIN
--- NOTE | 2020-01-17 10:04 | Ultrasound Report ---
ULTRASOUND RENAL INDICATION / CLINICAL INFORMATION: Acute kidney injury. COMPARISON: 11/10/2016 FINDINGS: RIGHT KIDNEY: Length = 8.3 cm. [normal > 9 cm] - Parenchymal Thickness = 1.4 cm. [normal > 1.5 cm] - Echogenicity: Increased - Hydronephrosis: None. - Cyst or mass: No significant abnormality. - Stones: None seen. LEFT KIDNEY: Length = 8.0 cm. [normal > 9 cm] - Parenchymal Thickness = 1.3 cm. [normal > 1.5 cm] - Echogenicity: Increased - Hydronephrosis: None. - Cyst or mass: 1.4 cm cyst in the left kidney is unchanged. - Stones: None seen. URINARY BLADDER: No significant abnormality. FREE FLUID: None. ADDITIONAL FINDINGS: None. IMPRESSION: Mildly atrophic kidneys with increased echotexture consistent with nonspecific chronic renal parench ymal disease. Simple cyst in the left kidney, unchanged. No obstructive uropathy. Signer Name: Donnie Tay Jr, MD Signed: 01/17/2020 9:59 AM Workstation Name: [id number]
[2020-01-17] MEDS: ASPIRIN 325 MG TAB PO SCH (10:07)
[2020-01-17] MEDS: FAMOTIDINE 20 MG TAB PO SCH (10:07)
[2020-01-17] MEDS: HEPARIN 5,000 UNIT/1 ML VIAL SUB-Q SCH ×2 (10:08→21:43)
[2020-01-17] MEDS: GABAPENTIN 300 MG CAP PO SCH ×2 (10:08→21:44)
[2020-01-17] MEDS: NIFEdipine XL 90 MG TAB PO SCH (10:09)
[2020-01-17] MEDS: SODIUM CHLORIDE 0.9% 1000 ML 1,000 ML IV SCH ×2 (10:21→21:54)
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
--- NOTE | 2020-01-17 15:23 | Progress Note ---
Assessment and Plan Globally aphasic but expressive greater than receptive. The patient was admitted with altered mental status and dyarthria. Tele neuro was consulted .. Tpa was deferred. CTA showed left ANGELA block and left MCA partial block. The [facility] tanning solution maker was consulted and the patient was not deemed fit for criteria for LVO thrombectomy. Awake Alert. aphasic. he follows one step command. cannot express. CN-EOMI- right central facial weakness.' M- right hemiplegia. moves ue and le well. - MRI Brain- large left MCA territory acute infarct. - C. doppler- normal. Echo- sever global hypokinesis . EF- 15-20%. - possibliy may had cardioembolic stroke. Plan- continue ASA 81 mg q day and Lipitor 40 mg q hs. normotensive now. decision for the anticoagulation should be done in 4-6 weeks . has a large infarct size. greater risk of bleeding. pt/ot/rehab. signing off the patient. 'please call Neurology whenever enquired. thanks. Subjective Date of service: 01/17/20 Interval history: The patient is more awake now. Stll hemiplegic right side. The patient was admitted with altered mental status and dyarthria. Tele neuro was consulted .. Tpa was deferred. CTA showed left ANGELA block and left MCA partial block. The [facility] tanning solution maker was consulted and the patient was not deemed fit for criteria for LVO thrombectomy. has h/o old CVA. Past Medical History Hx Hypertension: Yes Hx CVA: Yes (x 3. L ANGELA cva 10/2016 R sided weakness) Hx GERD: Yes Hx Renal Disease: Yes (renal insuf) Hx Arthritis: Yes (right hip) Hx COPD: Yes Additional medical history: chronic back pain - Surgical History Additional Surgical History: "shoulder surgery" - Family History Family history: no significant - Social History Smoking Status: Unknown if ever smoked Substance Use Type: None Objective - Exam Narrative Exam: Neurology Examination : Awake Alert. aphasic. he follows one step command. cannot express. CN-EOMI- right central facial weakness.' M- right hemiplegia. moves ue and le well. Laboratory Results - last 72 hr 01/15/20 01/15/20 01/15/20 10:32 10:32 10:32 WBC 6.3 RBC 5.21 H Hgb 13.9 Hct 43.2 MCV 83 L MCH 27 L MCHC 32 RDW 16.5 H Plt Count 222 Lymph % (Auto) 20.5 [place] % (Auto) 4.5 Eos % (Auto) 0.8 Baso % (Auto) 1.0 Lymph # 1.3 Arthur # 0.3 Eos # 0.1 Baso # 0.1 Seg Neutrophils % 73.2 H Seg Neutrophils # 4.6 PT 13.1 INR 0.98 APTT 29.3 Sodium 138 Potassium 5.2 H Chloride 104.1 Carbon Dioxide 22 Anion Gap 17 BUN 28 H Creatinine 2.9 H Estimated GFR 27 BUN/Creatinine Ratio 10 Glucose 120 H Hemoglobin A1c Calcium 9.4 Total Bilirubin AST ALT Alkaline Phosphatase Troponin T 0.013 Total Protein Albumin Albumin/Globulin Ratio Triglycerides Cholesterol LDL Cholesterol Direct HDL Cholesterol Cholesterol/HDL Ratio Urine Color Urine Turbidity Urine pH Ur Specific [place] Urine Protein Urine Glucose (UA) Urine Ketones Urine Blood Urine Nitrite Urine Bilirubin Urine Urobilinogen Ur Leukocyte Esterase Urine WBC (Auto) Urine RBC (Auto) U Epithel Cells (Auto) Urine Bacteria (Auto) Urine Creatinine Urine Sodium 01/15/20 01/16/20 01/16/20 10:32 03:40 03:40 WBC 8.5 RBC 5.64 H Hgb 15.4 H Hct 47.0 H MCV 83 L MCH 27 L MCHC 33 RDW 17.1 H Plt Count 154 Lymph % (Auto) 21.6 Arthur % (Auto) 8.1 H Eos % (Auto) 0.1 Baso % (Auto) 1.1 Lymph # 1.8 Arthur # 0.7 Eos # 0.0 Baso # 0.1 Seg Neutrophils % 69.1 Seg Neutrophils # 5.9 PT INR APTT Sodium 135 L Potassium 4.9 Chloride 104.6 Carbon Dioxide 16 L Anion Gap 19 BUN 28 H Creatinine 2.4 H Estimated GFR 33 BUN/Creatinine Ratio 12 Glucose 97 Hemoglobin A1c 5.5 Calcium 9.3 Total Bilirubin 0.70 AST 19 ALT 6 L Alkaline Phosphatase 84 Troponin T Total Protein 7.1 Albumin 3.5 L Albumin/Globulin Ratio 1.0 Triglycerides 85 Cholesterol 179 LDL Cholesterol Direct 120 HDL Cholesterol 37 L Cholesterol/HDL Ratio 4.83 Urine Color Urine Turbidity Urine pH Ur Specific [place] Urine Protein Urine Glucose (UA) Urine Ketones Urine Blood Urine Nitrite Urine Bilirubin Urine Urobilinogen Ur Leukocyte Esterase Urine WBC (Auto) Urine RBC (Auto) U Epithel Cells (Auto) Urine Bacteria (Auto) Urine Creatinine Urine Sodium 01/16/20 01/16/20 14:30 14:30 WBC RBC Hgb Hct MCV MCH MCHC RDW Plt Count Lymph % (Auto) Arthur % (Auto) Eos % (Auto) Baso % (Auto) Lymph # Arthur # Eos # Baso # Seg Neutrophils % Seg Neutrophils # PT INR APTT Sodium Potassium Chloride Carbon Dioxide Anion Gap BUN Creatinine Estimated GFR BUN/Creatinine Ratio Glucose Hemoglobin A1c Calcium Total Bilirubin AST ALT Alkaline Phosphatase Troponin T Total Protein Albumin Albumin/Globulin Ratio Triglycerides Cholesterol LDL Cholesterol Direct HDL Cholesterol Cholesterol/HDL Ratio Urine Color Yellow Urine Turbidity Slightly-cloudy Urine pH 6.0 Ur Specific [place] 1.026 Urine Protein 100 mg/dl Urine Glucose (UA) Neg Urine Ketones Neg Urine Blood Sm Urine Nitrite Neg Urine Bilirubin Neg Urine Urobilinogen < 2.0 Ur Leukocyte Esterase Mod Urine WBC (Auto) 80.0 H Urine RBC (Auto) 1.0 U Epithel Cells (Auto) < 1.0 Urine Bacteria (Auto) 1+ Urine Creatinine 4.2 Urine Sodium 10 - Vital Sign Vital Signs - 12hr 01/17/20 01/17/20 01/17/20 04:45 08:16 08:59 Temperature 99.2 F 97.4 F L Pulse Rate 93 H 110 H Respiratory 20 18 Rate Blood Pressure 124/80 137/85 O2 Sat by Pulse 95 100 98 Oximetry 01/17/20 01/17/20 11:40 12:00 Temperature Pulse Rate 96 H Respiratory 18 Rate Blood Pressure O2 Sat by Pulse 97 Oximetry - Laboratory Findings CBC and BMP: 01/17/20 04:08 01/17/20 04:08 Abnormal Lab Findings: Abnormal Labs 01/15/20 01/15/20 01/16/20 10:32 10:32 03:40 RBC 5.21 H 5.64 H Hgb 15.4 H Hct 47.0 H MCV 83 L 83 L MCH 27 L 27 L RDW 16.5 H 17.1 H Arthur % (Auto) 8.1 H Seg Neutrophils % 73.2 H Sodium Potassium 5.2 H Carbon Dioxide BUN 28 H Creatinine 2.9 H Glucose 120 H Calcium ALT Albumin HDL Cholesterol Urine WBC (Auto) 01/16/20 01/16/20 01/17/20 03:40 14:30 04:08 RBC Hgb Hct MCV MCH RDW Arthur % (Auto) Seg Neutrophils % Sodium 135 L 136 L Potassium Carbon Dioxide 16 L 18 L BUN 28 H 43 H Creatinine 2.4 H 3.4 H Glucose Calcium 8.2 L ALT 6 L Albumin 3.5 L HDL Cholesterol 37 L Urine WBC (Auto) 80.0 H 01/17/20 04:08 RBC Hgb Hct MCV 83 L MCH 27 L RDW 16.9 H Arthur % (Auto) Seg Neutrophils % Sodium Potassium Carbon Dioxide BUN Creatinine Glucose Calcium ALT Albumin HDL Cholesterol Urine WBC (Auto)
[2020-01-17] MEDS: cefTRIAXone/NS 1 GM/50 ML 1 GM/50 ML BAG IV SCH (21:43)
[2020-01-17] MEDS: hydrALAZINE 20 MG/1 ML INJ IV PRN (21:43)
[2020-01-17] MEDS: ACETAMINOPHEN 325 MG TAB PO PRN (21:44)
[2020-01-18] MEDS: hydrALAZINE 20 MG/1 ML INJ IV PRN ×2 (05:18→21:37)
[2020-01-18 06:39] LABS: Calcium 8.5 mg/dL (8.4-10.2)
--- NOTE | 2020-01-18 07:32 | Progress Note ---
Assessment and Plan 1. Acute kidney injury: DODIE superimposed on CKD stage 3 in the setting of contrast induced nephropathy +/- fluctuation in the BP. Renal US shows simple cyst in L kidney, negative for hydro. Creatinine is 3 from 3.4 from 2.4. Continue IV fluids. Monitor renal function. Renal prognosis is guarded. Avoid nephrotoxic agents. Meds dosage based on GFR. 2. FEN: Metabolic acidosis, monitor. Hyperkalemia, improving, monitor. Monitor lytes and volume status. 3. Acute CVA: Not candidate for LVO thrombectomy 2/2 total occlusion. TPA deferred on admission. H/o CVA with right sided hemiplegia. Aphasic. Pending d/c planning SNF. Neuro following. 4. Hypertension: Monitor BP closely. 5. H/o CVA x 3: R sided hemiplegia. 6. H/o COPD. 7. GERD. Subjective Patient was seen and examined at the bedside. Pt sitting at the edge of the bed. No acute events reported overnight. Objective - Exam Narrative Exam: General appearance: well-developed, well-nourished, appears stated age, no d istress EENT: ATNC, PERRL, mucous membranes moist Neck: neck supple, trachea midline Respiratory: Clear to Ascultation Heart: regular, S1S2, no murmur Gastrointestinal: soft, normoactive bowel sounds, not tender Integumentary: no rash, warm and dry Neurologic: alert, aphasic, R sided weakness noted Musculoskeletal: no obvious deformity Psychiatric: cooperative Subjective Date of service: 01/18/20 Objective - Vital Signs Vital signs: Vital Signs - 12hr 01/17/20 01/18/20 01/18/20 19:59 00:00 00:57 Temperature 101.9 F H 99.0 F Pulse Rate 119 H 97 H 102 H Respiratory 18 18 Rate Blood Pressure 162/103 160/100 O2 Sat by Pulse 96 97 Oximetry 01/18/20 05:04 Temperature 99.6 F Pulse Rate 106 H Respiratory 18 Rate Blood Pressure 170/99 O2 Sat by Pulse 97 Oximetry - Lab 01/17/20 04:08 01/18/20 04:48 Most recent lab results Calcium 8.5 mg/dL (8.4-10.2) 01/18/20 04:48 Urine Creatinine 4.2 mg/dL (0.1-20.0) 01/16/20 14:30 Urine Sodium 10 mmol/L 01/16/20 14:30 Medications & Allergies - Medications Allergies/Adverse Reactions: Allergies No Known Allergies Allergy (Verified 01/15/20 10:11) Home Medications: Home Medications Medication Instructions Recorded Confirmed Last Taken Type NIFEdipine XL [Procardia Xl] 90 mg PO QDAY #30 tablet 11/18/16 01/15/20 Unknown Rx Pantoprazole [Protonix TAB] 40 mg PO QDAY #30 tablet 11/18/16 01/15/20 Unknown Rx Simvastatin [Zocor TAB] 10 mg PO QHS #30 tablet 11/18/16 01/15/20 Unknown Rx lisinopriL [Zestril TAB] 20 mg PO BID #60 tablet 11/18/16 01/15/20 Unknown Rx Gabapentin 300 mg PO BID #30 cap 03/25/17 01/15/20 Unknown Rx traMADoL [Ultram 50 MG tab] 50 mg PO Q6HR PRN #20 tablet 02/28/18 01/15/20 Unknown Rx Active Medications: Generic Name Dose Route Start Last Admin Trade Name Freq PRN Reason Stop Dose Admin Acetaminophen 650 mg 01/15/20 21:20 01/17/20 21:44 Tylenol PO 650 mg Q4H PRN Administration Pain, Mild (1-3) Al Hydrox/Mg Hydrox/Simethicone 30 ml 01/15/20 21:27 Alum-Mag Hydrox-Simeth 060-680-86zn/5ml PO Q4H PRN Indigestion Aspirin 325 mg 01/16/20 10:00 01/17/20 10:07 Aspirin PO 325 mg QDAY MAIK Administration Atorvastatin Calcium 40 mg 01/15/20 22:00 01/17/20 21:44 Lipitor PO 40 mg QHS MAIK Administration Bisacodyl 10 mg 01/15/20 21:27 Dulcolax ND QDAY PRN Constipation unrelieved by MOM Famotidine 20 mg 01/15/20 22:00 01/17/20 10:07 Pepcid PO 20 mg QAM MAIK Administration Gabapentin 300 mg 01/15/20 22:00 01/17/20 21:44 Gabapentin PO 300 mg BID MAIK Administration Heparin Sodium (Porcine) 5,000 unit 01/16/20 10:00 01/17/20 21:43 Heparin SUB-Q 5,000 unit Q12HR MAIK Administration Hydralazine HCl 5 mg 01/15/20 23:02 01/18/20 05:18 Apresoline IV 5 mg Q6H PRN Administration Hypertension Hydromorphone HCl 0.5 mg 01/15/20 21:27 Dilaudid IV Q3H PRN Pain , Severe (7-10) Sodium Chloride 1,000 mls @ 75 mls/hr 01/16/20 22:15 01/17/20 21:54 Nacl 0.9% 1000 Ml IV 75 mls/hr DIRECT MAIK Administration Ceftriaxone Sodium 1 gm in 50 mls @ 100 mls/hr 01/16/20 23:00 01/17/20 21:43 Rocephin/Ns 1 Gm/50 Ml IV 100 mls/hr Q24HR@2200 MAIK Administration Protocol Magnesium Hydroxide 30 ml 01/15/20 21:27 Milk Of Magnesia PO Q4H PRN Constipation Metoclopramide HCl 5 mg 01/15/20 21:27 Reglan IV Q6H PRN Nausea And Vomiting Nifedipine 90 mg 01/15/20 22:00 01/17/20 10:09 Procardia Xl PO Not Given QDAY MAIK Ondansetron HCl 4 mg 01/15/20 21:26 01/16/20 11:20 Zofran IV 4 mg Q8H PRN Administration Nausea And Vomiting Oxycodone/Acetaminophen 1 tab 01/15/20 21:27 Percocet 5/325 PO Q6H PRN Pain, Moderate (4-6) Promethazine HCl 25 mg 01/15/20 21:27 Phenergan ND Q6H PRN N/V IF NPO AND NO IV ACCESS Sodium Chloride 10 ml 01/15/20 22:00 01/17/20 21:44 Sodium Chloride Flush Syringe 10 Ml IV 10 ml BID MAIK Administration Sodium Chloride 10 ml 01/15/20 21:31 Sodium Chloride Flush Syringe 10 Ml IV PRN PRN LINE FLUSH Tramadol HCl 50 mg 01/15/20 21:21 Ultram PO Q6HR PRN PAIN
[2020-01-18] MEDS: NIFEdipine XL 90 MG TAB PO SCH (09:34)
[2020-01-18] MEDS: FAMOTIDINE 20 MG TAB PO SCH (09:34)
[2020-01-18] MEDS: HEPARIN 5,000 UNIT/1 ML VIAL SUB-Q SCH ×2 (09:34→21:37)
[2020-01-18] MEDS: GABAPENTIN 300 MG CAP PO SCH ×2 (09:34→21:38)
[2020-01-18] MEDS: ASPIRIN 325 MG TAB PO SCH (09:34)
--- NOTE | 2020-01-18 10:45 | Progress Note ---
Assessment and Plan Assessment and plan: Acute ischemic stroke Admitted Continue Aspirin Neurology to see PT/OT/Speech therapy Neurocheck Hypertensive urgency Manage BP as per stroke protocol Hyperlipidemia Cont statin Acute on CKD due to vasonotor nephropathy Hyperkalemia Resolved. 01/17/20 Patient with acute ischemic stroke. he was seen by PT and home health recommended He has acute on CKD . Nephrology following. Cr 3.4 today, worse. 01/18/20 patient with acute ischemic stroke. Cr 3.0 today from 3.4 yesterday. Nephrology following. PT to re-evaluate to determine disposition. History Interval history: Right sided weakness Difficulty speech Hospitalist Physical - Physical exam Narrative exam: GEN: Not in acute distress, lying in bed HEENT: Normocephalic, atraumatic, Neck: supple, No JVD Lungs: Clear to auscultation bilaterally, heart;S1 and S2 reg, no murmurs, rubs or gallop Abd:soft, non tender, non distended, normal bowel sounds, Ext: No edema, no clubbing, no cyanosis, Neuro: Awake,alert, aphasia, right sided weakness - Constitutional Vitals: Temp Pulse Resp BP Pulse Ox 98.0 F 106 H 18 158/100 97 01/18/20 07:41 01/18/20 05:04 01/18/20 07:41 01/18/20 07:41 01/18/20 05:04 HEART Score - HEART Score Troponin: Troponin T 0.013 ng/mL (0.00-0.029) 01/15/20 10:32 Results - Labs CBC & Chem 7: 01/17/20 04:08 01/18/20 04:48 Labs: Laboratory Last Values WBC 6.5 K/mm3 (4.5-11.0) 01/17/20 04:08 RBC 4.81 M/mm3 (3.65-5.03) 01/17/20 04:08 Hgb 13.0 gm/dl (11.8-15.2) 01/17/20 04:08 Hct 40.0 % (35.5-45.6) D 01/17/20 04:08 MCV 83 fl (84-94) L 01/17/20 04:08 MCH 27 pg (28-32) L 01/17/20 04:08 MCHC 33 % (32-34) 01/17/20 04:08 RDW 16.9 % (13.2-15.2) H 01/17/20 04:08 Plt Count 181 K/mm3 (140-440) 01/17/20 04:08 Lymph % (Auto) 21.6 % (13.4-35.0) 01/16/20 03:40 [place] % (Auto) 8.1 % (0.0-7.3) H 01/16/20 03:40 Eos % (Auto) 0.1 % (0.0-4.3) 01/16/20 03:40 Baso % (Auto) 1.1 % (0.0-1.8) 01/16/20 03:40 Lymph # 1.8 K/mm3 (1.2-5.4) 01/16/20 03:40 [place] # 0.7 K/mm3 (0.0-0.8) 01/16/20 03:40 Eos # 0.0 K/mm3 (0.0-0.4) 01/16/20 03:40 Baso # 0.1 K/mm3 (0.0-0.1) 01/16/20 03:40 Seg Neutrophils % 69.1 % (40.0-70.0) 01/16/20 03:40 Seg Neutrophils # 5.9 K/mm3 (1.8-7.7) 01/16/20 03:40 PT 13.1 Sec. (12.2-14.9) 01/15/20 10:32 INR 0.98 (0.87-1.13) 01/15/20 10:32 APTT 29.3 Sec. (24.2-36.6) 01/15/20 10:32 Sodium 139 mmol/L (137-145) 01/18/20 04:48 Potassium 3.9 mmol/L (3.6-5.0) 01/18/20 04:48 Chloride 104.2 mmol/L (98-107) 01/18/20 04:48 Carbon Dioxide 18 mmol/L (22-30) L 01/18/20 04:48 Anion Gap 21 mmol/L 01/18/20 04:48 BUN 41 mg/dL (9-20) H 01/18/20 04:48 Creatinine 3.0 mg/dL (0.8-1.5) H 01/18/20 04:48 Estimated GFR 26 ml/min 01/18/20 04:48 BUN/Creatinine Ratio 14 % 01/18/20 04:48 Glucose 96 mg/dL (75-100) 01/18/20 04:48 Hemoglobin A1c 5.5 % (4-6) 01/15/20 10:32 Calcium 8.5 mg/dL (8.4-10.2) 01/18/20 04:48 Total Bilirubin 0.70 mg/dL (0.1-1.2) 01/16/20 03:40 AST 19 units/L (5-40) 01/16/20 03:40 ALT 6 units/L (7-56) L 01/16/20 03:40 Alkaline Phosphatase 84 units/L (35-129) 01/16/20 03:40 Troponin T 0.013 ng/mL (0.00-0.029) 01/15/20 10:32 Total Protein 7.1 g/dL (6.3-8.2) 01/16/20 03:40 Albumin 3.5 g/dL (3.9-5) L 01/16/20 03:40 Albumin/Globulin Ratio 1.0 % 01/16/20 03:40 Triglycerides 85 mg/dL (2-149) 01/16/20 03:40 Cholesterol 179 mg/dL (50-199) 01/16/20 03:40 LDL Cholesterol Direct 120 mg/dL (50-130) 01/16/20 03:40 HDL Cholesterol 37 mg/dL (40-59) L 01/16/20 03:40 Cholesterol/HDL Ratio 4.83 % 01/16/20 03:40 Urine Color Yellow (Yellow) 01/16/20 14:30 Urine Turbidity Slightly-cloudy (Clear) 01/16/20 14:30 Urine pH 6.0 (5.0-7.0) 01/16/20 14:30 Ur Specific [place] 1.026 (1.003-1.030) 01/16/20 14:30 Urine Protein 100 mg/dl mg/dL (Negative) 01/16/20 14:30 Urine Glucose (UA) Neg mg/dL (Negative) 01/16/20 14:30 Urine Ketones Neg mg/dL (Negative) 01/16/20 14:30 Urine Blood Sm (Negative) 01/16/20 14:30 Urine Nitrite Neg (Negative) 01/16/20 14:30 Urine Bilirubin Neg (Negative) 01/16/20 14:30 Urine Urobilinogen < 2.0 mg/dL (<2.0) 01/16/20 14:30 Ur Leukocyte Esterase Mod (Negative) 01/16/20 14:30 Urine WBC (Auto) 80.0 /HPF (0.0-6.0) H 01/16/20 14:30 Urine RBC (Auto) 1.0 /HPF (0.0-6.0) 01/16/20 14:30 U Epithel Cells (Auto) < 1.0 /HPF (0-13.0) 01/16/20 14:30 Urine Bacteria (Auto) 1+ /HPF (Negative) 01/16/20 14:30 Urine Creatinine 4.2 mg/dL (0.1-20.0) 01/16/20 14:30 Urine Sodium 10 mmol/L 01/16/20 14:30 Microbiology: Microbiology 01/16/20 14:30 Urine,Clean Catch Urine Culture - Preliminary - Diagnostic Impressions Diagnostic Impressions: Echocardiogram 01/15/20 21:36 Transthoracic Echocardiogram Indication: STROKE BP: 145/96 HR: 100 Conclusions *4-chamber dilated cardiomyopathy. *Global left ventricular systolic function is severely decreased. *The estimated ejection fraction is 15-20%. *The left atrium is moderate to severely dilated. *There is mild mitral regurgitation. *There is mild tricuspid regurgitation. Findings Left Ventricle: The left ventricular size is moderate to severely dilated. Mild to moderate concentric left ventricular hypertrophy is observed. Global left ventricular systolic function is severely decreased. The estimated ejection fraction is 15-20%. Left Atrium: The left atrium is moderate to severely dilated. Right Ventricle: The right ventricle is mild to moderately dilated. The right ventricular global systolic function is moderately reduced. Right Atrium: The right atrium is mild to moderately dilated. No atrial septal defected is demonstrated by agitated saline contrast. Aortic Valve: The aortic valve leaflets are mildly thickened. There is no evidence of aortic regurgitation. There is no evidence of aortic stenosis. Mitral Valve: The mitral valve leaflets are mildly thickened. There is mild mitral regurgitation. There is no evidence of mitral stenosis. Tricuspid Valve: There is mild tricuspid regurgitation. No pulmonary hypertension is noted. Pulmonic Valve: There is mild pulmonic regurgitation. Pericardium: There is no pericardial effusion. Aorta: There is no dilatation of the ascending aorta. There is no dilatation of the aortic root. Venous: The venous system appears normal. Contrast: Intravenous agitated saline contrast was used to assess intracardiac shunting. Measurements Chambers 2D Name Value Normal Range IVSd (2D) 1 cm (0.6 - 1.1) LVPWd (2D) 1.07 cm (0.6 - 1.1) LVIDd (2D) 5.3 cm (3.7 - 5.6) LVIDs (2D) 4.63 cm (2 - 3.8) LV FS (2D) 12.59 % - EF Teichholz (2D) 26.88 % - Ao root diameter (2D) 2.99 cm (2 - 3.7) Volumes/Mass Name Value Normal Range LA ESV SP 4CH (A/L) 75.32 ml - LA ESV SP 2CH (A/L) 66.46 ml - LA ESV BP (A/L) 75.54 ml - LA ESV BP (A/L) index 42.68 ml/m2 - LA ESV SP 4CH (MOD) 68.59 ml - LA ESV SP 2CH (MOD) 64.31 ml - LA ESV BP (MOD) 70.74 ml - LA ESV BP (MOD) index 39.97 ml/m2 - LV EDV SP 4CH (MOD) 133.48 ml - LV ESV SP 4CH (MOD) 95.14 ml - EF SP 4CH (MOD) 28.72 % - LV EDV SP 2CH (MOD) 122.15 ml - LV ESV SP 2CH (MOD) 92.07 ml - EF SP 2CH (MOD) 24.62 % - LV EDV BP 132.95 ml - LV ESV BP 94.46 ml - BP EF (MOD) 28.95 % - Diastolic/Systolic Function Name Value Normal Range MV E-wave Vmax 1.14 m/sec - MV deceleration time 106.42 msec - MV A-wave Vmax 0.59 m/sec - MV E:A ratio 1.93 ratio - Aortic Valve Name Value Normal Range AV Vmax 0.81 m/sec - AV VTI 11.14 cm - AV peak gradient 2.63 mmHg - AV mean gradient 1.47 mmHg - LVOT diameter 2.06 cm - LVOT Vmax 0.8 m/sec - LVOT VTI 10.83 cm - LVOT peak gradient 2.55 mmHg - LVOT mean gradient 1.24 mmHg - SV LVOT 35.97 ml - AALIYAH (continuity Vmax) 3.27 cm2 - AALIYAH (continuity VTI) 3.23 cm2 - Ascending Ao 3.06 cm - Mitral Valve Name Value Normal Range MV Vmax 1.17 m/sec - MV VTI 14.78 cm - MV peak gradient 5.51 mmHg - MV mean gradient 2.35 mmHg - MV PHT 28.87 msec - MVA (PHT) 7.62 cm2 - MVA (continuity VTI) 2.43 cm2 - Pulmonic Valve/Qp:Qs Name Value Normal Range PV Vmax 0.53 m/sec - PV VTI 7.92 cm - PV peak gradient 1.12 mmHg - PV mean gradient 0.6 mmHg - UT end-diastolic Vmax 1.34 m/sec - RVOT Vmax 0.44 m/sec - RVOT VTI 6.56 cm - RVOT peak gradient 0.76 mmHg - Fortune/IV: Voiding Method Condom Catheter IV Catheter Type [Left Forearm Peripheral IV ] IV Catheter Type [Left Peripheral IV Antecubital] IV Catheter Type [Left Hand] INT / Saline Lock Active Medications - Current Medications Current Medications: Generic Name Dose Route Start Last Admin Trade Name Freq PRN Reason Stop Dose Admin Acetaminophen 650 mg 01/15/20 21:20 01/17/20 21:44 Tylenol PO 650 mg Q4H PRN Administration Pain, Mild (1-3) Al Hydrox/Mg Hydrox/Simethicone 30 ml 01/15/20 21:27 Alum-Mag Hydrox-Simeth [id number]/5ml PO Q4H PRN Indigestion Aspirin 325 mg 01/16/20 10:00 01/18/20 09:34 Aspirin PO 325 mg QDAY MAIK Administration Atorvastatin Calcium 40 mg 01/15/20 22:00 01/17/20 21:44 Lipitor PO 40 mg QHS MAIK Administration Bisacodyl 10 mg 01/15/20 21:27 Dulcolax [place] QDAY PRN Constipation unrelieved by MOM Famotidine 20 mg 01/15/20 22:00 01/18/20 09:34 Pepcid PO 20 mg QAM MAIK Administration Gabapentin 300 mg 01/15/20 22:00 01/18/20 09:34 Gabapentin PO 300 mg BID MAIK Administration Heparin Sodium (Porcine) 5,000 unit 01/16/20 10:00 01/18/20 09:34 Heparin SUB-Q 5,000 unit Q12HR MAIK Administration Hydralazine HCl 5 mg 01/15/20 23:02 01/18/20 05:18 Apresoline IV 5 mg Q6H PRN Administration Hypertension Hydromorphone HCl 0.5 mg 01/15/20 21:27 Dilaudid IV Q3H PRN Pain , Severe (7-10) Sodium Chloride 1,000 mls @ 75 mls/hr 01/16/20 22:15 01/17/20 21:54 Nacl 0.9% 1000 Ml IV 75 mls/hr DIRECT MAIK Administration Ceftriaxone Sodium 1 gm in 50 mls @ 100 mls/hr 01/16/20 23:00 01/17/20 21:43 Rocephin/Ns 1 Gm/50 Ml IV 100 mls/hr Q24HR@2200 MAIK Administration Protocol Magnesium Hydroxide 30 ml 01/15/20 21:27 Milk Of Magnesia PO Q4H PRN Constipation Metoclopramide HCl 5 mg 01/15/20 21:27 Reglan IV Q6H PRN Nausea And Vomiting Nifedipine 90 mg 01/15/20 22:00 01/18/20 09:34 Procardia Xl PO 90 mg QDAY MAIK Administration Ondansetron HCl 4 mg 01/15/20 21:26 01/16/20 11:20 Zofran IV 4 mg Q8H PRN Administration Nausea And Vomiting Oxycodone/Acetaminophen 1 tab 01/15/20 21:27 Percocet 5/325 PO Q6H PRN Pain, Moderate (4-6) Promethazine HCl 25 mg 01/15/20 21:27 Phenergan [place] Q6H PRN N/V IF NPO AND NO IV ACCESS Sodium Chloride 10 ml 01/15/20 22:00 01/17/20 21:44 Sodium Chloride Flush Syringe 10 Ml IV 10 ml BID MAIK Administration Sodium Chloride 10 ml 01/15/20 21:31 Sodium Chloride Flush Syringe 10 Ml IV PRN PRN LINE FLUSH Tramadol HCl 50 mg 01/15/20 21:21 Ultram PO Q6HR PRN PAIN
[2020-01-18] MEDS: SODIUM CHLORIDE 0.9% 1000 ML 1,000 ML IV SCH (11:45)
[2020-01-18] MEDS: cefTRIAXone/NS 1 GM/50 ML 1 GM/50 ML BAG IV SCH (21:37)
[2020-01-19] MEDS: hydrALAZINE 20 MG/1 ML INJ IV PRN (03:57)
[2020-01-19 06:04] LABS: Calcium 8.9 mg/dL (8.4-10.2)
--- NOTE | 2020-01-19 08:03 | Progress Note ---
Assessment and Plan Assessment and plan: Acute ischemic stroke Admitted Continue Aspirin Neurology to see PT/OT/Speech therapy Neurocheck Hypertensive urgency Manage BP as per stroke protocol Hyperlipidemia Cont statin Acute on CKD due to vasonotor nephropathy Hyperkalemia Resolved. 01/17/20 Patient with acute ischemic stroke. he was seen by PT and home health recommended He has acute on CKD . Nephrology following. Cr 3.4 today, worse. 01/18/20 patient with acute ischemic stroke. Cr 3.0 today from 3.4 yesterday. Nephrology following. PT to re-evaluate to determine disposition. 01/19/20 Patient with acute ischemic stroke with acute on CKD. Cr 2.5 today from 3.4 on 01/16. Nephrology following. PT to re-evaluate to determine disposition. History Interval history: Right sided weakness Difficulty speech Hospitalist Physical - Physical exam Narrative exam: GEN: Not in acute distress, lying in bed HEENT: Normocephalic, atraumatic, Neck: supple, No JVD Lungs: Clear to auscultation bilaterally, heart;S1 and S2 reg, no murmurs, rubs or gallop Abd:soft, non tender, non distended, normal bowel sounds, Ext: No edema, no clubbing, no cyanosis, Neuro: Awake,alert, aphasia, right sided weakness - Constitutional Vitals: Temp Pulse Resp BP Pulse Ox 97.7 F 109 H 18 170/103 100 01/19/20 03:35 01/19/20 03:35 01/19/20 03:35 01/19/20 03:35 01/19/20 03:35 HEART Score - HEART Score Troponin: Troponin T 0.013 ng/mL (0.00-0.029) 01/15/20 10:32 Results - Labs CBC & Chem 7: 01/17/20 04:08 01/19/20 04:42 Labs: Laboratory Last Values WBC 6.5 K/mm3 (4.5-11.0) 01/17/20 04:08 RBC 4.81 M/mm3 (3.65-5.03) 01/17/20 04:08 Hgb 13.0 gm/dl (11.8-15.2) 01/17/20 04:08 Hct 40.0 % (35.5-45.6) D 01/17/20 04:08 MCV 83 fl (84-94) L 01/17/20 04:08 MCH 27 pg (28-32) L 01/17/20 04:08 MCHC 33 % (32-34) 01/17/20 04:08 RDW 16.9 % (13.2-15.2) H 01/17/20 04:08 Plt Count 181 K/mm3 (140-440) 01/17/20 04:08 Lymph % (Auto) 21.6 % (13.4-35.0) 01/16/20 03:40 [place] % (Auto) 8.1 % (0.0-7.3) H 01/16/20 03:40 Eos % (Auto) 0.1 % (0.0-4.3) 01/16/20 03:40 Baso % (Auto) 1.1 % (0.0-1.8) 01/16/20 03:40 Lymph # 1.8 K/mm3 (1.2-5.4) 01/16/20 03:40 [place] # 0.7 K/mm3 (0.0-0.8) 01/16/20 03:40 Eos # 0.0 K/mm3 (0.0-0.4) 01/16/20 03:40 Baso # 0.1 K/mm3 (0.0-0.1) 01/16/20 03:40 Seg Neutrophils % 69.1 % (40.0-70.0) 01/16/20 03:40 Seg Neutrophils # 5.9 K/mm3 (1.8-7.7) 01/16/20 03:40 PT 13.1 Sec. (12.2-14.9) 01/15/20 10:32 INR 0.98 (0.87-1.13) 01/15/20 10:32 APTT 29.3 Sec. (24.2-36.6) 01/15/20 10:32 Sodium 137 mmol/L (137-145) 01/19/20 04:42 Potassium 3.7 mmol/L (3.6-5.0) 01/19/20 04:42 Chloride 102.2 mmol/L (98-107) 01/19/20 04:42 Carbon Dioxide 18 mmol/L (22-30) L 01/19/20 04:42 Anion Gap 21 mmol/L 01/19/20 04:42 BUN 32 mg/dL (9-20) H 01/19/20 04:42 Creatinine 2.5 mg/dL (0.8-1.5) H 01/19/20 04:42 Estimated GFR 32 ml/min 01/19/20 04:42 BUN/Creatinine Ratio 13 % 01/19/20 04:42 Glucose 98 mg/dL (75-100) 01/19/20 04:42 Hemoglobin A1c 5.5 % (4-6) 01/15/20 10:32 Calcium 8.9 mg/dL (8.4-10.2) 01/19/20 04:42 Total Bilirubin 0.70 mg/dL (0.1-1.2) 01/16/20 03:40 AST 19 units/L (5-40) 01/16/20 03:40 ALT 6 units/L (7-56) L 01/16/20 03:40 Alkaline Phosphatase 84 units/L (35-129) 01/16/20 03:40 Troponin T 0.013 ng/mL (0.00-0.029) 01/15/20 10:32 Total Protein 7.1 g/dL (6.3-8.2) 01/16/20 03:40 Albumin 3.5 g/dL (3.9-5) L 01/16/20 03:40 Albumin/Globulin Ratio 1.0 % 01/16/20 03:40 Triglycerides 85 mg/dL (2-149) 01/16/20 03:40 Cholesterol 179 mg/dL (50-199) 01/16/20 03:40 LDL Cholesterol Direct 120 mg/dL (50-130) 01/16/20 03:40 HDL Cholesterol 37 mg/dL (40-59) L 01/16/20 03:40 Cholesterol/HDL Ratio 4.83 % 01/16/20 03:40 Urine Color Yellow (Yellow) 01/16/20 14:30 Urine Turbidity Slightly-cloudy (Clear) 01/16/20 14:30 Urine pH 6.0 (5.0-7.0) 01/16/20 14:30 Ur Specific [place] 1.026 (1.003-1.030) 01/16/20 14:30 Urine Protein 100 mg/dl mg/dL (Negative) 01/16/20 14:30 Urine Glucose (UA) Neg mg/dL (Negative) 01/16/20 14:30 Urine Ketones Neg mg/dL (Negative) 01/16/20 14:30 Urine Blood Sm (Negative) 01/16/20 14:30 Urine Nitrite Neg (Negative) 01/16/20 14:30 Urine Bilirubin Neg (Negative) 01/16/20 14:30 Urine Urobilinogen < 2.0 mg/dL (<2.0) 01/16/20 14:30 Ur Leukocyte Esterase Mod (Negative) 01/16/20 14:30 Urine WBC (Auto) 80.0 /HPF (0.0-6.0) H 01/16/20 14:30 Urine RBC (Auto) 1.0 /HPF (0.0-6.0) 01/16/20 14:30 U Epithel Cells (Auto) < 1.0 /HPF (0-13.0) 01/16/20 14:30 Urine Bacteria (Auto) 1+ /HPF (Negative) 01/16/20 14:30 Urine Creatinine 4.2 mg/dL (0.1-20.0) 01/16/20 14:30 Urine Sodium 10 mmol/L 01/16/20 14:30 Microbiology: Microbiology 01/16/20 14:30 Urine,Clean Catch Urine Culture - Final - Diagnostic Impressions Diagnostic Impressions: Echocardiogram 01/15/20 21:36 Transthoracic Echocardiogram Indication: STROKE BP: 145/96 HR: 100 Conclusions *4-chamber dilated cardiomyopathy. *Global left ventricular systolic function is severely decreased. *The estimated ejection fraction is 15-20%. *The left atrium is moderate to severely dilated. *There is mild mitral regurgitation. *There is mild tricuspid regurgitation. Findings Left Ventricle: The left ventricular size is moderate to severely dilated. Mild to moderate concentric left ventricular hypertrophy is observed. Global left ventricular systolic function is severely decreased. The estimated ejection fraction is 15-20%. Left Atrium: The left atrium is moderate to severely dilated. Right Ventricle: The right ventricle is mild to moderately dilated. The right ventricular global systolic function is moderately reduced. Right Atrium: The right atrium is mild to moderately dilated. No atrial septal defected is demonstrated by agitated saline contrast. Aortic Valve: The aortic valve leaflets are mildly thickened. There is no evidence of aortic regurgitation. There is no evidence of aortic stenosis. Mitral Valve: The mitral valve leaflets are mildly thickened. There is mild mitral regurgitation. There is no evidence of mitral stenosis. Tricuspid Valve: There is mild tricuspid regurgitation. No pulmonary hypertension is noted. Pulmonic Valve: There is mild pulmonic regurgitation. Pericardium: There is no pericardial effusion. Aorta: There is no dilatation of the ascending aorta. There is no dilatation of the aortic root. Venous: The venous system appears normal. Contrast: Intravenous agitated saline contrast was used to assess intracardiac shunting. Measurements Chambers 2D Name Value Normal Range IVSd (2D) 1 cm (0.6 - 1.1) LVPWd (2D) 1.07 cm (0.6 - 1.1) LVIDd (2D) 5.3 cm (3.7 - 5.6) LVIDs (2D) 4.63 cm (2 - 3.8) LV FS (2D) 12.59 % - EF Teichholz (2D) 26.88 % - Ao root diameter (2D) 2.99 cm (2 - 3.7) Volumes/Mass Name Value Normal Range LA ESV SP 4CH (A/L) 75.32 ml - LA ESV SP 2CH (A/L) 66.46 ml - LA ESV BP (A/L) 75.54 ml - LA ESV BP (A/L) index 42.68 ml/m2 - LA ESV SP 4CH (MOD) 68.59 ml - LA ESV SP 2CH (MOD) 64.31 ml - LA ESV BP (MOD) 70.74 ml - LA ESV BP (MOD) index 39.97 ml/m2 - LV EDV SP 4CH (MOD) 133.48 ml - LV ESV SP 4CH (MOD) 95.14 ml - EF SP 4CH (MOD) 28.72 % - LV EDV SP 2CH (MOD) 122.15 ml - LV ESV SP 2CH (MOD) 92.07 ml - EF SP 2CH (MOD) 24.62 % - LV EDV BP 132.95 ml - LV ESV BP 94.46 ml - BP EF (MOD) 28.95 % - Diastolic/Systolic Function Name Value Normal Range MV E-wave Vmax 1.14 m/sec - MV deceleration time 106.42 msec - MV A-wave Vmax 0.59 m/sec - MV E:A ratio 1.93 ratio - Aortic Valve Name Value Normal Range AV Vmax 0.81 m/sec - AV VTI 11.14 cm - AV peak gradient 2.63 mmHg - AV mean gradient 1.47 mmHg - LVOT diameter 2.06 cm - LVOT Vmax 0.8 m/sec - LVOT VTI 10.83 cm - LVOT peak gradient 2.55 mmHg - LVOT mean gradient 1.24 mmHg - SV LVOT 35.97 ml - AALIYAH (continuity Vmax) 3.27 cm2 - AALIYAH (continuity VTI) 3.23 cm2 - Ascending Ao 3.06 cm - Mitral Valve Name Value Normal Range MV Vmax 1.17 m/sec - MV VTI 14.78 cm - MV peak gradient 5.51 mmHg - MV mean gradient 2.35 mmHg - MV PHT 28.87 msec - MVA (PHT) 7.62 cm2 - MVA (continuity VTI) 2.43 cm2 - Pulmonic Valve/Qp:Qs Name Value Normal Range PV Vmax 0.53 m/sec - PV VTI 7.92 cm - PV peak gradient 1.12 mmHg - PV mean gradient 0.6 mmHg - GA end-diastolic Vmax 1.34 m/sec - RVOT Vmax 0.44 m/sec - RVOT VTI 6.56 cm - RVOT peak gradient 0.76 mmHg - Fortune/IV: Voiding Method Condom Catheter IV Catheter Type [Left Forearm Peripheral IV ] IV Catheter Type [Left Peripheral IV Antecubital] IV Catheter Type [Left Hand] INT / Saline Lock Active Medications - Current Medications Current Medications: Generic Name Dose Route Start Last Admin Trade Name Freq PRN Reason Stop Dose Admin Acetaminophen 650 mg 01/15/20 21:20 01/17/20 21:44 Tylenol PO 650 mg Q4H PRN Administration Pain, Mild (1-3) Al Hydrox/Mg Hydrox/Simethicone 30 ml 01/15/20 21:27 Alum-Mag Hydrox-Simeth [id number]/5ml PO Q4H PRN Indigestion Aspirin 325 mg 01/16/20 10:00 01/18/20 09:34 Aspirin PO 325 mg QDAY MAIK Administration Atorvastatin Calcium 40 mg 01/15/20 22:00 05/23/20 21:37 Lipitor PO 40 mg QHS MAIK Administration Bisacodyl 10 mg 01/15/20 21:27 Dulcolax [place] QDAY PRN Constipation unrelieved by MOM Famotidine 20 mg 01/15/20 22:00 01/18/20 09:34 Pepcid PO 20 mg QAM MAIK Administration Gabapentin 300 mg 01/15/20 22:00 01/18/20 21:38 Gabapentin PO 300 mg BID MAIK Administration Heparin Sodium (Porcine) 5,000 unit 01/16/20 10:00 01/18/20 21:37 Heparin SUB-Q 5,000 unit Q12HR MAIK Administration Hydralazine HCl 5 mg 01/15/20 23:02 01/19/20 03:57 Apresoline IV 5 mg Q6H PRN Administration Hypertension Hydromorphone HCl 0.5 mg 01/15/20 21:27 Dilaudid IV Q3H PRN Pain , Severe (7-10) Sodium Chloride 1,000 mls @ 75 mls/hr 01/16/20 22:15 01/18/20 11:45 Nacl 0.9% 1000 Ml IV 75 mls/hr DIRECT MAIK Administration Ceftriaxone Sodium 1 gm in 50 mls @ 100 mls/hr 01/16/20 23:00 01/18/20 21:37 Rocephin/Ns 1 Gm/50 Ml IV 01/20/20 23:59 100 mls/hr Q24HR@2200 MAIK Administration Protocol Magnesium Hydroxide 30 ml 01/15/20 21:27 Milk Of Magnesia PO Q4H PRN Constipation Metoclopramide HCl 5 mg 01/15/20 21:27 Reglan IV Q6H PRN Nausea And Vomiting Nifedipine 90 mg 01/15/20 22:00 01/18/20 09:34 Procardia Xl PO 90 mg QDAY MAIK Administration Ondansetron HCl 4 mg 01/15/20 21:26 01/16/20 11:20 Zofran IV 4 mg Q8H PRN Administration Nausea And Vomiting Oxycodone/Acetaminophen 1 tab 01/15/20 21:27 Percocet 5/325 PO Q6H PRN Pain, Moderate (4-6) Promethazine HCl 25 mg 01/15/20 21:27 Phenergan [place] Q6H PRN N/V IF NPO AND NO IV ACCESS Sodium Chloride 10 ml 01/15/20 22:00 01/18/20 21:38 Sodium Chloride Flush Syringe 10 Ml IV 10 ml BID MAIK Administration Sodium Chloride 10 ml 01/15/20 21:31 Sodium Chloride Flush Syringe 10 Ml IV PRN PRN LINE FLUSH Tramadol HCl 50 mg 01/15/20 21:21 Ultram PO Q6HR PRN PAIN
[2020-01-19] MEDS: HEPARIN 5,000 UNIT/1 ML VIAL SUB-Q SCH ×2 (09:09→22:00)
[2020-01-19] MEDS: ASPIRIN 325 MG TAB PO SCH (09:10)
[2020-01-19] MEDS: GABAPENTIN 300 MG CAP PO SCH ×2 (09:10→21:59)
[2020-01-19] MEDS: NIFEdipine XL 90 MG TAB PO SCH (09:10)
[2020-01-19] MEDS: FAMOTIDINE 20 MG TAB PO SCH (09:10)
--- NOTE | 2020-01-19 11:51 | Progress Note ---
Assessment and Plan 1. Acute kidney injury: DODIE superimposed on CKD stage 3 in the setting of contrast induced nephropathy +/- fluctuation in the BP. Renal US shows simple cyst in L kidney, negative for hydro. Creatinine is 2.5 from 3 from 3.4 from 2.4. Continue IV fluids. Monitor renal function. Renal prognosis is guarded. Avoid nephrotoxic agents. Meds dosage based on GFR. 2. FEN: Metabolic acidosis, monitor. Hyperkalemia, improved, monitor. Monitor lytes and volume status. 3. Acute CVA: Not candidate for LVO thrombectomy 2/2 total occlusion. TPA deferred on admission. H/o CVA with right sided hemiplegia. Aphasic. 4. Hypertension: Monitor BP closely. 5. H/o CVA x 3: R sided hemiplegia. 6. H/o COPD. 7. GERD. Subjective Patient was seen and examined at the bedside. Pt sitting at the edge of the bed. No acute events reported overnight. Objective - Exam Narrative Exam: General appearance: well-developed, well-nourished, appears stated age, no distress EENT: ATNC, PERRL, mucous membranes moist Neck: neck supple, trachea midline Respiratory: Clear to Ascultation Heart: regular, S1S2, no murmur Gastrointestinal: soft, normoactive bowel sounds, not tender Integumentary: no rash, warm and dry Neurologic: alert, aphasic, R sided weakness noted Musculoskeletal: no obvious deformity Subjective Date of service: 01/19/20 Objective - Vital Signs Vital signs: Vital Signs - 12hr 01/19/20 01/19/20 01/19/20 00:00 00:08 03:35 Temperature 98.1 F 97.7 F Pulse Rate 123 H 120 H 109 H Respiratory 18 18 Rate Blood Pressure 182/99 170/103 O2 Sat by Pulse 93 100 Oximetry - Lab 01/17/20 04:08 01/19/20 04:42 Most recent lab results Calcium 8.9 mg/dL (8.4-10.2) 01/19/20 04:42 Urine Creatinine 4.2 mg/dL (0.1-20.0) 01/16/20 14:30 Urine Sodium 10 mmol/L 01/16/20 14:30 Medications & Allergies - Medications Allergies/Adverse Reactions: Allergies No Known Allergies Allergy (Verified 05/20/20 10:11) Home Medications: Home Medications Medication Instructions Recorded Confirmed Last Taken Type NIFEdipine XL [Procardia Xl] 90 mg PO QDAY #30 tablet 11/18/16 01/15/20 Unknown Rx Pantoprazole [Protonix TAB] 40 mg PO QDAY #30 tablet 11/18/16 01/15/20 Unknown Rx Simvastatin [Zocor TAB] 10 mg PO QHS #30 tablet 11/18/16 01/15/20 Unknown Rx lisinopriL [Zestril TAB] 20 mg PO BID #60 tablet 11/18/16 01/15/20 Unknown Rx Gabapentin 300 mg PO BID #30 cap 03/25/17 01/15/20 Unknown Rx traMADoL [Ultram 50 MG tab] 50 mg PO Q6HR PRN #20 tablet 02/28/18 01/15/20 Unknown Rx Active Medications: Generic Name Dose Route Start Last Admin Trade Name Freq PRN Reason Stop Dose Admin Acetaminophen 650 mg 01/15/20 21:20 01/17/20 21:44 Tylenol PO 650 mg Q4H PRN Administration Pain, Mild (1-3) Al Hydrox/Mg Hydrox/Simethicone 30 ml 01/15/20 21:27 Alum-Mag Hydrox-Simeth [id number]/5ml PO Q4H PRN Indigestion Aspirin 325 mg 01/16/20 10:00 01/19/20 09:10 Aspirin PO 325 mg QDAY MAIK Administration Atorvastatin Calcium 40 mg 01/15/20 22:00 01/18/20 21:37 Lipitor PO 40 mg QHS MAIK Administration Bisacodyl 10 mg 01/15/20 21:27 Dulcolax [place] QDAY PRN Constipation unrelieved by MOM Famotidine 20 mg 01/15/20 22:00 01/19/20 09:10 Pepcid PO 20 mg QAM MAIK Administration Gabapentin 300 mg 01/15/20 22:00 01/19/20 09:10 Gabapentin PO 300 mg BID MAIK Administration Heparin Sodium (Porcine) 5,000 unit 01/16/20 10:00 01/19/20 09:09 Heparin SUB-Q 5,000 unit Q12HR MAIK Administration Hydralazine HCl 5 mg 01/15/20 23:02 01/19/20 03:57 Apresoline IV 5 mg Q6H PRN Administration Hypertension Hydromorphone HCl 0.5 mg 01/15/20 21:27 Dilaudid IV Q3H PRN Pain , Severe (7-10) Sodium Chloride 1,000 mls @ 75 mls/hr 01/16/20 22:15 01/18/20 11:45 Nacl 0.9% 1000 Ml IV 75 mls/hr DIRECT MAIK Administration Ceftriaxone Sodium 1 gm in 50 mls @ 100 mls/hr 01/16/20 23:00 01/18/20 21:37 Rocephin/Ns 1 Gm/50 Ml IV 01/20/20 23:59 100 mls/hr Q24HR@2200 MAIK Administration Protocol Magnesium Hydroxide 30 ml 01/15/20 21:27 Milk Of Magnesia PO Q4H PRN Constipation Metoclopramide HCl 5 mg 01/15/20 21:27 Reglan IV Q6H PRN Nausea And Vomiting Nifedipine 90 mg 01/15/20 22:00 01/19/20 09:10 Procardia Xl PO 90 mg QDAY MAIK Administration Ondansetron HCl 4 mg 01/15/20 21:26 01/16/20 11:20 Zofran IV 4 mg Q8H PRN Administration Nausea And Vomiting Oxycodone/Acetaminophen 1 tab 01/15/20 21:27 Percocet 5/325 PO Q6H PRN Pain, Moderate (4-6) Promethazine HCl 25 mg 01/15/20 21:27 Phenergan [place] Q6H PRN N/V IF NPO AND NO IV ACCESS Sodium Chloride 10 ml 01/15/20 22:00 01/19/20 09:10 Sodium Chloride Flush Syringe 10 Ml IV 10 ml BID MAIK Administration Sodium Chloride 10 ml 01/15/20 21:31 Sodium Chloride Flush Syringe 10 Ml IV PRN PRN LINE FLUSH Tramadol HCl 50 mg 01/15/20 21:21 Ultram PO Q6HR PRN PAIN
[2020-01-19] MEDS: METOPROLOL TARTRATE 50 MG TAB PO SCH ×2 (12:28→21:59)
[2020-01-19] MEDS: cefTRIAXone/NS 1 GM/50 ML 1 GM/50 ML BAG IV SCH (22:00)
[2020-01-20 05:26] LABS: Calcium 8.9 mg/dL (8.4-10.2)
--- NOTE | 2020-01-20 09:33 | Progress Note ---
Assessment and Plan 1. Acute kidney injury: DODIE superimposed on CKD stage 3 in the setting of contrast induced nephropathy +/- fluctuation in the BP. Renal US shows simple cyst in L kidney, negative for hydro. Creatinine is slightly worse today, 2.9 from 2.5 from 3 from 3.4 from 2.4. Continue IV fluids. Monitor renal function. Renal prognosis is guarded. Avoid nephrotoxic agents. Meds dosage based on GFR. 2. FEN: Metabolic acidosis, monitor. Hyperkalemia, improved, monitor. Monitor lytes and volume status. 3. Acute CVA: Not candidate for LVO thrombectomy 2/2 total occlusion. TPA deferred on admission. H/o CVA with right sided hemiplegia. Aphasic. PT to reevaluate regarding d/c dispo. 4. Hypertension: Monitor BP closely. 5. H/o CVA x 3: R sided hemiplegia. 6. H/o COPD. 7. GERD. Subjective Date of service: 01/20/20 Interval history: Patient was seen and examined at the bedside. No acute events reported overnight. Objective - Exam Narrative Exam: General appearance: well-developed, well-nourished, appears stated age, no distress, restraints present EENT: ATNC, PERRL, mucous membranes moist Neck: neck supple, trachea midline Respiratory: Clear to Ascultation Heart: regular, S1S2, no murmur Gastrointestinal: soft, normoactive bowel sounds, not tender Integumentary: no rash, warm and dry Neurologic: alert, aphasic, R sided weakness noted Musculoskeletal: no obvious deformity, edema noted to R hand - Vital Signs Vital signs: Vital Signs - 12hr 01/19/20 01/19/20 01/19/20 21:59 22:00 23:36 Temperature 99.1 F Pulse Rate 105 H 99 H 83 Respiratory 18 Rate Blood Pressure 145/82 140/86 Blood Pressure [Right] O2 Sat by Pulse 100 Oximetry 01/20/20 01/20/20 01/20/20 00:00 04:52 07:33 Temperature 98.2 F 98.6 F Pulse Rate 94 H 87 Respiratory 16 18 19 Rate Blood Pressure 147/86 164/97 Blood Pressure [Right] O2 Sat by Pulse 99 98 Oximetry 01/20/20 01/20/20 08:00 08:57 Temperature 98.6 F Pulse Rate 88 Respiratory 19 18 Rate Blood Pressure Blood Pressure 164/97 [Right] O2 Sat by Pulse 98 Oximetry - Lab 01/17/20 04:08 01/20/20 04:08 Most recent lab results Calcium 8.9 mg/dL (8.4-10.2) 01/20/20 04:08 Urine Creatinine 4.2 mg/dL (0.1-20.0) 01/16/20 14:30 Urine Sodium 10 mmol/L 01/16/20 14:30 Medications & Allergies - Medications Allergies/Adverse Reactions: Allergies No Known Allergies Allergy (Verified 01/15/20 10:11) Home Medications: Home Medications Medication Instructions Recorded Confirmed Last Taken Type NIFEdipine XL [Procardia Xl] 90 mg PO QDAY #30 tablet 11/18/16 01/15/20 Unknown Rx Pantoprazole [Protonix TAB] 40 mg PO QDAY #30 tablet 11/18/16 01/15/20 Unknown Rx Simvastatin [Zocor TAB] 10 mg PO QHS #30 tablet 11/18/16 01/15/20 Unknown Rx lisinopriL [Zestril TAB] 20 mg PO BID #60 tablet 11/18/16 01/15/20 Unknown Rx Gabapentin 300 mg PO BID #30 cap 03/25/17 01/15/20 Unknown Rx traMADoL [Ultram 50 MG tab] 50 mg PO Q6HR PRN #20 tablet 02/28/18 01/15/20 Unknown Rx Active Medications: Generic Name Dose Route Start Last Admin Trade Name Freq PRN Reason Stop Dose Admin Acetaminophen 650 mg 01/15/20 21:20 01/17/20 21:44 Tylenol PO 650 mg Q4H PRN Administration Pain, Mild (1-3) Al Hydrox/Mg Hydrox/Simethicone 30 ml 01/15/20 21:27 Alum-Mag Hydrox-Simeth [id number]/5ml PO Q4H PRN Indigestion Aspirin 325 mg 01/16/20 10:00 01/19/20 09:10 Aspirin PO 325 mg QDAY MAIK Administration Atorvastatin Calcium 40 mg 01/15/20 22:00 01/19/20 21:59 Lipitor PO 40 mg QHS MAIK Administration Bisacodyl 10 mg 01/15/20 21:27 Dulcolax [place] QDAY PRN Constipation unrelieved by MOM Famotidine 20 mg 01/15/20 22:00 01/19/20 09:10 Pepcid PO 20 mg QAM MAIK Administration Gabapentin 300 mg 01/15/20 22:00 01/19/20 21:59 Gabapentin PO 300 mg BID MAIK Administration Heparin Sodium (Porcine) 5,000 unit 01/16/20 10:00 01/19/20 22:00 Heparin SUB-Q 5,000 unit Q12HR MAIK Administration Hydralazine HCl 5 mg 01/15/20 23:02 01/19/20 03:57 Apresoline IV 5 mg Q6H PRN Administration Hypertension Hydromorphone HCl 0.5 mg 01/15/20 21:27 Dilaudid IV Q3H PRN Pain , Severe (7-10) Sodium Chloride 1,000 mls @ 75 mls/hr 01/16/20 22:15 01/18/20 11:45 Nacl 0.9% 1000 Ml IV 75 mls/hr DIRECT MAIK Administration Ceftriaxone Sodium 1 gm in 50 mls @ 100 mls/hr 01/16/20 23:00 01/19/20 22:00 Rocephin/Ns 1 Gm/50 Ml IV 01/20/20 23:59 100 mls/hr Q24HR@2200 MAIK Administration Protocol Magnesium Hydroxide 30 ml 01/15/20 21:27 Milk Of Magnesia PO Q4H PRN Constipation Metoclopramide HCl 5 mg 01/15/20 21:27 Reglan IV Q6H PRN Nausea And Vomiting Metoprolol Tartrate 50 mg 01/19/20 12:00 01/19/20 21:59 Metoprolol PO 50 mg BID MAIK Administration Nifedipine 90 mg 01/15/20 22:00 01/19/20 09:10 Procardia Xl PO 90 mg QDAY AMIK Administration Ondansetron HCl 4 mg 01/15/20 21:26 01/16/20 11:20 Zofran IV 4 mg Q8H PRN Administration Nausea And Vomiting Oxycodone/Acetaminophen 1 tab 01/15/20 21:27 Percocet 5/325 PO Q6H PRN Pain, Moderate (4-6) Promethazine HCl 25 mg 01/15/20 21:27 Phenergan PA Q6H PRN N/V IF NPO AND NO IV ACCESS Sodium Chloride 10 ml 01/15/20 22:00 01/19/20 22:00 Sodium Chloride Flush Syringe 10 Ml IV 10 ml BID MAIK Administration Sodium Chloride 10 ml 01/15/20 21:31 Sodium Chloride Flush Syringe 10 Ml IV PRN PRN LINE FLUSH Tramadol HCl 50 mg 01/15/20 21:21 Ultram PO Q6HR PRN PAIN
--- NOTE | 2020-01-20 10:09 | Progress Note ---
Assessment and Plan Assessment and plan: Acute ischemic stroke Admitted Continue Aspirin Neurology to see PT/OT/Speech therapy Neurocheck Hypertensive urgency Manage BP as per stroke protocol Hyperlipidemia Cont statin Acute on CKD due to ATN/contrast-induced Nephrology following Hyperkalemia Resolved. 01/17/20 Patient with acute ischemic stroke. he was seen by PT and home health recommended He has acute on CKD . Nephrology following. Cr 3.4 today, worse. 01/18/20 patient with acute ischemic stroke. Cr 3.0 today from 3.4 yesterday. Nephrology following. PT to re-evaluate to determine disposition. 01/19/20 Patient with acute ischemic stroke with acute on CKD. Cr 2.5 today from 3.4 on 01/16. Nephrology following. PT to re-evaluate to determine disposition. 01/20/20 Patient with acute ischemic stroke. He also has acute on CKD due to ATN, contrast-induced. Cr 2.9 today. Nephrology following. PT to re-evaluate to determine disposition. History Interval history: Right sided weakness Difficulty speech Hospitalist Physical - Physical exam Narrative exam: GEN: Not in acute distress, lying in bed HEENT: Normocephalic, atraumatic, Neck: supple, No JVD Lungs: Clear to auscultation bilaterally, heart;S1 and S2 reg, no murmurs, rubs or gallop Abd:soft, non tender, non distended, normal bowel sounds, Ext: No edema, no clubbing, no cyanosis, Neuro: Awake,alert, aphasia, right sided weakness - Constitutional Vitals: Temp Pulse Resp BP Pulse Ox 98.6 F 88 18 164/97 98 01/20/20 08:00 01/20/20 08:00 01/20/20 08:57 01/20/20 08:00 01/20/20 08:00 HEART Score - HEART Score Troponin: Troponin T 0.013 ng/mL (0.00-0.029) 01/15/20 10:32 Results - Labs CBC & Chem 7: 01/17/20 04:08 01/20/20 04:08 Labs: Laboratory Last Values WBC 6.5 K/mm3 (4.5-11.0) 01/17/20 04:08 RBC 4.81 M/mm3 (3.65-5.03) 01/17/20 04:08 Hgb 13.0 gm/dl (11.8-15.2) 01/17/20 04:08 Hct 40.0 % (35.5-45.6) D 01/17/20 04:08 MCV 83 fl (84-94) L 01/17/20 04:08 MCH 27 pg (28-32) L 01/17/20 04:08 MCHC 33 % (32-34) 01/17/20 04:08 RDW 16.9 % (13.2-15.2) H 01/17/20 04:08 Plt Count 181 K/mm3 (140-440) 01/17/20 04:08 Lymph % (Auto) 21.6 % (13.4-35.0) 01/16/20 03:40 [place] % (Auto) 8.1 % (0.0-7.3) H 01/16/20 03:40 Eos % (Auto) 0.1 % (0.0-4.3) 01/16/20 03:40 Baso % (Auto) 1.1 % (0.0-1.8) 01/16/20 03:40 Lymph # 1.8 K/mm3 (1.2-5.4) 01/16/20 03:40 [place] # 0.7 K/mm3 (0.0-0.8) 01/16/20 03:40 Eos # 0.0 K/mm3 (0.0-0.4) 01/16/20 03:40 Baso # 0.1 K/mm3 (0.0-0.1) 01/16/20 03:40 Seg Neutrophils % 69.1 % (40.0-70.0) 01/16/20 03:40 Seg Neutrophils # 5.9 K/mm3 (1.8-7.7) 01/16/20 03:40 PT 13.1 Sec. (12.2-14.9) 01/15/20 10:32 INR 0.98 (0.87-1.13) 01/15/20 10:32 APTT 29.3 Sec. (24.2-36.6) 01/15/20 10:32 Sodium 139 mmol/L (137-145) 01/20/20 04:08 Potassium 4.0 mmol/L (3.6-5.0) 01/20/20 04:08 Chloride 107.6 mmol/L (98-107) H 01/20/20 04:08 Carbon Dioxide 17 mmol/L (22-30) L 01/20/20 04:08 Anion Gap 18 mmol/L 01/20/20 04:08 BUN 35 mg/dL (9-20) H 01/20/20 04:08 Creatinine 2.9 mg/dL (0.8-1.5) H 01/20/20 04:08 Estimated GFR 27 ml/min 01/20/20 04:08 BUN/Creatinine Ratio 12 % 01/20/20 04:08 Glucose 95 mg/dL (75-100) 01/20/20 04:08 Hemoglobin A1c 5.5 % (4-6) 01/15/20 10:32 Calcium 8.9 mg/dL (8.4-10.2) 01/20/20 04:08 Total Bilirubin 0.70 mg/dL (0.1-1.2) 01/16/20 03:40 AST 19 units/L (5-40) 01/16/20 03:40 ALT 6 units/L (7-56) L 01/16/20 03:40 Alkaline Phosphatase 84 units/L (35-129) 01/16/20 03:40 Troponin T 0.013 ng/mL (0.00-0.029) 01/15/20 10:32 Total Protein 7.1 g/dL (6.3-8.2) 01/16/20 03:40 Albumin 3.5 g/dL (3.9-5) L 01/16/20 03:40 Albumin/Globulin Ratio 1.0 % 01/16/20 03:40 Triglycerides 85 mg/dL (2-149) 01/16/20 03:40 Cholesterol 179 mg/dL (50-199) 01/16/20 03:40 LDL Cholesterol Direct 120 mg/dL (50-130) 01/16/20 03:40 HDL Cholesterol 37 mg/dL (40-59) L 01/16/20 03:40 Cholesterol/HDL Ratio 4.83 % 01/16/20 03:40 Urine Color Yellow (Yellow) 01/16/20 14:30 Urine Turbidity Slightly-cloudy (Clear) 01/16/20 14:30 Urine pH 6.0 (5.0-7.0) 01/16/20 14:30 Ur Specific [place] 1.026 (1.003-1.030) 01/16/20 14:30 Urine Protein 100 mg/dl mg/dL (Negative) 01/16/20 14:30 Urine Glucose (UA) Neg mg/dL (Negative) 01/16/20 14:30 Urine Ketones Neg mg/dL (Negative) 01/16/20 14:30 Urine Blood Sm (Negative) 01/16/20 14:30 Urine Nitrite Neg (Negative) 01/16/20 14:30 Urine Bilirubin Neg (Negative) 01/16/20 14:30 Urine Urobilinogen < 2.0 mg/dL (<2.0) 01/16/20 14:30 Ur Leukocyte Esterase Mod (Negative) 01/16/20 14:30 Urine WBC (Auto) 80.0 /HPF (0.0-6.0) H 01/16/20 14:30 Urine RBC (Auto) 1.0 /HPF (0.0-6.0) 01/16/20 14:30 U Epithel Cells (Auto) < 1.0 /HPF (0-13.0) 01/16/20 14:30 Urine Bacteria (Auto) 1+ /HPF (Negative) 01/16/20 14:30 Urine Creatinine 4.2 mg/dL (0.1-20.0) 01/16/20 14:30 Urine Sodium 10 mmol/L 01/16/20 14:30 - Diagnostic Impressions Diagnostic Impressions: Echocardiogram 01/15/20 21:36 Transthoracic Echocardiogram Indication: STROKE BP: 145/96 HR: 100 Conclusions *4-chamber dilated cardiomyopathy. *Global left ventricular systolic function is severely decreased. *The estimated ejection fraction is 15-20%. *The left atrium is moderate to severely dilated. *There is mild mitral regurgitation. *There is mild tricuspid regurgitation. Findings Left Ventricle: The left ventricular size is moderate to severely dilated. Mild to moderate concentric left ventricular hypertrophy is observed. Global left ventricular systolic function is severely decreased. The estimated ejection fraction is 15-20%. Left Atrium: The left atrium is moderate to severely dilated. Right Ventricle: The right ventricle is mild to moderately dilated. The right ventricular global systolic function is moderately reduced. Right Atrium: The right atrium is mild to moderately dilated. No atrial septal defected is demonstrated by agitated saline contrast. Aortic Valve: The aortic valve leaflets are mildly thickened. There is no evidence of aortic regurgitation. There is no evidence of aortic stenosis. Mitral Valve: The mitral valve leaflets are mildly thickened. There is mild mitral regurgitation. There is no evidence of mitral stenosis. Tricuspid Valve: There is mild tricuspid regurgitation. No pulmonary hypertension is noted. Pulmonic Valve: There is mild pulmonic regurgitation. Pericardium: There is no pericardial effusion. Aorta: There is no dilatation of the ascending aorta. There is no dilatation of the aortic root. Venous: The venous system appears normal. Contrast: Intravenous agitated saline contrast was used to assess intracardiac shunting. Measurements Chambers 2D Name Value Normal Range IVSd (2D) 1 cm (0.6 - 1.1) LVPWd (2D) 1.07 cm (0.6 - 1.1) LVIDd (2D) 5.3 cm (3.7 - 5.6) LVIDs (2D) 4.63 cm (2 - 3.8) LV FS (2D) 12.59 % - EF Teichholz (2D) 26.88 % - Ao root diameter (2D) 2.99 cm (2 - 3.7) Volumes/Mass Name Value Normal Range LA ESV SP 4CH (A/L) 75.32 ml - LA ESV SP 2CH (A/L) 66.46 ml - LA ESV BP (A/L) 75.54 ml - LA ESV BP (A/L) index 42.68 ml/m2 - LA ESV SP 4CH (MOD) 68.59 ml - LA ESV SP 2CH (MOD) 64.31 ml - LA ESV BP (MOD) 70.74 ml - LA ESV BP (MOD) index 39.97 ml/m2 - LV EDV SP 4CH (MOD) 133.48 ml - LV ESV SP 4CH (MOD) 95.14 ml - EF SP 4CH (MOD) 28.72 % - LV EDV SP 2CH (MOD) 122.15 ml - LV ESV SP 2CH (MOD) 92.07 ml - EF SP 2CH (MOD) 24.62 % - LV EDV BP 132.95 ml - LV ESV BP 94.46 ml - BP EF (MOD) 28.95 % - Diastolic/Systolic Function Name Value Normal Range MV E-wave Vmax 1.14 m/sec - MV deceleration time 106.42 msec - MV A-wave Vmax 0.59 m/sec - MV E:A ratio 1.93 ratio - Aortic Valve Name Value Normal Range AV Vmax 0.81 m/sec - AV VTI 11.14 cm - AV peak gradient 2.63 mmHg - AV mean gradient 1.47 mmHg - LVOT diameter 2.06 cm - LVOT Vmax 0.8 m/sec - LVOT VTI 10.83 cm - LVOT peak gradient 2.55 mmHg - LVOT mean gradient 1.24 mmHg - SV LVOT 35.97 ml - AALIYAH (continuity Vmax) 3.27 cm2 - AALIYAH (continuity VTI) 3.23 cm2 - Ascending Ao 3.06 cm - Mitral Valve Name Value Normal Range MV Vmax 1.17 m/sec - MV VTI 14.78 cm - MV peak gradient 5.51 mmHg - MV mean gradient 2.35 mmHg - MV PHT 28.87 msec - MVA (PHT) 7.62 cm2 - MVA (continuity VTI) 2.43 cm2 - Pulmonic Valve/Qp:Qs Name Value Normal Range PV Vmax 0.53 m/sec - PV VTI 7.92 cm - PV peak gradient 1.12 mmHg - PV mean gradient 0.6 mmHg - IA end-diastolic Vmax 1.34 m/sec - RVOT Vmax 0.44 m/sec - RVOT VTI 6.56 cm - RVOT peak gradient 0.76 mmHg - Fortune/IV: Voiding Method Condom Catheter IV Catheter Type [Left Forearm Peripheral IV ] IV Catheter Type [Left Peripheral IV Antecubital] IV Catheter Type [Left Hand] INT / Saline Lock Active Medications - Current Medications Current Medications: Generic Name Dose Route Start Last Admin Trade Name Freq PRN Reason Stop Dose Admin Acetaminophen 650 mg 01/15/20 21:20 01/17/20 21:44 Tylenol PO 650 mg Q4H PRN Administration Pain, Mild (1-3) Al Hydrox/Mg Hydrox/Simethicone 30 ml 01/15/20 21:27 Alum-Mag Hydrox-Simeth [phone]/5ml PO Q4H PRN Indigestion Aspirin 325 mg 01/16/20 10:00 01/19/20 09:10 Aspirin PO 325 mg QDAY MAIK Administration Atorvastatin Calcium 40 mg 01/15/20 22:00 01/19/20 21:59 Lipitor PO 40 mg QHS MAIK Administration Bisacodyl 10 mg 01/15/20 21:27 Dulcolax IA QDAY PRN Constipation unrelieved by MOM Famotidine 20 mg 01/15/20 22:00 01/19/20 09:10 Pepcid PO 20 mg QAM MAIK Administration Gabapentin 300 mg 01/15/20 22:00 01/19/20 21:59 Gabapentin PO 300 mg BID MAIK Administration Heparin Sodium (Porcine) 5,000 unit 01/16/20 10:00 01/19/20 22:00 Heparin SUB-Q 5,000 unit Q12HR MAIK Administration Hydralazine HCl 5 mg 01/15/20 23:02 01/19/20 03:57 Apresoline IV 5 mg Q6H PRN Administration Hypertension Hydromorphone HCl 0.5 mg 01/15/20 21:27 Dilaudid IV Q3H PRN Pain , Severe (7-10) Sodium Chloride 1,000 mls @ 75 mls/hr 01/16/20 22:15 01/18/20 11:45 Nacl 0.9% 1000 Ml IV 75 mls/hr DIRECT MAIK Administration Ceftriaxone Sodium 1 gm in 50 mls @ 100 mls/hr 01/16/20 23:00 01/19/20 22:00 Rocephin/Ns 1 Gm/50 Ml IV 01/20/20 23:59 100 mls/hr Q24HR@2200 MAIK Administration Protocol Magnesium Hydroxide 30 ml 01/15/20 21:27 Milk Of Magnesia PO Q4H PRN Constipation Metoclopramide HCl 5 mg 01/15/20 21:27 Reglan IV Q6H PRN Nausea And Vomiting Metoprolol Tartrate 50 mg 01/19/20 12:00 01/19/20 21:59 Metoprolol PO 50 mg BID MAIK Administration Nifedipine 90 mg 01/15/20 22:00 01/19/20 09:10 Procardia Xl PO 90 mg QDAY MAIK Administration Ondansetron HCl 4 mg 01/15/20 21:26 01/16/20 11:20 Zofran IV 4 mg Q8H PRN Administration Nausea And Vomiting Oxycodone/Acetaminophen 1 tab 01/15/20 21:27 Percocet 5/325 PO Q6H PRN Pain, Moderate (4-6) Promethazine HCl 25 mg 01/15/20 21:27 Phenergan IA Q6H PRN N/V IF NPO AND NO IV ACCESS Sodium Chloride 10 ml 01/15/20 22:00 01/19/20 22:00 Sodium Chloride Flush Syringe 10 Ml IV 10 ml BID MAIK Administration Sodium Chloride 10 ml 01/15/20 21:31 Sodium Chloride Flush Syringe 10 Ml IV PRN PRN LINE FLUSH Tramadol HCl 50 mg 01/15/20 21:21 Ultram PO Q6HR PRN PAIN
[2020-01-20] MEDS: ASPIRIN 325 MG TAB PO SCH (10:14)
[2020-01-20] MEDS: FAMOTIDINE 20 MG TAB PO SCH (10:14)
[2020-01-20] MEDS: NIFEdipine XL 90 MG TAB PO SCH (10:15)
[2020-01-20] MEDS: METOPROLOL TARTRATE 50 MG TAB PO SCH ×2 (10:15→21:17)
[2020-01-20] MEDS: GABAPENTIN 300 MG CAP PO SCH ×2 (10:15→21:17)
[2020-01-20] MEDS: HEPARIN 5,000 UNIT/1 ML VIAL SUB-Q SCH ×2 (10:16→21:17)
[2020-01-20] MEDS: SODIUM CHLORIDE 0.9% 1000 ML 1,000 ML IV SCH (10:28)
[2020-01-20] MEDS: cefTRIAXone/NS 1 GM/50 ML 1 GM/50 ML BAG IV SCH (21:17)
[2020-01-21 04:45] LABS: Calcium 8.7 mg/dL (8.4-10.2)
--- NOTE | 2020-01-21 08:17 | Progress Note ---
Assessment and Plan 1. Acute kidney injury: DODIE superimposed on CKD stage 3 in the setting of contrast induced nephropathy +/- fluctuation in the BP. Renal US shows simple cyst in L kidney, negative for hydro. Creatinine is fluctuating slightly, 2.6 from 2.9 from 2.5 from 3 from 3.4 from 2.4. Suspect this may be near his new baseline. Continue IV fluids. Monitor renal function. Renal prognosis is guarded. Avoid nephrotoxic agents. Meds dosage based on GFR. 2. FEN: Metabolic acidosis, sodium bicarb PO, monitor. Hyperkalemia, improved, monitor. Monitor lytes and volume status. 3. Acute CVA: Not candidate for LVO thrombectomy 2/ total occlusion. TPA deferred on admission. H/o CVA with right sided hemiplegia. Aphasic. Awaiting placement. 4. Hypertension: Monitor BP closely. 5. H/o CVA x 3: R sided hemiplegia. 6. H/o COPD. 7. GERD. Pt should f/u with us 1-2 weeks after d/c. Subjective Date of service: 01/21/20 Interval history: Patient was seen and examined at the bedside. No acute events reported overnight. Pt is awaiting rehab placement. Objective - Exam Narrative Exam: General appearance: well-developed, well-nourished, appears stated age, no distress, restraints present BUE EENT: ATNC, PERRL, mucous membranes moist Neck: neck supple, trachea midline Respiratory: Clear to Ascultation Heart: regular, S1S2, no murmur Gastrointestinal: soft, normoactive bowel sounds, not tender Integumentary: no rash, warm and dry Neurologic: alert, aphasic, R sided weakness noted Musculoskeletal: no obvious deformity - Vital Signs Vital signs: Vital Signs - 12hr 01/20/20 01/20/20 01/20/20 21:17 22:00 23:28 Temperature 97.8 F Pulse Rate 89 74 85 Respiratory 18 Rate Blood Pressure 147/92 145/107 O2 Sat by Pulse 98 Oximetry 01/21/20 01/21/20 03:17 07:30 Temperature 97.6 F 98.6 F Pulse Rate 87 84 Respiratory 18 18 Rate Blood Pressure 161/98 156/95 O2 Sat by Pulse 98 99 Oximetry - Lab 01/17/20 04:08 01/21/20 03:37 Most recent lab results Calcium 8.7 mg/dL (8.4-10.2) 01/21/20 03:37 Phosphorus 3.60 mg/dL (2.5-4.5) 01/21/20 03:37 Magnesium 1.90 mg/dL (1.7-2.3) 01/21/20 03:37 Urine Creatinine 4.2 mg/dL (0.1-20.0) 01/16/20 14:30 Urine Sodium 10 mmol/L 01/16/20 14:30 Medications & Allergies - Medications Allergies/Adverse Reactions: Allergies No Known Allergies Allergy (Verified 01/15/20 10:11) Home Medications: Home Medications Medication Instructions Recorded Confirmed Last Taken Type NIFEdipine XL [Procardia Xl] 90 mg PO QDAY #30 tablet 11/18/16 01/15/20 Unknown Rx Pantoprazole [Protonix TAB] 40 mg PO QDAY #30 tablet 11/18/16 01/15/20 Unknown Rx Simvastatin [Zocor TAB] 10 mg PO QHS #30 tablet 11/18/16 01/15/20 Unknown Rx lisinopriL [Zestril TAB] 20 mg PO BID #60 tablet 11/18/16 01/15/20 Unknown Rx Gabapentin 300 mg PO BID #30 cap 03/25/17 01/15/20 Unknown Rx traMADoL [Ultram 50 MG tab] 50 mg PO Q6HR PRN #20 tablet 02/28/18 01/15/20 Unknown Rx Active Medications: Generic Name Dose Route Start Last Admin Trade Name Freq PRN Reason Stop Dose Admin Acetaminophen 650 mg 01/15/20 21:20 01/17/20 21:44 Tylenol PO 650 mg Q4H PRN Administration Pain, Mild (1-3) Al Hydrox/Mg Hydrox/Simethicone 30 ml 01/15/20 21:27 Alum-Mag Hydrox-Simeth [phone]/5ml PO Q4H PRN Indigestion Aspirin 325 mg 01/16/20 10:00 01/20/20 10:14 Aspirin PO 325 mg QDAY MAIK Administration Atorvastatin Calcium 40 mg 01/15/20 22:00 01/20/20 21:17 Lipitor PO 40 mg QHS MAIK Administration Bisacodyl 10 mg 01/15/20 21:27 Dulcolax LA QDAY PRN Constipation unrelieved by MOM Famotidine 20 mg 01/15/20 22:00 01/20/20 10:14 Pepcid PO 20 mg QAM MAIK Administration Gabapentin 300 mg 01/15/20 22:00 01/20/20 21:17 Gabapentin PO 300 mg BID MAIK Administration Heparin Sodium (Porcine) 5,000 unit 01/16/20 10:00 01/20/20 21:17 Heparin SUB-Q 5,000 unit Q12HR MAIK Administration Hydralazine HCl 5 mg 01/15/20 23:02 01/19/20 03:57 Apresoline IV 5 mg Q6H PRN Administration Hypertension Hydromorphone HCl 0.5 mg 01/15/20 21:27 Dilaudid IV Q3H PRN Pain , Severe (7-10) Sodium Chloride 1,000 mls @ 75 mls/hr 01/16/20 22:15 01/20/20 10:28 Nacl 0.9% 1000 Ml IV 75 mls/hr DIRECT MAIK Administration Magnesium Hydroxide 30 ml 01/15/20 21:27 Milk Of Magnesia PO Q4H PRN Constipation Metoclopramide HCl 5 mg 01/15/20 21:27 Reglan IV Q6H PRN Nausea And Vomiting Metoprolol Tartrate 50 mg 01/19/20 12:00 01/20/20 21:17 Metoprolol PO 50 mg BID MAIK Administration Nifedipine 90 mg 01/15/20 22:00 01/20/20 10:15 Procardia Xl PO 90 mg QDAY MAIK Administration Ondansetron HCl 4 mg 01/15/20 21:26 01/16/20 11:20 Zofran IV 4 mg Q8H PRN Administration Nausea And Vomiting Oxycodone/Acetaminophen 1 tab 01/15/20 21:27 Percocet 5/325 PO Q6H PRN Pain, Moderate (4-6) Promethazine HCl 25 mg 01/15/20 21:27 Phenergan LA Q6H PRN N/V IF NPO AND NO IV ACCESS Sodium Chloride 10 ml 01/15/20 22:00 01/20/20 21:17 Sodium Chloride Flush Syringe 10 Ml IV 10 ml BID MAIK Administration Sodium Chloride 10 ml 01/15/20 21:31 Sodium Chloride Flush Syringe 10 Ml IV PRN PRN LINE FLUSH Tramadol HCl 50 mg 01/15/20 21:21 Ultram PO Q6HR PRN PAIN
[2020-01-21] MEDS: SODIUM BICARBONATE 650 MG TAB PO SCH ×3 (11:13→21:49)
[2020-01-21] MEDS: METOPROLOL TARTRATE 50 MG TAB PO SCH ×2 (11:13→21:49)
[2020-01-21] MEDS: FAMOTIDINE 20 MG TAB PO SCH (11:14)
[2020-01-21] MEDS: NIFEdipine XL 90 MG TAB PO SCH (11:14)
[2020-01-21] MEDS: ASPIRIN 325 MG TAB PO SCH (11:14)
[2020-01-21] MEDS: GABAPENTIN 300 MG CAP PO SCH ×2 (11:14→21:49)
[2020-01-21] MEDS: HEPARIN 5,000 UNIT/1 ML VIAL SUB-Q SCH ×2 (11:14→21:49)
--- NOTE | 2020-01-21 14:32 | Progress Note ---
Assessment and Plan /Acute Left MCA ischemic stroke Continue Aspirin, statin, Neurology consulted - MRI Brain- large left MCA territory acute infarct. - C. doppler- normal. Echo- sever global hypokinesis . EF- 15-20%. -possibliy may had cardioembolic stroke, decision for the anticoagulation should be done in 4-6 weeks. has a large infarct size. greater risk of bleeding. - PT/OT/Speech therapy evaluated: need PATSY, placement pending /Hypertensive urgency Manage BP as per stroke protocol on BB and CCB increase dose of procardia /Hyperlipidemia Cont statin /Acute on CKD due to ATN/contrast-induced decision for the anticoagulation should be done in 4-6 weeks . has a large infarct size. greater risk of bleeding. Nephrology following, s/p iv fluid Cr now stable /Hyperkalemia, Resolved. /Acute congestive heart failure with systolic dysfunction EF 15 to 20% -Patient appears compensated -Continue aspirin statin beta-brett -Diuresis as needed and monitor ins and O's -No ACEI for declining renal function /COPD, stable, nebs as needed -- DVT prophylaxis with heparin Disposition: Subacute rehab when clinically stable 01/20: Resumed care, discharge pending on placement. Will increase Procardia dose to 60 mg twice daily to better control blood pressure. Brief History: 64 year old male patient with pmh significant for hypertension, CKD stage 3, CVA x 3 with right sided weakness, GERD, arthritis, chronic back pain, and COPD presented to the ED for dysarthria and altered mental status. TPA was deferred and pt ultimately not deemed candidate for LVO thrombectomy. MRI brain revealed large left MCA territory acute infarct. ECHO showed eF 15-20%. Labs on admission significant for potassium 5.2, BUN 28, creatinine 2.9. His creatinine continued to increase and nephrology was consulted for further evaluation and management. Patient was placed on gentle IV fluid hydration and his renal function stabilized. Patient discharged now pending on subacute rehab placement Radiological data: Renal ultrasound: Mildly atrophic kidneys with increased echotexture consistent with nonspecific chronic renal parenchymal disease. MRI brain: Large area of acute subacute ischemia throughout the left MCA and to a lesser extent the left ANGELA territory. There is also a subcentimeter focus of acute ischemia in the left posterior temporal lobe which demonstrates minimal hemorrhagic transformation. Carotid Doppler: Less than 50% diameter stenosis bilaterally CT head: 1. An acute nonhemorrhagic left ANGELA infarct consistent with an extension of a previous chronic infarct. 2. No hemorrhage. 3. Moderate chronic white matter microangiopathy. CTA head neck: 1. Near complete occlusion of the distal left M1 segment in the MCA trifurcation region. 2. Left ANGELA occlusion-findings only slightly more progressed when compared with prior. 3. Other areas of narrowing as described above, including the right internal carotid and left vertebral arteries. 2D echo: EF 15 to 20% Physical exam: GENERAL: well-developed elderly male lying on bed appeared to be in no discomfort. HEENT: Normocephalic. Atraumatic. No conjunctival congestion or icterus. Patient has moist mucous membranes. NECK: Supple. Trachea midline. CHEST/LUNGS: Clear to auscultated bilaterally, breathing nonlabored. No wheezes crackles or rhonchi. HEART/CARDIOVASCULAR: Regular in rate and rhythm. S1 and S2 positive. ABDOMEN: Abdomen is soft, nontender. Patient has normal bowel sounds. SKIN: There is no rash. Warm and dry. NEURO: Awake,alert, aphasia, right sided weakness MUSCULOSKELETAL: No joint effusion or tenderness. EXTRIMITY: No edema, no cyanosis or clubbing. PSYCH: Unable to assess. Subjective Date of service: 01/21/20 Interval history: Patient seen and examined. Medical records and medication list reviewed. No acute event overnight noted by the RN. Patient denies any chest pain or difficulty breathing. Patient is tolerating diet. Has right-sided weakness right upper extremity more than lower extremity Discharge pending on placement Objective - Constitutional Vitals: Vital Signs - 12hr 01/21/20 01/21/20 01/21/20 03:17 07:30 10:00 Temperature 97.6 F 98.6 F Pulse Rate 87 84 Respiratory 18 18 18 Rate Blood Pressure 161/98 156/95 O2 Sat by Pulse 98 99 99 Oximetry 01/21/20 12:04 Temperature 98.2 F Pulse Rate 82 Respiratory 18 Rate Blood Pressure 159/100 O2 Sat by Pulse 99 Oximetry - Labs CBC & Chem 7: 01/17/20 04:08 01/23/20 05:53 Labs: Abnormal lab results 01/15/20 01/21/20 01/21/20 Range/Units 09:37 03:37 03:37 Sodium 135 L (137-145) mmol/L Carbon Dioxide 15 L (22-30) mmol/L BUN 35 H (9-20) mg/dL Creatinine 2.6 H (0.8-1.5) mg/dL POC Glucose 119 H (70-105) PTH Intact 120.5 H (15-65) pg/mL HEART Score - HEART Score Troponin: Troponin T 0.013 ng/mL (0.00-0.029) 01/15/20 10:32
[2020-01-21] MEDS: NIFEdipine XL 60 MG TAB PO SCH (21:48)
[2020-01-21] MEDS: SODIUM CHLORIDE 0.9% 1000 ML 1,000 ML IV SCH (21:49)
[2020-01-21] MEDS ORDERED: NIFEdipine XL 90 MG TAB PO SCH (22:00)
[2020-01-22 04:54] LABS: Calcium 8.6 mg/dL (8.4-10.2)
--- NOTE | 2020-01-22 08:03 | Progress Note ---
Assessment and Plan 1. Acute kidney injury: DODIE superimposed on CKD stage 3 in the setting of contrast induced nephropathy +/- fluctuation in the BP. Renal US shows simple cyst in L kidney, negative for hydro. Creatinine is fluctuating slightly, 2.7 from 2.6 from 2.9 from 2.5 from 3 from 3.4 from 2.4. Suspect this may be near his new baseline. Continue IV fluids. Monitor renal function. Renal prognosis is guarded. Avoid nephrotoxic agents. Meds dosage based on GFR. 2. FEN: Metabolic acidosis, sodium bicarb PO, monitor. Hyperkalemia, improved, monitor. Monitor lytes and volume status. 3. Acute CVA: Not candidate for LVO thrombectomy / total occlusion. TPA deferred on admission. H/o CVA with right sided hemiplegia. Aphasic. Awaiting placement. 4. Hypertension: Nifedipine added 01/20. Monitor BP closely. 5. H/o CVA x 3: R sided hemiplegia. 6. H/o COPD. 7. GERD. Pt should f/u with us 1-2 weeks after d/c. Subjective Date of service: 01/22/20 Interval history: Patient was seen and examined at the bedside. Primary RN present at bedside. No acute events reported overnight. Pt is awaiting rehab placement. Objective - Exam Narrative Exam: General appearance: well-developed, well-nourished, appears stated age, no distress, restraints present LUE EENT: ATNC, PERRL, mucous membranes moist Neck: neck supple, trachea midline Respiratory: Clear to Ascultation Heart: regular, S1S2, no murmur Gastrointestinal: soft, normoactive bowel sounds, not tender Integumentary: no rash, warm and dry Neurologic: alert, aphasic, R sided weakness noted, agitated at time of exam Musculoskeletal: no obvious deformity - Vital Signs Vital signs: Vital Signs - 12hr 01/21/20 01/21/20 01/21/20 20:38 20:50 21:49 Temperature Pulse Rate 88 Respiratory 20 Rate Blood Pressure 157/101 157/101 O2 Sat by Pulse 98 Oximetry 01/21/20 01/21/20 01/22/20 22:00 23:21 04:02 Temperature 97.8 F 97.6 F Pulse Rate 89 78 85 Respiratory 18 20 Rate Blood Pressure 161/94 O2 Sat by Pulse 95 96 Oximetry - Lab 01/17/20 04:08 01/22/20 03:45 Most recent lab results Calcium 8.6 mg/dL (8.4-10.2) 01/22/20 03:45 Phosphorus 3.60 mg/dL (2.5-4.5) 01/21/20 03:37 Magnesium 1.90 mg/dL (1.7-2.3) 01/21/20 03:37 Urine Creatinine 4.2 mg/dL (0.1-20.0) 01/16/20 14:30 Urine Sodium 10 mmol/L 01/16/20 14:30 Medications & Allergies - Medications Allergies/Adverse Reactions: Allergies No Known Allergies Allergy (Verified 01/15/20 10:11) Home Medications: Home Medications Medication Instructions Recorded Confirmed Last Taken Type NIFEdipine XL [Procardia Xl] 90 mg PO QDAY #30 tablet 11/18/16 01/15/20 Unknown Rx Pantoprazole [Protonix TAB] 40 mg PO QDAY #30 tablet 11/18/16 01/15/20 Unknown Rx Simvastatin [Zocor TAB] 10 mg PO QHS #30 tablet 11/18/16 01/15/20 Unknown Rx lisinopriL [Zestril TAB] 20 mg PO BID #60 tablet 11/18/16 01/15/20 Unknown Rx Gabapentin 300 mg PO BID #30 cap 03/25/17 01/15/20 Unknown Rx traMADoL [Ultram 50 MG tab] 50 mg PO Q6HR PRN #20 tablet 02/28/18 01/15/20 Unknown Rx Active Medications: Generic Name Dose Route Start Last Admin Trade Name Zhengq PRN Reason Stop Dose Admin Acetaminophen 650 mg 01/15/20 21:20 01/17/20 21:44 Tylenol PO 650 mg Q4H PRN Administration Pain, Mild (1-3) Al Hydrox/Mg Hydrox/Simethicone 30 ml 01/15/20 21:27 Alum-Mag Hydrox-Simeth [phone]/5ml PO Q4H PRN Indigestion Aspirin 325 mg 01/16/20 10:00 01/21/20 11:14 Aspirin PO 325 mg QDAY MAIK Administration Atorvastatin Calcium 40 mg 01/15/20 22:00 01/21/20 21:49 Lipitor PO 40 mg QHS MAIK Administration Bisacodyl 10 mg 01/15/20 21:27 Dulcolax SC QDAY PRN Constipation unrelieved by MOM Famotidine 20 mg 01/15/20 22:00 01/21/20 11:14 Pepcid PO 20 mg QAM MAIK Administration Gabapentin 300 mg 01/15/20 22:00 01/21/20 21:49 Gabapentin PO 300 mg BID MAIK Administration Heparin Sodium (Porcine) 5,000 unit 01/16/20 10:00 01/21/20 21:49 Heparin SUB-Q 5,000 unit Q12HR MAIK Administration Hydralazine HCl 5 mg 01/15/20 23:02 01/19/20 03:57 Apresoline IV 5 mg Q6H PRN Administration Hypertension Hydromorphone HCl 0.5 mg 01/15/20 21:27 Dilaudid IV Q3H PRN Pain , Severe (7-10) Sodium Chloride 1,000 mls @ 75 mls/hr 01/16/20 22:15 01/21/20 21:49 Nacl 0.9% 1000 Ml IV 75 mls/hr DIRECT MAIK Administration Magnesium Hydroxide 30 ml 01/15/20 21:27 Milk Of Magnesia PO Q4H PRN Constipation Metoclopramide HCl 5 mg 01/15/20 21:27 Reglan IV Q6H PRN Nausea And Vomiting Metoprolol Tartrate 50 mg 01/19/20 12:00 01/21/20 21:49 Metoprolol PO 50 mg BID MAIK Administration Nifedipine 60 mg 01/21/20 22:00 01/21/20 21:48 Procardia Xl PO 60 mg BID MAIK Administration Ondansetron HCl 4 mg 01/15/20 21:26 01/16/20 11:20 Zofran IV 4 mg Q8H PRN Administration Nausea And Vomiting Oxycodone/Acetaminophen 1 tab 01/15/20 21:27 Percocet 5/325 PO Q6H PRN Pain, Moderate (4-6) Promethazine HCl 25 mg 01/15/20 21:27 Phenergan SC Q6H PRN N/V IF NPO AND NO IV ACCESS Sodium Bicarbonate 650 mg 01/21/20 09:30 01/21/20 21:49 Sodium Bicarbonate PO 650 mg TID MAIK Administration Sodium Chloride 10 ml 01/15/20 22:00 01/21/20 21:50 Sodium Chloride Flush Syringe 10 Ml IV 10 ml BID MAIK Administration Sodium Chloride 10 ml 01/15/20 21:31 Sodium Chloride Flush Syringe 10 Ml IV PRN PRN LINE FLUSH Tramadol HCl 50 mg 01/15/20 21:21 Ultram PO Q6HR PRN PAIN
[2020-01-22] MEDS: SODIUM BICARBONATE 650 MG TAB PO SCH ×3 (10:14→21:24)
[2020-01-22] MEDS: ASPIRIN 325 MG TAB PO SCH (10:14)
[2020-01-22] MEDS: NIFEdipine XL 60 MG TAB PO SCH ×2 (10:19→21:24)
[2020-01-22] MEDS: FAMOTIDINE 20 MG TAB PO SCH (10:19)
[2020-01-22] MEDS: GABAPENTIN 300 MG CAP PO SCH ×2 (10:19→21:25)
[2020-01-22] MEDS: METOPROLOL TARTRATE 50 MG TAB PO SCH ×2 (10:20→21:25)
[2020-01-22] MEDS: HEPARIN 5,000 UNIT/1 ML VIAL SUB-Q SCH ×2 (10:20→21:24)
--- NOTE | 2020-01-22 14:55 | Progress Note ---
Assessment and Plan /Acute Left MCA ischemic stroke Continue Aspirin, statin, Neurology consulted - MRI Brain- large left MCA territory acute infarct. - C. doppler- normal. Echo- sever global hypokinesis . EF- 15-20%. -possibliy may had cardioembolic stroke, decision for the anticoagulation should be done in 4-6 weeks. has a large infarct size. greater risk of bleeding. - PT/OT/Speech therapy evaluated: need PATSY, placement pending /Hypertensive urgency Manage BP as per stroke protocol on BB and CCB increase dose of procardia /Hyperlipidemia Cont statin /Acute on CKD due to ATN/contrast-induced decision for the anticoagulation should be done in 4-6 weeks . has a large infarct size. greater risk of bleeding. Nephrology following, s/p iv fluid Cr now stable /Hyperkalemia, Resolved. /Acute congestive heart failure with systolic dysfunction EF 15 to 20% -Patient appears compensated -Continue aspirin statin beta-brett -Diuresis as needed and monitor ins and O's -No ACEI for declining renal function /COPD, stable, nebs as needed -- DVT prophylaxis with heparin Disposition: Subacute rehab when clinically stable 01/20: Resumed care, discharge pending on placement. Will increase Procardia dose to 60 mg twice daily to better control blood pressure. 01/21: Patient need placement for discharge, ordered COVID-19 test per halfway protocol Brief History: 64 year old male patient with pmh significant for hypertension, CKD stage 3, CVA x 3 with right sided weakness, GERD, arthritis, chronic back pain, and COPD presented to the ED for dysarthria and altered mental status. TPA was deferred and pt ultimately not deemed candidate for LVO thrombectomy. MRI brain revealed large left MCA territory acute infarct. ECHO showed eF 15-20%. Labs on admission significant for potassium 5.2, BUN 28, creatinine 2.9. His creatinine continued to increase and nephrology was consulted for further evaluation and management. Patient was placed on gentle IV fluid hydration and his renal function stabilized. Patient discharged now pending on subacute rehab placement Radiological data: Renal ultrasound: Mildly atrophic kidneys with increased echotexture consistent with nonspecific chronic renal parenchymal disease. MRI brain: Large area of acute subacute ischemia throughout the left MCA and to a lesser extent the left ANGELA territory. There is also a subcentimeter focus of acute ischemia in the left posterior temporal lobe which demonstrates minimal hemorrhagic transformation. Carotid Doppler: Less than 50% diameter stenosis bilaterally CT head: 1. An acute nonhemorrhagic left ANGELA infarct consistent with an extension of a previous chronic infarct. 2. No hemorrhage. 3. Moderate chronic white matter microangiopathy. CTA head neck: 1. Near complete occlusion of the distal left M1 segment in the MCA trifurcation region. 2. Left ANGELA occlusion-findings only slightly more progr essed when compared with prior. 3. Other areas of narrowing as described above, including the right internal carotid and left vertebral arteries. 2D echo: EF 15 to 20% Physical exam: GENERAL: well-developed elderly male lying on bed appeared to be in no discomfort. HEENT: Normocephalic. Atraumatic. No conjunctival congestion or icterus. Patient has moist mucous membranes. NECK: Supple. Trachea midline. CHEST/LUNGS: Clear to auscultated bilaterally, breathing nonlabored. No wheezes crackles or rhonchi. HEART/CARDIOVASCULAR: Regular in rate and rhythm. S1 and S2 positive. ABDOMEN: Abdomen is soft, nontender. Patient has normal bowel sounds. SKIN: There is no rash. Warm and dry. NEURO: Awake,alert, aphasia, right sided weakness MUSCULOSKELETAL: No joint effusion or tenderness. EXTRIMITY: No edema, no cyanosis or clubbing. PSYCH: Unable to assess. Subjective Date of service: 01/22/20 Interval history: Patient seen and examined. Medical records and medication list reviewed. No acute event overnight noted by the RN. Patient denies any chest pain or difficulty breathing. Patient is tolerating diet. Has right-sided weakness right upper extremity more than lower extremity Sitter at bedside, discharge pending on placement Objective - Constitutional Vitals: Vital Signs - 12hr 01/22/20 01/22/20 01/22/20 04:02 08:14 10:00 Temperature 97.6 F 98.4 F Pulse Rate 85 83 Respiratory 20 18 18 Rate Blood Pressure 161/94 167/97 O2 Sat by Pulse 96 100 Oximetry 01/22/20 01/22/20 01/22/20 10:20 11:51 13:42 Temperature 98.8 F Pulse Rate 83 87 88 Respiratory 18 Rate Blood Pressure 167/97 109/71 O2 Sat by Pulse 100 Oximetry - Labs CBC & Chem 7: 01/17/20 04:08 01/23/20 05:53 Labs: Abnormal lab results 01/22/20 Range/Units 03:45 Chloride 107.1 H (98-107) mmol/L Carbon Dioxide 16 L (22-30) mmol/L BUN 37 H (9-20) mg/dL Creatinine 2.7 H (0.8-1.5) mg/dL HEART Score - HEART Score Troponin: Troponin T 0.013 ng/mL (0.00-0.029) 01/15/20 10:32
[2020-01-22] MEDS: ACETAMINOPHEN 325 MG TAB PO PRN (21:25)
[2020-01-23 06:55] LABS: Calcium 8.6 mg/dL (8.4-10.2)
--- NOTE | 2020-01-23 10:16 | Progress Note ---
Assessment and Plan 1. Acute kidney injury: DODIE superimposed on CKD stage 3 in the setting of contrast induced nephropathy +/- fluctuation in the BP. Renal US shows simple cyst in L kidney, negative for hydro. Creatinine is 2.7 from 2.6 from 2.9 from 2.5 from 3 from 3.4 from 2.4. Suspect this may be his new baseline. Monitor renal function. Renal prognosis is guarded. Avoid nephrotoxic agents. Meds dosage based on GFR. 2. FEN: Metabolic acidosis, sodium bicarb PO, monitor. Hyperkalemia, improved, monitor. Monitor lytes and volume status. 3. Acute CVA: Not candidate for LVO thrombectomy 2/ total occlusion. TPA deferred on admission. H/o CVA with right sided hemiplegia. Aphasic. Awaiting placement. 4. Hypertension: Nifedipine added 01/20. BP is better. Monitor BP closely. 5. H/o CVA x 3: R sided hemiplegia. 6. H/o COPD. 7. GERD. Pt should f/u with us 1-2 weeks after d/c. Subjective: Patient was seen and examined at the bedside. No acute events reported overnight. Pt is awaiting rehab placement. Objective: Exam General appearance: well-developed, well-nourished, appears stated age, no distress HEENT: ATNC, BRIGIDO, mucous membranes moist Neck: trachea midline Respiratory: Clear to Ascultation Heart: regular, S1S2, no murmur Gastrointestinal: soft, normoactive bowel sounds, not tender Integumentary: no rash, warm and dry Ext: no edema Neurologic: alert, aphasic, R sided weakness noted Musculoskeletal: no obvious deformity Subjective Date of service: 01/23/20 Objective - Vital Signs Vital signs: Vital Signs - 12hr 01/22/20 01/23/20 01/23/20 23:54 05:15 08:09 Temperature 97.9 F 97.7 F 98.3 F Pulse Rate 81 79 Respiratory 18 17 18 Rate Blood Pressure 115/77 142/87 163/93 O2 Sat by Pulse 100 97 Oximetry - Lab 01/17/20 04:08 01/23/20 05:53 Most recent lab results Calcium 8.6 mg/dL (8.4-10.2) 01/23/20 05:53 Phosphorus 3.60 mg/dL (2.5-4.5) 01/21/20 03:37 Magnesium 1.90 mg/dL (1.7-2.3) 01/21/20 03:37 Urine Creatinine 4.2 mg/dL (0.1-20.0) 01/16/20 14:30 Urine Sodium 10 mmol/L 01/16/20 14:30 Medications & Allergies - Medications Allergies/Adverse Reactions: Allergies No Known Allergies Allergy (Verified 01/15/20 10:11) Home Medications: Home Medications Medication Instructions Recorded Confirmed Last Taken Type NIFEdipine XL [Procardia Xl] 90 mg PO QDAY #30 tablet 11/18/16 01/15/20 Unknown Rx Pantoprazole [Protonix TAB] 40 mg PO QDAY #30 tablet 11/18/16 01/15/20 Unknown Rx Gabapentin 300 mg PO BID #30 cap 03/25/17 01/15/20 Unknown Rx traMADoL [Ultram 50 MG tab] 50 mg PO Q6HR PRN #20 tablet 02/28/18 01/15/20 Unknown Rx Aspirin 81 mg PO QDAY tablet 01/23/20 Unknown Rx AtorvaSTATin [Lipitor] 40 mg PO QHS tablet 01/23/20 Unknown Rx Metoprolol [Lopressor TAB] 100 mg PO BID tablet 01/23/20 Unknown Rx Active Medications: Generic Name Dose Route Start Last Admin Trade Name Zhengq PRN Reason Stop Dose Admin Acetaminophen 650 mg 01/15/20 21:20 01/22/20 21:25 Tylenol PO 650 mg Q4H PRN Administration Pain, Mild (1-3) Al Hydrox/Mg Hydrox/Simethicone 30 ml 01/15/20 21:27 Alum-Mag Hydrox-Simeth [phone]/5ml PO Q4H PRN Indigestion Aspirin 325 mg 01/16/20 10:00 01/22/20 10:14 Aspirin PO 325 mg QDAY MAIK Administration Atorvastatin Calcium 40 mg 01/15/20 22:00 01/22/20 21:25 Lipitor PO 40 mg QHS MAIK Administration Bisacodyl 10 mg 01/15/20 21:27 Dulcolax [place] QDAY PRN Constipation unrelieved by MOM Famotidine 20 mg 01/15/20 22:00 01/22/20 10:19 Pepcid PO 20 mg QAM MAIK Administration Gabapentin 300 mg 01/15/20 22:00 01/22/20 21:25 Gabapentin PO 300 mg BID MAIK Administration Heparin Sodium (Porcine) 5,000 unit 01/16/20 10:00 01/22/20 21:24 Heparin SUB-Q 5,000 unit Q12HR MAIK Administration Hydralazine HCl 5 mg 01/15/20 23:02 01/19/20 03:57 Apresoline IV 5 mg Q6H PRN Administration Hypertension Hydromorphone HCl 0.5 mg 01/15/20 21:27 Dilaudid IV Q3H PRN Pain , Severe (7-10) Magnesium Hydroxide 30 ml 01/15/20 21:27 Milk Of Magnesia PO Q4H PRN Constipation Metoclopramide HCl 5 mg 01/15/20 21:27 Reglan IV Q6H PRN Nausea And Vomiting Metoprolol Tartrate 50 mg 01/19/20 12:00 01/22/20 21:25 Metoprolol PO 50 mg BID MAIK Administration Nifedipine 60 mg 01/21/20 22:00 01/22/20 21:24 Procardia Xl PO 60 mg BID MAIK Administration Ondansetron HCl 4 mg 01/15/20 21:26 01/16/20 11:20 Zofran IV 4 mg Q8H PRN Administration Nausea And Vomiting Oxycodone/Acetaminophen 1 tab 01/15/20 21:27 Percocet 5/325 PO Q6H PRN Pain, Moderate (4-6) Promethazine HCl 25 mg 01/15/20 21:27 Phenergan [place] Q6H PRN N/V IF NPO AND NO IV ACCESS Sodium Bicarbonate 650 mg 01/21/20 09:30 01/22/20 21:24 Sodium Bicarbonate PO 650 mg TID MAIK Administration Sodium Chloride 10 ml 01/15/20 22:00 01/22/20 21:26 Sodium Chloride Flush Syringe 10 Ml IV 10 ml BID MAIK Administration Sodium Chloride 10 ml 01/15/20 21:31 Sodium Chloride Flush Syringe 10 Ml IV PRN PRN LINE FLUSH Tramadol HCl 50 mg 01/15/20 21:21 Ultram PO Q6HR PRN PAIN
[2020-01-23] MEDS: NIFEdipine XL 60 MG TAB PO SCH ×2 (10:43→21:01)
[2020-01-23] MEDS: SODIUM BICARBONATE 650 MG TAB PO SCH ×3 (10:43→21:02)
[2020-01-23] MEDS: GABAPENTIN 300 MG CAP PO SCH ×2 (10:43→19:43)
[2020-01-23] MEDS: HEPARIN 5,000 UNIT/1 ML VIAL SUB-Q SCH ×2 (10:44→21:02)
[2020-01-23] MEDS: METOPROLOL TARTRATE 50 MG TAB PO SCH ×2 (10:44→21:02)
[2020-01-23] MEDS: FAMOTIDINE 20 MG TAB PO SCH (10:44)
[2020-01-23] MEDS: ASPIRIN 325 MG TAB PO SCH (10:49)
--- NOTE | 2020-01-23 11:09 | Discharge Summary ---
Providers - Providers Date of Admission: 01/15/20 15:05 Date of discharge: 01/24/20 Attending physician: BOY ARDON 01/15/20 21:27 Consult to Physician [CONS] Routine Comment: Consulting Provider: MINESH LEIGH Physician Instructions: Reason For Exam: cva 01/15/20 21:31 Occupational Therapy Evaluate and Treat [CONS] Routine Comment: Reason For Exam: Neuro deficits Physical Therapy Evaluation and Treat [CONS] Routine Comment: Reason For Exam: Neuro deficits 01/16/20 07:48 Consult to Physician [CONS] Routine Comment: Consulting Provider: YANIRA OJEDA Physician Instructions: Reason For Exam: Tano/Ckd 01/16/20 12:30 Speech Therapy Evaluation and Treat [CONS] Routine Reason For Exam: stroke Hospitalization Condition: Serious Hospital course: 64 year old male patient with pmh significant for hypertension, CKD stage 3, CVA x 3 with right sided weakness, GERD, arthritis, chronic back pain, and COPD presented to the ED for dysarthria and altered mental status. TPA was deferred and pt ultimately not deemed candidate for thrombectomy. MRI brain revealed large left MCA territory acute infarct. ECHO showed eF 15-20%. Labs on ad mission significant for potassium 5.2, BUN 28, creatinine 2.9. His creatinine continued to increase and nephrology was consulted for further evaluation and management. Patient was placed on gentle IV fluid hydration and his renal function stabilized. Patient patient was evaluated by physical therapy and recommended subacute rehab, patient was then discharged to subacute rehab in stable condition. Radiological data: Renal ultrasound: Mildly atrophic kidneys with increased echotexture consistent with nonspecific chronic renal parenchymal disease. MRI brain: Large area of acute subacute ischemia throughout the left MCA and to a lesser extent the left ANGELA territory. There is also a subcentimeter focus of acute ischemia in the left posterior temporal lobe which demonstrates minimal hemorrhagic transformation. Carotid Doppler: Less than 50% diameter stenosis bilaterally CT head: 1. An acute nonhemorrhagic left ANGELA infarct consistent with an extension of a previous chronic infarct. 2. No hemorrhage. 3. Moderate chronic white matter microangiopathy. CTA head neck: 1. Near complete occlusion of the distal left M1 segment in the MCA trifurcation region. 2. Left ANGELA occlusion-findings only slightly more progressed when compared with prior. 3. Other areas of narrowing as described above, including the right internal carotid and left vertebral arteries. 2D echo: EF 15 to 20% Discharge diagnosis and management: /Acute Left MCA ischemic stroke Continue Aspirin, statin, Neurology consulted - MRI Brain- large left MCA territory acute infarct. - C. doppler- normal. Echo- sever global hypokinesis . EF- 15-20%. -possibliy may had cardioembolic stroke, decision for the anticoagulation should be done in 4-6 weeks. has a large infarct size. greater risk of bleeding. - PT/OT/Speech therapy evaluated: need PATSY /Hypertensive urgency Managed BP as per stroke protocol on BB and CCB /Hyperlipidemia, Cont statin /Acute on CKD 3 due to ATN/contrast-induced Nephrology following, s/p iv fluid Cr now stable /Hyperkalemia, Resolved. /Acute congestive heart failure with systolic dysfunction EF 15 to 20% -Patient appears compensated -Continue aspirin statin beta-brett -Diuresis as needed and monitor ins and O's -No ACEI for declining renal function /COPD, stable, nebs as needed -- DVT prophylaxis with heparin Disposition: Subacute rehab Physical exam: GENERAL: well-developed elderly male lying on bed appeared to be in no discomfort. HEENT: Normocephalic. Atraumatic. No conjunctival congestion or icterus. Patient has moist mucous membranes. NECK: Supple. Trachea midline. CHEST/LUNGS: Clear to auscultated bilaterally, breathing nonlabored. No wheezes crackles or rhonchi. HEART/CARDIOVASCULAR: Regular in rate and rhythm. S1 and S2 positive. ABDOMEN: Abdomen is soft, nontender. Patient has normal bowel sounds. SKIN: There is no rash. Warm and dry. NEURO: Awake,alert, aphasia, right sided weakness MUSCULOSKELETAL: No joint effusion or tenderness. EXTRIMITY: No edema, no cyanosis or clubbing. PSYCH: Unable to assess. Disposition[facility] Time spent for discharge: 34 minutes Core Measure Documentation - Palliative Care Palliative Care/ Comfort Measures: Not Applicable - Core Measures Any of the following diagnoses?: none - Stroke Discharge Requirements Statin for LDL = or >70 mg/dl on DC: Yes Anticoag for atrial fib/atrial flutter: No Reason for no anticoag for AF/F on DC: Adverse Reaction to Drug Antithrombotic for ischemic stroke: Yes Exam - Constitutional Vitals: Temp Pulse Resp BP Pulse Ox 98.3 F 80 18 163/94 97 01/23/20 08:09 01/23/20 10:44 01/23/20 08:09 01/23/20 10:44 01/23/20 08:09 Plan Activity: up only with assistance Weight Bearing Status: Non-Weight Bearing Diet: low fat, renal Special Instructions: record daily BP diary Additional Instructions: BMP in one week. F/u with garment manufacturer in one week. decision for the anticoagulation should be done in 4-6 weeks Follow up with: PRIMARY CAREMD [Referring] - 3-5 Days YANIRA OJEDA MD [Staff Physician] - 7 Days
[2020-01-24] MEDS: NIFEdipine XL 60 MG TAB PO SCH (10:09)
[2020-01-24] MEDS: FAMOTIDINE 20 MG TAB PO SCH (10:09)
[2020-01-24] MEDS: SODIUM BICARBONATE 650 MG TAB PO SCH ×2 (10:10→14:00)
[2020-01-24] MEDS: ASPIRIN 325 MG TAB PO SCH (10:10)
[2020-01-24] MEDS: GABAPENTIN 300 MG CAP PO SCH (10:10)
[2020-01-24] MEDS: METOPROLOL TARTRATE 50 MG TAB PO SCH (10:10)
[2020-01-24] MEDS: HEPARIN 5,000 UNIT/1 ML VIAL SUB-Q SCH (10:11)
--- NOTE | 2020-01-24 10:25 | Progress Note ---
Assessment and Plan 1. Acute kidney injury: DODIE superimposed on CKD stage 3 in the setting of contrast induced nephropathy +/- fluctuation in the BP. Renal US shows simple cyst in L kidney, negative for hydro. Creatinine is 2.7 from 2.6 from 2.9 from 2.5 from 3 from 3.4 from 2.4. Likely new baseline. No labs from today. Monitor renal function. Renal prognosis is guarded. Avoid nephrotoxic agents. Meds dosage based on GFR. 2. FEN: Metabolic acidosis, sodium bicarb PO, monitor. Hyperkalemia, improved, monitor. Monitor lytes and volume status. 3. Acute CVA: Not candidate for LVO thrombectomy / total occlusion. TPA deferred on admission. H/o CVA with right sided hemiplegia. Aphasic. Awaiting placement. 4. Hypertension: Nifedipine added 01/20. BP is better. Monitor BP closely. 5. H/o CVA x 3: R sided hemiplegia. 6. H/o COPD. 7. GERD. Pt should f/u with us 1-2 weeks after d/c. Subjective: Patient was seen and examined at the bedside. No acute events reported overnight. Pt is awaiting SNF / rehab placement. Objective: Exam General appearance: well-developed, well-nourished, appears stated age, no distress HEENT: ATNC, BRIGIDO, mucous membranes moist Neck: trachea midline Respiratory: Clear to Ascultation Heart: regular, S1S2, no murmur Gastrointestinal: soft, normoactive bowel sounds, not tender Integumentary: no rash, warm and dry Ext: no edema Neurologic: alert, aphasic, R sided weakness noted Musculoskeletal: no obvious deformity Subjective Date of service: 01/24/20 Objective - Vital Signs Vital signs: Vital Signs - 12hr 01/23/20 01/23/20 01/24/20 23:34 23:42 04:00 Temperature 97.5 F L 97.5 F L Pulse Rate 81 83 Respiratory 20 20 Rate Blood Pressure 120/65 134/79 O2 Sat by Pulse 92 95 Oximetry 01/24/20 01/24/20 08:07 10:10 Temperature 97.5 F L Pulse Rate 82 76 Respiratory 20 Rate Blood Pressure 159/93 158/90 O2 Sat by Pulse 99 Oximetry - Lab 01/17/20 04:08 01/23/20 05:53 Most recent lab results Calcium 8.6 mg/dL (8.4-10.2) 01/23/20 05:53 Phosphorus 3.60 mg/dL (2.5-4.5) 01/21/20 03:37 Magnesium 1.90 mg/dL (1.7-2.3) 01/21/20 03:37 Urine Creatinine 4.2 mg/dL (0.1-20.0) 01/16/20 14:30 Urine Sodium 10 mmol/L 01/16/20 14:30 Medications & Allergies - Medications Allergies/Adverse Reactions: Allergies No Known Allergies Allergy (Verified 01/15/20 10:11) Home Medications: Home Medications Medication Instructions Recorded Confirmed Last Taken Type NIFEdipine XL [Procardia Xl] 90 mg PO QDAY #30 tablet 11/18/16 01/15/20 Unknown Rx Pantoprazole [Protonix TAB] 40 mg PO QDAY #30 tablet 11/18/16 01/15/20 Unknown Rx Gabapentin 300 mg PO BID #30 cap 03/25/17 01/15/20 Unknown Rx traMADoL [Ultram 50 MG tab] 50 mg PO Q6HR PRN #20 tablet 02/28/18 01/15/20 Unknown Rx Aspirin 81 mg PO QDAY tablet 01/23/20 Unknown Rx AtorvaSTATin [Lipitor] 40 mg PO QHS tablet 01/23/20 Unknown Rx Metoprolol [Lopressor TAB] 100 mg PO BID tablet 01/23/20 Unknown Rx Active Medications: Generic Name Dose Route Start Last Admin Trade Name Freq PRN Reason Stop Dose Admin Acetaminophen 650 mg 01/15/20 21:20 01/22/20 21:25 Tylenol PO 650 mg Q4H PRN Administration Pain, Mild (1-3) Al Hydrox/Mg Hydrox/Simethicone 30 ml 01/15/20 21:27 Alum-Mag Hydrox-Simeth [id number]/5ml PO Q4H PRN Indigestion Aspirin 325 mg 01/16/20 10:00 01/24/20 10:10 Aspirin PO 325 mg QDAY MAIK Administration Atorvastatin Calcium 40 mg 01/15/20 22:00 01/23/20 21:01 Lipitor PO 40 mg QHS MAIK Administration Bisacodyl 10 mg 01/15/20 21:27 Dulcolax [place] QDAY PRN Constipation unrelieved by MOM Famotidine 20 mg 01/15/20 22:00 01/24/20 10:09 Pepcid PO 20 mg QAM MAIK Administration Gabapentin 300 mg 01/23/20 11:00 01/24/20 10:10 Gabapentin PO 300 mg DAILY MAIK Administration Heparin Sodium (Porcine) 5,000 unit 01/16/20 10:00 01/24/20 10:11 Heparin SUB-Q 5,000 unit Q12HR MAIK Administration Hydralazine HCl 5 mg 01/15/20 23:02 01/19/20 03:57 Apresoline IV 5 mg Q6H PRN Administration Hypertension Hydromorphone HCl 0.5 mg 01/15/20 21:27 Dilaudid IV Q3H PRN Pain , Severe (7-10) Magnesium Hydroxide 30 ml 01/15/20 21:27 Milk Of Magnesia PO Q4H PRN Constipation Metoclopramide HCl 5 mg 01/15/20 21:27 Reglan IV Q6H PRN Nausea And Vomiting Metoprolol Tartrate 75 mg 01/23/20 22:00 01/24/20 10:10 Metoprolol PO 75 mg BID MAIK Administration Nifedipine 60 mg 01/21/20 22:00 01/24/20 10:09 Procardia Xl PO 60 mg BID MAIK Administration Ondansetron HCl 4 mg 01/15/20 21:26 01/16/20 11:20 Zofran IV 4 mg Q8H PRN Administration Nausea And Vomiting Oxycodone/Acetaminophen 1 tab 01/15/20 21:27 Percocet 5/325 PO Q6H PRN Pain, Moderate (4-6) Promethazine HCl 25 mg 01/15/20 21:27 Phenergan [place] Q6H PRN N/V IF NPO AND NO IV ACCESS Sodium Bicarbonate 650 mg 01/21/20 09:30 01/24/20 10:10 Sodium Bicarbonate PO 650 mg TID MAIK Administration Sodium Chloride 10 ml 01/15/20 22:00 01/24/20 10:12 Sodium Chloride Flush Syringe 10 Ml IV 10 ml BID MAIK Administration Sodium Chloride 10 ml 01/15/20 21:31 Sodium Chloride Flush Syringe 10 Ml IV PRN PRN LINE FLUSH Tramadol HCl 50 mg 01/15/20 21:21 Ultram PO Q6HR PRN Pain, Moderate (4-6)
[2020-01-24] MEDS ORDERED: ALBUTEROL 2.5 MG/3 ML NEBU IH PRN (10:50)
--- NOTE | 2020-01-24 11:28 | Progress Note ---
Assessment and Plan /Acute Left MCA ischemic stroke Continue Aspirin, statin, Neurology consulted - MRI Brain- large left MCA territory acute infarct. - C. doppler- normal. Echo- sever global hypokinesis . EF- 15-20%. -possibliy may had cardioembolic stroke, decision for the anticoagulation should be done in 4-6 weeks. has a large infarct size. greater risk of bleeding. - PT/OT/Speech therapy evaluated: need PATSY, placement pending /Hypertensive urgency Manage BP as per stroke protocol on BB and CCB increase dose of procardia /Hyperlipidemia Cont statin /Acute on CKD due to ATN/contrast-induced decision for the anticoagulation should be done in 4-6 weeks . has a large infarct size. greater risk of bleeding. Nephrology following, s/p iv fluid Cr now stable /Hyperkalemia, Resolved. /Acute congestive heart failure with systolic dysfunction EF 15 to 20% -Patient appears compensated -Continue aspirin statin beta-brett -Diuresis as needed and monitor ins and O's -No ACEI for declining renal function /COPD, stable, nebs as needed -- DVT prophylaxis with heparin Disposition: Subacute rehab when clinically stable 01/20: Resumed care, discharge pending on placement. Will increase Procardia dose to 60 mg twice daily to better control blood pressure. 01/21: Patient need placement for discharge, ordered COVID-19 test per [facility] protocl 01/22: Discharge pending on placement, COVID-19 test negative Brief History: 64 year old male patient with pmh significant for hypertension, CKD stage 3, CVA x 3 with right sided weakness, GERD, arthritis, chronic back pain, and COPD presented to the ED for dysarthria and altered mental status. TPA was deferred and pt ultimately not deemed candidate for LVO thrombectomy. MRI brain revealed large left MCA territory acute infarct. ECHO showed eF 15-20%. Labs on admi ssion significant for potassium 5.2, BUN 28, creatinine 2.9. His creatinine continued to increase and nephrology was consulted for further evaluation and management. Patient was placed on gentle IV fluid hydration and his renal function stabilized. Patient discharged now pending on subacute rehab placement Radiological data: Renal ultrasound: Mildly atrophic kidneys with increased echotexture consistent with nonspecific chronic renal parenchymal disease. MRI brain: Large area of acute subacute ischemia throughout the left MCA and to a lesser extent the left ANGELA territory. There is also a subcentimeter focus of acute ischemia in the left posterior temporal lobe which demonstrates minimal hemorrhagic transformation. Carotid Doppler: Less than 50% diameter stenosis bilaterally CT head: 1. An acute nonhemorrhagic left ANGELA infarct consistent with an extension of a previous chronic infarct. 2. No hemorrhage. 3. Moderate chronic white matter microangiopathy. CTA head neck: 1. Near complete occlusion of the distal left M1 segment in the MCA trifurcation region. 2. Left ANGELA occlusion-findings only slightly more progressed when compared with prior. 3. Other areas of narrowing as described above, including the right internal carotid and left vertebral arteries. 2D echo: EF 15 to 20% Physical exam: GENERAL: well-developed elderly male lying on bed appeared to be in no discomfort. HEENT: Normocephalic. Atraumatic. No conjunctival congestion or icterus. Patient has moist mucous membranes. NECK: Supple. Trachea midline. CHEST/LUNGS: Clear to auscultated bilaterally, breathing nonlabored. No wheezes crackles or rhonchi. HEART/CARDIOVASCULAR: Regular in rate and rhythm. S1 and S2 positive. ABDOMEN: Abdomen is soft, nontender. Patient has normal bowel sounds. SKIN: There is no rash. Warm and dry. NEURO: Awake,alert, aphasia, right sided weakness MUSCULOSKELETAL: No joint effusion or tenderness. EXTRIMITY: No edema, no cyanosis or clubbing. PSYCH: Unable to assess. Subjective Date of service: 01/23/20 Interval history: Patient seen and examined. Medical records and medication list reviewed. No acute event overnight noted by the RN. Patient denies any chest pain or difficulty breathing. Patient is tolerating diet. Has right-sided weakness right upper extremity more than lower extremity Sitter at bedside, discharge pending on placement Objective - Constitutional Vitals: Vital Signs - 12hr 01/23/20 01/23/20 01/24/20 23:34 23:42 04:00 Temperature 97.5 F L 97.5 F L Pulse Rate 81 83 Pulse Rate [ Anterior Throughout] Respiratory 20 20 Rate Respiratory Rate [Anterior Throughout] Blood Pressure 120/65 134/79 O2 Sat by Pulse 92 95 Oximetry 01/24/20 01/24/20 01/24/20 08:07 10:10 10:47 Temperature 97.5 F L Pulse Rate 82 76 Pulse Rate [ Anterior Throughout] Respiratory 20 Rate Respiratory Rate [Anterior Throughout] Blood Pressure 159/93 158/90 O2 Sat by Pulse 99 96 Oximetry 01/24/20 10:54 Temperature Pulse Rate Pulse Rate [ 86 Anterior Throughout] Respiratory Rate Respiratory 20 Rate [Anterior Throughout] Blood Pressure O2 Sat by Pulse Oximetry - Labs CBC & Chem 7: 01/17/20 04:08 01/23/20 05:53 HEART Score - HEART Score Troponin: Troponin T 0.013 ng/mL (0.00-0.029) 01/15/20 10:32
[2020-01-24 16:13] VITALS: BP 134/83
== END 2020-01-24 17:55 | DRG 64 ==
LOC: ED 09:23 → 4A 15:05
PROVIDERS: ADMIT Internal Medicine; ATTEND Internal Medicine
DX: I63.9 Cerebral infarction, unspecified (principal); N17.0 Acute kidney failure with tubular necrosis; I50.21 Acute systolic (congestive) heart failure; I13.0 Hypertensive heart and chronic kidney disease with heart failure and stage 1 through stage 4 chronic kidney disease, or unspecified chronic kidney disease; G81.91 Hemiplegia, unspecified affecting right dominant side; E87.2 Acidosis; I16.0 Hypertensive urgency; E87.5 Hyperkalemia; N18.3 Chronic kidney disease, stage 3 (moderate); K21.9 Gastro-esophageal reflux disease without esophagitis; M19.90 Unspecified osteoarthritis, unspecified site; G89.29 Other chronic pain; M54.9 Dorsalgia, unspecified; J44.9 Chronic obstructive pulmonary disease, unspecified; R47.1 Dysarthria and anarthria; E78.5 Hyperlipidemia, unspecified; Z03.818 Encounter for observation for suspected exposure to other biological agents ruled out
CPT/HCPCS: 36415; 70450; 70496; 70498; 70551; 71045; 76770; 80048; 80053; 80061; 81001; 82570; 82962; 83036; 83735; 83970; 84100; 84300; 84484; 85025; 85027; 85610; 85730; 87086; 93005; 93306; 93880; 94640; G0378; A9270-GY; J0360; J0696; J1644; J2405; J7030; Q9967; U0003-CS

== ENCOUNTER 2021-08-05 15:15 | Emergency (ER) | payer MEDICARE ==
[2021-08-05] MEDS ORDERED: ONDANSETRON 4 MG ODT TAB PO ONE (16:03)
--- NOTE | 2021-08-05 17:01 | XRay Report ---
CHEST 1 VIEW INDICATION / CLINICAL INFORMATION: SOB. COMPARISON: 07/20/2021 FINDINGS: SUPPORT DEVICES: Unchanged. HEART / MEDIASTINUM: No significant abnormality. LUNGS / PLEURA: No significant pulmonary or pleural abnormality. No pneumothorax. ADDITIONAL FINDINGS: No significant additional findings. IMPRESSION: 1. No acute findings. Signer Name: Boni Jaimes MD Signed: 08/05/2021 4:57 PM Workstation Name: [id number]
--- NOTE | 2021-08-05 17:53 | Emergency Department Report ---
ED General Adult HPI - General Chief complaint: Nausea/Vomiting/Diarrhea Time Seen by Provider: 08/05/21 15:59 Source: EMS Mode of arrival: Stretcher Limitations: Other - History of Present Illness Initial comments: nausea and vomiting during dialysis, hapenned before and he aspirated , -: Sudden Severity scale (0 -10): 0 Worsens with: none Treatments Prior to Arrival: none - Related Data Previous Rx's Medication Instructions Recorded Last Taken Type Gabapentin 300 mg PO BID #30 cap 03/25/17 Unknown Rx Metoprolol [Lopressor TAB] 100 mg PO BID tablet 01/23/20 Unknown Rx Epoetin Jaya-Epbx 10,000 Unit 10,000 unit SUB-Q FADI PRN vial 12/03/20 Unknown Rx [Retacrit] Magnesium Hydroxide [Milk of 30 ml PO Q4H PRN oral.liqd 12/03/20 Unknown Rx Magnesia] ALBUTEROL NEB's [Proventil 0.083% 2.5 mg IH Q6H PRN #50 nebu 12/11/20 Unknown Rx NEBS] Aspirin [Aspirin BABY CHEW TAB] 81 mg PO QDAY #100 tab.chew 12/11/20 Unknown Rx AtorvaSTATin [Lipitor] 40 mg PO QHS #30 tablet 12/11/20 Unknown Rx Pantoprazole [Protonix TAB] 40 mg PO QDAY #30 tablet 12/11/20 Unknown Rx Allergies Allergy/AdvReac Type Severity Reaction Status Date / Time No Known Allergies Allergy Verified 01/15/20 10:11 ED Review of Systems ROS: Stated complaint: Other details as noted in HPI Constitutional: denies: chills, fever Eyes: denies: eye pain, eye discharge, vision change ENT: denies: ear pain, throat pain Respiratory: denies: cough, shortness of breath, wheezing Cardiovascular: denies: chest pain, palpitations Endocrine: no symptoms reported Gastrointestinal: denies: abdominal pain, nausea, diarrhea Genitourinary: denies: urgency, dysuria Musculoskeletal: denies: back pain, joint swelling, arthralgia Skin: denies: rash, lesions Neurological: denies: headache, weakness, paresthesias Psychiatric: denies: anxiety, depression Hematological/Lymphatic: denies: easy bleeding, easy bruising ED Past Medical Hx - Past Medical History Hx Hypertension: Yes Hx CVA: Yes (x 3. L ANGELA cva 10/2016 R sided weakness) Hx Congestive Heart Failure: Yes Hx Diabetes: No Hx GERD: Yes Hx Renal Disease: Yes (renal insuf) Hx Arthritis: Yes (right hip) Hx Asthma: No Hx COPD: Yes Hx HIV: No Additional medical history: chronic back pain - Surgical History Additional Surgical History: "shoulder surgery" - Social History Smoking Status: Current Every Day Smoker - Medications Home Medications: Home Medications Medication Instructions Recorded Confirmed Last Taken Type Gabapentin 300 mg PO BID #30 cap 03/25/17 07/26/21 Unknown Rx Metoprolol [Lopressor TAB] 100 mg PO BID tablet 01/23/20 07/26/21 Unknown Rx Epoetin Jaya-Epbx 10,000 Unit 10,000 unit SUB-Q FADI PRN vial 12/03/20 07/26/21 Unknown Rx [Retacrit] Magnesium Hydroxide [Milk of 30 ml PO Q4H PRN oral.liqd 12/03/20 07/26/21 Unknown Rx Magnesia] ALBUTEROL NEB's [Proventil 0.083% 2.5 mg IH Q6H PRN #50 nebu 12/11/20 07/26/21 Unknown Rx NEBS] Aspirin [Aspirin BABY CHEW TAB] 81 mg PO QDAY #100 tab.chew 12/11/20 07/26/21 Unknown Rx AtorvaSTATin [Lipitor] 40 mg PO QHS #30 tablet 12/11/20 07/26/21 Unknown Rx Pantoprazole [Protonix TAB] 40 mg PO QDAY #30 tablet 12/11/20 07/26/21 Unknown Rx ED Physical Exam - General Limitations: Other General appearance: alert, in no apparent distress - Head Head exam: Present: atraumatic, normocephalic - Eye Eye exam: Present: normal appearance - ENT ENT exam: Present: mucous membranes moist - Neck Neck exam: Present: normal inspection - Respiratory Respiratory exam: Present: normal lung sounds bilaterally. Absent: respiratory distress - Cardiovascular Cardiovascular Exam: Present: regular rate, normal rhythm. Absent: systolic murmur, diastolic murmur, rubs, gallop - GI/Abdominal GI/Abdominal exam: Present: soft, normal bowel sounds - Rectal Rectal exam: Present: deferred - Extremities Exam Extremities exam: Present: normal inspection - Back Exam Back exam: Present: normal inspection - Neurological Exam Neurological exam: Present: alert, oriented X3 - Psychiatric Psychiatric exam: Present: normal affect, normal mood - Skin Skin exam: Present: warm, dry, intact, normal color. Absent: rash ED Course Vital Signs 08/05/21 15:17 Temperature 97.6 F Pulse Rate 91 H Respiratory 18 Rate Blood Pressure 138/76 [Left] O2 Sat by Pulse 95 Oximetry - Reevaluation(s) Reevaluation #1: 08/05/21 17:50 vss o2 sat 98 on ra no distress, zofran given no pneumonia on x ray Critical care attestation.: If time is entered above; I have spent that time in minutes in the direct care of this critically ill patient, excluding procedure time. ED Disposition Clinical Impression: Nausea and vomiting, End-stage renal disease needing dialysis Disposition: 01 HOME / SELF CARE / HOMELESS Is pt being admited?: No Does the pt Need Aspirin: No Condition: Stable Referrals: PRIMARY CARE, [Primary Care Provider] - 3-5 Days
[2021-08-06 02:48] VITALS: BP 130/72
== END 2021-08-06 03:47 ==
LOC: ED 15:15
DX: R11.2 Nausea with vomiting, unspecified (principal); I12.0 Hypertensive chronic kidney disease with stage 5 chronic kidney disease or end stage renal disease; N18.6 End stage renal disease; F17.200 Nicotine dependence, unspecified, uncomplicated
CPT/HCPCS: 71045; 99283